=== PATIENT | female | born 1960 | race Caucasian/White ===

== ENCOUNTER 2017-11-01 14:29 | Inpatient (IN) | payer MEDICARE, MEDICAID ==
[~2017-11-01] VITALS: Ht 157.5 cm; Wt 105.0 kg
[2017-11-01 15:30] LABS: BASO # 0.1 x10^3/uL (0.0-0.2); BASO % 1 % (0-3); EOS # 0.2 x10^3/uL (0.0-0.7); EOS % 2 % (0-3); HEMATOCRIT 38.8 % (36.0-47.0); HEMOGLOBIN 13.4 g/dL (12.0-15.5); LYMPH # 3.8 x10^3/uL (1.0-4.8); LYMPH % 46 % (24-48); MEAN CORPUSCULAR HEMOGLOBIN 32 pg (25-35); MEAN CORPUSCULAR HGB CONC 34 g/dL (31-37); MEAN CORPUSCULAR VOLUME 92 fL (79-100); MONO # 0.5 x10^3/uL (0.0-1.1); MONO % 6 % (0-9); NEUT # 3.8 x10^3uL (1.8-7.7); NEUT % 46 % (31-73); PLATELET COUNT 298 x10^3/uL (140-400); RED BLOOD COUNT 4.21 x10^6/uL (3.50-5.40); RED CELL DISTRIBUTION WIDTH 16.1 % (11.5-14.5); WHITE BLOOD COUNT 8.4 x10^3/uL (4.0-11.0)
[2017-11-01] MEDS ORDERED: IV DEXTROSE 5% - 0.9 % NACL 1,000 ML IV ONE (15:30)
[2017-11-01] MEDS ORDERED: ONDANSETRON PF 4 MG/2 ML VIAL. IV PRN (15:30)
[2017-11-01 15:44] LABS: ALBUMIN 3.2 g/dL (3.4-5.0); ALBUMIN/GLOBULIN RATIO 0.7 (1.0-1.7); CALCIUM 9.2 mg/dL (8.5-10.1); CREATININE 1.1 mg/dL (0.6-1.0); GFR 50.8; MAGNESIUM 1.6 mg/dL (1.8-2.4); POTASSIUM 4.8 mmol/L (3.5-5.1); TOTAL BILIRUBIN 0.4 mg/dL (0.2-1.0)
[2017-11-01 15:45] LABS: TOTAL PROTEIN 7.5 g/dL (6.4-8.2)
[2017-11-01] MEDS ORDERED: IV NORMAL SALINE 1,000ML 1,000 ML IV ONE (16:30)
--- NOTE | 2017-11-01 16:30 | ED.ADGEN ---
Past History Past Medical History: Anxiety, CVA, Diabetes Past Surgical History: No Surgical History Alcohol Use: None Drug Use: None Adult General Chief Complaint Chief Complaint Medical screening exam. [facility] Patient is a 57-year-old female history of diabetes, CVA and Parkinson's home [facility] presents for clearance for psychiatric . Patient currently denies any medical complaints. Has history of depression. Patient alert oriented person place on ED arrival. Additional history obtained from medical record.[] Review of Systems Review of Systems ROS as per [facility]. All other systems were reviewed and found to be within normal limits, except as documented in this note. Current Medications Current Medications Current Medications Medications (Trade) Dose Ordered Sig/Mohini Start Time Stop Time Status Last Admin Dose Admin Dextrose/Sodium Chloride 1,000 ml @ 75 mls/hr 1X ONCE 11/01/17 15:30 11/01/17 15:42 DC Lactulose (Lactulose) 45 gm QID 11/01/17 17:00 11/01/17 17:00 DC Ondansetron HCl (Zofran) 4 mg PRN Q4HRS PRN 11/01/17 15:30 11/01/17 15:37 DC Sodium Chloride 1,000 ml @ 1,000 mls/hr 1X ONCE 11/01/17 16:30 11/01/17 17:29 DC 11/01/17 17:43 1,000 MLS/HR Allergies Allergies Allergies Coded Allergies Type Severity Reaction Last Updated Verified Penicillins Allergy Unknown 11/01/17 Yes Physical Exam Physical Exam Constitutional: Well developed, well nourished, no acute distress, coarse resting tremors [] HENT: Normocephalic, atraumatic, bilateral external ears normal, oropharynx moist, no oral exudates, nose normal. [] Eyes: PERRLA, EOMI, conjunctiva normal, no discharge. [] Neck: Normal range of motion, no tenderness, supple, no stridor. [] Cardiovascular:Heart rate regular rhythm, no murmur [] Lungs & Thorax: Bilateral breath sounds clear to auscultation [] Abdomen: Bowel sounds normal, soft, no tenderness. [] Skin: Warm, dry, no erythema, no rash. [] Extremities: No tenderness, no cyanosis, no clubbing, pedal edema. [] Neurologic: Alert and oriented X 1, normal motor function, normal sensory function, no focal deficits noted. [] Psychologic: Affect, flat.[] Current Patient Data Vital Signs Vital Signs Date Time Temp Pulse Resp B/P (MAP) Pulse Ox O2 Delivery O2 Flow Rate FiO2 11/01/17 15:03 78 18 92 Room Air Lab Results Laboratory Tests Test 11/01/17 15:13 11/01/17 16:59 11/01/17 17:37 White Blood Count 8.4 x10^3/uL (4.0-11.0) Red Blood Count 4.21 x10^6/uL (3.50-5.40) Hemoglobin 13.4 g/dL (12.0-15.5) Hematocrit 38.8 % (36.0-47.0) Mean Corpuscular Volume 92 fL (79-100) Mean Corpuscular Hemoglobin 32 pg (25-35) Mean Corpuscular Hemoglobin Concent 34 g/dL (31-37) Red Cell Distribution Width 16.1 % (11.5-14.5) H Platelet Count 298 x10^3/uL (140-400) Neutrophils (%) (Auto) 46 % (31-73) Lymphocytes (%) (Auto) 46 % (24-48) Monocytes (%) (Auto) 6 % (0-9) Eosinophils (%) (Auto) 2 % (0-3) Basophils (%) (Auto) 1 % (0-3) Neutrophils # (Auto) 3.8 x10^3uL (1.8-7.7) Lymphocytes # (Auto) 3.8 x10^3/uL (1.0-4.8) Monocytes # (Auto) 0.5 x10^3/uL (0.0-1.1) Eosinophils # (Auto) 0.2 x10^3/uL (0.0-0.7) Basophils # (Auto) 0.1 x10^3/uL (0.0-0.2) Sodium Level 136 mmol/L (136-145) Potassium Level 4.8 mmol/L (3.5-5.1) Chloride Level 96 mmol/L (98-107) L Carbon Dioxide Level 33 mmol/L (21-32) H Anion Gap 7 (6-14) Blood Urea Nitrogen 27 mg/dL (7-20) H Creatinine 1.1 mg/dL (0.6-1.0) H Estimated GFR (Cockcroft-Gault) 50.8 BUN/Creatinine Ratio 25 (6-20) H Glucose Level 363 mg/dL (70-99) H Calcium Level 9.2 mg/dL (8.5-10.1) Magnesium Level 1.6 mg/dL (1.8-2.4) L Total Bilirubin 0.4 mg/dL (0.2-1.0) Aspartate Amino Transferase (AST) 63 U/L (15-37) H Alanine Aminotransferase (ALT) 11 U/L (14-59) L Alkaline Phosphatase 117 U/L (46-116) H Total Protein 7.5 g/dL (6.4-8.2) Albumin 3.2 g/dL (3.4-5.0) L Albumin/Globulin Ratio 0.7 (1.0-1.7) L Ethyl Alcohol Level < 10 mg/dL (0-10) Urine Collection Type Unknown Urine Color Straw Urine Clarity Cloudy Urine pH 7.0 Urine Specific [place] 1.015 Urine Protein Neg (NEG-TRACE) Urine Glucose (UA) 500 mg/dL (NEG) Urine Ketones (Stick) Neg mg/dL (NEG) Urine Blood Mod (NEG) Urine Nitrite Pos (NEG) Urine Bilirubin Neg (NEG) Urine Urobilinogen Dipstick 0.2 mg/dL (0.2 mg/dL) Urine Leukocyte Esterase Mod (NEG) Urine RBC 3-5 /HPF (0-2) Urine WBC 11-20 /HPF (0-4) Urine Squamous Epithelial Cells Occ /LPF Urine Bacteria Many /HPF (0-FEW) Glucose (Fingerstick) 402 mg/dL (70-99) H EKG EKG [EKG: Sinus rhythm, no acute ST-T wave changes on preliminary ED review] Radiology/Procedures Radiology/Procedures [] Course & Med Decision Making Course & Med Decision Making Pertinent Labs and Imaging studies reviewed. (See chart for details) [Clearance for psychiatric admission. Patient noted hyperglycemic and sufficiency. IV fluids given. Will admit to psychiatric unit with anticipated hospital consult for management of diabetes] Final Impression Final Impression [1. Medical evaluation for psychiatric evaluation 2. hyperglycemia] Dragon Disclaimer Dragon Disclaimer This electronic medical record was generated, in whole or in part, using a voice recognition dictation system. HONORIO RUIZ DO November 01, 2017 16:30
[2017-11-01] MEDS ORDERED: LACTULOSE 20 GM/30 ML SOLUTION. PO SCH (17:00)
--- NOTE | 2017-11-01 17:17 | EKG ---
[address] [address] Test Date: 2017-11-01 Test Time: 16:17:54 Pat Name: MARGA WALLS Department: Room: Gender: F Manager Star: TONYA : 1960 Requested By: HONORIO RUIZ Order Number: [id number] Reading MD: Measurements Intervals [place] Rate: 91 P: 29 TX: 138 QRS: 14 QRSD: 74 T: 28 QT: 372 QTc: 459 Interpretive Statements SINUS RHYTHM QRS(T) CONTOUR ABNORMALITY CONSIDER INFERIOR MYOCARDIAL DAMAGE POSSIBLY ABNORMAL ECG RI6.01 No previous ECG available for comparison
[2017-11-01] MEDS ORDERED: HYDR-971 PO ×2 (17:31→23:02)
[2017-11-01] MEDS ORDERED: DIVA250T PO (17:31)
[2017-11-01] MEDS ORDERED: VITS42.55 TP (17:31)
[2017-11-01] MEDS ORDERED: TRAV5DRO OU (17:31)
[2017-11-01] MEDS ORDERED: TROL177. TP (17:31)
[2017-11-01] MEDS ORDERED: MULT-460 PO (17:31)
[2017-11-01] MEDS ORDERED: CARB1TAB2 PO (17:31)
[2017-11-01] MEDS ORDERED: CICL6.6S TP (17:31)
[2017-11-01] MEDS ORDERED: SENN-79 PO (17:31)
[2017-11-01] MEDS ORDERED: POTA20TA4 PO (17:31)
[2017-11-01] MEDS ORDERED: LISI2.5T PO (17:31)
[2017-11-01] MEDS ORDERED: INSU100I30 SQ (17:31)
[2017-11-01] MEDS ORDERED: MELA3TAB2 PO (17:31)
[2017-11-01] MEDS ORDERED: CHOL100013 PO (17:31)
[2017-11-01] MEDS ORDERED: GABA-585 PO (17:31)
[2017-11-01] MEDS ORDERED: INSU100C4 SQ (17:31)
[2017-11-01 17:42] LABS: BILIRUBIN,URINE NEG (NEG); CLARITY,URINE CLOUDY; COLOR,URINE STRAW; GLUCOSE,URINE 500 mg/dL (NEG)
[2017-11-01 17:43] LABS: BACTERIA,URINE MANY /HPF (0-FEW); BARBITURATES NEG (NEG); BENZODIAZEPINES NEG (NEG); CANNABINOIDS NEG (NEG); COCAINE NEG (NEG); METHADONE NEG (NEG); NITRITE,URINE POS (NEG); OPIATES POS (NEG); PHENCYCLIDINE NEG (NEG); SQUAMOUS EPITHELIAL CELL,UR OCC /LPF; UROBILINOGEN,URINE 0.2 mg/dL (0.2 mg/dL)
[2017-11-01 17:55] LABS: AMPHETAMINE/METHAMPHETAMINE NEG (NEG)
[2017-11-01 20:06] VITALS: BP 142/53
--- NOTE | 2017-11-01 20:09 | PDOC ---
Exam Note: Miguel A Note: Please also refer to the separate dictated note~for this date of service dictated separately.~Patient seen individually. Discussed the patient with Nursing staff reviewed the chart.~Reviewed interim history and current functioning. Reviewed vital signs,~Labs/ Radiology~and current medications noted below. Continue current treatment with the changes noted in the dictated addendum note Assessment: Vital Signs: Vital Signs Date Time Temp Pulse Resp B/P (MAP) Pulse Ox O2 Delivery O2 Flow Rate FiO2 11/01/17 20:06 99.2 79 20 142/53 (82) 92 11/01/17 18:02 Room Air Labs: Laboratory Tests Test 11/01/17 15:13 11/01/17 16:59 11/01/17 17:37 11/01/17 18:26 White Blood Count 8.4 x10^3/uL (4.0-11.0) Red Blood Count 4.21 x10^6/uL (3.50-5.40) Hemoglobin 13.4 g/dL (12.0-15.5) Hematocrit 38.8 % (36.0-47.0) Mean Corpuscular Volume 92 fL (79-100) Mean Corpuscular Hemoglobin 32 pg (25-35) Mean Corpuscular Hemoglobin Concent 34 g/dL (31-37) Red Cell Distribution Width 16.1 % (11.5-14.5) H Platelet Count 298 x10^3/uL (140-400) Neutrophils (%) (Auto) 46 % (31-73) Lymphocytes (%) (Auto) 46 % (24-48) Monocytes (%) (Auto) 6 % (0-9) Eosinophils (%) (Auto) 2 % (0-3) Basophils (%) (Auto) 1 % (0-3) Neutrophils # (Auto) 3.8 x10^3uL (1.8-7.7) Lymphocytes # (Auto) 3.8 x10^3/uL (1.0-4.8) Monocytes # (Auto) 0.5 x10^3/uL (0.0-1.1) Eosinophils # (Auto) 0.2 x10^3/uL (0.0-0.7) Basophils # (Auto) 0.1 x10^3/uL (0.0-0.2) Sodium Level 136 mmol/L (136-145) Potassium Level 4.8 mmol/L (3.5-5.1) Chloride Level 96 mmol/L (98-107) L Carbon Dioxide Level 33 mmol/L (21-32) H Anion Gap 7 (6-14) Blood Urea Nitrogen 27 mg/dL (7-20) H Creatinine 1.1 mg/dL (0.6-1.0) H Estimated GFR (Cockcroft-Gault) 50.8 BUN/Creatinine Ratio 25 (6-20) H Glucose Level 363 mg/dL (70-99) H Calcium Level 9.2 mg/dL (8.5-10.1) Magnesium Level 1.6 mg/dL (1.8-2.4) L Total Bilirubin 0.4 mg/dL (0.2-1.0) Aspartate Amino Transferase (AST) 63 U/L (15-37) H Alanine Aminotransferase (ALT) 11 U/L (14-59) L Alkaline Phosphatase 117 U/L (46-116) H Total Protein 7.5 g/dL (6.4-8.2) Albumin 3.2 g/dL (3.4-5.0) L Albumin/Globulin Ratio 0.7 (1.0-1.7) L Ethyl Alcohol Level < 10 mg/dL (0-10) Urine Collection Type Unknown Urine Color Straw Urine Clarity Cloudy Urine pH 7.0 Urine Specific [place] 1.015 Urine Protein Neg (NEG-TRACE) Urine Glucose (UA) 500 mg/dL (NEG) Urine Ketones (Stick) Neg mg/dL (NEG) Urine Blood Mod (NEG) Urine Nitrite Pos (NEG) Urine Bilirubin Neg (NEG) Urine Urobilinogen Dipstick 0.2 mg/dL (0.2 mg/dL) Urine Leukocyte Esterase Mod (NEG) Urine RBC 3-5 /HPF (0-2) Urine WBC 11-20 /HPF (0-4) Urine Squamous Epithelial Cells Occ /LPF Urine Bacteria Many /HPF (0-FEW) Urine Opiates Screen Pos (NEG) Urine Methadone Screen Neg (NEG) Urine Barbiturates Neg (NEG) Urine Phencyclidine Screen Neg (NEG) Urine Amphetamine/Methamphetamine Neg (NEG) Urine Benzodiazepines Screen Neg (NEG) Urine Cocaine Screen Neg (NEG) Urine Cannabinoids Screen Neg (NEG) Urine Ethyl Alcohol Neg (NEG) Glucose (Fingerstick) 402 mg/dL (70-99) H 376 mg/dL (70-99) H Current Medications: Meds: Current Medications Ondansetron HCl (Zofran) 4 mg PRN Q4HRS PRN IV NAUSEA/VOMITING; Start 11/01/17 at 15:30; Stop 11/01/17 at 15:37; Status DC Lactulose (Lactulose) 45 gm QID PO ; Start 11/01/17 at 17:00; Stop 11/01/17 at 17:00; Status DC Dextrose/Sodium Chloride 1,000 ml @ 75 mls/hr 1X ONCE IV ; Start 11/01/17 at 15:30; Stop 11/01/17 at 15:42; Status DC Sodium Chloride 1,000 ml @ 1,000 mls/hr 1X ONCE IV Last administered on at 17:43; Start 11/01/17 at 16:30; Stop 11/01/17 at 17:29; Status DC Active Scripts Active Reported [place] 5-325 Tablet (Hydrocodone Bit/Acetaminophen) 1 Each Tablet 1 Tab PO [id number] PRN Sinemet 25-100 Mg Tablet (Carbidopa/Levodopa) 1 Each Tablet 1 Each PO [id number] Gabapentin 100 Mg Capsule 100 Mg PO TID Depakote Er (Divalproex Sodium) 250 Mg Tab.er.24h 750 Mg PO BID Vitamin D (Cholecalciferol (Vitamin D3)) 1,000 Unit Capsule 5,000 Unit PO DAILY Travatan Z (Travoprost) 5 Ml Drops 1 Drop OU QHS Senna (Sennosides) 8.6 Mg Tablet 2 Tab PO DAILY Klor-Con M20 (Potassium Chloride) 20 Meq Tab.er.prt 20 Meq PO DAILY Multiple Vitamin (Multivitamin With Minerals) 1 Each Tablet 1 Each PO DAILY Melatonin 3 Mg Tablet 6 Mg PO HS Lisinopril 2.5 Mg Tablet 2.5 Mg PO DAILY Novolog (Insulin Aspart) 100 Unit/1 Ml Cartridge 40 Unit SQ TIDAC A and D Ointment (Vits A and D/White Pet/Lanolin) 42.5 Gm Oint...g. 1 Applic TP TID Tresiba Flextouch U-100 (Insulin Degludec) 100 Unit/1 Ml Insuln.pen 65 Unit SQ BID Penlac (Ciclopirox) 6.6 Ml Solution 1 Applic TP WEEKLYHS PRN Aspercreme (Trolamine Salicylate) 177.4 Ml Lotion 1 Renetta TP HS I have reviewed the current psychotropics carefully including drug interactions. Risk benefit ratio favors no change other than as noted in my dictated progress note. Diagnosis: Problems: (1) Anxiety disorder (2) Bipolar affective, mixed, sev w/ psych (3) Impulse control disorder CHINO JOHNS MD November 01, 2017 20:09
[2017-11-01] MEDS ORDERED: MAG HYDROX/AL HYDROX/SIMETH 30 ML ORAL.SUSP PO PRN (20:15)
[2017-11-01] MEDS ORDERED: MAGNESIUM HYDROXIDE 2,400 MG/30 ML ORAL.SUSP. PO PRN (20:15)
[2017-11-01] MEDS ORDERED: ACETAMINOPHEN 325 MG TABLET PO PRN (20:15)
[2017-11-01] MEDS ORDERED: METHYL SALICYLATE/MENTHOL TOPICAL OINTMENT 29GM TUBE. TP PRN (20:15)
--- NOTE | 2017-11-01 20:33 | HP ---
ADMIT DATE: 11/01/2017 PSYCHIATRIC ADMISSION HISTORY/EVALUATION This note covers elements not covered in my initial note 11/01/2017. IDENTIFYING DATA: The patient is a 57-year-old female referred to us from [facility] by Dr. Devin Marrero, her primary care physician and Dr. Laya Rush, her psychiatrist on account of increased aggressive behaviors towards staff. She has been yelling out, making allegations of abuse, hitting herself, repetitive calling out, attempting to physically attack staff and using racial slurs, being manipulative. Symptoms have worsened for about 2 weeks within the context of her bipolar disorder mixed with psychotic features. She has failed outpatient psychiatric interventions resulting in this referral. I met with the patient the evening of 11/01/2017. Discussed with nursing staff, previously had discussed with staff on 2 or 3 occasions to gather background historical information from the halfway. CHIEF COMPLAINT: "I have bipolar disorder. I was diagnosed when I was about 28 years old. I have been in [facility] for about 3 years. Before that I was at the halfway in [place]. I think my bipolar has been getting worse in the last 2-3 weeks and that is why I have been doing what I have been doing." HISTORY OF PRESENT ILLNESS: The patient relates a history of bipolar disorder starting in her 30s with periods of elation, racing thoughts, alternating with being depressed. She admits to getting psychotic, agitated, sleep and appetite changes. All of which have been resurfacing recently over the past 1 or 2 weeks. No active suicidal or homicidal ideation. Cognitively, she is reasonably intact, but does have marked anxiety and some obsessiveness. PAST PSYCHIATRIC HISTORY: As above. MEDICAL HISTORY: Status post CVA, diabetes mellitus, chronic pain, and COPD. She has a Lacey lift, has limited mobility, Parkinson's disease, dysphagia, foot drop, glaucoma. ALLERGIES: PENICILLIN. DIET: Mechanical soft. CURRENT PSYCHOTROPICS: Abilify mg at bedtime, Depakote 750 mg b.i.d., Lexapro 10 mg a day, melatonin 3 mg at bedtime, trazodone 100 mg at bedtime. FAMILY HISTORY: Positive for bipolar disorder. Alcohol abuse in both biological parents according to the patient. The patient states she has 1 daughter and believes this daughter has bipolar disorder as well, though the daughter is not willing to accept it. SOCIAL HISTORY: No history of alcohol, drug abuse, physical, sexual or elder abuse history is noted. Not known to be a perpetrator. As noted, she has 1 daughter who lives in [place], [place], has no contact with the patient. MENTAL STATUS EXAM: The patient was seen individually evening of 11/01/2017. She is big built, transfers with Lacey lift. She has some mouth movements, well oriented. Speech is coherent. Thought processes goal directed. Intellect average. She appears somewhat paranoid, anxious, distractable. No active suicidal or homicidal ideation. Intellect average. Insight age appropriate. Judgment intact to standard questioning. ASSETS: Supportive placement at the halfway. REACTION TO HOSPITALIZATION: The patient accepting of it. MENTAL STATUS EXAM: The patient was seen individually evening of 11/01/2017. She is well oriented, able to give me a coherent history. Speech otherwise coherent, at times somewhat rapid. Abstraction fair, computation somewhat impaired. Attention span short. Language function intact. No suicidal or homicidal ideation. She is paranoid, suspicious, somewhat labile. Mood and affect is mood congruent. IMPRESSION: Bipolar 1 disorder, mixed with psychotic features; anxiety disorder, unspecified; impulse control disorder, unspecified. Rest as above. PLAN: Admit to geropsychiatry unit at [facility]. I will see the patient daily individually from a psychiatric standpoint, medical followup per Dr. Marcus/Dr Bob. Continue the patient on her current psychotropics. Check a valproic acid level. Adjust further as clinically indicated, post baseline assessment. MAN Richard JOHNS MD DR: GLENN/cory JOB#: [id number] / [id number]
[2017-11-01] MEDS ORDERED: ENOXAPARIN 40 MG/0.4 ML SYRINGE. SQ SCH (21:00)
[2017-11-01] MEDS ORDERED: ATORVASTATIN CA80 MG PO (23:02)
[2017-11-01] MEDS ORDERED: OMEG-33 PO (23:02)
[2017-11-01] MEDS ORDERED: GLUC1KIT IJ (23:02)
[2017-11-01] MEDS ORDERED: CYCL-331 PO (23:02)
[2017-11-01] MEDS ORDERED: LOPE2CAP88 PO (23:02)
[2017-11-01] MEDS ORDERED: TRAZ-90 PO (23:02)
[2017-11-01] MEDS ORDERED: IBUP100O25 PO (23:02)
[2017-11-01] MEDS ORDERED: ARIP15TA36 PO (23:02)
[2017-11-01] MEDS ORDERED: TROL85CR14 TP (23:02)
[2017-11-01] MEDS ORDERED: LEXAPRO10 MG PO (23:02)
[2017-11-01] MEDS ORDERED: LEVO300T4 PO (23:02)
[2017-11-01] MEDS ORDERED: LEVO200T5 PO (23:02)
[2017-11-01] MEDS ORDERED: FENO200C PO (23:02)
[2017-11-01] MEDS ORDERED: FURO-69 PO (23:02)
[2017-11-01] MEDS ORDERED: TROLAMINE SALICYLATE 10% TOPICAL CREAM 85GM JAR. TP PRN (23:15)
[2017-11-01] MEDS ORDERED: LOPERAMIDE HCL 2 MG PO PRN (23:15)
[2017-11-01] MEDS ORDERED: IBUPROFEN 200 MG PO PRN (23:15)
[2017-11-01] MEDS ORDERED: HYDROCODONE BIT PO PRN ×2 (23:15)
[2017-11-01] MEDS ORDERED: CYCLOBENZAPRINE 10MG 4TABLET STARTPACK PO PRN (23:15)
[2017-11-01] MEDS ORDERED: NON FORMULARY ITEM (Glucagon,Human Recombinant (Glucagon Emergency Kit) 1 MG) IJ PRN (23:15)
[2017-11-01] MEDS ORDERED: ACETAMINOPHEN PO PRN ×2 (23:15)
[2017-11-01] MEDS ORDERED: CICLOPIROX TP PRN (23:15)
[2017-11-01] MEDS ORDERED: TRAZODONE HCL 100 MG PO PRN (23:15)
[2017-11-02] MEDS ORDERED: MELA3TAB2 PO (00:37)
[2017-11-02] MEDS ORDERED: traZODone 100 MG TABLET. PO PRN (01:00)
[2017-11-02] MEDS ORDERED: TROLAMINE SALICYLATE 10% TOPICAL CREAM 85GM JAR. TP PRN (01:15)
[2017-11-02] MEDS ORDERED: LOPERAMIDE 2 MG CAPSULE PO PRN (01:15)
[2017-11-02] MEDS ORDERED: CYCLOBENZAPRINE 10 MG TABLET. PO PRN (01:15)
[2017-11-02] MEDS ORDERED: IBUPROFEN 200 MG TABLET PO PRN (01:15)
[2017-11-02] MEDS ORDERED: GLUCAGON,HUMAN RECOMBINANT 1 MG KIT. IM PRN (01:15)
[2017-11-02] MEDS: HYDROcodone/APAP 5/325MG 1 TAB TABLET PO PRN (02:45)
[2017-11-02] MEDS: LEVOTHYROXINE 100 MCG TABLET PO SCH ×2 (06:00→07:59)
[2017-11-02] MEDS ORDERED: CARBIDOPA/LEVODOPA 25/100MG TABLET PO SCH (07:00)
[2017-11-02] MEDS ORDERED: NON FORMULARY ITEM (Levothyroxine Sodium 200 MCG) PO SCH (07:30)
[2017-11-02] MEDS ORDERED: INSULIN ASPART 40 UNIT SQ SCH (07:30)
[2017-11-02 07:46] LABS: BASO # 0.1 x10^3/uL (0.0-0.2); BASO % 1 % (0-3); EOS # 0.1 x10^3/uL (0.0-0.7); EOS % 1 % (0-3); HEMATOCRIT 35.5 % (36.0-47.0); LYMPH # 3.6 x10^3/uL (1.0-4.8); LYMPH % 44 % (24-48); MEAN CORPUSCULAR HEMOGLOBIN 32 pg (25-35); MEAN CORPUSCULAR HGB CONC 34 g/dL (31-37); MEAN CORPUSCULAR VOLUME 94 fL (79-100); MONO # 0.6 x10^3/uL (0.0-1.1); MONO % 8 % (0-9); NEUT # 3.7 x10^3uL (1.8-7.7); NEUT % 46 % (31-73); PLATELET COUNT 274 x10^3/uL (140-400); RED CELL DISTRIBUTION WIDTH 16.3 % (11.5-14.5); WHITE BLOOD COUNT 8.1 x10^3/uL (4.0-11.0)
[2017-11-02] MEDS: OMEGA-3 FATTY ACIDS/FISH OIL 1,000 MG CAPSULE. PO SCH ×2 (07:56→11:24)
[2017-11-02] MEDS: ENOXAPARIN 40 MG/0.4 ML SYRINGE. SQ SCH ×2 (07:56→11:23)
[2017-11-02] MEDS: POTASSIUM CHLORIDE 20 MEQ TABLET.ER. PO SCH ×2 (07:57→11:26)
[2017-11-02] MEDS: LISINOPRIL 2.5 MG TABLET PO SCH ×2 (07:57→11:25)
[2017-11-02] MEDS: ARIPiprazole 15 MG TABLET PO SCH ×2 (07:57→11:24)
[2017-11-02] MEDS: FUROSEMIDE 20 MG TABLET PO SCH ×2 (07:58→11:23)
[2017-11-02] MEDS: SENNOSIDES/DOCUSATE 8.6/50MG TABLET. PO SCH ×2 (07:58→11:24)
[2017-11-02] MEDS: GABAPENTIN 100 MG CAPSULE. PO SCH ×3 (07:58→20:43)
[2017-11-02] MEDS: MULTIVITAMIN with MINERAL TABLET. PO SCH ×2 (07:58→11:25)
[2017-11-02] MEDS: CITALOPRAM 20 MG TABLET. PO SCH ×2 (07:59→11:25)
[2017-11-02] MEDS: CARBIDOPA/LEVODOPA 25/100MG TABLET PO SCH ×4 (08:00→20:43)
[2017-11-02] MEDS: CHOLECALCIFEROL (VITAMIN D3) 1,000 UNIT TABLET PO SCH ×2 (08:00→11:26)
[2017-11-02] MEDS: DIVALPROEX SODIUM 250 MG TABLET.DR. PO SCH ×3 (08:00→20:44)
[2017-11-02 08:57] LABS: ALBUMIN/GLOBULIN RATIO 0.8 (1.0-1.7); CALCIUM 9.6 mg/dL (8.5-10.1); CREATININE 1.2 mg/dL (0.6-1.0); POTASSIUM 4.6 mmol/L (3.5-5.1); TOTAL BILIRUBIN 0.3 mg/dL (0.2-1.0); TOTAL PROTEIN 6.9 g/dL (6.4-8.2)
[2017-11-02 08:58] LABS: MAGNESIUM 1.9 mg/dL (1.8-2.4); VAL ACID 17 mcg/mL (50-100)
[2017-11-02] MEDS ORDERED: VITS A & D/LANOLIN TOPICAL OINTMENT 56GM TUBE. TP SCH (09:00)
[2017-11-02] MEDS ORDERED: OMEGA PO SCH (09:00)
[2017-11-02] MEDS ORDERED: GABAPENTIN 100 MG CAPSULE. PO SCH (09:00)
[2017-11-02] MEDS ORDERED: POTASSIUM CHLORIDE 20 MEQ TABLET.ER. PO SCH (09:00)
[2017-11-02] MEDS ORDERED: FUROSEMIDE 20 MG TABLET PO SCH (09:00)
[2017-11-02] MEDS ORDERED: INSULIN DEGLUDEC 65 UNIT SQ SCH (09:00)
[2017-11-02] MEDS ORDERED: FATTY ACIDS PO SCH (09:00)
[2017-11-02] MEDS ORDERED: FISH OIL PO SCH (09:00)
[2017-11-02] MEDS ORDERED: NON FORMULARY ITEM (Lisinopril 2.5 MG) PO SCH (09:00)
[2017-11-02] MEDS ORDERED: NON FORMULARY ITEM (Multivitamin With Minerals (Multiple Vitamin) 1 EACH) PO SCH (09:00)
[2017-11-02] MEDS ORDERED: LEVOTHYROXINE 100 MCG TABLET PO SCH ×2 (09:00)
[2017-11-02] MEDS ORDERED: FENOFIBRATE MICRONIZED 200 MG PO SCH (09:00)
[2017-11-02] MEDS ORDERED: NICOTINE 7MG PATCH. TD SCH (09:00)
[2017-11-02] MEDS ORDERED: ESCITALOPRAM OXALATE 10 MG PO SCH (09:00)
[2017-11-02] MEDS ORDERED: CHOLECALCIFEROL 5000 UNIT PO SCH (09:00)
[2017-11-02] MEDS ORDERED: DIVALPROEX SODIUM 750 MG PO SCH (09:00)
[2017-11-02] MEDS ORDERED: SENNOSIDES PO SCH (09:00)
[2017-11-02] MEDS: INSULIN LISPRO 300 UNITS/3 ML INSULN.PEN. SQ SCH ×3 (09:50→16:30)
[2017-11-02] MEDS: INSULIN GLARGINE 300 UNITS/3 ML INSULN.PEN. SQ SCH ×2 (09:51→20:48)
[2017-11-02] MEDS: HYDROcodone/APAP 5/325MG 1 TAB TABLET PO SCH ×4 (11:28→20:53)
[2017-11-02 11:48] LABS: TRIGLYCERIDES 1066 mg/dL (0-150); VLDLC 213 mg/dL (0-40)
[2017-11-02 11:49] LABS: THYROID STIM HORMONE (TSH) 4.656 uIU/mL (0.358-3.740)
[2017-11-02 13:09] LABS: T3 TOTAL 68 ng/dL (71-180); THYROXINE 7.9 ug/dL (4.5-12.0)
[2017-11-02 16:07] LABS: HEMOGLOBIN A1C 8.7 % (4.8-5.6)
[2017-11-02 16:33] VITALS: BP 136/52
[2017-11-02] MEDS ORDERED: ARIPIPRAZOLE 15 MG PO SCH (18:00)
[2017-11-02] MEDS: LATANOPROST 0.005% OPHTH SOLUTION 2.5ML BOTTLE. OU SCH (20:43)
[2017-11-02] MEDS: MELATONIN 3 MG TABLET PO SCH (20:52)
[2017-11-02] MEDS: TROLAMINE SALICYLATE 10% TOPICAL CREAM 85GM JAR. TP SCH (20:53)
[2017-11-02] MEDS: ATORVASTATIN CALCIUM 20 MG TABLET PO SCH (20:53)
[2017-11-02] MEDS: CICLOPIROX 0.77% TOPICAL CREAM 15GM TUBE. TP SCH (20:53)
[2017-11-02] MEDS ORDERED: NON FORMULARY ITEM (Atorvastatin Calcium 80 MG) PO SCH (21:00)
[2017-11-02] MEDS ORDERED: TRAVOPROST OU SCH (21:00)
[2017-11-02] MEDS ORDERED: TROLAMINE SALICYLATE TP SCH (21:00)
[2017-11-02] MEDS ORDERED: NON FORMULARY ITEM (Melatonin 6 MG) PO SCH (21:00)
--- NOTE | 2017-11-02 22:41 | PDOC ---
Exam Note: Miguel A Note: Late entry for date of service November 01, 2017. Please also refer to the separate dictated note~for this date of service dictated separately.~Patient seen individually. Discussed the patient with Nursing staff reviewed the chart.~ Reviewed interim history and current functioning. Reviewed vital signs,~Labs/ Radiology~and current medications noted below. Continue current treatment with the changes noted in the dictated addendum note Assessment: Vital Signs: VS - Last 72 Hours, by Label Date Time Temp Pulse Resp B/P (MAP) Pulse Ox O2 Delivery O2 Flow Rate FiO2 11/02/17 16:33 97.6 87 16 136/52 (80) 92 11/02/17 11:25 79 142/53 11/02/17 07:57 79 142/53 11/02/17 04:10 20 11/02/17 02:45 18 11/01/17 20:06 99.2 79 20 142/53 (82) 92 11/01/17 18:02 81 18 110/57 (74) 97 Room Air 11/01/17 15:03 78 18 92 Room Air Vital Signs Date Time Temp Pulse Resp B/P (MAP) Pulse Ox O2 Delivery O2 Flow Rate FiO2 11/02/17 16:33 97.6 87 16 136/52 (80) 92 11/01/17 18:02 Room Air I&O Intake and Output 11/02/17 07:00 Intake Total 1240 ml Balance 1240 ml Intake Oral 240 ml IV Total 1000 ml # Voids 2 Labs: Laboratory Tests Test 11/02/17 06:38 11/02/17 08:00 11/02/17 12:26 11/02/17 16:49 White Blood Count 8.1 x10^3/uL (4.0-11.0) Red Blood Count 3.80 x10^6/uL (3.50-5.40) Hemoglobin 12.0 g/dL (12.0-15.5) Hematocrit 35.5 % (36.0-47.0) L Mean Corpuscular Volume 94 fL (79-100) Mean Corpuscular Hemoglobin 32 pg (25-35) Mean Corpuscular Hemoglobin Concent 34 g/dL (31-37) Red Cell Distribution Width 16.3 % (11.5-14.5) H Platelet Count 274 x10^3/uL (140-400) Neutrophils (%) (Auto) 46 % (31-73) Lymphocytes (%) (Auto) 44 % (24-48) Monocytes (%) (Auto) 8 % (0-9) Eosinophils (%) (Auto) 1 % (0-3) Basophils (%) (Auto) 1 % (0-3) Neutrophils # (Auto) 3.7 x10^3uL (1.8-7.7) Lymphocytes # (Auto) 3.6 x10^3/uL (1.0-4.8) Monocytes # (Auto) 0.6 x10^3/uL (0.0-1.1) Eosinophils # (Auto) 0.1 x10^3/uL (0.0-0.7) Basophils # (Auto) 0.1 x10^3/uL (0.0-0.2) Sodium Level 137 mmol/L (136-145) Potassium Level 4.6 mmol/L (3.5-5.1) Chloride Level 98 mmol/L (98-107) Carbon Dioxide Level 32 mmol/L (21-32) Anion Gap 7 (6-14) Blood Urea Nitrogen 29 mg/dL (7-20) H Creatinine 1.2 mg/dL (0.6-1.0) H Estimated GFR (Cockcroft-Gault) 46.0 BUN/Creatinine Ratio 24 (6-20) H Glucose Level 413 mg/dL (70-99) H Hemoglobin A1c 8.7 % (4.8-5.6) H Calcium Level 9.6 mg/dL (8.5-10.1) Magnesium Level 1.9 mg/dL (1.8-2.4) Iron Level 69 ug/dL (50-170) Total Iron Binding Capacity 404 ug/dL (250-450) Iron Saturation 17 % (15-34) Total Bilirubin 0.3 mg/dL (0.2-1.0) Aspartate Amino Transferase (AST) 38 U/L (15-37) H Alanine Aminotransferase (ALT) 31 U/L (14-59) Alkaline Phosphatase 127 U/L (46-116) H Total Protein 6.9 g/dL (6.4-8.2) Albumin 3.0 g/dL (3.4-5.0) L Albumin/Globulin Ratio 0.8 (1.0-1.7) L Triglycerides Level 1066 mg/dL (0-150) H Cholesterol Level 187 mg/dL (0-200) LDL Cholesterol, Calculated mg/dL (0-100) VLDL Cholesterol, Calculated 213 mg/dL (0-40) H Non-HDL Cholesterol Calculated mg/dL (0-129) HDL Cholesterol mg/dL (40-60) Cholesterol/HDL Ratio Thyroid Stimulating Hormone (TSH) 4.656 uIU/mL (0.358-3.740) Thyroxine (T4) 7.9 ug/dL (4.5-12.0) Total Triiodothyronine (TT3) 68 ng/dL (71-180) L Valproic Acid Level 17 mcg/mL (50-100) L Valproic Acid Last Dose Date 11/01/17 Valproic Acid Last Dose Time 2100 Rapid Plasma Reagin Pending Glucose (Fingerstick) 402 mg/dL (70-99) H 222 mg/dL (70-99) H 136 mg/dL (70-99) H Test 11/02/17 19:46 Glucose (Fingerstick) 90 mg/dL (70-99) Current Medications: Meds: Current Medications Ondansetron HCl (Zofran) 4 mg PRN Q4HRS PRN IV NAUSEA/VOMITING; Start 11/01/17 at 15:30; Stop 11/01/17 at 15:37; Status DC Lactulose (Lactulose) 45 gm QID PO ; Start 11/01/17 at 17:00; Stop 11/01/17 at 17:00; Status DC Dextrose/Sodium Chloride 1,000 ml @ 75 mls/hr 1X ONCE IV ; Start 11/01/17 at 15:30; Stop 11/01/17 at 15:42; Status DC Sodium Chloride 1,000 ml @ 1,000 mls/hr 1X ONCE IV Last administered on at 17:43; Start 11/01/17 at 16:30; Stop 11/01/17 at 17:29; Status DC Acetaminophen (Tylenol) 650 mg PRN Q6HRS PRN PO PAIN / TEMP; Start 11/01/17 at 20:15 Multi-Ingredient Ointment (Analgesic Abiquiu) 1 renetta PRN QID PRN TP MUSCLE PAIN; Start 11/01/17 at 20:15 Al Hydroxide/Mg Hydroxide (Mylanta Plus Xs) 15 ml PRN AFTMEALHC PRN PO DYSPEPSIA; Start 11/01/17 at 20:15 Magnesium Hydroxide (Milk Of Magnesia) 2,400 mg PRN QHS PRN PO CONSTIPATION; Start 11/01/17 at 20:15 Nicotine (Nicoderm Cq 7mg) 1 patch DAILY TD ; Start 11/02/17 at 09:00; Stop at 09:00; Status DC Enoxaparin Sodium (Lovenox 40mg Syringe) 40 mg Q24H SQ ; Start 11/01/17 at 21:00 ; Stop 11/02/17 at 00:43; Status DC Non-Formulary Medication (Aripiprazole (Abilify)) 15 mg DAILY@1800 PO ; Start at 18:00; Stop 11/02/17 at 18:00; Status DC Non-Formulary Medication (Divalproex Sodium (Depakote Er)) 750 mg BID PO ; Start 11/02/17 at 09:00; Stop 11/02/17 at 09:00; Status DC Non-Formulary Medication (Escitalopram Oxalate (Lexapro)) 10 mg DAILY PO ; Start 11/02/17 at 09:00; Stop 11/02/17 at 09:00; Status DC Non-Formulary Medication (Melatonin ) 6 mg HS PO ; Start 11/02/17 at 21:00; Stop 11/02/17 at 21:00; Status DC Non-Formulary Medication (Trazodone Hcl ) 100 mg PRN QHS PRN PO INSOMNIA; Start 11/01/17 at 23:15; Stop 11/02/17 at 00:43; Status DC Carbidopa/Levodopa (Sinemet 25/100) 1 tab [id number] PO ; Start 11/02/17 at 07:00; Stop 11/02/17 at 07:00; Status DC Cyclobenzaprine HCl (Starter Pack - Flexeril 10mg) 10 startpack PRN Q8HRS PRN PO PAIN; Start 11/01/17 at 23:15; Stop 11/02/17 at 00:43; Status DC Furosemide (Lasix) 20 mg DAILY PO ; Start 11/02/17 at 09:00; Stop 11/02/17 at 09 :00; Status DC Gabapentin (Neurontin) 100 mg TID PO ; Start 11/02/17 at 09:00; Stop 11/02/17 at 09:00; Status DC Potassium Chloride (Klor-Con) 20 meq DAILY PO ; Start 11/02/17 at 09:00; Stop at 09:00; Status DC Trolamine Salicylate (Myoplex) 85 renetta PRN Q4HRS PRN TP PAIN; Start 11/01/17 at 23:15; Stop 11/02/17 at 00:43; Status DC Vitamin A/Vitamin D (Vitamin A & D Ointment) 1 renetta TID TP ; Start 11/02/17 at 09 :00; Stop 11/02/17 at 09:00; Status DC Non-Formulary Medication (Atorvastatin Calcium ) 80 mg QHS PO ; Start 11/02/17 at 21:00; Stop 11/02/17 at 21:00; Status DC Non-Formulary Medication (Cholecalciferol (Vitamin D3) (Vitamin D)) 5,000 unit DAILY PO ; Start 11/02/17 at 09:00; Stop 11/02/17 at 09:00; Status DC Non-Formulary Medication (Ciclopirox (Penlac)) 1 applic WEEKLYHS PRN TP nail fungus; Start 11/01/17 at 23:15; Stop 11/02/17 at 00:44; Status DC Non-Formulary Medication (Fenofibrate,Micronized (Fenofibrate)) 200 mg DAILY PO ; Start 11/02/17 at 09:00; Stop 11/02/17 at 09:00; Status DC Non-Formulary Medication (Glucagon,Human Recombinant (Glucagon Emergency Kit)) 1 mg q15 minutes PRN IJ low blood sugar; Start 11/01/17 at 23:15; Stop 11/02/17 at 00:44; Status DC Non-Formulary Medication (Hydrocodone Bit/ Acetaminophen ([place] 5-325 Tablet)) 1 tab PRN DAILY PRN PO PAIN; Start 11/01/17 at 23:15; Stop 11/02/17 at 00:44; Status DC Non-Formulary Medication (Hydrocodone Bit/ Acetaminophen ([place] 5-325 Tablet)) 1 tab [id number] PRN PO PAIN; Start 11/01/17 at 23:15; Stop 11/02/17 at 00:44; Status DC Non-Formulary Medication (Ibuprofen ) 200 mg PRN Q8HRS PRN PO PAIN; Start 11/01 at 23:15; Stop 11/02/17 at 00:44; Status DC Non-Formulary Medication (Insulin Aspart (Novolog)) 40 unit TIDAC SQ ; Start at 07:30; Stop 11/02/17 at 07:30; Status DC Non-Formulary Medication (Insulin Degludec (Tresiba Flextouch U-100)) 65 unit BID SQ ; Start 11/02/17 at 09:00; Stop 11/02/17 at 09:00; Status DC Non-Formulary Medication (Levothyroxine Sodium ) 200 mcg DAILYAC PO ; Start at 07:30; Stop 11/02/17 at 07:30; Status DC Non-Formulary Medication (Levothyroxine Sodium ) 300 mcg WEEKLY PO ; Start 11/08 at 09:00; Stop 11/08/17 at 09:00; Status DC Non-Formulary Medication (Lisinopril ) 2.5 mg DAILY PO ; Start 11/02/17 at 09:00 ; Stop 11/02/17 at 09:00; Status DC Non-Formulary Medication (Loperamide HCl (Imodium A-D)) 2 mg PRN DAILY PRN PO DIARRHEA; Start 11/01/17 at 23:15; Stop 11/02/17 at 00:43; Status DC Non-Formulary Medication (Multivitamin With Minerals (Multiple Vitamin)) 1 each DAILY PO ; Start 11/02/17 at 09:00; Stop 11/02/17 at 09:00; Status DC Non-Formulary Medication (Gautier-3 Fatty Acids/Fish Oil (Gautier 3 1,000 Mg Softgel )) 2 each DAILY PO ; Start 11/02/17 at 09:00; Stop 11/02/17 at 09:00; Status DC Non-Formulary Medication (Sennosides (Senna)) 2 tab DAILY PO ; Start 11/02/17 at 09:00; Stop 11/02/17 at 09:00; Status DC Non-Formulary Medication (Travoprost (Travatan Z)) 1 drop QHS OU ; Start at 21:00; Stop 11/02/17 at 21:00; Status DC Non-Formulary Medication (Trolamine Salicylate (Aspercreme)) 1 renetta HS TP ; Start 11/02/17 at 21:00; Stop 11/02/17 at 21:00; Status DC Melatonin 6 mg HS PO Last administered on 11/02/17at 20:52; Start 11/02/17 at 21 :00 Aripiprazole (Abilify) 15 mg DAILY PO Last administered on 11/02/17at 11:24; Start 11/02/17 at 09:00 Citalopram Hydrobromide (CeleXA) 20 mg DAILY PO Last administered on 11/02/17at 11:25; Start 11/02/17 at 09:00 Divalproex Sodium (Depakote) 750 mg BID PO Last administered on 11/02/17at 20:44 ; Start 11/02/17 at 09:00 Trazodone HCl (Desyrel) 100 mg PRN QHS PRN PO INSOMNIA, MAY REPEAT X1 Last administered on 11/02/17at 02:45; Start 11/02/17 at 01:00 Trolamine Salicylate (Myoplex) 1 renetta HS TP ; Start 11/02/17 at 21:00 Trolamine Salicylate (Myoplex) 1 renetta PRN Q4HRS PRN TP PAIN; Start 11/02/17 at 01:15 Ciclopirox Olamine (Loprox) 1 renetta HS TP ; Start 11/02/17 at 21:00 Insulin Human Lispro (HumaLOG) 40 units TIDAC SQ Last administered on at 16:30; Start 11/02/17 at 07:30 Cyclobenzaprine HCl (Flexeril) 10 mg PRN Q8HRS PRN PO MUSCLE SPASMS; Start at 01:15 Glucagon (Glucagen Kit) 1 mg PRN Q15MIN PRN IM HYPOGLYCEMIA; Start 11/02/17 at 01:15 Ibuprofen (Motrin) 200 mg PRN Q8HRS PRN PO INFLAMMATION; Start 11/02/17 at 01: 15 Loperamide HCl (Imodium) 2 mg PRN DAILY PRN PO DIARRHEA; Start 11/02/17 at 01: 15 Acetaminophen/ Hydrocodone Bitart (Lortab 5/325) 1 tab PRN DAILY PRN PO PAIN Last administered on 11/02/17 02:45; Start 11/02/17 at 01:15 Atorvastatin Calcium (Lipitor) 80 mg QHS PO Last administered on 11/02/17 20: 53; Start 11/02/17 at 21:00 Fish Oil (Fish Oil) 2,000 mg DAILY PO Last administered on 11/02/17 11:24; Start 11/02/17 at 09:00 Furosemide (Lasix) 20 mg DAILY PO Last administered on 11/02/17 11:23; Start 11/02/17 at 09:00 Levothyroxine Sodium (Synthroid) 200 mcg DAILY06 PO ; Start 11/02/17 at 06:00; Stop 11/02/17 at 08:05; Status DC Levothyroxine Sodium (Synthroid) 300 mcg WEEKLY PO Last administered on 08:01; Start 11/02/17 at 09:00; Stop 11/02/17 at 09:00; Status DC Lisinopril (Prinivil) 2.5 mg DAILY PO Last administered on 11/02/17 11:25; Start 11/02/17 at 09:00 Multivitamins/ Calcium (Thera-M Plus) 1 tab DAILY PO Last administered on 11:25; Start 11/02/17 at 09:00 Potassium Chloride (Klor-Con) 20 meq DAILY PO Last administered on 11/02/17 11 :26; Start 11/02/17 at 09:00 Senna/Docusate Sodium (Senna Plus) 2 tab DAILY PO Last administered on 11:24; Start 11/02/17 at 09:00 Vitamin D (Vitamin D3) 5,000 unit DAILY PO Last administered on 11/02/17 11:26 ; Start 11/02/17 at 09:00 Gabapentin (Neurontin) 100 mg TID PO Last administered on 11/02/17 20:43; Start 11/02/17 at 09:00 Carbidopa/Levodopa (Sinemet 25/100) 1 tab QID PO Last administered on 20:43; Start 11/02/17 at 09:00 Acetaminophen/ Hydrocodone Bitart (Lortab 5/325) 1 tab QID PO Last administered on 11/02/17 20:53; Start 11/02/17 at 09:00 Latanoprost (Xalatan) 1 drop QHS OU Last administered on 11/02/17at 20:43; Start 11/02/17 at 21:00 Insulin Glargine (Lantus) 65 units BID SQ Last administered on 11/02/17at 20:48 ; Start 11/02/17 at 09:00 Enoxaparin Sodium (Lovenox 40mg Syringe) 40 mg Q12H SQ Last administered on at 11:23; Start 11/02/17 at 07:00 Levothyroxine Sodium (Synthroid) 200 mcg QM-F@0900 PO ; Start 11/04/17 at 09:00 Levothyroxine Sodium (Synthroid) 200 mcg QSU@0900 PO ; Start 11/03/17 at 09:00 Levothyroxine Sodium (Synthroid) 300 mcg QSA@0900 PO Last administered on at 11:24; Start 11/02/17 at 09:00 Active Scripts Active Reported Melatonin 3 Mg Tablet 6 Mg PO HS Trazodone Hcl 100 Mg Tablet 100 Mg PO PRN QHS PRN [place] 5-325 Tablet (Hydrocodone Bit/Acetaminophen) 1 Each Tablet 1 Tab PO PRN DAILY PRN Imodium A-D (Loperamide HCl) 2 Mg Capsule 2 Mg PO PRN DAILY PRN Ibuprofen 100 Mg/5 Ml Oral.susp 200 Mg PO PRN Q8HRS PRN Glucagon Emergency Kit (Glucagon,Human Recombinant) 1 Mg Kit 1 Mg IJ Q15 MINUTES PRN Cyclobenzaprine Hcl 10 Mg Tablet 10 Mg PO PRN Q8HRS PRN Trolamine Salicylate 85 Gm Cream..g. 85 Gm TP PRN Q4HRS PRN Lexapro (Escitalopram Oxalate) 10 Mg Tablet 10 Mg PO DAILY Levothyroxine Sodium 300 Mcg Tablet 300 Mcg PO WEEKLY Levothyroxine Sodium 200 Mcg Tablet 200 Mcg PO DAILYAC Lasix (Furosemide) 20 Mg Tablet 20 Mg PO DAILY Gautier 3 1,000 Mg Softgel (Gautier-3 Fatty Acids/Fish Oil) 1 Each Capsule 2 Each PO DAILY Fenofibrate (Fenofibrate,Micronized) 200 Mg Capsule 200 Mg PO DAILY Atorvastatin Calcium 80 Mg Tablet 80 Mg PO QHS Abilify (Aripiprazole) 15 Mg Tablet 15 Mg PO DAILY@1800 [place] 5-325 Tablet (Hydrocodone Bit/Acetaminophen) 1 Each Tablet 1 Tab PO [id number] PRN Sinemet 25-100 Mg Tablet (Carbidopa/Levodopa) 1 Each Tablet 1 Each PO [id number] Gabapentin 100 Mg Capsule 100 Mg PO TID Depakote Er (Divalproex Sodium) 250 Mg Tab.er.24h 750 Mg PO BID Vitamin D (Cholecalciferol (Vitamin D3)) 1,000 Unit Capsule 5,000 Unit PO DAILY Travatan Z (Travoprost) 5 Ml Drops 1 Drop OU QHS Senna (Sennosides) 8.6 Mg Tablet 2 Tab PO DAILY Klor-Con M20 (Potassium Chloride) 20 Meq Tab.er.prt 20 Meq PO DAILY Multiple Vitamin (Multivitamin With Minerals) 1 Each Tablet 1 Each PO DAILY Lisinopril 2.5 Mg Tablet 2.5 Mg PO DAILY Novolog (Insulin Aspart) 100 Unit/1 Ml Cartridge 40 Unit SQ TIDAC A and D Ointment (Vits A and D/White Pet/Lanolin) 42.5 Gm Oint...g. 1 Applic TP TID Tresiba Flextouch U-100 (Insulin Degludec) 100 Unit/1 Ml Insuln.pen 65 Unit SQ BID Penlac (Ciclopirox) 6.6 Ml Solution 1 Applic TP WEEKLYHS PRN Aspercreme (Trolamine Salicylate) 177.4 Ml Lotion 1 Renetta TP HS I have reviewed the current psychotropics carefully including drug interactions. Risk benefit ratio favors no change other than as noted in my dictated progress note. Diagnosis: Problems: (1) Psychiatric diagnosis (2) Anxiety disorder (3) Impulse control disorder (4) Bipolar affective, mixed, sev w/ psych CHINO JOHNS MD November 02, 2017 22:41
--- NOTE | 2017-11-02 23:12 | PDOC ---
Exam Note: Miguel A Note: Please also refer to the separate dictated note~for this date of service dictated separately.~Patient seen individually. Discussed the patient with Nursing staff reviewed the chart.~Reviewed interim history and current functioning. Reviewed vital signs,~Labs/ Radiology~and current medications noted below. Continue current treatment with the changes noted in the dictated addendum note Assessment: Vital Signs: Vital Signs Date Time Temp Pulse Resp B/P (MAP) Pulse Ox O2 Delivery O2 Flow Rate FiO2 11/02/17 16:33 97.6 87 16 136/52 (80) 92 11/01/17 18:02 Room Air I&O Intake and Output 11/02/17 07:00 Intake Total 1240 ml Balance 1240 ml Intake Oral 240 ml IV Total 1000 ml # Voids 2 Labs: Laboratory Tests Test 11/02/17 06:38 11/02/17 08:00 11/02/17 12:26 11/02/17 16:49 White Blood Count 8.1 x10^3/uL (4.0-11.0) Red Blood Count 3.80 x10^6/uL (3.50-5.40) Hemoglobin 12.0 g/dL (12.0-15.5) Hematocrit 35.5 % (36.0-47.0) L Mean Corpuscular Volume 94 fL (79-100) Mean Corpuscular Hemoglobin 32 pg (25-35) Mean Corpuscular Hemoglobin Concent 34 g/dL (31-37) Red Cell Distribution Width 16.3 % (11.5-14.5) H Platelet Count 274 x10^3/uL (140-400) Neutrophils (%) (Auto) 46 % (31-73) Lymphocytes (%) (Auto) 44 % (24-48) Monocytes (%) (Auto) 8 % (0-9) Eosinophils (%) (Auto) 1 % (0-3) Basophils (%) (Auto) 1 % (0-3) Neutrophils # (Auto) 3.7 x10^3uL (1.8-7.7) Lymphocytes # (Auto) 3.6 x10^3/uL (1.0-4.8) Monocytes # (Auto) 0.6 x10^3/uL (0.0-1.1) Eosinophils # (Auto) 0.1 x10^3/uL (0.0-0.7) Basophils # (Auto) 0.1 x10^3/uL (0.0-0.2) Sodium Level 137 mmol/L (136-145) Potassium Level 4.6 mmol/L (3.5-5.1) Chloride Level 98 mmol/L (98-107) Carbon Dioxide Level 32 mmol/L (21-32) Anion Gap 7 (6-14) Blood Urea Nitrogen 29 mg/dL (7-20) H Creatinine 1.2 mg/dL (0.6-1.0) H Estimated GFR (Cockcroft-Gault) 46.0 BUN/Creatinine Ratio 24 (6-20) H Glucose Level 413 mg/dL (70-99) H Hemoglobin A1c 8.7 % (4.8-5.6) H Calcium Level 9.6 mg/dL (8.5-10.1) Magnesium Level 1.9 mg/dL (1.8-2.4) Iron Level 69 ug/dL (50-170) Total Iron Binding Capacity 404 ug/dL (250-450) Iron Saturation 17 % (15-34) Total Bilirubin 0.3 mg/dL (0.2-1.0) Aspartate Amino Transferase (AST) 38 U/L (15-37) H Alanine Aminotransferase (ALT) 31 U/L (14-59) Alkaline Phosphatase 127 U/L (46-116) H Total Protein 6.9 g/dL (6.4-8.2) Albumin 3.0 g/dL (3.4-5.0) L Albumin/Globulin Ratio 0.8 (1.0-1.7) L Triglycerides Level 1066 mg/dL (0-150) H Cholesterol Level 187 mg/dL (0-200) LDL Cholesterol, Calculated mg/dL (0-100) VLDL Cholesterol, Calculated 213 mg/dL (0-40) H Non-HDL Cholesterol Calculated mg/dL (0-129) HDL Cholesterol mg/dL (40-60) Cholesterol/HDL Ratio Thyroid Stimulating Hormone (TSH) 4.656 uIU/mL (0.358-3.740) Thyroxine (T4) 7.9 ug/dL (4.5-12.0) Total Triiodothyronine (TT3) 68 ng/dL (71-180) L Valproic Acid Level 17 mcg/mL (50-100) L Valproic Acid Last Dose Date 11/01/17 Valproic Acid Last Dose Time 2100 Rapid Plasma Reagin Pending Glucose (Fingerstick) 402 mg/dL (70-99) H 222 mg/dL (70-99) H 136 mg/dL (70-99) H Test 11/02/17 19:46 Glucose (Fingerstick) 90 mg/dL (70-99) Current Medications: Meds: Current Medications Ondansetron HCl (Zofran) 4 mg PRN Q4HRS PRN IV NAUSEA/VOMITING; Start 11/01/17 at 15:30; Stop 11/01/17 at 15:37; Status DC Lactulose (Lactulose) 45 gm QID PO ; Start 11/01/17 at 17:00; Stop 11/01/17 at 17:00; Status DC Dextrose/Sodium Chloride 1,000 ml @ 75 mls/hr 1X ONCE IV ; Start 11/01/17 at 15:30; Stop 11/01/17 at 15:42; Status DC Sodium Chloride 1,000 ml @ 1,000 mls/hr 1X ONCE IV Last administered on at 17:43; Start 11/01/17 at 16:30; Stop 11/01/17 at 17:29; Status DC Acetaminophen (Tylenol) 650 mg PRN Q6HRS PRN PO PAIN / TEMP; Start 11/01/17 at 20:15 Multi-Ingredient Ointment (Analgesic [place]) 1 renetta PRN QID PRN TP MUSCLE PAIN; Start 11/01/17 at 20:15 Al Hydroxide/Mg Hydroxide (Mylanta Plus Xs) 15 ml PRN AFTMEALHC PRN PO DYSPEPSIA; Start 11/01/17 at 20:15 Magnesium Hydroxide (Milk Of Magnesia) 2,400 mg PRN QHS PRN PO CONSTIPATION; Start 11/01/17 at 20:15 Nicotine (Nicoderm Cq 7mg) 1 patch DAILY TD ; Start 11/02/17 at 09:00; Stop at 09:00; Status DC Enoxaparin Sodium (Lovenox 40mg Syringe) 40 mg Q24H SQ ; Start 11/01/17 at 21:00 ; Stop 11/02/17 at 00:43; Status DC Non-Formulary Medication (Aripiprazole (Abilify)) 15 mg DAILY@1800 PO ; Start at 18:00; Stop 11/02/17 at 18:00; Status DC Non-Formulary Medication (Divalproex Sodium (Depakote Er)) 750 mg BID PO ; Start 11/02/17 at 09:00; Stop 11/02/17 at 09:00; Status DC Non-Formulary Medication (Escitalopram Oxalate (Lexapro)) 10 mg DAILY PO ; Start 11/02/17 at 09:00; Stop 11/02/17 at 09:00; Status DC Non-Formulary Medication (Melatonin ) 6 mg HS PO ; Start 11/02/17 at 21:00; Stop 11/02/17 at 21:00; Status DC Non-Formulary Medication (Trazodone Hcl ) 100 mg PRN QHS PRN PO INSOMNIA; Start 11/01/17 at 23:15; Stop 11/02/17 at 00:43; Status DC Carbidopa/Levodopa (Sinemet 25/100) 1 tab [id number] PO ; Start 11/02/17 at 07:00; Stop 11/02/17 at 07:00; Status DC Cyclobenzaprine HCl (Starter Pack - Flexeril 10mg) 10 startpack PRN Q8HRS PRN PO PAIN; Start 11/01/17 at 23:15; Stop 11/02/17 at 00:43; Status DC Furosemide (Lasix) 20 mg DAILY PO ; Start 11/02/17 at 09:00; Stop 11/02/17 at 09 :00; Status DC Gabapentin (Neurontin) 100 mg TID PO ; Start 11/02/17 at 09:00; Stop 11/02/17 at 09:00; Status DC Potassium Chloride (Klor-Con) 20 meq DAILY PO ; Start 11/02/17 at 09:00; Stop at 09:00; Status DC Trolamine Salicylate (Myoplex) 85 renetta PRN Q4HRS PRN TP PAIN; Start 11/01/17 at 23:15; Stop 11/02/17 at 00:43; Status DC Vitamin A/Vitamin D (Vitamin A & D Ointment) 1 renetta TID TP ; Start 11/02/17 at 09 :00; Stop 11/02/17 at 09:00; Status DC Non-Formulary Medication (Atorvastatin Calcium ) 80 mg QHS PO ; Start 11/02/17 at 21:00; Stop 11/02/17 at 21:00; Status DC Non-Formulary Medication (Cholecalciferol (Vitamin D3) (Vitamin D)) 5,000 unit DAILY PO ; Start 11/02/17 at 09:00; Stop 11/02/17 at 09:00; Status DC Non-Formulary Medication (Ciclopirox (Penlac)) 1 applic WEEKLYHS PRN TP nail fungus; Start 11/01/17 at 23:15; Stop 11/02/17 at 00:44; Status DC Non-Formulary Medication (Fenofibrate,Micronized (Fenofibrate)) 200 mg DAILY PO ; Start 11/02/17 at 09:00; Stop 11/02/17 at 09:00; Status DC Non-Formulary Medication (Glucagon,Human Recombinant (Glucagon Emergency Kit)) 1 mg q15 minutes PRN IJ low blood sugar; Start 11/01/17 at 23:15; Stop 11/02/17 at 00:44; Status DC Non-Formulary Medication (Hydrocodone Bit/ Acetaminophen ([place] 5-325 Tablet)) 1 tab PRN DAILY PRN PO PAIN; Start 11/01/17 at 23:15; Stop 11/02/17 at 00:44; Status DC Non-Formulary Medication (Hydrocodone Bit/ Acetaminophen ([place] 5-325 Tablet)) 1 tab [id number] PRN PO PAIN; Start 11/01/17 at 23:15; Stop 11/02/17 at 00:44; Status DC Non-Formulary Medication (Ibuprofen ) 200 mg PRN Q8HRS PRN PO PAIN; Start 11/01 at 23:15; Stop 11/02/17 at 00:44; Status DC Non-Formulary Medication (Insulin Aspart (Novolog)) 40 unit TIDAC SQ ; Start at 07:30; Stop 11/02/17 at 07:30; Status DC Non-Formulary Medication (Insulin Degludec (Tresiba Flextouch U-100)) 65 unit BID SQ ; Start 11/02/17 at 09:00; Stop 11/02/17 at 09:00; Status DC Non-Formulary Medication (Levothyroxine Sodium ) 200 mcg DAILYAC PO ; Start at 07:30; Stop 11/02/17 at 07:30; Status DC Non-Formulary Medication (Levothyroxine Sodium ) 300 mcg WEEKLY PO ; Start 11/08 at 09:00; Stop 11/08/17 at 09:00; Status DC Non-Formulary Medication (Lisinopril ) 2.5 mg DAILY PO ; Start 11/02/17 at 09:00 ; Stop 11/02/17 at 09:00; Status DC Non-Formulary Medication (Loperamide HCl (Imodium A-D)) 2 mg PRN DAILY PRN PO DIARRHEA; Start 11/01/17 at 23:15; Stop 11/02/17 at 00:43; Status DC Non-Formulary Medication (Multivitamin With Minerals (Multiple Vitamin)) 1 each DAILY PO ; Start 11/02/17 at 09:00; Stop 11/02/17 at 09:00; Status DC Non-Formulary Medication ([place]-3 Fatty Acids/Fish Oil ([place] 3 1,000 Mg Softgel )) 2 each DAILY PO ; Start 11/02/17 at 09:00; Stop 11/02/17 at 09:00; Status DC Non-Formulary Medication (Sennosides (Senna)) 2 tab DAILY PO ; Start 11/02/17 at 09:00; Stop 11/02/17 at 09:00; Status DC Non-Formulary Medication (Travoprost (Travatan Z)) 1 drop QHS OU ; Start at 21:00; Stop 11/02/17 at 21:00; Status DC Non-Formulary Medication (Trolamine Salicylate (Aspercreme)) 1 renetta HS TP ; Start 11/02/17 at 21:00; Stop 11/02/17 at 21:00; Status DC Melatonin 6 mg HS PO Last administered on 11/02/17at 20:52; Start 11/02/17 at 21 :00 Aripiprazole (Abilify) 15 mg DAILY PO Last administered on 11/02/17at 11:24; Start 11/02/17 at 09:00 Citalopram Hydrobromide (CeleXA) 20 mg DAILY PO Last administered on 11/02/17at 11:25; Start 11/02/17 at 09:00 Divalproex Sodium (Depakote) 750 mg BID PO Last administered on 11/02/17at 20:44 ; Start 11/02/17 at 09:00 Trazodone HCl (Desyrel) 100 mg PRN QHS PRN PO INSOMNIA, MAY REPEAT X1 Last administered on 11/02/17at 02:45; Start 11/02/17 at 01:00 Trolamine Salicylate (Myoplex) 1 renetta HS TP ; Start 11/02/17 at 21:00 Trolamine Salicylate (Myoplex) 1 renetta PRN Q4HRS PRN TP PAIN; Start 11/02/17 at 01:15 Ciclopirox Olamine (Loprox) 1 renetta HS TP ; Start 11/02/17 at 21:00 Insulin Human Lispro (HumaLOG) 40 units TIDAC SQ Last administered on at 16:30; Start 11/02/17 at 07:30 Cyclobenzaprine HCl (Flexeril) 10 mg PRN Q8HRS PRN PO MUSCLE SPASMS; Start at 01:15 Glucagon (Glucagen Kit) 1 mg PRN Q15MIN PRN IM HYPOGLYCEMIA; Start 11/02/17 at 01:15 Ibuprofen (Motrin) 200 mg PRN Q8HRS PRN PO INFLAMMATION; Start 11/02/17 at 01: 15 Loperamide HCl (Imodium) 2 mg PRN DAILY PRN PO DIARRHEA; Start 11/02/17 at 01: 15 Acetaminophen/ Hydrocodone Bitart (Lortab 5/325) 1 tab PRN DAILY PRN PO PAIN Last administered on 11/02/17at 02:45; Start 11/02/17 at 01:15 Atorvastatin Calcium (Lipitor) 80 mg QHS PO Last administered on 11/02/17at 20: 53; Start 11/02/17 at 21:00 Fish Oil (Fish Oil) 2,000 mg DAILY PO Last administered on 11/02/17at 11:24; Start 11/02/17 at 09:00 Furosemide (Lasix) 20 mg DAILY PO Last administered on 11/02/17at 11:23; Start 11/02/17 at 09:00 Levothyroxine Sodium (Synthroid) 200 mcg DAILY06 PO ; Start 11/02/17 at 06:00; Stop 11/02/17 at 08:05; Status DC Levothyroxine Sodium (Synthroid) 300 mcg WEEKLY PO Last administered on at 08:01; Start 11/02/17 at 09:00; Stop 11/02/17 at 09:00; Status DC Lisinopril (Prinivil) 2.5 mg DAILY PO Last administered on 11/02/17 11:25; Start 11/02/17 at 09:00 Multivitamins/ Calcium (Thera-M Plus) 1 tab DAILY PO Last administered on 11:25; Start 11/02/17 at 09:00 Potassium Chloride (Klor-Con) 20 meq DAILY PO Last administered on 11/02/17 11 :26; Start 11/02/17 at 09:00 Senna/Docusate Sodium (Senna Plus) 2 tab DAILY PO Last administered on 11:24; Start 11/02/17 at 09:00 Vitamin D (Vitamin D3) 5,000 unit DAILY PO Last administered on 11/02/17 11:26 ; Start 11/02/17 at 09:00 Gabapentin (Neurontin) 100 mg TID PO Last administered on 11/02/17 20:43; Start 11/02/17 at 09:00 Carbidopa/Levodopa (Sinemet 25/100) 1 tab QID PO Last administered on 20:43; Start 11/02/17 at 09:00 Acetaminophen/ Hydrocodone Bitart (Lortab 5/325) 1 tab QID PO Last administered on 11/02/17 20:53; Start 11/02/17 at 09:00 Latanoprost (Xalatan) 1 drop QHS OU Last administered on 11/02/17 20:43; Start 11/02/17 at 21:00 Insulin Glargine (Lantus) 65 units BID SQ Last administered on 11/02/17 20:48 ; Start 11/02/17 at 09:00 Enoxaparin Sodium (Lovenox 40mg Syringe) 40 mg Q12H SQ Last administered on 11:23; Start 11/02/17 at 07:00 Levothyroxine Sodium (Synthroid) 200 mcg QM-F@0900 PO ; Start 11/04/17 at 09:00 Levothyroxine Sodium (Synthroid) 200 mcg QSU@0900 PO ; Start 11/03/17 at 09:00 Levothyroxine Sodium (Synthroid) 300 mcg QSA@0900 PO Last administered on at 11:24; Start 11/02/17 at 09:00 Active Scripts Active Reported Melatonin 3 Mg Tablet 6 Mg PO HS Trazodone Hcl 100 Mg Tablet 100 Mg PO PRN QHS PRN [place] 5-325 Tablet (Hydrocodone Bit/Acetaminophen) 1 Each Tablet 1 Tab PO PRN DAILY PRN Imodium A-D (Loperamide HCl) 2 Mg Capsule 2 Mg PO PRN DAILY PRN Ibuprofen 100 Mg/5 Ml Oral.susp 200 Mg PO PRN Q8HRS PRN Glucagon Emergency Kit (Glucagon,Human Recombinant) 1 Mg Kit 1 Mg IJ Q15 MINUTES PRN Cyclobenzaprine Hcl 10 Mg Tablet 10 Mg PO PRN Q8HRS PRN Trolamine Salicylate 85 Gm Cream..g. 85 Gm TP PRN Q4HRS PRN Lexapro (Escitalopram Oxalate) 10 Mg Tablet 10 Mg PO DAILY Levothyroxine Sodium 300 Mcg Tablet 300 Mcg PO WEEKLY Levothyroxine Sodium 200 Mcg Tablet 200 Mcg PO DAILYAC Lasix (Furosemide) 20 Mg Tablet 20 Mg PO DAILY [place] 3 1,000 Mg Softgel ([place]-3 Fatty Acids/Fish Oil) 1 Each Capsule 2 Each PO DAILY Fenofibrate (Fenofibrate,Micronized) 200 Mg Capsule 200 Mg PO DAILY Atorvastatin Calcium 80 Mg Tablet 80 Mg PO QHS Abilify (Aripiprazole) 15 Mg Tablet 15 Mg PO DAILY@1800 [place] 5-325 Tablet (Hydrocodone Bit/Acetaminophen) 1 Each Tablet 1 Tab PO [id number] PRN Sinemet 25-100 Mg Tablet (Carbidopa/Levodopa) 1 Each Tablet 1 Each PO [id number] Gabapentin 100 Mg Capsule 100 Mg PO TID Depakote Er (Divalproex Sodium) 250 Mg Tab.er.24h 750 Mg PO BID Vitamin D (Cholecalciferol (Vitamin D3)) 1,000 Unit Capsule 5,000 Unit PO DAILY Travatan Z (Travoprost) 5 Ml Drops 1 Drop OU QHS Senna (Sennosides) 8.6 Mg Tablet 2 Tab PO DAILY Klor-Con M20 (Potassium Chloride) 20 Meq Tab.er.prt 20 Meq PO DAILY Multiple Vitamin (Multivitamin With Minerals) 1 Each Tablet 1 Each PO DAILY Lisinopril 2.5 Mg Tablet 2.5 Mg PO DAILY Novolog (Insulin Aspart) 100 Unit/1 Ml Cartridge 40 Unit SQ TIDAC A and D Ointment (Vits A and D/White Pet/Lanolin) 42.5 Gm Oint...g. 1 Applic TP TID Tresiba Flextouch U-100 (Insulin Degludec) 100 Unit/1 Ml Insuln.pen 65 Unit SQ BID [place]lac (Ciclopirox) 6.6 Ml Solution 1 Applic TP WEEKLYHS PRN Aspercreme (Trolamine Salicylate) 177.4 Ml Lotion 1 [place] TP HS I have reviewed the current psychotropics carefully including drug interactions. Risk benefit ratio favors no change other than as noted in my dictated progress note. Diagnosis: Problems: (1) Psychiatric diagnosis (2) Anxiety disorder (3) Impulse control disorder (4) Bipolar affective, mixed, sev w/ psych CHINO JOHNS MD November 02, 2017 23:12
[2017-11-03] MEDS: ENOXAPARIN 40 MG/0.4 ML SYRINGE. SQ SCH ×2 (06:06→15:44)
[2017-11-03 06:23] VITALS: BP 92/52
[2017-11-03] MEDS: INSULIN LISPRO 300 UNITS/3 ML INSULN.PEN. SQ SCH ×3 (07:30→17:00)
[2017-11-03 08:46] LABS: VAL ACID 47 mcg/mL (50-100)
[2017-11-03] MEDS ORDERED: LEVOTHYROXINE 100 MCG TABLET PO SCH (09:00)
[2017-11-03] MEDS: FUROSEMIDE 20 MG TABLET PO SCH (10:37)
[2017-11-03] MEDS: POTASSIUM CHLORIDE 20 MEQ TABLET.ER. PO SCH (10:37)
[2017-11-03] MEDS: CARBIDOPA/LEVODOPA 25/100MG TABLET PO SCH ×4 (10:37→18:38)
[2017-11-03] MEDS: DIVALPROEX SODIUM 250 MG TABLET.DR. PO SCH ×3 (10:38→21:00)
[2017-11-03] MEDS: MULTIVITAMIN with MINERAL TABLET. PO SCH (10:38)
[2017-11-03] MEDS: CITALOPRAM 20 MG TABLET. PO SCH (10:38)
[2017-11-03] MEDS: OMEGA-3 FATTY ACIDS/FISH OIL 1,000 MG CAPSULE. PO SCH (10:38)
[2017-11-03] MEDS: CHOLECALCIFEROL (VITAMIN D3) 1,000 UNIT TABLET PO SCH (10:39)
[2017-11-03] MEDS: SENNOSIDES/DOCUSATE 8.6/50MG TABLET. PO SCH (10:40)
[2017-11-03] MEDS: ARIPiprazole 15 MG TABLET PO SCH (10:41)
[2017-11-03] MEDS: GABAPENTIN 100 MG CAPSULE. PO SCH ×3 (10:41→18:37)
[2017-11-03] MEDS: LISINOPRIL 2.5 MG TABLET PO SCH (10:42)
[2017-11-03] MEDS: INSULIN GLARGINE 300 UNITS/3 ML INSULN.PEN. SQ SCH ×2 (10:46→19:46)
[2017-11-03] MEDS: HYDROcodone/APAP 5/325MG 1 TAB TABLET PO SCH ×4 (10:47→18:37)
[2017-11-03 15:38] VITALS: BP 122/60
[2017-11-03] MEDS: ATORVASTATIN CALCIUM 20 MG TABLET PO SCH (18:37)
[2017-11-03] MEDS: MELATONIN 3 MG TABLET PO SCH (18:37)
[2017-11-03] MEDS: CICLOPIROX 0.77% TOPICAL CREAM 15GM TUBE. TP SCH (19:40)
[2017-11-03] MEDS: TROLAMINE SALICYLATE 10% TOPICAL CREAM 85GM JAR. TP SCH (19:40)
[2017-11-03] MEDS: LATANOPROST 0.005% OPHTH SOLUTION 2.5ML BOTTLE. OU SCH (19:45)
[2017-11-03] MEDS: LACTOBACILLUS RHAMNOSUS GG 1 CAPSULE. PO SCH (19:54)
[2017-11-03] MEDS: MAGNESIUM OXIDE 400 MG TABLET PO SCH (19:54)
[2017-11-03] MEDS: DOXYCYCLINE HYCLATE 100 MG TABLET PO SCH (19:54)
[2017-11-03] MEDS ORDERED: DIVALPROEX SODIUM 250 MG TABLET.DR. PO ONE (20:30)
--- NOTE | 2017-11-03 20:44 | PDOC ---
Exam Note: Miguel A Note: Please also refer to the separate dictated note~for this date of service dictated separately.~Patient seen individually. Discussed the patient with Nursing staff reviewed the chart.~Reviewed interim history and current functioning. Reviewed vital signs,~Labs/ Radiology~and current medications noted below. Continue current treatment with the changes noted in the dictated addendum note Assessment: Vital Signs: Vital Signs Date Time Temp Pulse Resp B/P (MAP) Pulse Ox O2 Delivery O2 Flow Rate FiO2 11/03/17 19:41 20 11/03/17 15:38 97.5 77 122/60 (80) 92 11/01/17 18:02 Room Air I&O Intake and Output 11/03/17 07:00 Intake Total 480 ml Balance 480 ml Intake Oral 480 ml Labs: Laboratory Tests Test 11/03/17 07:21 11/03/17 07:43 11/03/17 11:24 11/03/17 16:28 Glucose (Fingerstick) 198 mg/dL (70-99) H 449 mg/dL (70-99) H 288 mg/dL (70-99) H Valproic Acid Level 47 mcg/mL (50-100) L Valproic Acid Last Dose Date 11/02/17 Valproic Acid Last Dose Time 2100 Test 11/03/17 19:33 Glucose (Fingerstick) 232 mg/dL (70-99) H Current Medications: Meds: Current Medications Ondansetron HCl (Zofran) 4 mg PRN Q4HRS PRN IV NAUSEA/VOMITING; Start 11/01/17 at 15:30; Stop 11/01/17 at 15:37; Status DC Lactulose (Lactulose) 45 gm QID PO ; Start 11/01/17 at 17:00; Stop 11/01/17 at 17:00; Status DC Dextrose/Sodium Chloride 1,000 ml @ 75 mls/hr 1X ONCE IV ; Start 11/01/17 at 15:30; Stop 11/01/17 at 15:42; Status DC Sodium Chloride 1,000 ml @ 1,000 mls/hr 1X ONCE IV Last administered on at 17:43; Start 11/01/17 at 16:30; Stop 11/01/17 at 17:29; Status DC Acetaminophen (Tylenol) 650 mg PRN Q6HRS PRN PO PAIN / TEMP; Start 11/01/17 at 20:15 Multi-Ingredient Ointment (Analgesic Drewsey) 1 renetta PRN QID PRN TP MUSCLE PAIN; Start 11/01/17 at 20:15 Al Hydroxide/Mg Hydroxide (Mylanta Plus Xs) 15 ml PRN AFTMEALHC PRN PO DYSPEPSIA; Start 11/01/17 at 20:15 Magnesium Hydroxide (Milk Of Magnesia) 2,400 mg PRN QHS PRN PO CONSTIPATION; Start 11/01/17 at 20:15 Nicotine (Nicoderm Cq 7mg) 1 patch DAILY TD ; Start 11/02/17 at 09:00; Stop at 09:00; Status DC Enoxaparin Sodium (Lovenox 40mg Syringe) 40 mg Q24H SQ ; Start 11/01/17 at 21:00 ; Stop 11/02/17 at 00:43; Status DC Non-Formulary Medication (Aripiprazole (Abilify)) 15 mg DAILY@1800 PO ; Start at 18:00; Stop 11/02/17 at 18:00; Status DC Non-Formulary Medication (Divalproex Sodium (Depakote Er)) 750 mg BID PO ; Start 11/02/17 at 09:00; Stop 11/02/17 at 09:00; Status DC Non-Formulary Medication (Escitalopram Oxalate (Lexapro)) 10 mg DAILY PO ; Start 11/02/17 at 09:00; Stop 11/02/17 at 09:00; Status DC Non-Formulary Medication (Melatonin ) 6 mg HS PO ; Start 11/02/17 at 21:00; Stop 11/02/17 at 21:00; Status DC Non-Formulary Medication (Trazodone Hcl ) 100 mg PRN QHS PRN PO INSOMNIA; Start 11/01/17 at 23:15; Stop 11/02/17 at 00:43; Status DC Carbidopa/Levodopa (Sinemet 25/100) 1 tab [id number] PO ; Start 11/02/17 at 07:00; Stop 11/02/17 at 07:00; Status DC Cyclobenzaprine HCl (Starter Pack - Flexeril 10mg) 10 startpack PRN Q8HRS PRN PO PAIN; Start 11/01/17 at 23:15; Stop 11/02/17 at 00:43; Status DC Furosemide (Lasix) 20 mg DAILY PO ; Start 11/02/17 at 09:00; Stop 11/02/17 at 09 :00; Status DC Gabapentin (Neurontin) 100 mg TID PO ; Start 11/02/17 at 09:00; Stop 11/02/17 at 09:00; Status DC Potassium Chloride (Klor-Con) 20 meq DAILY PO ; Start 11/02/17 at 09:00; Stop at 09:00; Status DC Trolamine Salicylate (Myoplex) 85 renetta PRN Q4HRS PRN TP PAIN; Start 11/01/17 at 23:15; Stop 11/02/17 at 00:43; Status DC Vitamin A/Vitamin D (Vitamin A & D Ointment) 1 renetta TID TP ; Start 11/02/17 at 09 :00; Stop 11/02/17 at 09:00; Status DC Non-Formulary Medication (Atorvastatin Calcium ) 80 mg QHS PO ; Start 11/02/17 at 21:00; Stop 11/02/17 at 21:00; Status DC Non-Formulary Medication (Cholecalciferol (Vitamin D3) (Vitamin D)) 5,000 unit DAILY PO ; Start 11/02/17 at 09:00; Stop 11/02/17 at 09:00; Status DC Non-Formulary Medication (Ciclopirox (Penlac)) 1 applic WEEKLYHS PRN TP nail fungus; Start 11/01/17 at 23:15; Stop 11/02/17 at 00:44; Status DC Non-Formulary Medication (Fenofibrate,Micronized (Fenofibrate)) 200 mg DAILY PO ; Start 11/02/17 at 09:00; Stop 11/02/17 at 09:00; Status DC Non-Formulary Medication (Glucagon,Human Recombinant (Glucagon Emergency Kit)) 1 mg q15 minutes PRN IJ low blood sugar; Start 11/01/17 at 23:15; Stop 11/02/17 at 00:44; Status DC Non-Formulary Medication (Hydrocodone Bit/ Acetaminophen ([place] 5-325 Tablet)) 1 tab PRN DAILY PRN PO PAIN; Start 11/01/17 at 23:15; Stop 11/02/17 at 00:44; Status DC Non-Formulary Medication (Hydrocodone Bit/ Acetaminophen ([place] 5-325 Tablet)) 1 tab [id number] PRN PO PAIN; Start 11/01/17 at 23:15; Stop 11/02/17 at 00:44; Status DC Non-Formulary Medication (Ibuprofen ) 200 mg PRN Q8HRS PRN PO PAIN; Start 11/01 at 23:15; Stop 11/02/17 at 00:44; Status DC Non-Formulary Medication (Insulin Aspart (Novolog)) 40 unit TIDAC SQ ; Start at 07:30; Stop 11/02/17 at 07:30; Status DC Non-Formulary Medication (Insulin Degludec (Tresiba Flextouch U-100)) 65 unit BID SQ ; Start 11/02/17 at 09:00; Stop 11/02/17 at 09:00; Status DC Non-Formulary Medication (Levothyroxine Sodium ) 200 mcg DAILYAC PO ; Start at 07:30; Stop 11/02/17 at 07:30; Status DC Non-Formulary Medication (Levothyroxine Sodium ) 300 mcg WEEKLY PO ; Start 11/08 at 09:00; Stop 11/08/17 at 09:00; Status DC Non-Formulary Medication (Lisinopril ) 2.5 mg DAILY PO ; Start 11/02/17 at 09:00 ; Stop 11/02/17 at 09:00; Status DC Non-Formulary Medication (Loperamide HCl (Imodium A-D)) 2 mg PRN DAILY PRN PO DIARRHEA; Start 11/01/17 at 23:15; Stop 11/02/17 at 00:43; Status DC Non-Formulary Medication (Multivitamin With Minerals (Multiple Vitamin)) 1 each DAILY PO ; Start 11/02/17 at 09:00; Stop 11/02/17 at 09:00; Status DC Non-Formulary Medication ([place]-3 Fatty Acids/Fish Oil ([place] 3 1,000 Mg Softgel )) 2 each DAILY PO ; Start 11/02/17 at 09:00; Stop 11/02/17 at 09:00; Status DC Non-Formulary Medication (Sennosides (Senna)) 2 tab DAILY PO ; Start 11/02/17 at 09:00; Stop 11/02/17 at 09:00; Status DC Non-Formulary Medication (Travoprost (Travatan Z)) 1 drop QHS OU ; Start at 21:00; Stop 11/02/17 at 21:00; Status DC Non-Formulary Medication (Trolamine Salicylate (Aspercreme)) 1 renetta HS TP ; Start 11/02/17 at 21:00; Stop 11/02/17 at 21:00; Status DC Melatonin 6 mg HS PO Last administered on 11/03/17at 18:37; Start 11/02/17 at 21 :00 Aripiprazole (Abilify) 15 mg DAILY PO Last administered on 11/03/17at 10:41; Start 11/02/17 at 09:00 Citalopram Hydrobromide (CeleXA) 20 mg DAILY PO Last administered on 11/03/17at 10:38; Start 11/02/17 at 09:00 Divalproex Sodium (Depakote) 750 mg BID PO Last administered on 11/03/17at 18:37 ; Start 11/02/17 at 09:00; Stop 11/03/17 at 20:24; Status DC Trazodone HCl (Desyrel) 100 mg PRN QHS PRN PO INSOMNIA, MAY REPEAT X1 Last administered on 11/02/17at 02:45; Start 11/02/17 at 01:00 Trolamine Salicylate (Myoplex) 1 renetta HS TP ; Start 11/02/17 at 21:00 Trolamine Salicylate (Myoplex) 1 renetta PRN Q4HRS PRN TP PAIN; Start 11/02/17 at 01:15 Ciclopirox Olamine (Loprox) 1 renetta HS TP ; Start 11/02/17 at 21:00 Insulin Human Lispro (HumaLOG) 40 units TIDAC SQ Last administered on at 17:00; Start 11/02/17 at 07:30 Cyclobenzaprine HCl (Flexeril) 10 mg PRN Q8HRS PRN PO MUSCLE SPASMS; Start at 01:15 Glucagon (Glucagen Kit) 1 mg PRN Q15MIN PRN IM HYPOGLYCEMIA; Start 11/02/17 at 01:15 Ibuprofen (Motrin) 200 mg PRN Q8HRS PRN PO INFLAMMATION; Start 11/02/17 at 01: 15 Loperamide HCl (Imodium) 2 mg PRN DAILY PRN PO DIARRHEA; Start 11/02/17 at 01: 15 Acetaminophen/ Hydrocodone Bitart (Lortab 5/325) 1 tab PRN DAILY PRN PO PAIN Last administered on 11/02/17 02:45; Start 11/02/17 at 01:15 Atorvastatin Calcium (Lipitor) 80 mg QHS PO Last administered on 11/03/17at 18: 37; Start 11/02/17 at 21:00 Fish Oil (Fish Oil) 2,000 mg DAILY PO Last administered on 11/03/17 10:38; Start 11/02/17 at 09:00 Furosemide (Lasix) 20 mg DAILY PO Last administered on 11/03/17 10:37; Start 11/02/17 at 09:00 Levothyroxine Sodium (Synthroid) 200 mcg DAILY06 PO ; Start 11/02/17 at 06:00; Stop 11/02/17 at 08:05; Status DC Levothyroxine Sodium (Synthroid) 300 mcg WEEKLY PO Last administered on at 08:01; Start 11/02/17 at 09:00; Stop 11/02/17 at 09:00; Status DC Lisinopril (Prinivil) 2.5 mg DAILY PO Last administered on 11/03/17at 10:42; Start 11/02/17 at 09:00 Multivitamins/ Calcium (Thera-M Plus) 1 tab DAILY PO Last administered on 10:38; Start 11/02/17 at 09:00 Potassium Chloride (Klor-Con) 20 meq DAILY PO Last administered on 11/03/17 10 :37; Start 11/02/17 at 09:00 Senna/Docusate Sodium (Senna Plus) 2 tab DAILY PO Last administered on 10:40; Start 11/02/17 at 09:00 Vitamin D (Vitamin D3) 5,000 unit DAILY PO Last administered on 11/03/17 10:39 ; Start 11/02/17 at 09:00 Gabapentin (Neurontin) 100 mg TID PO Last administered on 11/03/17at 18:37; Start 11/02/17 at 09:00 Carbidopa/Levodopa (Sinemet 25/100) 1 tab QID PO Last administered on at 18:38; Start 11/02/17 at 09:00 Acetaminophen/ Hydrocodone Bitart (Lortab 5/325) 1 tab QID PO Last administered on 11/03/17at 18:37; Start 11/02/17 at 09:00 Latanoprost (Xalatan) 1 drop QHS OU Last administered on 11/03/17at 19:45; Start 11/02/17 at 21:00 Insulin Glargine (Lantus) 65 units BID SQ Last administered on 11/03/17 19:46 ; Start 11/02/17 at 09:00 Enoxaparin Sodium (Lovenox 40mg Syringe) 40 mg Q12H SQ Last administered on at 15:44; Start 11/02/17 at 07:00 Levothyroxine Sodium (Synthroid) 200 mcg QM-F@0900 PO ; Start 11/04/17 at 09:00 Levothyroxine Sodium (Synthroid) 200 mcg QSU@0900 PO Last administered on at 10:41; Start 11/03/17 at 09:00 Levothyroxine Sodium (Synthroid) 300 mcg QSA@0900 PO Last administered on at 11:24; Start 11/02/17 at 09:00 Doxycycline Hyclate (Vibra-Tab) 100 mg BID PO Last administered on 11/03/17at 19 :54; Start 11/03/17 at 21:00 Metformin HCl (Glucophage Xr) 500 mg DAILYWBKFT PO ; Start 11/04/17 at 08:00 Lactobacillus Rhamnosus (Culturelle) 1 cap BID PO Last administered on at 19:54; Start 11/03/17 at 21:00 Magnesium Oxide (Magnesium Oxide) 400 mg BID PO Last administered on 11/03/17at 19:54; Start 11/03/17 at 21:00 Divalproex Sodium (Depakote) 1,000 mg BID PO ; Start 11/03/17 at 21:00 Divalproex Sodium (Depakote) 250 mg 1X ONCE PO ; Start 11/03/17 at 20:30; Stop 11/03/17 at 20:41; Status DC Active Scripts Active Reported Melatonin 3 Mg Tablet 6 Mg PO HS Trazodone Hcl 100 Mg Tablet 100 Mg PO PRN QHS PRN Enola 5-325 Tablet (Hydrocodone Bit/Acetaminophen) 1 Each Tablet 1 Tab PO PRN DAILY PRN Imodium A-D (Loperamide HCl) 2 Mg Capsule 2 Mg PO PRN DAILY PRN Ibuprofen 100 Mg/5 Ml Oral.susp 200 Mg PO PRN Q8HRS PRN Glucagon Emergency Kit (Glucagon,Human Recombinant) 1 Mg Kit 1 Mg IJ Q15 MINUTES PRN Cyclobenzaprine Hcl 10 Mg Tablet 10 Mg PO PRN Q8HRS PRN Trolamine Salicylate 85 Gm Cream..g. 85 Gm TP PRN Q4HRS PRN Lexapro (Escitalopram Oxalate) 10 Mg Tablet 10 Mg PO DAILY Levothyroxine Sodium 300 Mcg Tablet 300 Mcg PO WEEKLY Levothyroxine Sodium 200 Mcg Tablet 200 Mcg PO DAILYAC Lasix (Furosemide) 20 Mg Tablet 20 Mg PO DAILY Aiken 3 1,000 Mg Softgel (Aiken-3 Fatty Acids/Fish Oil) 1 Each Capsule 2 Each PO DAILY Fenofibrate (Fenofibrate,Micronized) 200 Mg Capsule 200 Mg PO DAILY Atorvastatin Calcium 80 Mg Tablet 80 Mg PO QHS Abilify (Aripiprazole) 15 Mg Tablet 15 Mg PO DAILY@1800 Enola 5-325 Tablet (Hydrocodone Bit/Acetaminophen) 1 Each Tablet 1 Tab PO [id number] PRN Sinemet 25-100 Mg Tablet (Carbidopa/Levodopa) 1 Each Tablet 1 Each PO [id number] Gabapentin 100 Mg Capsule 100 Mg PO TID Depakote Er (Divalproex Sodium) 250 Mg Tab.er.24h 750 Mg PO BID Vitamin D (Cholecalciferol (Vitamin D3)) 1,000 Unit Capsule 5,000 Unit PO DAILY Travatan Z (Travoprost) 5 Ml Drops 1 Drop OU QHS Senna (Sennosides) 8.6 Mg Tablet 2 Tab PO DAILY Klor-Con M20 (Potassium Chloride) 20 Meq Tab.er.prt 20 Meq PO DAILY Multiple Vitamin (Multivitamin With Minerals) 1 Each Tablet 1 Each PO DAILY Lisinopril 2.5 Mg Tablet 2.5 Mg PO DAILY Novolog (Insulin Aspart) 100 Unit/1 Ml Cartridge 40 Unit SQ TIDAC A and D Ointment (Vits A and D/White Pet/Lanolin) 42.5 Gm Oint...g. 1 Applic TP TID Tresiba Flextouch U-100 (Insulin Degludec) 100 Unit/1 Ml Insuln.pen 65 Unit SQ BID Penlac (Ciclopirox) 6.6 Ml Solution 1 Applic TP WEEKLYHS PRN Aspercreme (Trolamine Salicylate) 177.4 Ml Lotion 1 Renetta TP HS I have reviewed the current psychotropics carefully including drug interactions. Risk benefit ratio favors no change other than as noted in my dictated progress note. Diagnosis: Problems: (1) Psychiatric diagnosis (2) Anxiety disorder (3) Impulse control disorder (4) Bipolar affective, mixed, sev w/ psych CHINO JOHNS MD November 03, 2017 20:44
[2017-11-04] MEDS: ENOXAPARIN 40 MG/0.4 ML SYRINGE. SQ SCH ×2 (06:20→16:37)
[2017-11-04 06:26] VITALS: BP 90/58
[2017-11-04] MEDS: LEVOTHYROXINE 100 MCG TABLET PO SCH (07:50)
[2017-11-04] MEDS: DOXYCYCLINE HYCLATE 100 MG TABLET PO SCH ×2 (07:51→19:43)
[2017-11-04] MEDS: FUROSEMIDE 20 MG TABLET PO SCH (07:52)
[2017-11-04] MEDS: GABAPENTIN 100 MG CAPSULE. PO SCH ×3 (07:52→19:43)
[2017-11-04] MEDS: CITALOPRAM 20 MG TABLET. PO SCH (07:53)
[2017-11-04] MEDS: MULTIVITAMIN with MINERAL TABLET. PO SCH (07:53)
[2017-11-04] MEDS: LACTOBACILLUS RHAMNOSUS GG 1 CAPSULE. PO SCH ×2 (07:53→19:42)
[2017-11-04] MEDS: SENNOSIDES/DOCUSATE 8.6/50MG TABLET. PO SCH (07:53)
[2017-11-04] MEDS: HYDROcodone/APAP 5/325MG 1 TAB TABLET PO SCH ×4 (07:53→19:44)
[2017-11-04] MEDS: POTASSIUM CHLORIDE 20 MEQ TABLET.ER. PO SCH (07:54)
[2017-11-04] MEDS: CHOLECALCIFEROL (VITAMIN D3) 1,000 UNIT TABLET PO SCH (07:54)
[2017-11-04] MEDS: ARIPiprazole 15 MG TABLET PO SCH (07:54)
[2017-11-04] MEDS: MAGNESIUM OXIDE 400 MG TABLET PO SCH ×2 (07:54→19:43)
[2017-11-04] MEDS: CARBIDOPA/LEVODOPA 25/100MG TABLET PO SCH ×4 (07:54→19:43)
[2017-11-04] MEDS: OMEGA-3 FATTY ACIDS/FISH OIL 1,000 MG CAPSULE. PO SCH (07:54)
[2017-11-04] MEDS: DIVALPROEX SODIUM 250 MG TABLET.DR. PO SCH ×2 (07:55→19:42)
[2017-11-04] MEDS: metFORMIN XR 500 MG TAB.ER.24H PO SCH (07:57)
--- NOTE | 2017-11-04 09:56 | PN ---
DATE: 11/02/2017 This is a late entry for 11/02/2017 and covers elements not covered in my initial note of 11/02/2017. I met with the patient in the evening in her room. She slept 2-1/2 hours, refused breakfast, has been demanding, yelling, loud, disruptive, complaining of the nursing staff to me as I met with her in her room. Valproic acid level is 18. REVIEW OF SYSTEMS: Ambulation impaired. No CV, , pulmonary, eye, ENT system symptoms on review. Reliability poor. MENTAL STATUS EXAM: Oriented to herself and situation. Speech is coherent, abstraction fair, computation impaired, language function intact, attention span short. Mood and affect remain somewhat labile. IMPRESSION: Unchanged from initial note, bipolar 1 disorder, mixed with psychotic features. PLAN: It appears valproic acid level is low consequent probably to noncompliance. We will repeat a valproic acid level. If it is still low, adjust the Depakote. Continue rest of the psychotropics including trazodone. If insomnia persists, we will increase the trazodone. Maintain melatonin and Lexapro and Abilify. MAN Richard JOHNS MD DR: GLENN/cory JOB#: [id number] / [id number]
[2017-11-04] MEDS: INSULIN LISPRO 300 UNITS/3 ML INSULN.PEN. SQ SCH ×3 (10:11→16:44)
[2017-11-04] MEDS: INSULIN GLARGINE 300 UNITS/3 ML INSULN.PEN. SQ SCH ×2 (10:12→19:46)
--- NOTE | 2017-11-04 10:16 | CONS ---
DATE OF CONSULTATION: 11/03/2017 REASON FOR CONSULTATION: Medical management. HISTORY OF PRESENT ILLNESS: The patient is a 57-year-old female patient, who was referred from [facility] by her primary care physician on account of increased aggressive behavior towards staff. She has been yelling out, making allegations of abuse, hitting herself, repetitive calling out, attempting to physically attack staff and using racial slurs, being manipulative. The symptoms have been worsening over the last 2 weeks within the context of her bipolar disorder, mixed with psychotic features. She apparently has failed outpatient psychiatric intervention and was admitted for inpatient psychiatric stabilization. On questioning her, she stated that she was not happy with one of the nursing staff there. She does not like him and has been acting out; however, she denied any other complaint. PAST MEDICAL HISTORY: Significant for right middle cerebral artery territory infarct with left side hemiplegia, type 2 diabetes, chronic obstructive pulmonary disease, Parkinson's disease, dysphagia, foot drop and glaucoma. PAST SURGICAL HISTORY: Significant for tonsillectomy, appendectomy and cholecystectomy. Also, she has thyroidectomy. ALLERGIES: She is allergic to PENICILLIN. MEDICATIONS: She is currently on following medications: She is on Flexeril 10 mg every 8 hours, fenofibrate, 200 mg once a day, atorvastatin calcium 80 mg daily, [place] 3 fatty acid. She takes 2 soft gels daily. She is on lisinopril 2.5 mg once a day, ibuprofen 200 mg every 8 hours, Aspercreme applied topically at bedtime for chronic pain. She is on hydrocodone/APAP 5/325 one tablet 4 times a day, divalproex 750 mg twice a day, gabapentin 100 mg 3 times a day, citalopram oxalate for Lexapro 10 mg daily, trazodone 100 mg at bedtime, Abilify 15 mg daily. She is on carbidopa/levodopa for Sinemet 25/100 one tablet 4 times a day, potassium chloride 20 mEq once a day, furosemide 20 mg once a day, travoprost 1 drop to both eyes at bedtime. She is on loperamide 2 mg every 4 hours as needed for diarrhea, senna 2 tablets daily. She is on NovoLog 40 units before meals and Tarceva 65 units subcutaneously twice a day. She is on glucagon 1 mg intramuscular as needed for hypoglycemia, levothyroxine sodium 200 mcg once a day, ciclopirox applied topically weekly for her nail fungus, vitamin A and D ointment applied topically 3 times a day, cholecalciferol 5000 international unit once a day, multivitamin with mineral one tablet once a day, and melatonin 6 mg at bedtime for insomnia. FAMILY HISTORY: Positive for bipolar disorder and alcohol abuse in both biological parents. She has one daughter that she believes has also bipolar disorder. SOCIAL HISTORY: She continued to smoke cigarette a day, does not drink alcohol or any recreational drugs. She has one daughter, who lives at [place], [place] and has no contact with her. PHYSICAL EXAMINATION: GENERAL: When I examined her, she was resting, slightly propped up in her recliner, no apparent respiratory distress. She was sleepy, but arousable. On questioning her, denied any complaint. When I examined her, she was pale, but no jaundice, cyanosis, or thyromegaly. No jugular venous distension. No lower limb edema. VITAL SIGNS: Her heart rate was 77, blood pressure was 122/60, temperature was 97.5, respiratory rate 20, and oxygen saturation was 92% on room air. HEAD, EYES, EARS, NOSE AND THROAT: Showed normocephalic, atraumatic. NECK: Supple. HEART: Showed normal first and second sounds. No gallop, rub or murmur. CHEST: Clear to auscultation. No crepitation or rhonchi. ABDOMEN: Distended, soft, nontender. NEUROLOGIC: She was sleepy with arousable. All cranial nerves intact. She has left-sided hemiplegia. She has also left-sided foot drop. She is a Lacey lift mostly bedbound, chair bound. LABORATORY DATA: As of yesterday morning showed a serum sodium 137, potassium 4.6, chloride 98, bicarbonate 32, anion gap of 7, BUN 29, creatinine 1.2, estimated GFR was 46 mL per minute. Her glucose was 413. Her calcium was 9.6, magnesium was 1.9. Total bilirubin, AST, ALT, alkaline phosphatase slightly elevated. Her total protein was 6.9, albumin 3. Her hemoglobin A1c was 8.7%. Her serum iron was 69, TIBC was 404 and percent saturation was 17%. Her serum triglycerides were extremely high at 1066. Total cholesterol 187 and HDL cholesterol and the ratio cannot be measured. Her TSH was slightly elevated at 4.656. Her total T4 was 7.9 and total T3 was 68. Her white cell count was 8100, hemoglobin 12, hematocrit 36, MCV 94 and platelet count 274,000 with normal manual differential. Her urinalysis showed the urine was straw colored, cloudy with a pH of 7, specific gravity of 1015. The urine was negative for protein. There was large amount of glucose, negative for ketones, moderate amount of blood, positive for nitrites. There is moderate amount of leukocyte esterase. There were 3-5 rbc's and 11-20 wbc's, too many bacteria. Her toxic screen was positive for opiates, negative for all other medication. Her valproic acid level was only 47. Her RPR is still pending at the time of this dictation. IMPRESSION: In summary, this is a 57-year-old female the patient, who was admitted on account of increased aggressive behavior towards staff. She has been yelling out making allegations of abuse, hitting herself, repetitive calling out, attempting to physically attack staff and using racial slurs, being manipulative all this in a background of bipolar disorder. She has multiple medical problems including type 2 diabetes, chronic pain syndrome, COPD, Parkinson's disease, dysphagia, foot drop and glaucoma. Her vital signs are stable. Her lab work showed that her blood sugar is poorly controlled and hemoglobin A1c was 8.7. Her serum triglycerides were extremely high. She has also slightly impaired kidney function with better blood sugar control her triglycerides will definitely come down. We did add metformin to achieve better control of her blood sugar. Other than that, she seems to be generally stable. Thank you, Dr. Garcia, for allowing me to participate in the care of this patient. MIGEL FLORENTINO MD DR: DELIA/cory JOB#: [id number] / [id number]
--- NOTE | 2017-11-04 14:11 | PN ---
DATE: 11/03/2017 PSYCHIATRIC PROGRESS NOTE This note covers elements not covered in my initial note of 11/03/2017. SUBJECTIVE: Met with the patient in the evening. The patient slept 7 hours previous evening. Less intrusive, does have a UTI and on doxycycline. Blood sugars are elevated, started on metformin, somewhat drowsy, sedated during the day. REVIEW OF SYSTEMS: Ambulation is impaired, in a Broda chair. No CV, , pulmonary, eye, ENT system symptoms on review. Reliability is fair. MENTAL STATUS EXAM: Oriented to herself, situation. Speech has some latency, coherent. Abstraction fair, computation is impaired, language function intact. Mood and affect is somewhat withdrawn. LABORATORY DATA: Reviewed. IMPRESSION: Schizoaffective disorder, bipolar type, mixed with acute exacerbation. PLAN: Valproic acid level today is 47, on Depakote 750 b.i.d. We will increase it to 1000 mg b.i.d. Check CBC, CMP, valproic acid level in 3 days. Continue Abilify 15 mg a day, Lexapro 10 mg a day, melatonin, trazodone, along with Celexa 20 mg a day. In fact, she is not on the Lexapro and this was switched to Celexa by auto substitution. CHINO JOHNS MD DR: GLENN/cory JOB#: [id number] / [id number]
[2017-11-04 16:16] VITALS: BP 114/50
[2017-11-04] MEDS: LATANOPROST 0.005% OPHTH SOLUTION 2.5ML BOTTLE. OU SCH (19:41)
[2017-11-04] MEDS: MELATONIN 3 MG TABLET PO SCH (19:42)
[2017-11-04] MEDS: ATORVASTATIN CALCIUM 20 MG TABLET PO SCH (19:43)
[2017-11-04] MEDS: NYSTATIN 100,000 UNIT/GM TOPICAL CREAM 15GM TUBE. TP SCH (19:48)
[2017-11-04] MEDS: CICLOPIROX 0.77% TOPICAL CREAM 15GM TUBE. TP SCH (19:57)
[2017-11-04] MEDS: TROLAMINE SALICYLATE 10% TOPICAL CREAM 85GM JAR. TP SCH (19:58)
--- NOTE | 2017-11-04 20:42 | PDOC ---
Exam Note: Miguel A Note: Please also refer to the separate dictated note~for this date of service dictated separately.~Patient seen individually. Discussed the patient with Nursing staff reviewed the chart.~Reviewed interim history and current functioning. Reviewed vital signs,~Labs/ Radiology~and current medications noted below. Continue current treatment with the changes noted in the dictated addendum note Assessment: Vital Signs: Vital Signs Date Time Temp Pulse Resp B/P (MAP) Pulse Ox O2 Delivery O2 Flow Rate FiO2 11/04/17 19:44 91 Room Air 11/04/17 16:16 97.8 78 18 114/50 (71) I&O Intake and Output 11/04/17 07:00 Intake Total 1200 ml Balance 1200 ml Intake Oral 1200 ml # Bowel Movements 1 Labs: Laboratory Tests Test 11/04/17 07:19 11/04/17 11:35 11/04/17 16:32 11/04/17 19:08 Glucose (Fingerstick) 295 mg/dL (70-99) H 208 mg/dL (70-99) H 124 mg/dL (70-99) H 156 mg/dL (70-99) H Current Medications: Meds: Current Medications Ondansetron HCl (Zofran) 4 mg PRN Q4HRS PRN IV NAUSEA/VOMITING; Start 11/01/17 at 15:30; Stop 11/01/17 at 15:37; Status DC Lactulose (Lactulose) 45 gm QID PO ; Start 11/01/17 at 17:00; Stop 11/01/17 at 17:00; Status DC Dextrose/Sodium Chloride 1,000 ml @ 75 mls/hr 1X ONCE IV ; Start 11/01/17 at 15:30; Stop 11/01/17 at 15:42; Status DC Sodium Chloride 1,000 ml @ 1,000 mls/hr 1X ONCE IV Last administered on at 17:43; Start 11/01/17 at 16:30; Stop 11/01/17 at 17:29; Status DC Acetaminophen (Tylenol) 650 mg PRN Q6HRS PRN PO PAIN / TEMP; Start 11/01/17 at 20:15 Multi-Ingredient Ointment (Analgesic Frederica) 1 renetta PRN QID PRN TP MUSCLE PAIN; Start 11/01/17 at 20:15 Al Hydroxide/Mg Hydroxide (Mylanta Plus Xs) 15 ml PRN AFTMEALHC PRN PO DYSPEPSIA; Start 11/01/17 at 20:15 Magnesium Hydroxide (Milk Of Magnesia) 2,400 mg PRN QHS PRN PO CONSTIPATION; Start 11/01/17 at 20:15 Nicotine (Nicoderm Cq 7mg) 1 patch DAILY TD ; Start 11/02/17 at 09:00; Stop at 09:00; Status DC Enoxaparin Sodium (Lovenox 40mg Syringe) 40 mg Q24H SQ ; Start 11/01/17 at 21:00 ; Stop 11/02/17 at 00:43; Status DC Non-Formulary Medication (Aripiprazole (Abilify)) 15 mg DAILY@1800 PO ; Start at 18:00; Stop 11/02/17 at 18:00; Status DC Non-Formulary Medication (Divalproex Sodium (Depakote Er)) 750 mg BID PO ; Start 11/02/17 at 09:00; Stop 11/02/17 at 09:00; Status DC Non-Formulary Medication (Escitalopram Oxalate (Lexapro)) 10 mg DAILY PO ; Start 11/02/17 at 09:00; Stop 11/02/17 at 09:00; Status DC Non-Formulary Medication (Melatonin ) 6 mg HS PO ; Start 11/02/17 at 21:00; Stop 11/02/17 at 21:00; Status DC Non-Formulary Medication (Trazodone Hcl ) 100 mg PRN QHS PRN PO INSOMNIA; Start 11/01/17 at 23:15; Stop 11/02/17 at 00:43; Status DC Carbidopa/Levodopa (Sinemet 25/100) 1 tab [id number] PO ; Start 11/02/17 at 07:00; Stop 11/02/17 at 07:00; Status DC Cyclobenzaprine HCl (Starter Pack - Flexeril 10mg) 10 startpack PRN Q8HRS PRN PO PAIN; Start 11/01/17 at 23:15; Stop 11/02/17 at 00:43; Status DC Furosemide (Lasix) 20 mg DAILY PO ; Start 11/02/17 at 09:00; Stop 11/02/17 at 09 :00; Status DC Gabapentin (Neurontin) 100 mg TID PO ; Start 11/02/17 at 09:00; Stop 11/02/17 at 09:00; Status DC Potassium Chloride (Klor-Con) 20 meq DAILY PO ; Start 11/02/17 at 09:00; Stop at 09:00; Status DC Trolamine Salicylate (Myoplex) 85 renetta PRN Q4HRS PRN TP PAIN; Start 11/01/17 at 23:15; Stop 11/02/17 at 00:43; Status DC Vitamin A/Vitamin D (Vitamin A & D Ointment) 1 renetta TID TP ; Start 11/02/17 at 09 :00; Stop 11/02/17 at 09:00; Status DC Non-Formulary Medication (Atorvastatin Calcium ) 80 mg QHS PO ; Start 11/02/17 at 21:00; Stop 11/02/17 at 21:00; Status DC Non-Formulary Medication (Cholecalciferol (Vitamin D3) (Vitamin D)) 5,000 unit DAILY PO ; Start 11/02/17 at 09:00; Stop 11/02/17 at 09:00; Status DC Non-Formulary Medication (Ciclopirox (Penlac)) 1 applic WEEKLYHS PRN TP nail fungus; Start 11/01/17 at 23:15; Stop 11/02/17 at 00:44; Status DC Non-Formulary Medication (Fenofibrate,Micronized (Fenofibrate)) 200 mg DAILY PO ; Start 11/02/17 at 09:00; Stop 11/02/17 at 09:00; Status DC Non-Formulary Medication (Glucagon,Human Recombinant (Glucagon Emergency Kit)) 1 mg q15 minutes PRN IJ low blood sugar; Start 11/01/17 at 23:15; Stop 11/02/17 at 00:44; Status DC Non-Formulary Medication (Hydrocodone Bit/ Acetaminophen ([place] 5-325 Tablet)) 1 tab PRN DAILY PRN PO PAIN; Start 11/01/17 at 23:15; Stop 11/02/17 at 00:44; Status DC Non-Formulary Medication (Hydrocodone Bit/ Acetaminophen ([place] 5-325 Tablet)) 1 tab [id number] PRN PO PAIN; Start 11/01/17 at 23:15; Stop 11/02/17 at 00:44; Status DC Non-Formulary Medication (Ibuprofen ) 200 mg PRN Q8HRS PRN PO PAIN; Start 11/01 at 23:15; Stop 11/02/17 at 00:44; Status DC Non-Formulary Medication (Insulin Aspart (Novolog)) 40 unit TIDAC SQ ; Start at 07:30; Stop 11/02/17 at 07:30; Status DC Non-Formulary Medication (Insulin Degludec (Tresiba Flextouch U-100)) 65 unit BID SQ ; Start 11/02/17 at 09:00; Stop 11/02/17 at 09:00; Status DC Non-Formulary Medication (Levothyroxine Sodium ) 200 mcg DAILYAC PO ; Start at 07:30; Stop 11/02/17 at 07:30; Status DC Non-Formulary Medication (Levothyroxine Sodium ) 300 mcg WEEKLY PO ; Start 11/08 at 09:00; Stop 11/08/17 at 09:00; Status DC Non-Formulary Medication (Lisinopril ) 2.5 mg DAILY PO ; Start 11/02/17 at 09:00 ; Stop 11/02/17 at 09:00; Status DC Non-Formulary Medication (Loperamide HCl (Imodium A-D)) 2 mg PRN DAILY PRN PO DIARRHEA; Start 11/01/17 at 23:15; Stop 11/02/17 at 00:43; Status DC Non-Formulary Medication (Multivitamin With Minerals (Multiple Vitamin)) 1 each DAILY PO ; Start 11/02/17 at 09:00; Stop 11/02/17 at 09:00; Status DC Non-Formulary Medication ([place]-3 Fatty Acids/Fish Oil ([place] 3 1,000 Mg Softgel )) 2 each DAILY PO ; Start 11/02/17 at 09:00; Stop 11/02/17 at 09:00; Status DC Non-Formulary Medication (Sennosides (Senna)) 2 tab DAILY PO ; Start 11/02/17 at 09:00; Stop 11/02/17 at 09:00; Status DC Non-Formulary Medication (Travoprost (Travatan Z)) 1 drop QHS OU ; Start at 21:00; Stop 11/02/17 at 21:00; Status DC Non-Formulary Medication (Trolamine Salicylate (Aspercreme)) 1 renetta HS TP ; Start 11/02/17 at 21:00; Stop 11/02/17 at 21:00; Status DC Melatonin 6 mg HS PO Last administered on 11/04/17at 19:42; Start 11/02/17 at 21 :00 Aripiprazole (Abilify) 15 mg DAILY PO Last administered on 11/04/17at 07:54; Start 11/02/17 at 09:00 Citalopram Hydrobromide (CeleXA) 20 mg DAILY PO Last administered on 11/04/17at 07:53; Start 11/02/17 at 09:00 Divalproex Sodium (Depakote) 750 mg BID PO Last administered on 11/03/17at 18:37 ; Start 11/02/17 at 09:00; Stop 11/03/17 at 20:24; Status DC Trazodone HCl (Desyrel) 100 mg PRN QHS PRN PO INSOMNIA, MAY REPEAT X1 Last administered on 11/02/17at 02:45; Start 11/02/17 at 01:00 Trolamine Salicylate (Myoplex) 1 renetta HS TP ; Start 11/02/17 at 21:00 Trolamine Salicylate (Myoplex) 1 renetta PRN Q4HRS PRN TP PAIN; Start 11/02/17 at 01:15 Ciclopirox Olamine (Loprox) 1 renetta HS TP ; Start 11/02/17 at 21:00 Insulin Human Lispro (HumaLOG) 40 units TIDAC SQ Last administered on at 13:41; Start 11/02/17 at 07:30 Cyclobenzaprine HCl (Flexeril) 10 mg PRN Q8HRS PRN PO MUSCLE SPASMS; Start at 01:15 Glucagon (Glucagen Kit) 1 mg PRN Q15MIN PRN IM HYPOGLYCEMIA; Start 11/02/17 at 01:15 Ibuprofen (Motrin) 200 mg PRN Q8HRS PRN PO INFLAMMATION; Start 11/02/17 at 01: 15 Loperamide HCl (Imodium) 2 mg PRN DAILY PRN PO DIARRHEA; Start 11/02/17 at 01: 15 Acetaminophen/ Hydrocodone Bitart (Lortab 5/325) 1 tab PRN DAILY PRN PO PAIN Last administered on 11/02/17 02:45; Start 11/02/17 at 01:15 Atorvastatin Calcium (Lipitor) 80 mg QHS PO Last administered on 11/04/17 19: 43; Start 11/02/17 at 21:00 Fish Oil (Fish Oil) 2,000 mg DAILY PO Last administered on 11/04/17 07:54; Start 11/02/17 at 09:00 Furosemide (Lasix) 20 mg DAILY PO Last administered on 11/04/17 07:52; Start 11/02/17 at 09:00 Levothyroxine Sodium (Synthroid) 200 mcg DAILY06 PO ; Start 11/02/17 at 06:00; Stop 11/02/17 at 08:05; Status DC Levothyroxine Sodium (Synthroid) 300 mcg WEEKLY PO Last administered on at 08:01; Start 11/02/17 at 09:00; Stop 11/02/17 at 09:00; Status DC Lisinopril (Prinivil) 2.5 mg DAILY PO Last administered on 11/03/17 10:42; Start 11/02/17 at 09:00 Multivitamins/ Calcium (Thera-M Plus) 1 tab DAILY PO Last administered on 07:53; Start 11/02/17 at 09:00 Potassium Chloride (Klor-Con) 20 meq DAILY PO Last administered on 11/04/17 07 :54; Start 11/02/17 at 09:00 Senna/Docusate Sodium (Senna Plus) 2 tab DAILY PO Last administered on 07:53; Start 11/02/17 at 09:00 Vitamin D (Vitamin D3) 5,000 unit DAILY PO Last administered on 11/04/17 07:54 ; Start 11/02/17 at 09:00 Gabapentin (Neurontin) 100 mg TID PO Last administered on 11/04/17 19:43; Start 11/02/17 at 09:00 Carbidopa/Levodopa (Sinemet 25/100) 1 tab QID PO Last administered on 19:43; Start 11/02/17 at 09:00 Acetaminophen/ Hydrocodone Bitart (Lortab 5/325) 1 tab QID PO Last administered on 11/04/17 19:44; Start 11/02/17 at 09:00 Latanoprost (Xalatan) 1 drop QHS OU Last administered on 11/04/17 19:41; Start 11/02/17 at 21:00 Insulin Glargine (Lantus) 65 units BID SQ Last administered on 11/04/17 19:46 ; Start 11/02/17 at 09:00 Enoxaparin Sodium (Lovenox 40mg Syringe) 40 mg Q12H SQ Last administered on 16:37; Start 11/02/17 at 07:00 Levothyroxine Sodium (Synthroid) 200 mcg QM-F@0900 PO Last administered on 11/04 07:50; Start 11/04/17 at 09:00 Levothyroxine Sodium (Synthroid) 200 mcg QSU@0900 PO Last administered on 10:41; Start 11/03/17 at 09:00 Levothyroxine Sodium (Synthroid) 300 mcg QSA@0900 PO Last administered on at 11:24; Start 11/02/17 at 09:00 Doxycycline Hyclate (Vibra-Tab) 100 mg BID PO Last administered on 11/04/17 19 :43; Start 11/03/17 at 21:00 Metformin HCl (Glucophage Xr) 500 mg DAILYWBKFT PO Last administered on at 07:57; Start 11/04/17 at 08:00 Lactobacillus Rhamnosus (Culturelle) 1 cap BID PO Last administered on 19:42; Start 11/03/17 at 21:00 Magnesium Oxide (Magnesium Oxide) 400 mg BID PO Last administered on 11/04/17 19:43; Start 11/03/17 at 21:00 Divalproex Sodium (Depakote) 1,000 mg BID PO Last administered on 11/04/17 19: 42; Start 11/03/17 at 21:00 Divalproex Sodium (Depakote) 250 mg 1X ONCE PO Last administered on 11/03/17 20:30; Start 11/03/17 at 20:30; Stop 11/03/17 at 20:41; Status DC Nystatin (Mycostatin) 1 renetta BID TP Last administered on 11/04/17at 19:48; Start 11/04/17 at 21:00 Active Scripts Active Reported Melatonin 3 Mg Tablet 6 Mg PO HS Trazodone Hcl 100 Mg Tablet 100 Mg PO PRN QHS PRN [place] 5-325 Tablet (Hydrocodone Bit/Acetaminophen) 1 Each Tablet 1 Tab PO PRN DAILY PRN Imodium A-D (Loperamide HCl) 2 Mg Capsule 2 Mg PO PRN DAILY PRN Ibuprofen 100 Mg/5 Ml Oral.susp 200 Mg PO PRN Q8HRS PRN Glucagon Emergency Kit (Glucagon,Human Recombinant) 1 Mg Kit 1 Mg IJ Q15 MINUTES PRN Cyclobenzaprine Hcl 10 Mg Tablet 10 Mg PO PRN Q8HRS PRN Trolamine Salicylate 85 Gm Cream..g. 85 Gm TP PRN Q4HRS PRN Lexapro (Escitalopram Oxalate) 10 Mg Tablet 10 Mg PO DAILY Levothyroxine Sodium 300 Mcg Tablet 300 Mcg PO WEEKLY Levothyroxine Sodium 200 Mcg Tablet 200 Mcg PO DAILYAC Lasix (Furosemide) 20 Mg Tablet 20 Mg PO DAILY [place] 3 1,000 Mg Softgel ([place]-3 Fatty Acids/Fish Oil) 1 Each Capsule 2 Each PO DAILY Fenofibrate (Fenofibrate,Micronized) 200 Mg Capsule 200 Mg PO DAILY Atorvastatin Calcium 80 Mg Tablet 80 Mg PO QHS Abilify (Aripiprazole) 15 Mg Tablet 15 Mg PO DAILY@1800 [place] 5-325 Tablet (Hydrocodone Bit/Acetaminophen) 1 Each Tablet 1 Tab PO [id number] PRN Sinemet 25-100 Mg Tablet (Carbidopa/Levodopa) 1 Each Tablet 1 Each PO [id number] Gabapentin 100 Mg Capsule 100 Mg PO TID Depakote Er (Divalproex Sodium) 250 Mg Tab.er.24h 750 Mg PO BID Vitamin D (Cholecalciferol (Vitamin D3)) 1,000 Unit Capsule 5,000 Unit PO DAILY Travatan Z (Travoprost) 5 Ml Drops 1 Drop OU QHS Senna (Sennosides) 8.6 Mg Tablet 2 Tab PO DAILY Klor-Con M20 (Potassium Chloride) 20 Meq Tab.er.prt 20 Meq PO DAILY Multiple Vitamin (Multivitamin With Minerals) 1 Each Tablet 1 Each PO DAILY Lisinopril 2.5 Mg Tablet 2.5 Mg PO DAILY Novolog (Insulin Aspart) 100 Unit/1 Ml Cartridge 40 Unit SQ TIDAC A and D Ointment (Vits A and D/White Pet/Lanolin) 42.5 Gm Oint...g. 1 Applic TP TID Tresiba Flextouch U-100 (Insulin Degludec) 100 Unit/1 Ml Insuln.pen 65 Unit SQ BID Penlac (Ciclopirox) 6.6 Ml Solution 1 Applic TP WEEKLYHS PRN Aspercreme (Trolamine Salicylate) 177.4 Ml Lotion 1 Renetta TP HS I have reviewed the current psychotropics carefully including drug interactions. Risk benefit ratio favors no change other than as noted in my dictated progress note. Diagnosis: Problems: (1) Psychiatric diagnosis (2) Anxiety disorder (3) Impulse control disorder (4) Bipolar affective, mixed, sev w/ psych CHINO JOHNS MD November 04, 2017 20:42
--- NOTE | 2017-11-05 01:44 | PN ---
DATE: 11/04/2017 SUBJECTIVE: The patient was seen today, met with the staff, chart reviewed and also covering for Dr. Garcia. The patient continues to be irritable, carlton, angry outburst, having significant mood swings, recently hit her head. She has also unsteady gait. The patient denies that she has any major problems. The patient was admitted from [facility] because she got upset, angry and somewhat threatening towards staff and also noncompliant with treatment. OBSERVATION: VITAL SIGNS: Temperature 98.1, blood pressure 90/58, pulse 75, respirations 20, O2 sat 93%. Slept about 8 hours last night. The patient's appetite improved. MEDICATIONS: Reviewed. Currently on Depakote 1000 mg b.i.d., melatonin 6 mg at night, gabapentin 100 mg t.i.d., Celexa 20 mg daily, trazodone 100 mg at night p.r.n. The patient is not having any side effects from these medications. The patient is also on regular medications that includes glucagon, ibuprofen, insulin, Lasix, lisinopril, multivitamins, potassium chloride, carbidopa/levodopa, hydrocodone 4 times daily, Synthroid, Lipitor, metformin. The patient is also on Abilify 15 mg daily. ASSESSMENT: 1. Bipolar disorder mixed with psychotic features. 2. Anxiety disorder, unspecified. 3. Impulse control disorder, unspecified. MARK GIL MD DR: REGINA/cory JOB#: [id number] / [id number]
[2017-11-05] MEDS: HYDROcodone/APAP 5/325MG 1 TAB TABLET PO PRN (03:41)
[2017-11-05] MEDS: ENOXAPARIN 40 MG/0.4 ML SYRINGE. SQ SCH ×2 (05:54→19:28)
[2017-11-05 06:25] VITALS: BP 98/45
[2017-11-05] MEDS: metFORMIN XR 500 MG TAB.ER.24H PO SCH (09:21)
[2017-11-05] MEDS: ARIPiprazole 15 MG TABLET PO SCH (09:21)
[2017-11-05] MEDS: DOXYCYCLINE HYCLATE 100 MG TABLET PO SCH ×2 (09:21→20:09)
[2017-11-05] MEDS: MULTIVITAMIN with MINERAL TABLET. PO SCH (09:22)
[2017-11-05] MEDS: DIVALPROEX SODIUM 250 MG TABLET.DR. PO SCH ×2 (09:22→20:09)
[2017-11-05] MEDS: LACTOBACILLUS RHAMNOSUS GG 1 CAPSULE. PO SCH ×2 (09:22→20:09)
[2017-11-05] MEDS: LISINOPRIL 2.5 MG TABLET PO SCH (09:24)
[2017-11-05] MEDS: OMEGA-3 FATTY ACIDS/FISH OIL 1,000 MG CAPSULE. PO SCH (09:24)
[2017-11-05] MEDS: FUROSEMIDE 20 MG TABLET PO SCH (09:24)
[2017-11-05] MEDS: MAGNESIUM OXIDE 400 MG TABLET PO SCH ×2 (09:24→20:10)
[2017-11-05] MEDS: CITALOPRAM 20 MG TABLET. PO SCH (09:25)
[2017-11-05] MEDS: SENNOSIDES/DOCUSATE 8.6/50MG TABLET. PO SCH (09:25)
[2017-11-05] MEDS: CHOLECALCIFEROL (VITAMIN D3) 1,000 UNIT TABLET PO SCH (09:25)
[2017-11-05] MEDS: CARBIDOPA/LEVODOPA 25/100MG TABLET PO SCH ×4 (09:26→20:10)
[2017-11-05] MEDS: GABAPENTIN 100 MG CAPSULE. PO SCH ×3 (09:26→20:09)
[2017-11-05] MEDS: LEVOTHYROXINE 100 MCG TABLET PO SCH (09:26)
[2017-11-05] MEDS: POTASSIUM CHLORIDE 20 MEQ TABLET.ER. PO SCH (09:27)
[2017-11-05] MEDS: NYSTATIN 100,000 UNIT/GM TOPICAL CREAM 15GM TUBE. TP SCH ×2 (09:27→20:19)
[2017-11-05] MEDS: INSULIN LISPRO 300 UNITS/3 ML INSULN.PEN. SQ SCH ×3 (09:31→16:30)
[2017-11-05] MEDS: INSULIN GLARGINE 300 UNITS/3 ML INSULN.PEN. SQ SCH ×2 (09:32→20:48)
[2017-11-05] MEDS: HYDROcodone/APAP 5/325MG 1 TAB TABLET PO SCH ×4 (09:35→21:00)
[2017-11-05 16:39] VITALS: BP 98/56
[2017-11-05] MEDS ORDERED: traZODone 50 MG TABLET. PO PRN (19:15)
[2017-11-05] MEDS: ATORVASTATIN CALCIUM 20 MG TABLET PO SCH (20:08)
[2017-11-05] MEDS: MELATONIN 3 MG TABLET PO SCH (20:10)
[2017-11-05] MEDS: traZODone 50 MG TABLET. PO SCH (20:18)
[2017-11-05] MEDS: LATANOPROST 0.005% OPHTH SOLUTION 2.5ML BOTTLE. OU SCH (20:18)
[2017-11-05] MEDS: TROLAMINE SALICYLATE 10% TOPICAL CREAM 85GM JAR. TP SCH (20:19)
[2017-11-05] MEDS: CICLOPIROX 0.77% TOPICAL CREAM 15GM TUBE. TP SCH (20:19)
[2017-11-06 06:17] VITALS: BP 90/50
[2017-11-06 08:07] LABS: BASO # 0.1 x10^3/uL (0.0-0.2); BASO % 1 % (0-3); EOS # 0.2 x10^3/uL (0.0-0.7); EOS % 3 % (0-3); HEMATOCRIT 36.1 % (36.0-47.0); HEMOGLOBIN 12.4 g/dL (12.0-15.5); LYMPH # 4.3 x10^3/uL (1.0-4.8); LYMPH % 52 % (24-48); MEAN CORPUSCULAR HEMOGLOBIN 32 pg (25-35); MEAN CORPUSCULAR HGB CONC 34 g/dL (31-37); MEAN CORPUSCULAR VOLUME 93 fL (79-100); MONO # 0.5 x10^3/uL (0.0-1.1); MONO % 6 % (0-9); NEUT # 3.1 x10^3uL (1.8-7.7); NEUT % 38 % (31-73); PLATELET COUNT 281 x10^3/uL (140-400); RED BLOOD COUNT 3.89 x10^6/uL (3.50-5.40); RED CELL DISTRIBUTION WIDTH 16.5 % (11.5-14.5); WHITE BLOOD COUNT 8.2 x10^3/uL (4.0-11.0)
[2017-11-06 08:26] LABS: ALBUMIN 2.9 g/dL (3.4-5.0); ALBUMIN/GLOBULIN RATIO 0.7 (1.0-1.7); ALK PHOS 66 U/L (46-116); ANION GAP 7 (6-14); BLOOD UREA NITROGEN 39 mg/dL (7-20); BUN/CREATININE RATIO 26 (6-20); CALCIUM 8.8 mg/dL (8.5-10.1); CARBON DIOXIDE 33 mmol/L (21-32); CHLORIDE 96 mmol/L (98-107); CREATININE 1.5 mg/dL (0.6-1.0); GFR 35.5; GLUCOSE 220 mg/dL (70-99); POTASSIUM 4.8 mmol/L (3.5-5.1); SODIUM 136 mmol/L (136-145); TOTAL BILIRUBIN 0.3 mg/dL (0.2-1.0)
[2017-11-06 09:06] LABS: ALT (SGPT) 19 U/L (14-59); VAL ACID 59 mcg/mL (50-100)
[2017-11-06 09:59] LABS: AST (SGOT) 52 U/L (15-37)
[2017-11-06] MEDS: MULTIVITAMIN with MINERAL TABLET. PO SCH (10:25)
[2017-11-06] MEDS: CHOLECALCIFEROL (VITAMIN D3) 1,000 UNIT TABLET PO SCH (10:25)
[2017-11-06] MEDS: MAGNESIUM OXIDE 400 MG TABLET PO SCH ×2 (10:25→20:32)
[2017-11-06] MEDS: CARBIDOPA/LEVODOPA 25/100MG TABLET PO SCH ×4 (10:26→20:32)
[2017-11-06] MEDS: GABAPENTIN 100 MG CAPSULE. PO SCH ×3 (10:26→20:32)
[2017-11-06] MEDS: OMEGA-3 FATTY ACIDS/FISH OIL 1,000 MG CAPSULE. PO SCH (10:26)
[2017-11-06] MEDS: metFORMIN XR 500 MG TAB.ER.24H PO SCH (10:27)
[2017-11-06] MEDS: CITALOPRAM 20 MG TABLET. PO SCH (10:27)
[2017-11-06] MEDS: LACTOBACILLUS RHAMNOSUS GG 1 CAPSULE. PO SCH ×2 (10:27→20:31)
[2017-11-06] MEDS: SENNOSIDES/DOCUSATE 8.6/50MG TABLET. PO SCH (10:27)
[2017-11-06] MEDS: DIVALPROEX SODIUM 250 MG TABLET.DR. PO SCH ×2 (10:27→20:32)
[2017-11-06] MEDS: DOXYCYCLINE HYCLATE 100 MG TABLET PO SCH ×2 (10:27→20:32)
[2017-11-06] MEDS: ARIPiprazole 15 MG TABLET PO SCH (10:28)
[2017-11-06] MEDS: ENOXAPARIN 40 MG/0.4 ML SYRINGE. SQ SCH ×2 (10:28→20:33)
[2017-11-06] MEDS: POTASSIUM CHLORIDE 20 MEQ TABLET.ER. PO SCH (10:28)
[2017-11-06] MEDS: FUROSEMIDE 20 MG TABLET PO SCH (10:28)
[2017-11-06] MEDS: INSULIN LISPRO 300 UNITS/3 ML INSULN.PEN. SQ SCH ×3 (10:29→16:30)
[2017-11-06] MEDS: NYSTATIN 100,000 UNIT/GM TOPICAL CREAM 15GM TUBE. TP SCH ×2 (10:29→22:04)
[2017-11-06] MEDS: INSULIN GLARGINE 300 UNITS/3 ML INSULN.PEN. SQ SCH ×2 (10:30→20:46)
[2017-11-06] MEDS: LISINOPRIL 2.5 MG TABLET PO SCH (10:30)
[2017-11-06] MEDS: HYDROcodone/APAP 5/325MG 1 TAB TABLET PO SCH ×4 (10:32→22:04)
[2017-11-06] MEDS: LEVOTHYROXINE 100 MCG TABLET PO SCH (10:33)
[2017-11-06 16:26] VITALS: BP 124/62
--- NOTE | 2017-11-06 19:51 | PDOC ---
Exam Note: Miguel A Note: Late entry for date of service November 05, 2017. Please also refer to the separate dictated note~for this date of service dictated separately.~Patient seen individually. Discussed the patient with Nursing staff reviewed the chart.~ Reviewed interim history and current functioning. Reviewed vital signs,~Labs/ Radiology~and current medications noted below. Continue current treatment with the changes noted in the dictated addendum note Assessment: Vital Signs: VS - Last 72 Hours, by Label Date Time Temp Pulse Resp B/P (MAP) Pulse Ox O2 Delivery O2 Flow Rate FiO2 11/06/17 17:24 18 94 Room Air 11/06/17 16:26 97.7 82 18 124/62 (82) 94 11/06/17 15:00 18 99 Room Air 11/06/17 13:17 18 99 Room Air 11/06/17 10:32 18 99 Room Air 11/06/17 10:30 72 90/50 11/06/17 06:17 96.0 72 16 90/50 (63) 99 11/05/17 17:30 18 92 Room Air 11/05/17 16:39 97.9 83 24 98/56 (70) 92 Room Air 11/05/17 13:48 18 96 Room Air 11/05/17 09:35 20 96 Room Air 11/05/17 09:24 77 98/45 11/05/17 06:25 97.0 77 18 98/45 (62) 96 11/05/17 04:41 91 Room Air 11/05/17 03:41 91 Room Air 11/04/17 19:44 91 Room Air 11/04/17 16:37 Room Air 11/04/17 16:16 97.8 78 18 114/50 (71) 91 11/04/17 12:20 Room Air 11/04/17 07:53 Room Air 11/04/17 06:26 98.1 75 20 90/58 (69) 93 Vital Signs Date Time Temp Pulse Resp B/P (MAP) Pulse Ox O2 Delivery O2 Flow Rate FiO2 11/06/17 17:24 18 94 Room Air 11/06/17 16:26 97.7 82 124/62 (82) I&O Intake and Output 11/06/17 07:00 Intake Total 720 ml Balance 720 ml Intake Oral 720 ml # Bowel Movements 1 Labs: Laboratory Tests Test 11/06/17 05:47 11/06/17 07:35 11/06/17 07:47 11/06/17 11:30 Glucose (Fingerstick) 167 mg/dL (70-99) H 186 mg/dL (70-99) H 245 mg/dL (70-99) H White Blood Count 8.2 x10^3/uL (4.0-11.0) Red Blood Count 3.89 x10^6/uL (3.50-5.40) Hemoglobin 12.4 g/dL (12.0-15.5) Hematocrit 36.1 % (36.0-47.0) Mean Corpuscular Volume 93 fL (79-100) Mean Corpuscular Hemoglobin 32 pg (25-35) Mean Corpuscular Hemoglobin Concent 34 g/dL (31-37) Red Cell Distribution Width 16.5 % (11.5-14.5) H Platelet Count 281 x10^3/uL (140-400) Neutrophils (%) (Auto) 38 % (31-73) Lymphocytes (%) (Auto) 52 % (24-48) H Monocytes (%) (Auto) 6 % (0-9) Eosinophils (%) (Auto) 3 % (0-3) Basophils (%) (Auto) 1 % (0-3) Neutrophils # (Auto) 3.1 x10^3uL (1.8-7.7) Lymphocytes # (Auto) 4.3 x10^3/uL (1.0-4.8) Monocytes # (Auto) 0.5 x10^3/uL (0.0-1.1) Eosinophils # (Auto) 0.2 x10^3/uL (0.0-0.7) Basophils # (Auto) 0.1 x10^3/uL (0.0-0.2) Sodium Level 136 mmol/L (136-145) Potassium Level 4.8 mmol/L (3.5-5.1) Chloride Level 96 mmol/L (98-107) L Carbon Dioxide Level 33 mmol/L (21-32) H Anion Gap 7 (6-14) Blood Urea Nitrogen 39 mg/dL (7-20) H Creatinine 1.5 mg/dL (0.6-1.0) H Estimated GFR (Cockcroft-Gault) 35.5 BUN/Creatinine Ratio 26 (6-20) H Glucose Level 220 mg/dL (70-99) H Calcium Level 8.8 mg/dL (8.5-10.1) Total Bilirubin 0.3 mg/dL (0.2-1.0) Aspartate Amino Transferase (AST) 52 U/L (15-37) H Alanine Aminotransferase (ALT) 19 U/L (14-59) Alkaline Phosphatase 66 U/L (46-116) Total Protein 7.0 g/dL (6.4-8.2) Albumin 2.9 g/dL (3.4-5.0) L Albumin/Globulin Ratio 0.7 (1.0-1.7) L Valproic Acid Level 59 mcg/mL (50-100) Valproic Acid Last Dose Date 11/05/17 Valproic Acid Last Dose Time 2100 Test 11/06/17 16:26 11/06/17 19:18 Glucose (Fingerstick) 76 mg/dL (70-99) 102 mg/dL (70-99) H Current Medications: Meds: Current Medications Ondansetron HCl (Zofran) 4 mg PRN Q4HRS PRN IV NAUSEA/VOMITING; Start 11/01/17 at 15:30; Stop 11/01/17 at 15:37; Status DC Lactulose (Lactulose) 45 gm QID PO ; Start 11/01/17 at 17:00; Stop 11/01/17 at 17:00; Status DC Dextrose/Sodium Chloride 1,000 ml @ 75 mls/hr 1X ONCE IV ; Start 11/01/17 at 15:30; Stop 11/01/17 at 15:42; Status DC Sodium Chloride 1,000 ml @ 1,000 mls/hr 1X ONCE IV Last administered on at 17:43; Start 11/01/17 at 16:30; Stop 11/01/17 at 17:29; Status DC Acetaminophen (Tylenol) 650 mg PRN Q6HRS PRN PO PAIN / TEMP; Start 11/01/17 at 20:15 Multi-Ingredient Ointment (Analgesic Remlap) 1 renetta PRN QID PRN TP MUSCLE PAIN; Start 11/01/17 at 20:15 Al Hydroxide/Mg Hydroxide (Mylanta Plus Xs) 15 ml PRN AFTMEALHC PRN PO DYSPEPSIA; Start 11/01/17 at 20:15 Magnesium Hydroxide (Milk Of Magnesia) 2,400 mg PRN QHS PRN PO CONSTIPATION; Start 11/01/17 at 20:15 Nicotine (Nicoderm Cq 7mg) 1 patch DAILY TD ; Start 11/02/17 at 09:00; Stop at 09:00; Status DC Enoxaparin Sodium (Lovenox 40mg Syringe) 40 mg Q24H SQ ; Start 11/01/17 at 21:00 ; Stop 11/02/17 at 00:43; Status DC Non-Formulary Medication (Aripiprazole (Abilify)) 15 mg DAILY@1800 PO ; Start at 18:00; Stop 11/02/17 at 18:00; Status DC Non-Formulary Medication (Divalproex Sodium (Depakote Er)) 750 mg BID PO ; Start 11/02/17 at 09:00; Stop 11/02/17 at 09:00; Status DC Non-Formulary Medication (Escitalopram Oxalate (Lexapro)) 10 mg DAILY PO ; Start 11/02/17 at 09:00; Stop 11/02/17 at 09:00; Status DC Non-Formulary Medication (Melatonin ) 6 mg HS PO ; Start 11/02/17 at 21:00; Stop 11/02/17 at 21:00; Status DC Non-Formulary Medication (Trazodone Hcl ) 100 mg PRN QHS PRN PO INSOMNIA; Start 11/01/17 at 23:15; Stop 11/02/17 at 00:43; Status DC Carbidopa/Levodopa (Sinemet 25/100) 1 tab [id number] PO ; Start 11/02/17 at 07:00; Stop 11/02/17 at 07:00; Status DC Cyclobenzaprine HCl (Starter Pack - Flexeril 10mg) 10 startpack PRN Q8HRS PRN PO PAIN; Start 11/01/17 at 23:15; Stop 11/02/17 at 00:43; Status DC Furosemide (Lasix) 20 mg DAILY PO ; Start 11/02/17 at 09:00; Stop 11/02/17 at 09 :00; Status DC Gabapentin (Neurontin) 100 mg TID PO ; Start 11/02/17 at 09:00; Stop 11/02/17 at 09:00; Status DC Potassium Chloride (Klor-Con) 20 meq DAILY PO ; Start 11/02/17 at 09:00; Stop at 09:00; Status DC Trolamine Salicylate (Myoplex) 85 renetta PRN Q4HRS PRN TP PAIN; Start 11/01/17 at 23:15; Stop 11/02/17 at 00:43; Status DC Vitamin A/Vitamin D (Vitamin A & D Ointment) 1 renetta TID TP ; Start 11/02/17 at 09 :00; Stop 11/02/17 at 09:00; Status DC Non-Formulary Medication (Atorvastatin Calcium ) 80 mg QHS PO ; Start 11/02/17 at 21:00; Stop 11/02/17 at 21:00; Status DC Non-Formulary Medication (Cholecalciferol (Vitamin D3) (Vitamin D)) 5,000 unit DAILY PO ; Start 11/02/17 at 09:00; Stop 11/02/17 at 09:00; Status DC Non-Formulary Medication (Ciclopirox (Penlac)) 1 applic WEEKLYHS PRN TP nail fungus; Start 11/01/17 at 23:15; Stop 11/02/17 at 00:44; Status DC Non-Formulary Medication (Fenofibrate,Micronized (Fenofibrate)) 200 mg DAILY PO ; Start 11/02/17 at 09:00; Stop 11/02/17 at 09:00; Status DC Non-Formulary Medication (Glucagon,Human Recombinant (Glucagon Emergency Kit)) 1 mg q15 minutes PRN IJ low blood sugar; Start 11/01/17 at 23:15; Stop 11/02/17 at 00:44; Status DC Non-Formulary Medication (Hydrocodone Bit/ Acetaminophen (Swan 5-325 Tablet)) 1 tab PRN DAILY PRN PO PAIN; Start 11/01/17 at 23:15; Stop 11/02/17 at 00:44; Status DC Non-Formulary Medication (Hydrocodone Bit/ Acetaminophen (Swan 5-325 Tablet)) 1 tab [id number] PRN PO PAIN; Start 11/01/17 at 23:15; Stop 11/02/17 at 00:44; Status DC Non-Formulary Medication (Ibuprofen ) 200 mg PRN Q8HRS PRN PO PAIN; Start 11/01 at 23:15; Stop 11/02/17 at 00:44; Status DC Non-Formulary Medication (Insulin Aspart (Novolog)) 40 unit TIDAC SQ ; Start at 07:30; Stop 11/02/17 at 07:30; Status DC Non-Formulary Medication (Insulin Degludec (Tresiba Flextouch U-100)) 65 unit BID SQ ; Start 11/02/17 at 09:00; Stop 11/02/17 at 09:00; Status DC Non-Formulary Medication (Levothyroxine Sodium ) 200 mcg DAILYAC PO ; Start at 07:30; Stop 11/02/17 at 07:30; Status DC Non-Formulary Medication (Levothyroxine Sodium ) 300 mcg WEEKLY PO ; Start 11/08 at 09:00; Stop 11/08/17 at 09:00; Status DC Non-Formulary Medication (Lisinopril ) 2.5 mg DAILY PO ; Start 11/02/17 at 09:00 ; Stop 11/02/17 at 09:00; Status DC Non-Formulary Medication (Loperamide HCl (Imodium A-D)) 2 mg PRN DAILY PRN PO DIARRHEA; Start 11/01/17 at 23:15; Stop 11/02/17 at 00:43; Status DC Non-Formulary Medication (Multivitamin With Minerals (Multiple Vitamin)) 1 each DAILY PO ; Start 11/02/17 at 09:00; Stop 11/02/17 at 09:00; Status DC Non-Formulary Medication (Mchenry-3 Fatty Acids/Fish Oil (Mchenry 3 1,000 Mg Softgel )) 2 each DAILY PO ; Start 11/02/17 at 09:00; Stop 11/02/17 at 09:00; Status DC Non-Formulary Medication (Sennosides (Senna)) 2 tab DAILY PO ; Start 11/02/17 at 09:00; Stop 11/02/17 at 09:00; Status DC Non-Formulary Medication (Travoprost (Travatan Z)) 1 drop QHS OU ; Start at 21:00; Stop 11/02/17 at 21:00; Status DC Non-Formulary Medication (Trolamine Salicylate (Aspercreme)) 1 renetta HS TP ; Start 11/02/17 at 21:00; Stop 11/02/17 at 21:00; Status DC Melatonin 6 mg HS PO Last administered on 11/05/17at 20:10; Start 11/02/17 at 21 :00 Aripiprazole (Abilify) 15 mg DAILY PO Last administered on 11/06/17at 10:28; Start 11/02/17 at 09:00; Stop 11/06/17 at 18:47; Status DC Citalopram Hydrobromide (CeleXA) 20 mg DAILY PO Last administered on 11/06/17at 10:27; Start 11/02/17 at 09:00 Divalproex Sodium (Depakote) 750 mg BID PO Last administered on 11/03/17at 18:37 ; Start 11/02/17 at 09:00; Stop 11/03/17 at 20:24; Status DC Trazodone HCl (Desyrel) 100 mg PRN QHS PRN PO INSOMNIA, MAY REPEAT X1 Last administered on 11/02/17at 02:45; Start 11/02/17 at 01:00; Stop 11/05/17 at 19:05 ; Status DC Trolamine Salicylate (Myoplex) 1 renetta HS TP Last administered on 11/05/17at 20:19 ; Start 11/02/17 at 21:00 Trolamine Salicylate (Myoplex) 1 renetta PRN Q4HRS PRN TP PAIN; Start 11/02/17 at 01:15 Ciclopirox Olamine (Loprox) 1 renetta HS TP Last administered on 11/05/17at 20:19; Start 11/02/17 at 21:00 Insulin Human Lispro (HumaLOG) 40 units TIDAC SQ Last administered on at 11:52; Start 11/02/17 at 07:30 Cyclobenzaprine HCl (Flexeril) 10 mg PRN Q8HRS PRN PO MUSCLE SPASMS; Start at 01:15 Glucagon (Glucagen Kit) 1 mg PRN Q15MIN PRN IM HYPOGLYCEMIA; Start 11/02/17 at 01:15 Ibuprofen (Motrin) 200 mg PRN Q8HRS PRN PO INFLAMMATION; Start 11/02/17 at 01: 15 Loperamide HCl (Imodium) 2 mg PRN DAILY PRN PO DIARRHEA; Start 11/02/17 at 01: 15 Acetaminophen/ Hydrocodone Bitart (Lortab 5/325) 1 tab PRN DAILY PRN PO PAIN Last administered on 11/05/17 03:41; Start 11/02/17 at 01:15 Atorvastatin Calcium (Lipitor) 80 mg QHS PO Last administered on 11/05/17 20: 08; Start 11/02/17 at 21:00 Fish Oil (Fish Oil) 2,000 mg DAILY PO Last administered on 11/06/17 10:26; Start 11/02/17 at 09:00 Furosemide (Lasix) 20 mg DAILY PO Last administered on 11/06/17 10:28; Start 11/02/17 at 09:00 Levothyroxine Sodium (Synthroid) 200 mcg DAILY06 PO ; Start 11/02/17 at 06:00; Stop 11/02/17 at 08:05; Status DC Levothyroxine Sodium (Synthroid) 300 mcg WEEKLY PO Last administered on 08:01; Start 11/02/17 at 09:00; Stop 11/02/17 at 09:00; Status DC Lisinopril (Prinivil) 2.5 mg DAILY PO Last administered on 11/05/17 09:24; Start 11/02/17 at 09:00 Multivitamins/ Calcium (Thera-M Plus) 1 tab DAILY PO Last administered on 10:25; Start 11/02/17 at 09:00 Potassium Chloride (Klor-Con) 20 meq DAILY PO Last administered on 11/06/17 10 :28; Start 11/02/17 at 09:00 Senna/Docusate Sodium (Senna Plus) 2 tab DAILY PO Last administered on 10:27; Start 11/02/17 at 09:00 Vitamin D (Vitamin D3) 5,000 unit DAILY PO Last administered on 11/06/17 10:25 ; Start 11/02/17 at 09:00; Stop 11/06/17 at 18:32; Status DC Gabapentin (Neurontin) 100 mg TID PO Last administered on 11/06/17 13:17; Start 11/02/17 at 09:00 Carbidopa/Levodopa (Sinemet 25/100) 1 tab QID PO Last administered on 17:23; Start 11/02/17 at 09:00 Acetaminophen/ Hydrocodone Bitart (Lortab 5/325) 1 tab QID PO Last administered on 11/06/17 17:24; Start 11/02/17 at 09:00 Latanoprost (Xalatan) 1 drop QHS OU Last administered on 11/05/17 20:18; Start 11/02/17 at 21:00 Insulin Glargine (Lantus) 65 units BID SQ Last administered on 11/06/17 10:30 ; Start 11/02/17 at 09:00 Enoxaparin Sodium (Lovenox 40mg Syringe) 40 mg Q12H SQ Last administered on 10:28; Start 11/02/17 at 07:00 Levothyroxine Sodium (Synthroid) 200 mcg QM-F@0900 PO Last administered on 11/06 10:33; Start 11/04/17 at 09:00 Levothyroxine Sodium (Synthroid) 200 mcg QSU@0900 PO Last administered on 10:41; Start 11/03/17 at 09:00 Levothyroxine Sodium (Synthroid) 300 mcg QSA@0900 PO Last administered on 11:24; Start 11/02/17 at 09:00 Doxycycline Hyclate (Vibra-Tab) 100 mg BID PO Last administered on 11/06/17 10 :27; Start 11/03/17 at 21:00 Metformin HCl (Glucophage Xr) 500 mg DAILYWBKFT PO Last administered on 10:27; Start 11/04/17 at 08:00 Lactobacillus Rhamnosus (Culturelle) 1 cap BID PO Last administered on 10:27; Start 11/03/17 at 21:00 Magnesium Oxide (Magnesium Oxide) 400 mg BID PO Last administered on 11/06/17 10:25; Start 11/03/17 at 21:00 Divalproex Sodium (Depakote) 1,000 mg BID PO Last administered on 11/06/17 10: 27; Start 11/03/17 at 21:00 Divalproex Sodium (Depakote) 250 mg 1X ONCE PO Last administered on 11/03/17at 20:30; Start 11/03/17 at 20:30; Stop 11/03/17 at 20:41; Status DC Nystatin (Mycostatin) 1 renetta BID TP Last administered on 11/06/17at 10:29; Start 11/04/17 at 21:00 Trazodone HCl (Desyrel) 50 mg HS PO Last administered on 11/05/17at 20:18; Start 11/05/17 at 21:00 Trazodone HCl (Desyrel) 50 mg PRN QHS PRN PO INSOMNIA; Start 11/05/17 at 19:15 Vitamin D (Vitamin D3) 50,000 unit WEEKLY PO ; Start 11/07/17 at 09:00 Aripiprazole (Abilify) 20 mg DAILY PO ; Start 11/07/17 at 09:00 Active Scripts Active Reported Melatonin 3 Mg Tablet 6 Mg PO HS Trazodone Hcl 100 Mg Tablet 100 Mg PO PRN QHS PRN Swan 5-325 Tablet (Hydrocodone Bit/Acetaminophen) 1 Each Tablet 1 Tab PO PRN DAILY PRN Imodium A-D (Loperamide HCl) 2 Mg Capsule 2 Mg PO PRN DAILY PRN Ibuprofen 100 Mg/5 Ml Oral.susp 200 Mg PO PRN Q8HRS PRN Glucagon Emergency Kit (Glucagon,Human Recombinant) 1 Mg Kit 1 Mg IJ Q15 MINUTES PRN Cyclobenzaprine Hcl 10 Mg Tablet 10 Mg PO PRN Q8HRS PRN Trolamine Salicylate 85 Gm Cream..g. 85 Gm TP PRN Q4HRS PRN Lexapro (Escitalopram Oxalate) 10 Mg Tablet 10 Mg PO DAILY Levothyroxine Sodium 300 Mcg Tablet 300 Mcg PO WEEKLY Levothyroxine Sodium 200 Mcg Tablet 200 Mcg PO DAILYAC Lasix (Furosemide) 20 Mg Tablet 20 Mg PO DAILY Mchenry 3 1,000 Mg Softgel (Mchenry-3 Fatty Acids/Fish Oil) 1 Each Capsule 2 Each PO DAILY Fenofibrate (Fenofibrate,Micronized) 200 Mg Capsule 200 Mg PO DAILY Atorvastatin Calcium 80 Mg Tablet 80 Mg PO QHS Abilify (Aripiprazole) 15 Mg Tablet 15 Mg PO DAILY@1800 Swan 5-325 Tablet (Hydrocodone Bit/Acetaminophen) 1 Each Tablet 1 Tab PO [id number] PRN Sinemet 25-100 Mg Tablet (Carbidopa/Levodopa) 1 Each Tablet 1 Each PO [id number] Gabapentin 100 Mg Capsule 100 Mg PO TID Depakote Er (Divalproex Sodium) 250 Mg Tab.er.24h 750 Mg PO BID Vitamin D (Cholecalciferol (Vitamin D3)) 1,000 Unit Capsule 5,000 Unit PO DAILY Travatan Z (Travoprost) 5 Ml Drops 1 Drop OU QHS Senna (Sennosides) 8.6 Mg Tablet 2 Tab PO DAILY Klor-Con M20 (Potassium Chloride) 20 Meq Tab.er.prt 20 Meq PO DAILY Multiple Vitamin (Multivitamin With Minerals) 1 Each Tablet 1 Each PO DAILY Lisinopril 2.5 Mg Tablet 2.5 Mg PO DAILY Novolog (Insulin Aspart) 100 Unit/1 Ml Cartridge 40 Unit SQ TIDAC A and D Ointment (Vits A and D/White Pet/Lanolin) 42.5 Gm Oint...g. 1 Applic TP TID Tresiba Flextouch U-100 (Insulin Degludec) 100 Unit/1 Ml Insuln.pen 65 Unit SQ BID Penlac (Ciclopirox) 6.6 Ml Solution 1 Applic TP WEEKLYHS PRN Aspercreme (Trolamine Salicylate) 177.4 Ml Lotion 1 Renetta TP HS I have reviewed the current psychotropics carefully including drug interactions. Risk benefit ratio favors no change other than as noted in my dictated progress note. Diagnosis: Problems: (1) Psychiatric diagnosis (2) Anxiety disorder (3) Impulse control disorder (4) Bipolar affective, mixed, sev w/ psych CHINO JOHNS MD November 06, 2017 19:51
--- NOTE | 2017-11-06 20:28 | PDOC ---
Exam Note: Miguel A Note: Please also refer to the separate dictated note~for this date of service dictated separately.~Patient seen individually. Discussed the patient with Nursing staff reviewed the chart.~Reviewed interim history and current functioning. Reviewed vital signs,~Labs/ Radiology~and current medications noted below. Continue current treatment with the changes noted in the dictated addendum note Assessment: Vital Signs: Vital Signs Date Time Temp Pulse Resp B/P (MAP) Pulse Ox O2 Delivery O2 Flow Rate FiO2 11/06/17 17:24 18 94 Room Air 11/06/17 16:26 97.7 82 124/62 (82) I&O Intake and Output 11/06/17 07:00 Intake Total 720 ml Balance 720 ml Intake Oral 720 ml # Bowel Movements 1 Labs: Laboratory Tests Test 11/06/17 05:47 11/06/17 07:35 11/06/17 07:47 11/06/17 11:30 Glucose (Fingerstick) 167 mg/dL (70-99) H 186 mg/dL (70-99) H 245 mg/dL (70-99) H White Blood Count 8.2 x10^3/uL (4.0-11.0) Red Blood Count 3.89 x10^6/uL (3.50-5.40) Hemoglobin 12.4 g/dL (12.0-15.5) Hematocrit 36.1 % (36.0-47.0) Mean Corpuscular Volume 93 fL (79-100) Mean Corpuscular Hemoglobin 32 pg (25-35) Mean Corpuscular Hemoglobin Concent 34 g/dL (31-37) Red Cell Distribution Width 16.5 % (11.5-14.5) H Platelet Count 281 x10^3/uL (140-400) Neutrophils (%) (Auto) 38 % (31-73) Lymphocytes (%) (Auto) 52 % (24-48) H Monocytes (%) (Auto) 6 % (0-9) Eosinophils (%) (Auto) 3 % (0-3) Basophils (%) (Auto) 1 % (0-3) Neutrophils # (Auto) 3.1 x10^3uL (1.8-7.7) Lymphocytes # (Auto) 4.3 x10^3/uL (1.0-4.8) Monocytes # (Auto) 0.5 x10^3/uL (0.0-1.1) Eosinophils # (Auto) 0.2 x10^3/uL (0.0-0.7) Basophils # (Auto) 0.1 x10^3/uL (0.0-0.2) Sodium Level 136 mmol/L (136-145) Potassium Level 4.8 mmol/L (3.5-5.1) Chloride Level 96 mmol/L (98-107) L Carbon Dioxide Level 33 mmol/L (21-32) H Anion Gap 7 (6-14) Blood Urea Nitrogen 39 mg/dL (7-20) H Creatinine 1.5 mg/dL (0.6-1.0) H Estimated GFR (Cockcroft-Gault) 35.5 BUN/Creatinine Ratio 26 (6-20) H Glucose Level 220 mg/dL (70-99) H Calcium Level 8.8 mg/dL (8.5-10.1) Total Bilirubin 0.3 mg/dL (0.2-1.0) Aspartate Amino Transferase (AST) 52 U/L (15-37) H Alanine Aminotransferase (ALT) 19 U/L (14-59) Alkaline Phosphatase 66 U/L (46-116) Total Protein 7.0 g/dL (6.4-8.2) Albumin 2.9 g/dL (3.4-5.0) L Albumin/Globulin Ratio 0.7 (1.0-1.7) L Valproic Acid Level 59 mcg/mL (50-100) Valproic Acid Last Dose Date 11/05/17 Valproic Acid Last Dose Time 2100 Test 11/06/17 16:26 11/06/17 19:18 Glucose (Fingerstick) 76 mg/dL (70-99) 102 mg/dL (70-99) H Current Medications: Meds: Current Medications Ondansetron HCl (Zofran) 4 mg PRN Q4HRS PRN IV NAUSEA/VOMITING; Start 11/01/17 at 15:30; Stop 11/01/17 at 15:37; Status DC Lactulose (Lactulose) 45 gm QID PO ; Start 11/01/17 at 17:00; Stop 11/01/17 at 17:00; Status DC Dextrose/Sodium Chloride 1,000 ml @ 75 mls/hr 1X ONCE IV ; Start 11/01/17 at 15:30; Stop 11/01/17 at 15:42; Status DC Sodium Chloride 1,000 ml @ 1,000 mls/hr 1X ONCE IV Last administered on at 17:43; Start 11/01/17 at 16:30; Stop 11/01/17 at 17:29; Status DC Acetaminophen (Tylenol) 650 mg PRN Q6HRS PRN PO PAIN / TEMP; Start 11/01/17 at 20:15 Multi-Ingredient Ointment (Analgesic [place]) 1 renetta PRN QID PRN TP MUSCLE PAIN; Start 11/01/17 at 20:15 Al Hydroxide/Mg Hydroxide (Mylanta Plus Xs) 15 ml PRN AFTMEALHC PRN PO DYSPEPSIA; Start 11/01/17 at 20:15 Magnesium Hydroxide (Milk Of Magnesia) 2,400 mg PRN QHS PRN PO CONSTIPATION; Start 11/01/17 at 20:15 Nicotine (Nicoderm Cq 7mg) 1 patch DAILY TD ; Start 11/02/17 at 09:00; Stop at 09:00; Status DC Enoxaparin Sodium (Lovenox 40mg Syringe) 40 mg Q24H SQ ; Start 11/01/17 at 21:00 ; Stop 11/02/17 at 00:43; Status DC Non-Formulary Medication (Aripiprazole (Abilify)) 15 mg DAILY@1800 PO ; Start at 18:00; Stop 11/02/17 at 18:00; Status DC Non-Formulary Medication (Divalproex Sodium (Depakote Er)) 750 mg BID PO ; Start 11/02/17 at 09:00; Stop 11/02/17 at 09:00; Status DC Non-Formulary Medication (Escitalopram Oxalate (Lexapro)) 10 mg DAILY PO ; Start 11/02/17 at 09:00; Stop 11/02/17 at 09:00; Status DC Non-Formulary Medication (Melatonin ) 6 mg HS PO ; Start 11/02/17 at 21:00; Stop 11/02/17 at 21:00; Status DC Non-Formulary Medication (Trazodone Hcl ) 100 mg PRN QHS PRN PO INSOMNIA; Start 11/01/17 at 23:15; Stop 11/02/17 at 00:43; Status DC Carbidopa/Levodopa (Sinemet 25/100) 1 tab [id number] PO ; Start 11/02/17 at 07:00; Stop 11/02/17 at 07:00; Status DC Cyclobenzaprine HCl (Starter Pack - Flexeril 10mg) 10 startpack PRN Q8HRS PRN PO PAIN; Start 11/01/17 at 23:15; Stop 11/02/17 at 00:43; Status DC Furosemide (Lasix) 20 mg DAILY PO ; Start 11/02/17 at 09:00; Stop 11/02/17 at 09 :00; Status DC Gabapentin (Neurontin) 100 mg TID PO ; Start 11/02/17 at 09:00; Stop 11/02/17 at 09:00; Status DC Potassium Chloride (Klor-Con) 20 meq DAILY PO ; Start 11/02/17 at 09:00; Stop at 09:00; Status DC Trolamine Salicylate (Myoplex) 85 renetta PRN Q4HRS PRN TP PAIN; Start 11/01/17 at 23:15; Stop 11/02/17 at 00:43; Status DC Vitamin A/Vitamin D (Vitamin A & D Ointment) 1 renetta TID TP ; Start 11/02/17 at 09 :00; Stop 11/02/17 at 09:00; Status DC Non-Formulary Medication (Atorvastatin Calcium ) 80 mg QHS PO ; Start 11/02/17 at 21:00; Stop 11/02/17 at 21:00; Status DC Non-Formulary Medication (Cholecalciferol (Vitamin D3) (Vitamin D)) 5,000 unit DAILY PO ; Start 11/02/17 at 09:00; Stop 11/02/17 at 09:00; Status DC Non-Formulary Medication (Ciclopirox (Penlac)) 1 applic WEEKLYHS PRN TP nail fungus; Start 11/01/17 at 23:15; Stop 11/02/17 at 00:44; Status DC Non-Formulary Medication (Fenofibrate,Micronized (Fenofibrate)) 200 mg DAILY PO ; Start 11/02/17 at 09:00; Stop 11/02/17 at 09:00; Status DC Non-Formulary Medication (Glucagon,Human Recombinant (Glucagon Emergency Kit)) 1 mg q15 minutes PRN IJ low blood sugar; Start 11/01/17 at 23:15; Stop 11/02/17 at 00:44; Status DC Non-Formulary Medication (Hydrocodone Bit/ Acetaminophen ([place] 5-325 Tablet)) 1 tab PRN DAILY PRN PO PAIN; Start 11/01/17 at 23:15; Stop 11/02/17 at 00:44; Status DC Non-Formulary Medication (Hydrocodone Bit/ Acetaminophen ([place] 5-325 Tablet)) 1 tab [id number] PRN PO PAIN; Start 11/01/17 at 23:15; Stop 11/02/17 at 00:44; Status DC Non-Formulary Medication (Ibuprofen ) 200 mg PRN Q8HRS PRN PO PAIN; Start 11/01 at 23:15; Stop 11/02/17 at 00:44; Status DC Non-Formulary Medication (Insulin Aspart (Novolog)) 40 unit TIDAC SQ ; Start at 07:30; Stop 11/02/17 at 07:30; Status DC Non-Formulary Medication (Insulin Degludec (Tresiba Flextouch U-100)) 65 unit BID SQ ; Start 11/02/17 at 09:00; Stop 11/02/17 at 09:00; Status DC Non-Formulary Medication (Levothyroxine Sodium ) 200 mcg DAILYAC PO ; Start at 07:30; Stop 11/02/17 at 07:30; Status DC Non-Formulary Medication (Levothyroxine Sodium ) 300 mcg WEEKLY PO ; Start 11/08 at 09:00; Stop 11/08/17 at 09:00; Status DC Non-Formulary Medication (Lisinopril ) 2.5 mg DAILY PO ; Start 11/02/17 at 09:00 ; Stop 11/02/17 at 09:00; Status DC Non-Formulary Medication (Loperamide HCl (Imodium A-D)) 2 mg PRN DAILY PRN PO DIARRHEA; Start 11/01/17 at 23:15; Stop 11/02/17 at 00:43; Status DC Non-Formulary Medication (Multivitamin With Minerals (Multiple Vitamin)) 1 each DAILY PO ; Start 11/02/17 at 09:00; Stop 11/02/17 at 09:00; Status DC Non-Formulary Medication ([place]-3 Fatty Acids/Fish Oil ([place] 3 1,000 Mg Softgel )) 2 each DAILY PO ; Start 11/02/17 at 09:00; Stop 11/02/17 at 09:00; Status DC Non-Formulary Medication (Sennosides (Senna)) 2 tab DAILY PO ; Start 11/02/17 at 09:00; Stop 11/02/17 at 09:00; Status DC Non-Formulary Medication (Travoprost (Travatan Z)) 1 drop QHS OU ; Start at 21:00; Stop 11/02/17 at 21:00; Status DC Non-Formulary Medication (Trolamine Salicylate (Aspercreme)) 1 renetta HS TP ; Start 11/02/17 at 21:00; Stop 11/02/17 at 21:00; Status DC Melatonin 6 mg HS PO Last administered on 11/05/17at 20:10; Start 11/02/17 at 21 :00 Aripiprazole (Abilify) 15 mg DAILY PO Last administered on 11/06/17at 10:28; Start 11/02/17 at 09:00; Stop 11/06/17 at 18:47; Status DC Citalopram Hydrobromide (CeleXA) 20 mg DAILY PO Last administered on 11/06/17at 10:27; Start 11/02/17 at 09:00 Divalproex Sodium (Depakote) 750 mg BID PO Last administered on 11/03/17at 18:37 ; Start 11/02/17 at 09:00; Stop 11/03/17 at 20:24; Status DC Trazodone HCl (Desyrel) 100 mg PRN QHS PRN PO INSOMNIA, MAY REPEAT X1 Last administered on 11/02/17at 02:45; Start 11/02/17 at 01:00; Stop 11/05/17 at 19:05 ; Status DC Trolamine Salicylate (Myoplex) 1 renetta HS TP Last administered on 11/05/17at 20:19 ; Start 11/02/17 at 21:00 Trolamine Salicylate (Myoplex) 1 renetta PRN Q4HRS PRN TP PAIN; Start 11/02/17 at 01:15 Ciclopirox Olamine (Loprox) 1 renetta HS TP Last administered on 11/05/17 20:19; Start 11/02/17 at 21:00 Insulin Human Lispro (HumaLOG) 40 units TIDAC SQ Last administered on at 11:52; Start 11/02/17 at 07:30 Cyclobenzaprine HCl (Flexeril) 10 mg PRN Q8HRS PRN PO MUSCLE SPASMS; Start at 01:15 Glucagon (Glucagen Kit) 1 mg PRN Q15MIN PRN IM HYPOGLYCEMIA; Start 11/02/17 at 01:15 Ibuprofen (Motrin) 200 mg PRN Q8HRS PRN PO INFLAMMATION; Start 11/02/17 at 01: 15 Loperamide HCl (Imodium) 2 mg PRN DAILY PRN PO DIARRHEA; Start 11/02/17 at 01: 15 Acetaminophen/ Hydrocodone Bitart (Lortab 5/325) 1 tab PRN DAILY PRN PO PAIN Last administered on 11/05/17at 03:41; Start 11/02/17 at 01:15 Atorvastatin Calcium (Lipitor) 80 mg QHS PO Last administered on 11/05/17at 20: 08; Start 11/02/17 at 21:00 Fish Oil (Fish Oil) 2,000 mg DAILY PO Last administered on 11/06/17 10:26; Start 11/02/17 at 09:00 Furosemide (Lasix) 20 mg DAILY PO Last administered on 11/06/17at 10:28; Start 11/02/17 at 09:00 Levothyroxine Sodium (Synthroid) 200 mcg DAILY06 PO ; Start 11/02/17 at 06:00; Stop 11/02/17 at 08:05; Status DC Levothyroxine Sodium (Synthroid) 300 mcg WEEKLY PO Last administered on at 08:01; Start 11/02/17 at 09:00; Stop 11/02/17 at 09:00; Status DC Lisinopril (Prinivil) 2.5 mg DAILY PO Last administered on 11/05/17at 09:24; Start 11/02/17 at 09:00 Multivitamins/ Calcium (Thera-M Plus) 1 tab DAILY PO Last administered on at 10:25; Start 11/02/17 at 09:00 Potassium Chloride (Klor-Con) 20 meq DAILY PO Last administered on 11/06/17 10 :28; Start 11/02/17 at 09:00 Senna/Docusate Sodium (Senna Plus) 2 tab DAILY PO Last administered on 10:27; Start 11/02/17 at 09:00 Vitamin D (Vitamin D3) 5,000 unit DAILY PO Last administered on 11/06/17 10:25 ; Start 11/02/17 at 09:00; Stop 11/06/17 at 18:32; Status DC Gabapentin (Neurontin) 100 mg TID PO Last administered on 11/06/17 13:17; Start 11/02/17 at 09:00 Carbidopa/Levodopa (Sinemet 25/100) 1 tab QID PO Last administered on 17:23; Start 11/02/17 at 09:00 Acetaminophen/ Hydrocodone Bitart (Lortab 5/325) 1 tab QID PO Last administered on 11/06/17 17:24; Start 11/02/17 at 09:00 Latanoprost (Xalatan) 1 drop QHS OU Last administered on 11/05/17 20:18; Start 11/02/17 at 21:00 Insulin Glargine (Lantus) 65 units BID SQ Last administered on 11/06/17 10:30 ; Start 11/02/17 at 09:00 Enoxaparin Sodium (Lovenox 40mg Syringe) 40 mg Q12H SQ Last administered on 10:28; Start 11/02/17 at 07:00 Levothyroxine Sodium (Synthroid) 200 mcg QM-F@0900 PO Last administered on 11/06 10:33; Start 11/04/17 at 09:00 Levothyroxine Sodium (Synthroid) 200 mcg QSU@0900 PO Last administered on 10:41; Start 11/03/17 at 09:00 Levothyroxine Sodium (Synthroid) 300 mcg QSA@0900 PO Last administered on 11:24; Start 11/02/17 at 09:00 Doxycycline Hyclate (Vibra-Tab) 100 mg BID PO Last administered on 11/06/17 10 :27; Start 11/03/17 at 21:00 Metformin HCl (Glucophage Xr) 500 mg DAILYWBKFT PO Last administered on 10:27; Start 11/04/17 at 08:00 Lactobacillus Rhamnosus (Culturelle) 1 cap BID PO Last administered on 10:27; Start 11/03/17 at 21:00 Magnesium Oxide (Magnesium Oxide) 400 mg BID PO Last administered on 11/06/17at 10:25; Start 11/03/17 at 21:00 Divalproex Sodium (Depakote) 1,000 mg BID PO Last administered on 11/06/17 10: 27; Start 11/03/17 at 21:00 Divalproex Sodium (Depakote) 250 mg 1X ONCE PO Last administered on 11/03/17at 20:30; Start 11/03/17 at 20:30; Stop 11/03/17 at 20:41; Status DC Nystatin (Mycostatin) 1 renetta BID TP Last administered on 11/06/17at 10:29; Start 11/04/17 at 21:00 Trazodone HCl (Desyrel) 50 mg HS PO Last administered on 11/05/17at 20:18; Start 11/05/17 at 21:00 Trazodone HCl (Desyrel) 50 mg PRN QHS PRN PO INSOMNIA; Start 11/05/17 at 19:15 Vitamin D (Vitamin D3) 50,000 unit WEEKLY PO ; Start 11/07/17 at 09:00 Aripiprazole (Abilify) 20 mg DAILY PO ; Start 11/07/17 at 09:00 Active Scripts Active Reported Melatonin 3 Mg Tablet 6 Mg PO HS Trazodone Hcl 100 Mg Tablet 100 Mg PO PRN QHS PRN [place] 5-325 Tablet (Hydrocodone Bit/Acetaminophen) 1 Each Tablet 1 Tab PO PRN DAILY PRN Imodium A-D (Loperamide HCl) 2 Mg Capsule 2 Mg PO PRN DAILY PRN Ibuprofen 100 Mg/5 Ml Oral.susp 200 Mg PO PRN Q8HRS PRN Glucagon Emergency Kit (Glucagon,Human Recombinant) 1 Mg Kit 1 Mg IJ Q15 MINUTES PRN Cyclobenzaprine Hcl 10 Mg Tablet 10 Mg PO PRN Q8HRS PRN Trolamine Salicylate 85 Gm Cream..g. 85 Gm TP PRN Q4HRS PRN Lexapro (Escitalopram Oxalate) 10 Mg Tablet 10 Mg PO DAILY Levothyroxine Sodium 300 Mcg Tablet 300 Mcg PO WEEKLY Levothyroxine Sodium 200 Mcg Tablet 200 Mcg PO DAILYAC Lasix (Furosemide) 20 Mg Tablet 20 Mg PO DAILY [place] 3 1,000 Mg Softgel ([place]-3 Fatty Acids/Fish Oil) 1 Each Capsule 2 Each PO DAILY Fenofibrate (Fenofibrate,Micronized) 200 Mg Capsule 200 Mg PO DAILY Atorvastatin Calcium 80 Mg Tablet 80 Mg PO QHS Abilify (Aripiprazole) 15 Mg Tablet 15 Mg PO DAILY@1800 [place] 5-325 Tablet (Hydrocodone Bit/Acetaminophen) 1 Each Tablet 1 Tab PO [id number] PRN Sinemet 25-100 Mg Tablet (Carbidopa/Levodopa) 1 Each Tablet 1 Each PO [id number] Gabapentin 100 Mg Capsule 100 Mg PO TID Depakote Er (Divalproex Sodium) 250 Mg Tab.er.24h 750 Mg PO BID Vitamin D (Cholecalciferol (Vitamin D3)) 1,000 Unit Capsule 5,000 Unit PO DAILY Travatan Z (Travoprost) 5 Ml Drops 1 Drop OU QHS Senna (Sennosides) 8.6 Mg Tablet 2 Tab PO DAILY Klor-Con M20 (Potassium Chloride) 20 Meq Tab.er.prt 20 Meq PO DAILY Multiple Vitamin (Multivitamin With Minerals) 1 Each Tablet 1 Each PO DAILY Lisinopril 2.5 Mg Tablet 2.5 Mg PO DAILY Novolog (Insulin Aspart) 100 Unit/1 Ml Cartridge 40 Unit SQ TIDAC A and D Ointment (Vits A and D/White Pet/Lanolin) 42.5 Gm Oint...g. 1 Applic TP TID Tresiba Flextouch U-100 (Insulin Degludec) 100 Unit/1 Ml Insuln.pen 65 Unit SQ BID [place] (Ciclopirox) 6.6 Ml Solution 1 Applic TP WEEKLYHS PRN Aspercreme (Trolamine Salicylate) 177.4 Ml Lotion 1 Renetta TP HS I have reviewed the current psychotropics carefully including drug interactions. Risk benefit ratio favors no change other than as noted in my dictated progress note. Diagnosis: Problems: (1) Psychiatric diagnosis (2) Anxiety disorder (3) Impulse control disorder (4) Bipolar affective, mixed, sev w/ psych CHINO JOHNS MD November 06, 2017 20:28
[2017-11-06] MEDS: MELATONIN 3 MG TABLET PO SCH (20:31)
[2017-11-06] MEDS: traZODone 50 MG TABLET. PO SCH (20:32)
[2017-11-06] MEDS: ATORVASTATIN CALCIUM 20 MG TABLET PO SCH (20:32)
[2017-11-06] MEDS: LATANOPROST 0.005% OPHTH SOLUTION 2.5ML BOTTLE. OU SCH (21:44)
[2017-11-06] MEDS: TROLAMINE SALICYLATE 10% TOPICAL CREAM 85GM JAR. TP SCH (21:45)
[2017-11-06] MEDS: CICLOPIROX 0.77% TOPICAL CREAM 15GM TUBE. TP SCH (22:04)
--- NOTE | 2017-11-06 23:19 | PN ---
DATE: 11/05/2017 This is a late entry, 11/05/2017, covers the elements not covered in my initial note, 11/05/2017. SUBJECTIVE: I met with the patient in the evening. The patient slept 2 hours the previous evening. Per nursing report, she has been quite demanding, appears helpless, sarcastic, irritable, has some tremors consequent to Parkinson's disease, and some left-sided weakness. REVIEW OF SYSTEMS: Ambulation impaired, in Broda chair. She complains of some discomfort in the back, possible pressure sores. I have discussed with the nursing staff and they are monitoring this and changing the positions frequently to compensate. No CV, , pulmonary, eyes, ENT systems symptoms on review. MENTAL STATUS EXAM: Reasonably oriented. Speech is coherent, less pressured. Abstraction fair, computation impaired, language function intact, attention span short. Mood and affect remained somewhat labile. No suicidal or homicidal ideation. LABORATORY DATA: Reviewed. IMPRESSION: Schizoaffective disorder, bipolar type, mixed with psychotic features. PLAN: Depakote was increased to 1000 mg two times a day. We will check CBC, CMP, valproic acid level in 3 days. She slept just 2 hours previous evening and it is currently on trazodone 100 mg at bedtime. We will add as needed in addition to this at 100 mg. Maintain Celexa, melatonin, and Abilify. Valproic acid level on 11/03/2017, is 47, subtherapeutic. Depakote has since been increased. Repeat labs and a valproic acid level on 11/06/2017, and then adjust further. MAN Richard JOHNS MD DR: GLENN/cory JOB#: [id number] / [id number]
[2017-11-07 05:49] VITALS: BP 92/62
[2017-11-07] MEDS: LISINOPRIL 2.5 MG TABLET PO SCH (09:00)
[2017-11-07] MEDS: OMEGA-3 FATTY ACIDS/FISH OIL 1,000 MG CAPSULE. PO SCH (09:15)
[2017-11-07] MEDS: CARBIDOPA/LEVODOPA 25/100MG TABLET PO SCH ×4 (09:15→20:49)
[2017-11-07] MEDS: POTASSIUM CHLORIDE 20 MEQ TABLET.ER. PO SCH (09:15)
[2017-11-07] MEDS: SENNOSIDES/DOCUSATE 8.6/50MG TABLET. PO SCH (09:15)
[2017-11-07] MEDS: CITALOPRAM 20 MG TABLET. PO SCH (09:16)
[2017-11-07] MEDS: FUROSEMIDE 20 MG TABLET PO SCH (09:16)
[2017-11-07] MEDS: GABAPENTIN 100 MG CAPSULE. PO SCH ×3 (09:16→20:49)
[2017-11-07] MEDS: metFORMIN XR 500 MG TAB.ER.24H PO SCH (09:16)
[2017-11-07] MEDS: MULTIVITAMIN with MINERAL TABLET. PO SCH (09:16)
[2017-11-07] MEDS: DOXYCYCLINE HYCLATE 100 MG TABLET PO SCH ×2 (09:16→20:48)
[2017-11-07] MEDS: MAGNESIUM OXIDE 400 MG TABLET PO SCH ×2 (09:16→20:49)
[2017-11-07] MEDS: LACTOBACILLUS RHAMNOSUS GG 1 CAPSULE. PO SCH ×2 (09:16→20:48)
[2017-11-07] MEDS: DIVALPROEX SODIUM 250 MG TABLET.DR. PO SCH ×2 (09:17→20:49)
[2017-11-07] MEDS: CHOLECALCIFEROL (VITAMIN D3) 50,000 UNIT CAPSULE PO SCH (09:21)
[2017-11-07] MEDS: LEVOTHYROXINE 100 MCG TABLET PO SCH (09:21)
[2017-11-07] MEDS: ARIPiprazole 10 MG TABLET PO SCH (09:21)
[2017-11-07] MEDS: HYDROcodone/APAP 5/325MG 1 TAB TABLET PO SCH ×4 (09:22→20:53)
[2017-11-07] MEDS: ENOXAPARIN 40 MG/0.4 ML SYRINGE. SQ SCH ×2 (09:23→20:48)
[2017-11-07] MEDS: INSULIN LISPRO 300 UNITS/3 ML INSULN.PEN. SQ SCH ×3 (09:26→17:23)
[2017-11-07] MEDS: INSULIN GLARGINE 300 UNITS/3 ML INSULN.PEN. SQ SCH ×2 (09:29→20:55)
[2017-11-07] MEDS: NYSTATIN 100,000 UNIT/GM TOPICAL CREAM 15GM TUBE. TP SCH ×2 (09:30→20:47)
[2017-11-07 16:03] VITALS: BP 92/56
--- NOTE | 2017-11-07 20:45 | PDOC ---
Exam Note: Miguel A Note: Please also refer to the separate dictated note~for this date of service dictated separately.~Patient seen individually. Discussed the patient with Nursing staff reviewed the chart.~Reviewed interim history and current functioning. Reviewed vital signs,~Labs/ Radiology~and current medications noted below. Continue current treatment with the changes noted in the dictated addendum note Assessment: Vital Signs: Vital Signs Date Time Temp Pulse Resp B/P (MAP) Pulse Ox O2 Delivery O2 Flow Rate FiO2 11/07/17 17:22 18 92 Room Air 11/07/17 16:03 97.3 89 92/56 (68) I&O Intake and Output 11/07/17 07:00 Intake Total 1080 ml Balance 1080 ml Intake Oral 1080 ml # Bowel Movements 2 Labs: Laboratory Tests Test 11/07/17 07:22 11/07/17 11:56 11/07/17 17:02 11/07/17 19:10 Glucose (Fingerstick) 153 mg/dL (70-99) H 158 mg/dL (70-99) H 102 mg/dL (70-99) H 115 mg/dL (70-99) H Current Medications: Meds: Current Medications Ondansetron HCl (Zofran) 4 mg PRN Q4HRS PRN IV NAUSEA/VOMITING; Start 11/01/17 at 15:30; Stop 11/01/17 at 15:37; Status DC Lactulose (Lactulose) 45 gm QID PO ; Start 11/01/17 at 17:00; Stop 11/01/17 at 17:00; Status DC Dextrose/Sodium Chloride 1,000 ml @ 75 mls/hr 1X ONCE IV ; Start 11/01/17 at 15:30; Stop 11/01/17 at 15:42; Status DC Sodium Chloride 1,000 ml @ 1,000 mls/hr 1X ONCE IV Last administered on at 17:43; Start 11/01/17 at 16:30; Stop 11/01/17 at 17:29; Status DC Acetaminophen (Tylenol) 650 mg PRN Q6HRS PRN PO PAIN / TEMP; Start 11/01/17 at 20:15 Multi-Ingredient Ointment (Analgesic Darden) 1 renetta PRN QID PRN TP MUSCLE PAIN; Start 11/01/17 at 20:15 Al Hydroxide/Mg Hydroxide (Mylanta Plus Xs) 15 ml PRN AFTMEALHC PRN PO DYSPEPSIA; Start 11/01/17 at 20:15 Magnesium Hydroxide (Milk Of Magnesia) 2,400 mg PRN QHS PRN PO CONSTIPATION; Start 11/01/17 at 20:15 Nicotine (Nicoderm Cq 7mg) 1 patch DAILY TD ; Start 11/02/17 at 09:00; Stop at 09:00; Status DC Enoxaparin Sodium (Lovenox 40mg Syringe) 40 mg Q24H SQ ; Start 11/01/17 at 21:00 ; Stop 11/02/17 at 00:43; Status DC Non-Formulary Medication (Aripiprazole (Abilify)) 15 mg DAILY@1800 PO ; Start at 18:00; Stop 11/02/17 at 18:00; Status DC Non-Formulary Medication (Divalproex Sodium (Depakote Er)) 750 mg BID PO ; Start 11/02/17 at 09:00; Stop 11/02/17 at 09:00; Status DC Non-Formulary Medication (Escitalopram Oxalate (Lexapro)) 10 mg DAILY PO ; Start 11/02/17 at 09:00; Stop 11/02/17 at 09:00; Status DC Non-Formulary Medication (Melatonin ) 6 mg HS PO ; Start 11/02/17 at 21:00; Stop 11/02/17 at 21:00; Status DC Non-Formulary Medication (Trazodone Hcl ) 100 mg PRN QHS PRN PO INSOMNIA; Start 11/01/17 at 23:15; Stop 11/02/17 at 00:43; Status DC Carbidopa/Levodopa (Sinemet 25/100) 1 tab [id number] PO ; Start 11/02/17 at 07:00; Stop 11/02/17 at 07:00; Status DC Cyclobenzaprine HCl (Starter Pack - Flexeril 10mg) 10 startpack PRN Q8HRS PRN PO PAIN; Start 11/01/17 at 23:15; Stop 11/02/17 at 00:43; Status DC Furosemide (Lasix) 20 mg DAILY PO ; Start 11/02/17 at 09:00; Stop 11/02/17 at 09 :00; Status DC Gabapentin (Neurontin) 100 mg TID PO ; Start 11/02/17 at 09:00; Stop 11/02/17 at 09:00; Status DC Potassium Chloride (Klor-Con) 20 meq DAILY PO ; Start 11/02/17 at 09:00; Stop at 09:00; Status DC Trolamine Salicylate (Myoplex) 85 renetta PRN Q4HRS PRN TP PAIN; Start 11/01/17 at 23:15; Stop 11/02/17 at 00:43; Status DC Vitamin A/Vitamin D (Vitamin A & D Ointment) 1 renetta TID TP ; Start 11/02/17 at 09 :00; Stop 11/02/17 at 09:00; Status DC Non-Formulary Medication (Atorvastatin Calcium ) 80 mg QHS PO ; Start 11/02/17 at 21:00; Stop 11/02/17 at 21:00; Status DC Non-Formulary Medication (Cholecalciferol (Vitamin D3) (Vitamin D)) 5,000 unit DAILY PO ; Start 11/02/17 at 09:00; Stop 11/02/17 at 09:00; Status DC Non-Formulary Medication (Ciclopirox (Penlac)) 1 applic WEEKLYHS PRN TP nail fungus; Start 11/01/17 at 23:15; Stop 11/02/17 at 00:44; Status DC Non-Formulary Medication (Fenofibrate,Micronized (Fenofibrate)) 200 mg DAILY PO ; Start 11/02/17 at 09:00; Stop 11/02/17 at 09:00; Status DC Non-Formulary Medication (Glucagon,Human Recombinant (Glucagon Emergency Kit)) 1 mg q15 minutes PRN IJ low blood sugar; Start 11/01/17 at 23:15; Stop 11/02/17 at 00:44; Status DC Non-Formulary Medication (Hydrocodone Bit/ Acetaminophen ([place] 5-325 Tablet)) 1 tab PRN DAILY PRN PO PAIN; Start 11/01/17 at 23:15; Stop 11/02/17 at 00:44; Status DC Non-Formulary Medication (Hydrocodone Bit/ Acetaminophen ([place] 5-325 Tablet)) 1 tab [id number] PRN PO PAIN; Start 11/01/17 at 23:15; Stop 11/02/17 at 00:44; Status DC Non-Formulary Medication (Ibuprofen ) 200 mg PRN Q8HRS PRN PO PAIN; Start 11/01 at 23:15; Stop 11/02/17 at 00:44; Status DC Non-Formulary Medication (Insulin Aspart (Novolog)) 40 unit TIDAC SQ ; Start at 07:30; Stop 11/02/17 at 07:30; Status DC Non-Formulary Medication (Insulin Degludec (Tresiba Flextouch U-100)) 65 unit BID SQ ; Start 11/02/17 at 09:00; Stop 11/02/17 at 09:00; Status DC Non-Formulary Medication (Levothyroxine Sodium ) 200 mcg DAILYAC PO ; Start at 07:30; Stop 11/02/17 at 07:30; Status DC Non-Formulary Medication (Levothyroxine Sodium ) 300 mcg WEEKLY PO ; Start 11/08 at 09:00; Stop 11/08/17 at 09:00; Status DC Non-Formulary Medication (Lisinopril ) 2.5 mg DAILY PO ; Start 11/02/17 at 09:00 ; Stop 11/02/17 at 09:00; Status DC Non-Formulary Medication (Loperamide HCl (Imodium A-D)) 2 mg PRN DAILY PRN PO DIARRHEA; Start 11/01/17 at 23:15; Stop 11/02/17 at 00:43; Status DC Non-Formulary Medication (Multivitamin With Minerals (Multiple Vitamin)) 1 each DAILY PO ; Start 11/02/17 at 09:00; Stop 11/02/17 at 09:00; Status DC Non-Formulary Medication (Ponce-3 Fatty Acids/Fish Oil (Ponce 3 1,000 Mg Softgel )) 2 each DAILY PO ; Start 11/02/17 at 09:00; Stop 11/02/17 at 09:00; Status DC Non-Formulary Medication (Sennosides (Senna)) 2 tab DAILY PO ; Start 11/02/17 at 09:00; Stop 11/02/17 at 09:00; Status DC Non-Formulary Medication (Travoprost (Travatan Z)) 1 drop QHS OU ; Start at 21:00; Stop 11/02/17 at 21:00; Status DC Non-Formulary Medication (Trolamine Salicylate (Aspercreme)) 1 renetta HS TP ; Start 11/02/17 at 21:00; Stop 11/02/17 at 21:00; Status DC Melatonin 6 mg HS PO Last administered on 11/06/17at 20:31; Start 11/02/17 at 21 :00 Aripiprazole (Abilify) 15 mg DAILY PO Last administered on 11/06/17at 10:28; Start 11/02/17 at 09:00; Stop 11/06/17 at 18:47; Status DC Citalopram Hydrobromide (CeleXA) 20 mg DAILY PO Last administered on 11/07/17at 09:16; Start 11/02/17 at 09:00 Divalproex Sodium (Depakote) 750 mg BID PO Last administered on 11/03/17at 18:37 ; Start 11/02/17 at 09:00; Stop 11/03/17 at 20:24; Status DC Trazodone HCl (Desyrel) 100 mg PRN QHS PRN PO INSOMNIA, MAY REPEAT X1 Last administered on 11/02/17at 02:45; Start 11/02/17 at 01:00; Stop 11/05/17 at 19:05 ; Status DC Trolamine Salicylate (Myoplex) 1 renetta HS TP Last administered on 11/06/17at 21:45 ; Start 11/02/17 at 21:00 Trolamine Salicylate (Myoplex) 1 renetta PRN Q4HRS PRN TP PAIN; Start 11/02/17 at 01:15 Ciclopirox Olamine (Loprox) 1 renetta HS TP Last administered on 11/06/17at 22:04; Start 11/02/17 at 21:00 Insulin Human Lispro (HumaLOG) 40 units TIDAC SQ Last administered on at 12:11; Start 11/02/17 at 07:30; Stop 11/07/17 at 15:55; Status DC Cyclobenzaprine HCl (Flexeril) 10 mg PRN Q8HRS PRN PO MUSCLE SPASMS; Start at 01:15 Glucagon (Glucagen Kit) 1 mg PRN Q15MIN PRN IM HYPOGLYCEMIA; Start 11/02/17 at 01:15 Ibuprofen (Motrin) 200 mg PRN Q8HRS PRN PO INFLAMMATION; Start 11/02/17 at 01: 15 Loperamide HCl (Imodium) 2 mg PRN DAILY PRN PO DIARRHEA; Start 11/02/17 at 01: 15 Acetaminophen/ Hydrocodone Bitart (Lortab 5/325) 1 tab PRN DAILY PRN PO PAIN Last administered on 11/05/17 03:41; Start 11/02/17 at 01:15 Atorvastatin Calcium (Lipitor) 80 mg QHS PO Last administered on 11/06/17 20: 32; Start 11/02/17 at 21:00 Fish Oil (Fish Oil) 2,000 mg DAILY PO Last administered on 11/07/17 09:15; Start 11/02/17 at 09:00 Furosemide (Lasix) 20 mg DAILY PO Last administered on 11/07/17 09:16; Start 11/02/17 at 09:00 Levothyroxine Sodium (Synthroid) 200 mcg DAILY06 PO ; Start 11/02/17 at 06:00; Stop 11/02/17 at 08:05; Status DC Levothyroxine Sodium (Synthroid) 300 mcg WEEKLY PO Last administered on at 08:01; Start 11/02/17 at 09:00; Stop 11/02/17 at 09:00; Status DC Lisinopril (Prinivil) 2.5 mg DAILY PO Last administered on 11/05/17at 09:24; Start 11/02/17 at 09:00 Multivitamins/ Calcium (Thera-M Plus) 1 tab DAILY PO Last administered on 09:16; Start 11/02/17 at 09:00 Potassium Chloride (Klor-Con) 20 meq DAILY PO Last administered on 11/07/17 09 :15; Start 11/02/17 at 09:00 Senna/Docusate Sodium (Senna Plus) 2 tab DAILY PO Last administered on at 09:15; Start 11/02/17 at 09:00 Vitamin D (Vitamin D3) 5,000 unit DAILY PO Last administered on 11/06/17at 10:25 ; Start 11/02/17 at 09:00; Stop 11/06/17 at 18:32; Status DC Gabapentin (Neurontin) 100 mg TID PO Last administered on 11/07/17 13:45; Start 11/02/17 at 09:00 Carbidopa/Levodopa (Sinemet 25/100) 1 tab QID PO Last administered on 17:22; Start 11/02/17 at 09:00 Acetaminophen/ Hydrocodone Bitart (Lortab 5/325) 1 tab QID PO Last administered on 11/07/17 17:22; Start 11/02/17 at 09:00 Latanoprost (Xalatan) 1 drop QHS OU Last administered on 11/06/17 21:44; Start 11/02/17 at 21:00 Insulin Glargine (Lantus) 65 units BID SQ Last administered on 11/07/17 09:29 ; Start 11/02/17 at 09:00 Enoxaparin Sodium (Lovenox 40mg Syringe) 40 mg Q12H SQ Last administered on 09:23; Start 11/02/17 at 07:00 Levothyroxine Sodium (Synthroid) 200 mcg QM-F@0900 PO Last administered on 11/07 09:21; Start 11/04/17 at 09:00 Levothyroxine Sodium (Synthroid) 200 mcg QSU@0900 PO Last administered on 10:41; Start 11/03/17 at 09:00 Levothyroxine Sodium (Synthroid) 300 mcg QSA@0900 PO Last administered on 11:24; Start 11/02/17 at 09:00 Doxycycline Hyclate (Vibra-Tab) 100 mg BID PO Last administered on 11/07/17 09 :16; Start 11/03/17 at 21:00 Metformin HCl (Glucophage Xr) 500 mg DAILYWBKFT PO Last administered on 09:16; Start 11/04/17 at 08:00 Lactobacillus Rhamnosus (Culturelle) 1 cap BID PO Last administered on 09:16; Start 11/03/17 at 21:00 Magnesium Oxide (Magnesium Oxide) 400 mg BID PO Last administered on 11/07/17 09:16; Start 11/03/17 at 21:00 Divalproex Sodium (Depakote) 1,000 mg BID PO Last administered on 11/07/17 09: 17; Start 11/03/17 at 21:00 Divalproex Sodium (Depakote) 250 mg 1X ONCE PO Last administered on 11/03/17at 20:30; Start 11/03/17 at 20:30; Stop 11/03/17 at 20:41; Status DC Nystatin (Mycostatin) 1 renetta BID TP Last administered on 11/07/17at 09:30; Start 11/04/17 at 21:00 Trazodone HCl (Desyrel) 50 mg HS PO Last administered on 11/06/17at 20:32; Start 11/05/17 at 21:00 Trazodone HCl (Desyrel) 50 mg PRN QHS PRN PO INSOMNIA; Start 11/05/17 at 19:15 Vitamin D (Vitamin D3) 50,000 unit WEEKLY PO Last administered on 11/07/17at 09: 21; Start 11/07/17 at 09:00 Aripiprazole (Abilify) 20 mg DAILY PO Last administered on 11/07/17at 09:21; Start 11/07/17 at 09:00 Insulin Human Lispro (HumaLOG) 35 units TIDAC SQ Last administered on at 17:23; Start 11/07/17 at 16:30 Active Scripts Active Reported Melatonin 3 Mg Tablet 6 Mg PO HS Trazodone Hcl 100 Mg Tablet 100 Mg PO PRN QHS PRN [place] 5-325 Tablet (Hydrocodone Bit/Acetaminophen) 1 Each Tablet 1 Tab PO PRN DAILY PRN Imodium A-D (Loperamide HCl) 2 Mg Capsule 2 Mg PO PRN DAILY PRN Ibuprofen 100 Mg/5 Ml Oral.susp 200 Mg PO PRN Q8HRS PRN Glucagon Emergency Kit (Glucagon,Human Recombinant) 1 Mg Kit 1 Mg IJ Q15 MINUTES PRN Cyclobenzaprine Hcl 10 Mg Tablet 10 Mg PO PRN Q8HRS PRN Trolamine Salicylate 85 Gm Cream..g. 85 Gm TP PRN Q4HRS PRN Lexapro (Escitalopram Oxalate) 10 Mg Tablet 10 Mg PO DAILY Levothyroxine Sodium 300 Mcg Tablet 300 Mcg PO WEEKLY Levothyroxine Sodium 200 Mcg Tablet 200 Mcg PO DAILYAC Lasix (Furosemide) 20 Mg Tablet 20 Mg PO DAILY Ponce 3 1,000 Mg Softgel (Ponce-3 Fatty Acids/Fish Oil) 1 Each Capsule 2 Each PO DAILY Fenofibrate (Fenofibrate,Micronized) 200 Mg Capsule 200 Mg PO DAILY Atorvastatin Calcium 80 Mg Tablet 80 Mg PO QHS Abilify (Aripiprazole) 15 Mg Tablet 15 Mg PO DAILY@1800 [place] 5-325 Tablet (Hydrocodone Bit/Acetaminophen) 1 Each Tablet 1 Tab PO [id number] PRN Sinemet 25-100 Mg Tablet (Carbidopa/Levodopa) 1 Each Tablet 1 Each PO [id number] Gabapentin 100 Mg Capsule 100 Mg PO TID Depakote Er (Divalproex Sodium) 250 Mg Tab.er.24h 750 Mg PO BID Vitamin D (Cholecalciferol (Vitamin D3)) 1,000 Unit Capsule 5,000 Unit PO DAILY Travatan Z (Travoprost) 5 Ml Drops 1 Drop OU QHS Senna (Sennosides) 8.6 Mg Tablet 2 Tab PO DAILY Klor-Con M20 (Potassium Chloride) 20 Meq Tab.er.prt 20 Meq PO DAILY Multiple Vitamin (Multivitamin With Minerals) 1 Each Tablet 1 Each PO DAILY Lisinopril 2.5 Mg Tablet 2.5 Mg PO DAILY Novolog (Insulin Aspart) 100 Unit/1 Ml Cartridge 40 Unit SQ TIDAC A and D Ointment (Vits A and D/White Pet/Lanolin) 42.5 Gm Oint...g. 1 Applic TP TID Tresiba Flextouch U-100 (Insulin Degludec) 100 Unit/1 Ml Insuln.pen 65 Unit SQ BID Penlac (Ciclopirox) 6.6 Ml Solution 1 Applic TP WEEKLYHS PRN Aspercreme (Trolamine Salicylate) 177.4 Ml Lotion 1 Renetta TP HS I have reviewed the current psychotropics carefully including drug interactions. Risk benefit ratio favors no change other than as noted in my dictated progress note. Diagnosis: Problems: (1) Psychiatric diagnosis (2) Anxiety disorder (3) Impulse control disorder (4) Bipolar affective, mixed, sev w/ psych CHINO JOHNS MD November 07, 2017 20:45
[2017-11-07] MEDS: CICLOPIROX 0.77% TOPICAL CREAM 15GM TUBE. TP SCH (20:47)
[2017-11-07] MEDS: ATORVASTATIN CALCIUM 20 MG TABLET PO SCH (20:48)
[2017-11-07] MEDS: traZODone 50 MG TABLET. PO SCH (20:49)
[2017-11-07] MEDS: MELATONIN 3 MG TABLET PO SCH (20:49)
[2017-11-07] MEDS: LATANOPROST 0.005% OPHTH SOLUTION 2.5ML BOTTLE. OU SCH (20:53)
[2017-11-07] MEDS: TROLAMINE SALICYLATE 10% TOPICAL CREAM 85GM JAR. TP SCH (20:58)
[2017-11-08 06:06] VITALS: BP 112/72
[2017-11-08] MEDS: INSULIN LISPRO 300 UNITS/3 ML INSULN.PEN. SQ SCH ×3 (07:30→17:28)
[2017-11-08] MEDS: SENNOSIDES/DOCUSATE 8.6/50MG TABLET. PO SCH (08:22)
[2017-11-08] MEDS: LISINOPRIL 2.5 MG TABLET PO SCH (08:22)
[2017-11-08] MEDS: LEVOTHYROXINE 100 MCG TABLET PO SCH (08:22)
[2017-11-08] MEDS: MAGNESIUM OXIDE 400 MG TABLET PO SCH ×2 (08:22→20:30)
[2017-11-08] MEDS: ARIPiprazole 10 MG TABLET PO SCH (08:22)
[2017-11-08] MEDS: MULTIVITAMIN with MINERAL TABLET. PO SCH (08:23)
[2017-11-08] MEDS: CITALOPRAM 20 MG TABLET. PO SCH (08:23)
[2017-11-08] MEDS: FUROSEMIDE 20 MG TABLET PO SCH (08:23)
[2017-11-08] MEDS: OMEGA-3 FATTY ACIDS/FISH OIL 1,000 MG CAPSULE. PO SCH (08:23)
[2017-11-08] MEDS: DOXYCYCLINE HYCLATE 100 MG TABLET PO SCH ×2 (08:23→20:30)
[2017-11-08] MEDS: metFORMIN XR 500 MG TAB.ER.24H PO SCH (08:23)
[2017-11-08] MEDS: GABAPENTIN 100 MG CAPSULE. PO SCH ×4 (08:23→20:30)
[2017-11-08] MEDS: DIVALPROEX SODIUM 250 MG TABLET.DR. PO SCH ×2 (08:23→20:30)
[2017-11-08] MEDS: LACTOBACILLUS RHAMNOSUS GG 1 CAPSULE. PO SCH ×2 (08:23→20:29)
[2017-11-08] MEDS: POTASSIUM CHLORIDE 20 MEQ TABLET.ER. PO SCH (08:23)
[2017-11-08] MEDS: CARBIDOPA/LEVODOPA 25/100MG TABLET PO SCH ×4 (08:23→20:30)
[2017-11-08] MEDS: ENOXAPARIN 40 MG/0.4 ML SYRINGE. SQ SCH ×2 (08:24→20:28)
[2017-11-08] MEDS: HYDROcodone/APAP 5/325MG 1 TAB TABLET PO SCH ×4 (08:25→20:29)
[2017-11-08] MEDS ORDERED: LEVOTHYROXINE SODIUM 300 MCG PO SCH (09:00)
[2017-11-08] MEDS: NYSTATIN 100,000 UNIT/GM TOPICAL CREAM 15GM TUBE. TP SCH ×2 (09:15→20:33)
[2017-11-08] MEDS: INSULIN GLARGINE 300 UNITS/3 ML INSULN.PEN. SQ SCH ×2 (09:15→20:32)
[2017-11-08 16:16] VITALS: BP 96/51
--- NOTE | 2017-11-08 19:50 | PDOC ---
Exam Note: Miguel A Note: Please also refer to the separate dictated note~for this date of service dictated separately.~Patient seen individually. Discussed the patient with Nursing staff reviewed the chart.~Reviewed interim history and current functioning. Reviewed vital signs,~Labs/ Radiology~and current medications noted below. Continue current treatment with the changes noted in the dictated addendum note Assessment: Vital Signs: Vital Signs Date Time Temp Pulse Resp B/P (MAP) Pulse Ox O2 Delivery O2 Flow Rate FiO2 11/08/17 18:38 95 11/08/17 16:16 98.5 79 20 96/51 (66) Room Air I&O Intake and Output 11/08/17 07:00 Intake Total 1080 ml Balance 1080 ml Intake Oral 1080 ml # Bowel Movements 1 Labs: Laboratory Tests Test 11/08/17 07:18 11/08/17 11:28 11/08/17 16:56 11/08/17 19:25 Glucose (Fingerstick) 198 mg/dL (70-99) H 217 mg/dL (70-99) H 141 mg/dL (70-99) H 167 mg/dL (70-99) H Current Medications: Meds: Current Medications Ondansetron HCl (Zofran) 4 mg PRN Q4HRS PRN IV NAUSEA/VOMITING; Start 11/01/17 at 15:30; Stop 11/01/17 at 15:37; Status DC Lactulose (Lactulose) 45 gm QID PO ; Start 11/01/17 at 17:00; Stop 11/01/17 at 17:00; Status DC Dextrose/Sodium Chloride 1,000 ml @ 75 mls/hr 1X ONCE IV ; Start 11/01/17 at 15:30; Stop 11/01/17 at 15:42; Status DC Sodium Chloride 1,000 ml @ 1,000 mls/hr 1X ONCE IV Last administered on at 17:43; Start 11/01/17 at 16:30; Stop 11/01/17 at 17:29; Status DC Acetaminophen (Tylenol) 650 mg PRN Q6HRS PRN PO PAIN / TEMP; Start 11/01/17 at 20:15 Multi-Ingredient Ointment (Analgesic [place]) 1 renetta PRN QID PRN TP MUSCLE PAIN; Start 11/01/17 at 20:15 Al Hydroxide/Mg Hydroxide (Mylanta Plus Xs) 15 ml PRN AFTMEALHC PRN PO DYSPEPSIA; Start 11/01/17 at 20:15 Magnesium Hydroxide (Milk Of Magnesia) 2,400 mg PRN QHS PRN PO CONSTIPATION; Start 11/01/17 at 20:15 Nicotine (Nicoderm Cq 7mg) 1 patch DAILY TD ; Start 11/02/17 at 09:00; Stop at 09:00; Status DC Enoxaparin Sodium (Lovenox 40mg Syringe) 40 mg Q24H SQ ; Start 11/01/17 at 21:00 ; Stop 11/02/17 at 00:43; Status DC Non-Formulary Medication (Aripiprazole (Abilify)) 15 mg DAILY@1800 PO ; Start at 18:00; Stop 11/02/17 at 18:00; Status DC Non-Formulary Medication (Divalproex Sodium (Depakote Er)) 750 mg BID PO ; Start 11/02/17 at 09:00; Stop 11/02/17 at 09:00; Status DC Non-Formulary Medication (Escitalopram Oxalate (Lexapro)) 10 mg DAILY PO ; Start 11/02/17 at 09:00; Stop 11/02/17 at 09:00; Status DC Non-Formulary Medication (Melatonin ) 6 mg HS PO ; Start 11/02/17 at 21:00; Stop 11/02/17 at 21:00; Status DC Non-Formulary Medication (Trazodone Hcl ) 100 mg PRN QHS PRN PO INSOMNIA; Start 11/01/17 at 23:15; Stop 11/02/17 at 00:43; Status DC Carbidopa/Levodopa (Sinemet 25/100) 1 tab [id number] PO ; Start 11/02/17 at 07:00; Stop 11/02/17 at 07:00; Status DC Cyclobenzaprine HCl (Starter Pack - Flexeril 10mg) 10 startpack PRN Q8HRS PRN PO PAIN; Start 11/01/17 at 23:15; Stop 11/02/17 at 00:43; Status DC Furosemide (Lasix) 20 mg DAILY PO ; Start 11/02/17 at 09:00; Stop 11/02/17 at 09 :00; Status DC Gabapentin (Neurontin) 100 mg TID PO ; Start 11/02/17 at 09:00; Stop 11/02/17 at 09:00; Status DC Potassium Chloride (Klor-Con) 20 meq DAILY PO ; Start 11/02/17 at 09:00; Stop at 09:00; Status DC Trolamine Salicylate (Myoplex) 85 renetta PRN Q4HRS PRN TP PAIN; Start 11/01/17 at 23:15; Stop 11/02/17 at 00:43; Status DC Vitamin A/Vitamin D (Vitamin A & D Ointment) 1 renetta TID TP ; Start 11/02/17 at 09 :00; Stop 11/02/17 at 09:00; Status DC Non-Formulary Medication (Atorvastatin Calcium ) 80 mg QHS PO ; Start 11/02/17 at 21:00; Stop 11/02/17 at 21:00; Status DC Non-Formulary Medication (Cholecalciferol (Vitamin D3) (Vitamin D)) 5,000 unit DAILY PO ; Start 11/02/17 at 09:00; Stop 11/02/17 at 09:00; Status DC Non-Formulary Medication (Ciclopirox (Penlac)) 1 applic WEEKLYHS PRN TP nail fungus; Start 11/01/17 at 23:15; Stop 11/02/17 at 00:44; Status DC Non-Formulary Medication (Fenofibrate,Micronized (Fenofibrate)) 200 mg DAILY PO ; Start 11/02/17 at 09:00; Stop 11/02/17 at 09:00; Status DC Non-Formulary Medication (Glucagon,Human Recombinant (Glucagon Emergency Kit)) 1 mg q15 minutes PRN IJ low blood sugar; Start 11/01/17 at 23:15; Stop 11/02/17 at 00:44; Status DC Non-Formulary Medication (Hydrocodone Bit/ Acetaminophen ([place] 5-325 Tablet)) 1 tab PRN DAILY PRN PO PAIN; Start 11/01/17 at 23:15; Stop 11/02/17 at 00:44; Status DC Non-Formulary Medication (Hydrocodone Bit/ Acetaminophen ([place] 5-325 Tablet)) 1 tab [id number] PRN PO PAIN; Start 11/01/17 at 23:15; Stop 11/02/17 at 00:44; Status DC Non-Formulary Medication (Ibuprofen ) 200 mg PRN Q8HRS PRN PO PAIN; Start 11/01 at 23:15; Stop 11/02/17 at 00:44; Status DC Non-Formulary Medication (Insulin Aspart (Novolog)) 40 unit TIDAC SQ ; Start at 07:30; Stop 11/02/17 at 07:30; Status DC Non-Formulary Medication (Insulin Degludec (Tresiba Flextouch U-100)) 65 unit BID SQ ; Start 11/02/17 at 09:00; Stop 11/02/17 at 09:00; Status DC Non-Formulary Medication (Levothyroxine Sodium ) 200 mcg DAILYAC PO ; Start at 07:30; Stop 11/02/17 at 07:30; Status DC Non-Formulary Medication (Levothyroxine Sodium ) 300 mcg WEEKLY PO ; Start 11/08 at 09:00; Stop 11/08/17 at 09:00; Status DC Non-Formulary Medication (Lisinopril ) 2.5 mg DAILY PO ; Start 11/02/17 at 09:00 ; Stop 11/02/17 at 09:00; Status DC Non-Formulary Medication (Loperamide HCl (Imodium A-D)) 2 mg PRN DAILY PRN PO DIARRHEA; Start 11/01/17 at 23:15; Stop 11/02/17 at 00:43; Status DC Non-Formulary Medication (Multivitamin With Minerals (Multiple Vitamin)) 1 each DAILY PO ; Start 11/02/17 at 09:00; Stop 11/02/17 at 09:00; Status DC Non-Formulary Medication ([place]-3 Fatty Acids/Fish Oil ([place] 3 1,000 Mg Softgel )) 2 each DAILY PO ; Start 11/02/17 at 09:00; Stop 11/02/17 at 09:00; Status DC Non-Formulary Medication (Sennosides (Senna)) 2 tab DAILY PO ; Start 11/02/17 at 09:00; Stop 11/02/17 at 09:00; Status DC Non-Formulary Medication (Travoprost (Travatan Z)) 1 drop QHS OU ; Start at 21:00; Stop 11/02/17 at 21:00; Status DC Non-Formulary Medication (Trolamine Salicylate (Aspercreme)) 1 renetta HS TP ; Start 11/02/17 at 21:00; Stop 11/02/17 at 21:00; Status DC Melatonin 6 mg HS PO Last administered on 11/07/17at 20:49; Start 11/02/17 at 21 :00 Aripiprazole (Abilify) 15 mg DAILY PO Last administered on 11/06/17at 10:28; Start 11/02/17 at 09:00; Stop 11/06/17 at 18:47; Status DC Citalopram Hydrobromide (CeleXA) 20 mg DAILY PO Last administered on 11/08/17at 08:23; Start 11/02/17 at 09:00 Divalproex Sodium (Depakote) 750 mg BID PO Last administered on 11/03/17at 18:37 ; Start 11/02/17 at 09:00; Stop 11/03/17 at 20:24; Status DC Trazodone HCl (Desyrel) 100 mg PRN QHS PRN PO INSOMNIA, MAY REPEAT X1 Last administered on 11/02/17at 02:45; Start 11/02/17 at 01:00; Stop 11/05/17 at 19:05 ; Status DC Trolamine Salicylate (Myoplex) 1 renetta HS TP Last administered on 11/07/17at 20:58 ; Start 11/02/17 at 21:00 Trolamine Salicylate (Myoplex) 1 renetta PRN Q4HRS PRN TP PAIN; Start 11/02/17 at 01:15 Ciclopirox Olamine (Loprox) 1 renetta HS TP Last administered on 11/07/17at 20:47; Start 11/02/17 at 21:00 Insulin Human Lispro (HumaLOG) 40 units TIDAC SQ Last administered on at 12:11; Start 11/02/17 at 07:30; Stop 11/07/17 at 15:55; Status DC Cyclobenzaprine HCl (Flexeril) 10 mg PRN Q8HRS PRN PO MUSCLE SPASMS; Start at 01:15 Glucagon (Glucagen Kit) 1 mg PRN Q15MIN PRN IM HYPOGLYCEMIA; Start 11/02/17 at 01:15 Ibuprofen (Motrin) 200 mg PRN Q8HRS PRN PO INFLAMMATION; Start 11/02/17 at 01: 15 Loperamide HCl (Imodium) 2 mg PRN DAILY PRN PO DIARRHEA; Start 11/02/17 at 01: 15 Acetaminophen/ Hydrocodone Bitart (Lortab 5/325) 1 tab PRN DAILY PRN PO PAIN Last administered on 11/05/17 03:41; Start 11/02/17 at 01:15 Atorvastatin Calcium (Lipitor) 80 mg QHS PO Last administered on 11/07/17 20: 48; Start 11/02/17 at 21:00 Fish Oil (Fish Oil) 2,000 mg DAILY PO Last administered on 11/08/17 08:23; Start 11/02/17 at 09:00 Furosemide (Lasix) 20 mg DAILY PO Last administered on 11/08/17 08:23; Start 11/02/17 at 09:00 Levothyroxine Sodium (Synthroid) 200 mcg DAILY06 PO ; Start 11/02/17 at 06:00; Stop 11/02/17 at 08:05; Status DC Levothyroxine Sodium (Synthroid) 300 mcg WEEKLY PO Last administered on 08:01; Start 11/02/17 at 09:00; Stop 11/02/17 at 09:00; Status DC Lisinopril (Prinivil) 2.5 mg DAILY PO Last administered on 11/08/17 08:22; Start 11/02/17 at 09:00 Multivitamins/ Calcium (Thera-M Plus) 1 tab DAILY PO Last administered on 08:23; Start 11/02/17 at 09:00 Potassium Chloride (Klor-Con) 20 meq DAILY PO Last administered on 11/08/17 08 :23; Start 11/02/17 at 09:00 Senna/Docusate Sodium (Senna Plus) 2 tab DAILY PO Last administered on 08:22; Start 11/02/17 at 09:00 Vitamin D (Vitamin D3) 5,000 unit DAILY PO Last administered on 11/06/17at 10:25 ; Start 11/02/17 at 09:00; Stop 11/06/17 at 18:32; Status DC Gabapentin (Neurontin) 100 mg TID PO Last administered on 11/08/17 08:23; Start 11/02/17 at 09:00 Carbidopa/Levodopa (Sinemet ) 1 tab QID PO Last administered on 17:26; Start 11/02/17 at 09:00 Acetaminophen/ Hydrocodone Bitart (Lortab /325) 1 tab QID PO Last administered on 11/08/17 17:26; Start 11/02/17 at 09:00 Latanoprost (Xalatan) 1 drop QHS OU Last administered on 11/07/17 20:53; Start 11/02/17 at 21:00 Insulin Glargine (Lantus) 65 units BID SQ Last administered on 11/08/17 09:15 ; Start 11/02/17 at 09:00 Enoxaparin Sodium (Lovenox 40mg Syringe) 40 mg Q12H SQ Last administered on 08:24; Start 11/02/17 at 07:00 Levothyroxine Sodium (Synthroid) 200 mcg QM-F@0900 PO Last administered on 11/08 08:22; Start 11/04/17 at 09:00 Levothyroxine Sodium (Synthroid) 200 mcg QSU@0900 PO Last administered on 10:41; Start 11/03/17 at 09:00 Levothyroxine Sodium (Synthroid) 300 mcg QSA@0900 PO Last administered on 11:24; Start 11/02/17 at 09:00 Doxycycline Hyclate (Vibra-Tab) 100 mg BID PO Last administered on 11/08/17 08 :23; Start 11/03/17 at 21:00 Metformin HCl (Glucophage Xr) 500 mg DAILYWBKFT PO Last administered on 08:23; Start 11/04/17 at 08:00 Lactobacillus Rhamnosus (Culturelle) 1 cap BID PO Last administered on 08:23; Start 11/03/17 at 21:00 Magnesium Oxide (Magnesium Oxide) 400 mg BID PO Last administered on 11/08/17 08:22; Start 11/03/17 at 21:00 Divalproex Sodium (Depakote) 1,000 mg BID PO Last administered on 11/08/17 08: 23; Start 11/03/17 at 21:00 Divalproex Sodium (Depakote) 250 mg 1X ONCE PO Last administered on 11/03/17at 20:30; Start 11/03/17 at 20:30; Stop 11/03/17 at 20:41; Status DC Nystatin (Mycostatin) 1 renetta BID TP Last administered on 11/08/17at 09:15; Start 11/04/17 at 21:00 Trazodone HCl (Desyrel) 50 mg HS PO Last administered on 11/07/17at 20:49; Start 11/05/17 at 21:00 Trazodone HCl (Desyrel) 50 mg PRN QHS PRN PO INSOMNIA; Start 11/05/17 at 19:15 Vitamin D (Vitamin D3) 50,000 unit WEEKLY PO Last administered on 11/07/17at 09: 21; Start 11/07/17 at 09:00 Aripiprazole (Abilify) 20 mg DAILY PO Last administered on 11/08/17at 08:22; Start 11/07/17 at 09:00 Insulin Human Lispro (HumaLOG) 35 units TIDAC SQ Last administered on at 17:28; Start 11/07/17 at 16:30 Active Scripts Active Reported Melatonin 3 Mg Tablet 6 Mg PO HS Trazodone Hcl 100 Mg Tablet 100 Mg PO PRN QHS PRN [place] 5-325 Tablet (Hydrocodone Bit/Acetaminophen) 1 Each Tablet 1 Tab PO PRN DAILY PRN Imodium A-D (Loperamide HCl) 2 Mg Capsule 2 Mg PO PRN DAILY PRN Ibuprofen 100 Mg/5 Ml Oral.susp 200 Mg PO PRN Q8HRS PRN Glucagon Emergency Kit (Glucagon,Human Recombinant) 1 Mg Kit 1 Mg IJ Q15 MINUTES PRN Cyclobenzaprine Hcl 10 Mg Tablet 10 Mg PO PRN Q8HRS PRN Trolamine Salicylate 85 Gm Cream..g. 85 Gm TP PRN Q4HRS PRN Lexapro (Escitalopram Oxalate) 10 Mg Tablet 10 Mg PO DAILY Levothyroxine Sodium 300 Mcg Tablet 300 Mcg PO WEEKLY Levothyroxine Sodium 200 Mcg Tablet 200 Mcg PO DAILYAC Lasix (Furosemide) 20 Mg Tablet 20 Mg PO DAILY [place] 3 1,000 Mg Softgel ([place]-3 Fatty Acids/Fish Oil) 1 Each Capsule 2 Each PO DAILY Fenofibrate (Fenofibrate,Micronized) 200 Mg Capsule 200 Mg PO DAILY Atorvastatin Calcium 80 Mg Tablet 80 Mg PO QHS Abilify (Aripiprazole) 15 Mg Tablet 15 Mg PO DAILY@1800 [place] 5-325 Tablet (Hydrocodone Bit/Acetaminophen) 1 Each Tablet 1 Tab PO [id number] PRN Sinemet 25-100 Mg Tablet (Carbidopa/Levodopa) 1 Each Tablet 1 Each PO [id number] Gabapentin 100 Mg Capsule 100 Mg PO TID Depakote Er (Divalproex Sodium) 250 Mg Tab.er.24h 750 Mg PO BID Vitamin D (Cholecalciferol (Vitamin D3)) 1,000 Unit Capsule 5,000 Unit PO DAILY Travatan Z (Travoprost) 5 Ml Drops 1 Drop OU QHS Senna (Sennosides) 8.6 Mg Tablet 2 Tab PO DAILY Klor-Con M20 (Potassium Chloride) 20 Meq Tab.er.prt 20 Meq PO DAILY Multiple Vitamin (Multivitamin With Minerals) 1 Each Tablet 1 Each PO DAILY Lisinopril 2.5 Mg Tablet 2.5 Mg PO DAILY Novolog (Insulin Aspart) 100 Unit/1 Ml Cartridge 40 Unit SQ TIDAC A and D Ointment (Vits A and D/White Pet/Lanolin) 42.5 Gm Oint...g. 1 Applic TP TID Tresiba Flextouch U-100 (Insulin Degludec) 100 Unit/1 Ml Insuln.pen 65 Unit SQ BID Penlac (Ciclopirox) 6.6 Ml Solution 1 Applic TP WEEKLYHS PRN Aspercreme (Trolamine Salicylate) 177.4 Ml Lotion 1 Renetta TP HS I have reviewed the current psychotropics carefully including drug interactions. Risk benefit ratio favors no change other than as noted in my dictated progress note. Diagnosis: Problems: (1) Psychiatric diagnosis (2) Anxiety disorder (3) Impulse control disorder (4) Bipolar affective, mixed, sev w/ psych CHINO JOHNS MD November 08, 2017 19:49
[2017-11-08] MEDS: LATANOPROST 0.005% OPHTH SOLUTION 2.5ML BOTTLE. OU SCH (20:28)
[2017-11-08] MEDS: ATORVASTATIN CALCIUM 20 MG TABLET PO SCH (20:29)
[2017-11-08] MEDS: MELATONIN 3 MG TABLET PO SCH (20:29)
[2017-11-08] MEDS: traZODone 50 MG TABLET. PO SCH (20:30)
[2017-11-08] MEDS: CICLOPIROX 0.77% TOPICAL CREAM 15GM TUBE. TP SCH (20:33)
[2017-11-08] MEDS: TROLAMINE SALICYLATE 10% TOPICAL CREAM 85GM JAR. TP SCH (20:34)
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
[2017-11-08] MEDS ORDERED: NYSTATIN TOPICAL POWDER 15GM BOTTLE. TP ONE (22:15)
[2017-11-09] MEDS: LEVOTHYROXINE 100 MCG TABLET PO SCH ×2 (05:56→16:58)
[2017-11-09 06:23] VITALS: BP 119/70
[2017-11-09] MEDS ORDERED: LEVOTHYROXINE 100 MCG TABLET PO SCH ×2 (07:00)
[2017-11-09] MEDS: ENOXAPARIN 40 MG/0.4 ML SYRINGE. SQ SCH ×2 (08:55→21:52)
[2017-11-09] MEDS: NYSTATIN 100,000 UNIT/GM TOPICAL CREAM 15GM TUBE. TP SCH ×2 (09:00→21:53)
[2017-11-09] MEDS: INSULIN GLARGINE 300 UNITS/3 ML INSULN.PEN. SQ SCH ×2 (09:00→21:00)
[2017-11-09] MEDS: INSULIN LISPRO 300 UNITS/3 ML INSULN.PEN. SQ SCH ×3 (09:01→16:57)
[2017-11-09] MEDS: MAGNESIUM OXIDE 400 MG TABLET PO SCH ×2 (09:02→21:49)
[2017-11-09] MEDS: metFORMIN XR 500 MG TAB.ER.24H PO SCH (09:02)
[2017-11-09] MEDS: GABAPENTIN 100 MG CAPSULE. PO SCH ×3 (09:02→21:50)
[2017-11-09] MEDS: CITALOPRAM 20 MG TABLET. PO SCH (09:02)
[2017-11-09] MEDS: CARBIDOPA/LEVODOPA 25/100MG TABLET PO SCH ×4 (09:02→21:49)
[2017-11-09] MEDS: LISINOPRIL 2.5 MG TABLET PO SCH (09:03)
[2017-11-09] MEDS: POTASSIUM CHLORIDE 20 MEQ TABLET.ER. PO SCH (09:03)
[2017-11-09] MEDS: DOXYCYCLINE HYCLATE 100 MG TABLET PO SCH ×2 (09:04→21:50)
[2017-11-09] MEDS: MULTIVITAMIN with MINERAL TABLET. PO SCH (09:04)
[2017-11-09] MEDS: HYDROcodone/APAP 5/325MG 1 TAB TABLET PO SCH ×4 (09:04→21:51)
[2017-11-09] MEDS: OMEGA-3 FATTY ACIDS/FISH OIL 1,000 MG CAPSULE. PO SCH (09:04)
[2017-11-09] MEDS: FUROSEMIDE 20 MG TABLET PO SCH (09:04)
[2017-11-09] MEDS: ARIPiprazole 10 MG TABLET PO SCH (09:05)
[2017-11-09] MEDS: SENNOSIDES/DOCUSATE 8.6/50MG TABLET. PO SCH (09:05)
[2017-11-09] MEDS: LACTOBACILLUS RHAMNOSUS GG 1 CAPSULE. PO SCH ×2 (09:05→21:51)
[2017-11-09] MEDS: DIVALPROEX SODIUM 250 MG TABLET.DR. PO SCH ×2 (09:05→21:50)
[2017-11-09 16:20] VITALS: BP 118/65
[2017-11-09] MEDS ORDERED: INSULIN GLARGINE 300 UNITS/3 ML INSULN.PEN. SQ ONE (20:00)
[2017-11-09] MEDS: ATORVASTATIN CALCIUM 20 MG TABLET PO SCH (21:50)
[2017-11-09] MEDS: traZODone 50 MG TABLET. PO SCH (21:51)
[2017-11-09] MEDS: MELATONIN 3 MG TABLET PO SCH (21:52)
[2017-11-09] MEDS: CICLOPIROX 0.77% TOPICAL CREAM 15GM TUBE. TP SCH (21:52)
[2017-11-09] MEDS: TROLAMINE SALICYLATE 10% TOPICAL CREAM 85GM JAR. TP SCH (21:53)
[2017-11-09] MEDS: LATANOPROST 0.005% OPHTH SOLUTION 2.5ML BOTTLE. OU SCH (22:02)
--- NOTE | 2017-11-09 23:21 | PDOC ---
Exam Note: Miguel A Note: Please also refer to the separate dictated note~for this date of service dictated separately.~Patient seen individually. Discussed the patient with Nursing staff reviewed the chart.~Reviewed interim history and current functioning. Reviewed vital signs,~Labs/ Radiology~and current medications noted below. Continue current treatment with the changes noted in the dictated addendum note Assessment: Vital Signs: Vital Signs Date Time Temp Pulse Resp B/P (MAP) Pulse Ox O2 Delivery O2 Flow Rate FiO2 11/09/17 22:51 18 95 Room Air 11/09/17 16:20 98.7 102 118/65 (82) I&O Intake and Output 11/09/17 07:00 Intake Total 1320 ml Balance 1320 ml Intake Oral 1320 ml Labs: Laboratory Tests Test 11/09/17 07:40 11/09/17 11:32 11/09/17 16:58 11/09/17 19:13 Glucose (Fingerstick) 173 mg/dL (70-99) H 256 mg/dL (70-99) H 92 mg/dL (70-99) 90 mg/dL (70-99) Current Medications: Meds: Current Medications Ondansetron HCl (Zofran) 4 mg PRN Q4HRS PRN IV NAUSEA/VOMITING; Start 11/01/17 at 15:30; Stop 11/01/17 at 15:37; Status DC Lactulose (Lactulose) 45 gm QID PO ; Start 11/01/17 at 17:00; Stop 11/01/17 at 17:00; Status DC Dextrose/Sodium Chloride 1,000 ml @ 75 mls/hr 1X ONCE IV ; Start 11/01/17 at 15:30; Stop 11/01/17 at 15:42; Status DC Sodium Chloride 1,000 ml @ 1,000 mls/hr 1X ONCE IV Last administered on at 17:43; Start 11/01/17 at 16:30; Stop 11/01/17 at 17:29; Status DC Acetaminophen (Tylenol) 650 mg PRN Q6HRS PRN PO PAIN / TEMP; Start 11/01/17 at 20:15 Multi-Ingredient Ointment (Analgesic Butler) 1 renetta PRN QID PRN TP MUSCLE PAIN; Start 11/01/17 at 20:15 Al Hydroxide/Mg Hydroxide (Mylanta Plus Xs) 15 ml PRN AFTMEALHC PRN PO DYSPEPSIA; Start 11/01/17 at 20:15 Magnesium Hydroxide (Milk Of Magnesia) 2,400 mg PRN QHS PRN PO CONSTIPATION; Start 11/01/17 at 20:15 Nicotine (Nicoderm Cq 7mg) 1 patch DAILY TD ; Start 11/02/17 at 09:00; Stop at 09:00; Status DC Enoxaparin Sodium (Lovenox 40mg Syringe) 40 mg Q24H SQ ; Start 11/01/17 at 21:00 ; Stop 11/02/17 at 00:43; Status DC Non-Formulary Medication (Aripiprazole (Abilify)) 15 mg DAILY@1800 PO ; Start at 18:00; Stop 11/02/17 at 18:00; Status DC Non-Formulary Medication (Divalproex Sodium (Depakote Er)) 750 mg BID PO ; Start 11/02/17 at 09:00; Stop 11/02/17 at 09:00; Status DC Non-Formulary Medication (Escitalopram Oxalate (Lexapro)) 10 mg DAILY PO ; Start 11/02/17 at 09:00; Stop 11/02/17 at 09:00; Status DC Non-Formulary Medication (Melatonin ) 6 mg HS PO ; Start 11/02/17 at 21:00; Stop 11/02/17 at 21:00; Status DC Non-Formulary Medication (Trazodone Hcl ) 100 mg PRN QHS PRN PO INSOMNIA; Start 11/01/17 at 23:15; Stop 11/02/17 at 00:43; Status DC Carbidopa/Levodopa (Sinemet 25/100) 1 tab [id number] PO ; Start 11/02/17 at 07:00; Stop 11/02/17 at 07:00; Status DC Cyclobenzaprine HCl (Starter Pack - Flexeril 10mg) 10 startpack PRN Q8HRS PRN PO PAIN; Start 11/01/17 at 23:15; Stop 11/02/17 at 00:43; Status DC Furosemide (Lasix) 20 mg DAILY PO ; Start 11/02/17 at 09:00; Stop 11/02/17 at 09 :00; Status DC Gabapentin (Neurontin) 100 mg TID PO ; Start 11/02/17 at 09:00; Stop 11/02/17 at 09:00; Status DC Potassium Chloride (Klor-Con) 20 meq DAILY PO ; Start 11/02/17 at 09:00; Stop at 09:00; Status DC Trolamine Salicylate (Myoplex) 85 renetta PRN Q4HRS PRN TP PAIN; Start 11/01/17 at 23:15; Stop 11/02/17 at 00:43; Status DC Vitamin A/Vitamin D (Vitamin A & D Ointment) 1 renetta TID TP ; Start 11/02/17 at 09 :00; Stop 11/02/17 at 09:00; Status DC Non-Formulary Medication (Atorvastatin Calcium ) 80 mg QHS PO ; Start 11/02/17 at 21:00; Stop 11/02/17 at 21:00; Status DC Non-Formulary Medication (Cholecalciferol (Vitamin D3) (Vitamin D)) 5,000 unit DAILY PO ; Start 11/02/17 at 09:00; Stop 11/02/17 at 09:00; Status DC Non-Formulary Medication (Ciclopirox (Penlac)) 1 applic WEEKLYHS PRN TP nail fungus; Start 11/01/17 at 23:15; Stop 11/02/17 at 00:44; Status DC Non-Formulary Medication (Fenofibrate,Micronized (Fenofibrate)) 200 mg DAILY PO ; Start 11/02/17 at 09:00; Stop 11/02/17 at 09:00; Status DC Non-Formulary Medication (Glucagon,Human Recombinant (Glucagon Emergency Kit)) 1 mg q15 minutes PRN IJ low blood sugar; Start 11/01/17 at 23:15; Stop 11/02/17 at 00:44; Status DC Non-Formulary Medication (Hydrocodone Bit/ Acetaminophen ([place] 5-325 Tablet)) 1 tab PRN DAILY PRN PO PAIN; Start 11/01/17 at 23:15; Stop 11/02/17 at 00:44; Status DC Non-Formulary Medication (Hydrocodone Bit/ Acetaminophen ([place] 5-325 Tablet)) 1 tab [id number] PRN PO PAIN; Start 11/01/17 at 23:15; Stop 11/02/17 at 00:44; Status DC Non-Formulary Medication (Ibuprofen ) 200 mg PRN Q8HRS PRN PO PAIN; Start 11/01 at 23:15; Stop 11/02/17 at 00:44; Status DC Non-Formulary Medication (Insulin Aspart (Novolog)) 40 unit TIDAC SQ ; Start at 07:30; Stop 11/02/17 at 07:30; Status DC Non-Formulary Medication (Insulin Degludec (Tresiba Flextouch U-100)) 65 unit BID SQ ; Start 11/02/17 at 09:00; Stop 11/02/17 at 09:00; Status DC Non-Formulary Medication (Levothyroxine Sodium ) 200 mcg DAILYAC PO ; Start at 07:30; Stop 11/02/17 at 07:30; Status DC Non-Formulary Medication (Levothyroxine Sodium ) 300 mcg WEEKLY PO ; Start 11/08 at 09:00; Stop 11/08/17 at 09:00; Status DC Non-Formulary Medication (Lisinopril ) 2.5 mg DAILY PO ; Start 11/02/17 at 09:00 ; Stop 11/02/17 at 09:00; Status DC Non-Formulary Medication (Loperamide HCl (Imodium A-D)) 2 mg PRN DAILY PRN PO DIARRHEA; Start 11/01/17 at 23:15; Stop 11/02/17 at 00:43; Status DC Non-Formulary Medication (Multivitamin With Minerals (Multiple Vitamin)) 1 each DAILY PO ; Start 11/02/17 at 09:00; Stop 11/02/17 at 09:00; Status DC Non-Formulary Medication ([place]-3 Fatty Acids/Fish Oil ([place] 3 1,000 Mg Softgel )) 2 each DAILY PO ; Start 11/02/17 at 09:00; Stop 11/02/17 at 09:00; Status DC Non-Formulary Medication (Sennosides (Senna)) 2 tab DAILY PO ; Start 11/02/17 at 09:00; Stop 11/02/17 at 09:00; Status DC Non-Formulary Medication (Travoprost (Travatan Z)) 1 drop QHS OU ; Start at 21:00; Stop 11/02/17 at 21:00; Status DC Non-Formulary Medication (Trolamine Salicylate (Aspercreme)) 1 renetta HS TP ; Start 11/02/17 at 21:00; Stop 11/02/17 at 21:00; Status DC Melatonin 6 mg HS PO Last administered on 11/09/17at 21:52; Start 11/02/17 at 21 :00 Aripiprazole (Abilify) 15 mg DAILY PO Last administered on 11/06/17at 10:28; Start 11/02/17 at 09:00; Stop 11/06/17 at 18:47; Status DC Citalopram Hydrobromide (CeleXA) 20 mg DAILY PO Last administered on 11/09/17at 09:02; Start 11/02/17 at 09:00 Divalproex Sodium (Depakote) 750 mg BID PO Last administered on 11/03/17at 18:37 ; Start 11/02/17 at 09:00; Stop 11/03/17 at 20:24; Status DC Trazodone HCl (Desyrel) 100 mg PRN QHS PRN PO INSOMNIA, MAY REPEAT X1 Last administered on 11/02/17at 02:45; Start 11/02/17 at 01:00; Stop 11/05/17 at 19:05 ; Status DC Trolamine Salicylate (Myoplex) 1 renetta HS TP Last administered on 11/09/17at 21:53 ; Start 11/02/17 at 21:00 Trolamine Salicylate (Myoplex) 1 renetta PRN Q4HRS PRN TP PAIN; Start 11/02/17 at 01:15 Ciclopirox Olamine (Loprox) 1 renetta HS TP Last administered on 11/09/17at 21:52; Start 11/02/17 at 21:00 Insulin Human Lispro (HumaLOG) 40 units TIDAC SQ Last administered on at 12:11; Start 11/02/17 at 07:30; Stop 11/07/17 at 15:55; Status DC Cyclobenzaprine HCl (Flexeril) 10 mg PRN Q8HRS PRN PO MUSCLE SPASMS; Start at 01:15 Glucagon (Glucagen Kit) 1 mg PRN Q15MIN PRN IM HYPOGLYCEMIA; Start 11/02/17 at 01:15 Ibuprofen (Motrin) 200 mg PRN Q8HRS PRN PO INFLAMMATION; Start 11/02/17 at 01: 15 Loperamide HCl (Imodium) 2 mg PRN DAILY PRN PO DIARRHEA; Start 11/02/17 at 01: 15 Acetaminophen/ Hydrocodone Bitart (Lortab 5/325) 1 tab PRN DAILY PRN PO PAIN Last administered on 11/05/17 03:41; Start 11/02/17 at 01:15 Atorvastatin Calcium (Lipitor) 80 mg QHS PO Last administered on 11/09/17at 21: 50; Start 11/02/17 at 21:00 Fish Oil (Fish Oil) 2,000 mg DAILY PO Last administered on 11/09/17 09:04; Start 11/02/17 at 09:00 Furosemide (Lasix) 20 mg DAILY PO Last administered on 11/09/17 09:04; Start 11/02/17 at 09:00 Levothyroxine Sodium (Synthroid) 200 mcg DAILY06 PO ; Start 11/02/17 at 06:00; Stop 11/02/17 at 08:05; Status DC Levothyroxine Sodium (Synthroid) 300 mcg WEEKLY PO Last administered on at 08:01; Start 11/02/17 at 09:00; Stop 11/02/17 at 09:00; Status DC Lisinopril (Prinivil) 2.5 mg DAILY PO Last administered on 11/09/17 09:03; Start 11/02/17 at 09:00 Multivitamins/ Calcium (Thera-M Plus) 1 tab DAILY PO Last administered on at 09:04; Start 11/02/17 at 09:00 Potassium Chloride (Klor-Con) 20 meq DAILY PO Last administered on 11/09/17 09 :03; Start 11/02/17 at 09:00 Senna/Docusate Sodium (Senna Plus) 2 tab DAILY PO Last administered on at 09:05; Start 11/02/17 at 09:00 Vitamin D (Vitamin D3) 5,000 unit DAILY PO Last administered on 11/06/17at 10:25 ; Start 11/02/17 at 09:00; Stop 11/06/17 at 18:32; Status DC Gabapentin (Neurontin) 100 mg TID PO Last administered on 11/09/17 21:50; Start 11/02/17 at 09:00 Carbidopa/Levodopa (Sinemet 25/) 1 tab QID PO Last administered on 21:49; Start 11/02/17 at 09:00 Acetaminophen/ Hydrocodone Bitart (Lortab 5/325) 1 tab QID PO Last administered on 11/09/17 21:51; Start 11/02/17 at 09:00 Latanoprost (Xalatan) 1 drop QHS OU Last administered on 11/09/17 22:02; Start 11/02/17 at 21:00 Insulin Glargine (Lantus) 65 units BID SQ Last administered on 11/09/17 09:00 ; Start 11/02/17 at 09:00 Enoxaparin Sodium (Lovenox 40mg Syringe) 40 mg Q12H SQ Last administered on 21:52; Start 11/02/17 at 07:00 Levothyroxine Sodium (Synthroid) 200 mcg QM-F@0900 PO Last administered on 11/08 08:22; Start 11/04/17 at 09:00; Stop 11/09/17 at 00:18; Status DC Levothyroxine Sodium (Synthroid) 200 mcg QSU@0900 PO Last administered on at 10:41; Start 11/03/17 at 09:00; Stop 11/09/17 at 00:18; Status DC Levothyroxine Sodium (Synthroid) 300 mcg QSA@0900 PO Last administered on at 11:24; Start 11/02/17 at 09:00; Stop 11/09/17 at 00:18; Status DC Doxycycline Hyclate (Vibra-Tab) 100 mg BID PO Last administered on 11/09/17 21 :50; Start 11/03/17 at 21:00 Metformin HCl (Glucophage Xr) 500 mg DAILYWBKFT PO Last administered on 09:02; Start 11/04/17 at 08:00 Lactobacillus Rhamnosus (Culturelle) 1 cap BID PO Last administered on 21:51; Start 11/03/17 at 21:00 Magnesium Oxide (Magnesium Oxide) 400 mg BID PO Last administered on 11/09/17 21:49; Start 11/03/17 at 21:00 Divalproex Sodium (Depakote) 1,000 mg BID PO Last administered on 11/09/17 21: 50; Start 11/03/17 at 21:00 Divalproex Sodium (Depakote) 250 mg 1X ONCE PO Last administered on 11/03/17 20:30; Start 11/03/17 at 20:30; Stop 11/03/17 at 20:41; Status DC Nystatin (Mycostatin) 1 renetta BID TP Last administered on 11/09/17 21:53; Start 11/04/17 at 21:00 Trazodone HCl (Desyrel) 50 mg HS PO Last administered on 11/09/17 21:51; Start 11/05/17 at 21:00 Trazodone HCl (Desyrel) 50 mg PRN QHS PRN PO INSOMNIA; Start 11/05/17 at 19:15 Vitamin D (Vitamin D3) 50,000 unit WEEKLY PO Last administered on 11/07/17at 09: 21; Start 11/07/17 at 09:00 Aripiprazole (Abilify) 20 mg DAILY PO Last administered on 11/09/17at 09:05; Start 11/07/17 at 09:00 Insulin Human Lispro (HumaLOG) 35 units TIDAC SQ Last administered on 16:57; Start 11/07/17 at 16:30 Nystatin (Nystop) 15 renetta STK-MED ONCE TP Last administered on 11/08/17at 22:15; Start 11/08/17 at 22:15; Stop 11/08/17 at 22:16; Status DC Levothyroxine Sodium (Synthroid) 300 mcg QSA PO Last administered on 11/09/17 16:58; Start 11/09/17 at 07:00 Levothyroxine Sodium (Synthroid) 200 mcg QSU PO Last administered on 11/09/17at 07:00; Start 11/09/17 at 07:00 Levothyroxine Sodium (Synthroid) 200 mcg QM-F PO Last administered on at 07:00; Start 11/09/17 at 07:00 Insulin Glargine (Lantus) 30 units 1X ONCE SQ Last administered on 11/09/17at 22:01; Start 11/09/17 at 20:00; Stop 11/09/17 at 20:01; Status DC Active Scripts Active Reported Melatonin 3 Mg Tablet 6 Mg PO HS Trazodone Hcl 100 Mg Tablet 100 Mg PO PRN QHS PRN [place] 5-325 Tablet (Hydrocodone Bit/Acetaminophen) 1 Each Tablet 1 Tab PO PRN DAILY PRN Imodium A-D (Loperamide HCl) 2 Mg Capsule 2 Mg PO PRN DAILY PRN Ibuprofen 100 Mg/5 Ml Oral.susp 200 Mg PO PRN Q8HRS PRN Glucagon Emergency Kit (Glucagon,Human Recombinant) 1 Mg Kit 1 Mg IJ Q15 MINUTES PRN Cyclobenzaprine Hcl 10 Mg Tablet 10 Mg PO PRN Q8HRS PRN Trolamine Salicylate 85 Gm Cream..g. 85 Gm TP PRN Q4HRS PRN Lexapro (Escitalopram Oxalate) 10 Mg Tablet 10 Mg PO DAILY Levothyroxine Sodium 300 Mcg Tablet 300 Mcg PO WEEKLY Levothyroxine Sodium 200 Mcg Tablet 200 Mcg PO DAILYAC Lasix (Furosemide) 20 Mg Tablet 20 Mg PO DAILY [place] 3 1,000 Mg Softgel ([place]-3 Fatty Acids/Fish Oil) 1 Each Capsule 2 Each PO DAILY Fenofibrate (Fenofibrate,Micronized) 200 Mg Capsule 200 Mg PO DAILY Atorvastatin Calcium 80 Mg Tablet 80 Mg PO QHS Abilify (Aripiprazole) 15 Mg Tablet 15 Mg PO DAILY@1800 [place] 5-325 Tablet (Hydrocodone Bit/Acetaminophen) 1 Each Tablet 1 Tab PO [id number] PRN Sinemet 25-100 Mg Tablet (Carbidopa/Levodopa) 1 Each Tablet 1 Each PO [id number] Gabapentin 100 Mg Capsule 100 Mg PO TID Depakote Er (Divalproex Sodium) 250 Mg Tab.er.24h 750 Mg PO BID Vitamin D (Cholecalciferol (Vitamin D3)) 1,000 Unit Capsule 5,000 Unit PO DAILY Travatan Z (Travoprost) 5 Ml Drops 1 Drop OU QHS Senna (Sennosides) 8.6 Mg Tablet 2 Tab PO DAILY Klor-Con M20 (Potassium Chloride) 20 Meq Tab.er.prt 20 Meq PO DAILY Multiple Vitamin (Multivitamin With Minerals) 1 Each Tablet 1 Each PO DAILY Lisinopril 2.5 Mg Tablet 2.5 Mg PO DAILY Novolog (Insulin Aspart) 100 Unit/1 Ml Cartridge 40 Unit SQ TIDAC A and D Ointment (Vits A and D/White Pet/Lanolin) 42.5 Gm Oint...g. 1 Applic TP TID Tresiba Flextouch U-100 (Insulin Degludec) 100 Unit/1 Ml Insuln.pen 65 Unit SQ BID Penlac (Ciclopirox) 6.6 Ml Solution 1 Applic TP WEEKLYHS PRN Aspercreme (Trolamine Salicylate) 177.4 Ml Lotion 1 Renetta TP HS I have reviewed the current psychotropics carefully including drug interactions. Risk benefit ratio favors no change other than as noted in my dictated progress note. Diagnosis: Problems: (1) Psychiatric diagnosis (2) Anxiety disorder (3) Impulse control disorder (4) Bipolar affective, mixed, sev w/ psych CHINO JOHNS MD November 09, 2017 23:21
[2017-11-10] MEDS: LEVOTHYROXINE 100 MCG TABLET PO SCH ×2 (05:59→07:30)
[2017-11-10 06:18] VITALS: BP 100/60
[2017-11-10] MEDS: INSULIN LISPRO 300 UNITS/3 ML INSULN.PEN. SQ SCH ×3 (07:43→16:47)
[2017-11-10] MEDS: ENOXAPARIN 40 MG/0.4 ML SYRINGE. SQ SCH ×2 (07:45→19:53)
[2017-11-10] MEDS: MAGNESIUM OXIDE 400 MG TABLET PO SCH ×2 (07:46→19:51)
[2017-11-10] MEDS: OMEGA-3 FATTY ACIDS/FISH OIL 1,000 MG CAPSULE. PO SCH (07:46)
[2017-11-10] MEDS: LACTOBACILLUS RHAMNOSUS GG 1 CAPSULE. PO SCH ×2 (07:46→19:51)
[2017-11-10] MEDS: LISINOPRIL 2.5 MG TABLET PO SCH (07:46)
[2017-11-10] MEDS: DOXYCYCLINE HYCLATE 100 MG TABLET PO SCH ×2 (07:47→19:52)
[2017-11-10] MEDS: MULTIVITAMIN with MINERAL TABLET. PO SCH ×2 (07:47→19:50)
[2017-11-10] MEDS: DIVALPROEX SODIUM 250 MG TABLET.DR. PO SCH ×2 (07:47→19:51)
[2017-11-10] MEDS: metFORMIN XR 500 MG TAB.ER.24H PO SCH (07:47)
[2017-11-10] MEDS: GABAPENTIN 100 MG CAPSULE. PO SCH ×3 (07:48→19:50)
[2017-11-10] MEDS: ARIPiprazole 10 MG TABLET PO SCH (07:48)
[2017-11-10] MEDS: SENNOSIDES/DOCUSATE 8.6/50MG TABLET. PO SCH (07:48)
[2017-11-10] MEDS: FUROSEMIDE 20 MG TABLET PO SCH (07:48)
[2017-11-10] MEDS: POTASSIUM CHLORIDE 20 MEQ TABLET.ER. PO SCH (07:49)
[2017-11-10] MEDS: CARBIDOPA/LEVODOPA 25/100MG TABLET PO SCH ×4 (07:49→19:50)
[2017-11-10] MEDS: CITALOPRAM 20 MG TABLET. PO SCH (07:49)
[2017-11-10] MEDS: NYSTATIN 100,000 UNIT/GM TOPICAL CREAM 15GM TUBE. TP SCH ×2 (07:55→19:54)
[2017-11-10] MEDS: HYDROcodone/APAP 5/325MG 1 TAB TABLET PO SCH ×4 (07:56→19:53)
[2017-11-10] MEDS: INSULIN GLARGINE 300 UNITS/3 ML INSULN.PEN. SQ SCH ×2 (07:59→21:03)
[2017-11-10 16:45] VITALS: BP 96/62
[2017-11-10] MEDS: ATORVASTATIN CALCIUM 20 MG TABLET PO SCH (19:50)
[2017-11-10] MEDS: traZODone 50 MG TABLET. PO SCH (19:51)
[2017-11-10] MEDS: MELATONIN 3 MG TABLET PO SCH (19:53)
[2017-11-10] MEDS: CICLOPIROX 0.77% TOPICAL CREAM 15GM TUBE. TP SCH (19:54)
[2017-11-10] MEDS: TROLAMINE SALICYLATE 10% TOPICAL CREAM 85GM JAR. TP SCH (19:54)
[2017-11-10] MEDS: LATANOPROST 0.005% OPHTH SOLUTION 2.5ML BOTTLE. OU SCH (19:56)
--- NOTE | 2017-11-10 20:54 | PDOC ---
Exam Note: Miguel A Note: Please also refer to the separate dictated note~for this date of service dictated separately.~Patient seen individually. Discussed the patient with Nursing staff reviewed the chart.~Reviewed interim history and current functioning. Reviewed vital signs,~Labs/ Radiology~and current medications noted below. Continue current treatment with the changes noted in the dictated addendum note Assessment: Vital Signs: Vital Signs Date Time Temp Pulse Resp B/P (MAP) Pulse Ox O2 Delivery O2 Flow Rate FiO2 11/10/17 19:53 18 97 Room Air 11/10/17 16:45 96.4 72 96/62 (73) I&O Intake and Output 11/10/17 07:00 Intake Total 720 ml Balance 720 ml Intake Oral 720 ml Labs: Laboratory Tests Test 11/10/17 06:05 11/10/17 07:18 11/10/17 11:19 11/10/17 16:14 Glucose (Fingerstick) 154 mg/dL (70-99) H 158 mg/dL (70-99) H 124 mg/dL (70-99) H 86 mg/dL (70-99) Test 11/10/17 19:39 Glucose (Fingerstick) 115 mg/dL (70-99) H Current Medications: Meds: Current Medications Ondansetron HCl (Zofran) 4 mg PRN Q4HRS PRN IV NAUSEA/VOMITING; Start 11/01/17 at 15:30; Stop 11/01/17 at 15:37; Status DC Lactulose (Lactulose) 45 gm QID PO ; Start 11/01/17 at 17:00; Stop 11/01/17 at 17:00; Status DC Dextrose/Sodium Chloride 1,000 ml @ 75 mls/hr 1X ONCE IV ; Start 11/01/17 at 15:30; Stop 11/01/17 at 15:42; Status DC Sodium Chloride 1,000 ml @ 1,000 mls/hr 1X ONCE IV Last administered on at 17:43; Start 11/01/17 at 16:30; Stop 11/01/17 at 17:29; Status DC Acetaminophen (Tylenol) 650 mg PRN Q6HRS PRN PO PAIN / TEMP; Start 11/01/17 at 20:15 Multi-Ingredient Ointment (Analgesic [place]) 1 renetta PRN QID PRN TP MUSCLE PAIN; Start 11/01/17 at 20:15 Al Hydroxide/Mg Hydroxide (Mylanta Plus Xs) 15 ml PRN AFTMEALHC PRN PO DYSPEPSIA; Start 11/01/17 at 20:15 Magnesium Hydroxide (Milk Of Magnesia) 2,400 mg PRN QHS PRN PO CONSTIPATION; Start 11/01/17 at 20:15 Nicotine (Nicoderm Cq 7mg) 1 patch DAILY TD ; Start 11/02/17 at 09:00; Stop at 09:00; Status DC Enoxaparin Sodium (Lovenox 40mg Syringe) 40 mg Q24H SQ ; Start 11/01/17 at 21:00 ; Stop 11/02/17 at 00:43; Status DC Non-Formulary Medication (Aripiprazole (Abilify)) 15 mg DAILY@1800 PO ; Start at 18:00; Stop 11/02/17 at 18:00; Status DC Non-Formulary Medication (Divalproex Sodium (Depakote Er)) 750 mg BID PO ; Start 11/02/17 at 09:00; Stop 11/02/17 at 09:00; Status DC Non-Formulary Medication (Escitalopram Oxalate (Lexapro)) 10 mg DAILY PO ; Start 11/02/17 at 09:00; Stop 11/02/17 at 09:00; Status DC Non-Formulary Medication (Melatonin ) 6 mg HS PO ; Start 11/02/17 at 21:00; Stop 11/02/17 at 21:00; Status DC Non-Formulary Medication (Trazodone Hcl ) 100 mg PRN QHS PRN PO INSOMNIA; Start 11/01/17 at 23:15; Stop 11/02/17 at 00:43; Status DC Carbidopa/Levodopa (Sinemet 25/100) 1 tab [id number] PO ; Start 11/02/17 at 07:00; Stop 11/02/17 at 07:00; Status DC Cyclobenzaprine HCl (Starter Pack - Flexeril 10mg) 10 startpack PRN Q8HRS PRN PO PAIN; Start 11/01/17 at 23:15; Stop 11/02/17 at 00:43; Status DC Furosemide (Lasix) 20 mg DAILY PO ; Start 11/02/17 at 09:00; Stop 11/02/17 at 09 :00; Status DC Gabapentin (Neurontin) 100 mg TID PO ; Start 11/02/17 at 09:00; Stop 11/02/17 at 09:00; Status DC Potassium Chloride (Klor-Con) 20 meq DAILY PO ; Start 11/02/17 at 09:00; Stop at 09:00; Status DC Trolamine Salicylate (Myoplex) 85 renetta PRN Q4HRS PRN TP PAIN; Start 11/01/17 at 23:15; Stop 11/02/17 at 00:43; Status DC Vitamin A/Vitamin D (Vitamin A & D Ointment) 1 renetta TID TP ; Start 11/02/17 at 09 :00; Stop 11/02/17 at 09:00; Status DC Non-Formulary Medication (Atorvastatin Calcium ) 80 mg QHS PO ; Start 11/02/17 at 21:00; Stop 11/02/17 at 21:00; Status DC Non-Formulary Medication (Cholecalciferol (Vitamin D3) (Vitamin D)) 5,000 unit DAILY PO ; Start 11/02/17 at 09:00; Stop 11/02/17 at 09:00; Status DC Non-Formulary Medication (Ciclopirox (Penlac)) 1 applic WEEKLYHS PRN TP nail fungus; Start 11/01/17 at 23:15; Stop 11/02/17 at 00:44; Status DC Non-Formulary Medication (Fenofibrate,Micronized (Fenofibrate)) 200 mg DAILY PO ; Start 11/02/17 at 09:00; Stop 11/02/17 at 09:00; Status DC Non-Formulary Medication (Glucagon,Human Recombinant (Glucagon Emergency Kit)) 1 mg q15 minutes PRN IJ low blood sugar; Start 11/01/17 at 23:15; Stop 11/02/17 at 00:44; Status DC Non-Formulary Medication (Hydrocodone Bit/ Acetaminophen ([place] 5-325 Tablet)) 1 tab PRN DAILY PRN PO PAIN; Start 11/01/17 at 23:15; Stop 11/02/17 at 00:44; Status DC Non-Formulary Medication (Hydrocodone Bit/ Acetaminophen ([place] 5-325 Tablet)) 1 tab [id number] PRN PO PAIN; Start 11/01/17 at 23:15; Stop 11/02/17 at 00:44; Status DC Non-Formulary Medication (Ibuprofen ) 200 mg PRN Q8HRS PRN PO PAIN; Start 11/01 at 23:15; Stop 11/02/17 at 00:44; Status DC Non-Formulary Medication (Insulin Aspart (Novolog)) 40 unit TIDAC SQ ; Start at 07:30; Stop 11/02/17 at 07:30; Status DC Non-Formulary Medication (Insulin Degludec (Tresiba Flextouch U-100)) 65 unit BID SQ ; Start 11/02/17 at 09:00; Stop 11/02/17 at 09:00; Status DC Non-Formulary Medication (Levothyroxine Sodium ) 200 mcg DAILYAC PO ; Start at 07:30; Stop 11/02/17 at 07:30; Status DC Non-Formulary Medication (Levothyroxine Sodium ) 300 mcg WEEKLY PO ; Start 11/08 at 09:00; Stop 11/08/17 at 09:00; Status DC Non-Formulary Medication (Lisinopril ) 2.5 mg DAILY PO ; Start 11/02/17 at 09:00 ; Stop 11/02/17 at 09:00; Status DC Non-Formulary Medication (Loperamide HCl (Imodium A-D)) 2 mg PRN DAILY PRN PO DIARRHEA; Start 11/01/17 at 23:15; Stop 11/02/17 at 00:43; Status DC Non-Formulary Medication (Multivitamin With Minerals (Multiple Vitamin)) 1 each DAILY PO ; Start 11/02/17 at 09:00; Stop 11/02/17 at 09:00; Status DC Non-Formulary Medication ([place]-3 Fatty Acids/Fish Oil ([place] 3 1,000 Mg Softgel )) 2 each DAILY PO ; Start 11/02/17 at 09:00; Stop 11/02/17 at 09:00; Status DC Non-Formulary Medication (Sennosides (Senna)) 2 tab DAILY PO ; Start 11/02/17 at 09:00; Stop 11/02/17 at 09:00; Status DC Non-Formulary Medication (Travoprost (Travatan Z)) 1 drop QHS OU ; Start at 21:00; Stop 11/02/17 at 21:00; Status DC Non-Formulary Medication (Trolamine Salicylate (Aspercreme)) 1 renetta HS TP ; Start 11/02/17 at 21:00; Stop 11/02/17 at 21:00; Status DC Melatonin 6 mg HS PO Last administered on 11/10/17at 19:53; Start 11/02/17 at 21 :00 Aripiprazole (Abilify) 15 mg DAILY PO Last administered on 11/06/17at 10:28; Start 11/02/17 at 09:00; Stop 11/06/17 at 18:47; Status DC Citalopram Hydrobromide (CeleXA) 20 mg DAILY PO Last administered on 11/10/17at 07:49; Start 11/02/17 at 09:00 Divalproex Sodium (Depakote) 750 mg BID PO Last administered on 11/03/17at 18:37 ; Start 11/02/17 at 09:00; Stop 11/03/17 at 20:24; Status DC Trazodone HCl (Desyrel) 100 mg PRN QHS PRN PO INSOMNIA, MAY REPEAT X1 Last administered on 11/02/17at 02:45; Start 11/02/17 at 01:00; Stop 11/05/17 at 19:05 ; Status DC Trolamine Salicylate (Myoplex) 1 renetta HS TP Last administered on 11/10/17at 19:54 ; Start 11/02/17 at 21:00 Trolamine Salicylate (Myoplex) 1 renetta PRN Q4HRS PRN TP PAIN; Start 11/02/17 at 01:15 Ciclopirox Olamine (Loprox) 1 renetta HS TP Last administered on 11/10/17at 19:54; Start 11/02/17 at 21:00 Insulin Human Lispro (HumaLOG) 40 units TIDAC SQ Last administered on at 12:11; Start 11/02/17 at 07:30; Stop 11/07/17 at 15:55; Status DC Cyclobenzaprine HCl (Flexeril) 10 mg PRN Q8HRS PRN PO MUSCLE SPASMS; Start at 01:15 Glucagon (Glucagen Kit) 1 mg PRN Q15MIN PRN IM HYPOGLYCEMIA; Start 11/02/17 at 01:15 Ibuprofen (Motrin) 200 mg PRN Q8HRS PRN PO INFLAMMATION; Start 11/02/17 at 01: 15 Loperamide HCl (Imodium) 2 mg PRN DAILY PRN PO DIARRHEA; Start 11/02/17 at 01: 15 Acetaminophen/ Hydrocodone Bitart (Lortab 5/325) 1 tab PRN DAILY PRN PO PAIN Last administered on 11/05/17 03:41; Start 11/02/17 at 01:15 Atorvastatin Calcium (Lipitor) 80 mg QHS PO Last administered on 11/10/17 19: 50; Start 11/02/17 at 21:00 Fish Oil (Fish Oil) 2,000 mg DAILY PO Last administered on 11/10/17 07:46; Start 11/02/17 at 09:00 Furosemide (Lasix) 20 mg DAILY PO Last administered on 11/10/17 07:48; Start 11/02/17 at 09:00 Levothyroxine Sodium (Synthroid) 200 mcg DAILY06 PO ; Start 11/02/17 at 06:00; Stop 11/02/17 at 08:05; Status DC Levothyroxine Sodium (Synthroid) 300 mcg WEEKLY PO Last administered on at 08:01; Start 11/02/17 at 09:00; Stop 11/02/17 at 09:00; Status DC Lisinopril (Prinivil) 2.5 mg DAILY PO Last administered on 11/10/17 07:46; Start 11/02/17 at 09:00 Multivitamins/ Calcium (Thera-M Plus) 1 tab DAILY PO Last administered on 19:50; Start 11/02/17 at 09:00 Potassium Chloride (Klor-Con) 20 meq DAILY PO Last administered on 11/10/17 07 :49; Start 11/02/17 at 09:00 Senna/Docusate Sodium (Senna Plus) 2 tab DAILY PO Last administered on 07:48; Start 11/02/17 at 09:00 Vitamin D (Vitamin D3) 5,000 unit DAILY PO Last administered on 11/06/17at 10:25 ; Start 11/02/17 at 09:00; Stop 11/06/17 at 18:32; Status DC Gabapentin (Neurontin) 100 mg TID PO Last administered on 11/10/17 19:50; Start 11/02/17 at 09:00 Carbidopa/Levodopa (Sinemet 25/100) 1 tab QID PO Last administered on 19:50; Start 11/02/17 at 09:00 Acetaminophen/ Hydrocodone Bitart (Lortab 5/325) 1 tab QID PO Last administered on 11/10/17 19:53; Start 11/02/17 at 09:00 Latanoprost (Xalatan) 1 drop QHS OU Last administered on 11/10/17 19:56; Start 11/02/17 at 21:00 Insulin Glargine (Lantus) 65 units BID SQ Last administered on 11/10/17 07:59 ; Start 11/02/17 at 09:00 Enoxaparin Sodium (Lovenox 40mg Syringe) 40 mg Q12H SQ Last administered on 19:53; Start 11/02/17 at 07:00 Levothyroxine Sodium (Synthroid) 200 mcg QM-F@0900 PO Last administered on 11/08at 08:22; Start 11/04/17 at 09:00; Stop 11/09/17 at 00:18; Status DC Levothyroxine Sodium (Synthroid) 200 mcg QSU@0900 PO Last administered on at 10:41; Start 11/03/17 at 09:00; Stop 11/09/17 at 00:18; Status DC Levothyroxine Sodium (Synthroid) 300 mcg QSA@0900 PO Last administered on at 11:24; Start 11/02/17 at 09:00; Stop 11/09/17 at 00:18; Status DC Doxycycline Hyclate (Vibra-Tab) 100 mg BID PO Last administered on 11/10/17at 19 :52; Start 11/03/17 at 21:00 Metformin HCl (Glucophage Xr) 500 mg DAILYWBKFT PO Last administered on at 07:47; Start 11/04/17 at 08:00 Lactobacillus Rhamnosus (Culturelle) 1 cap BID PO Last administered on 19:51; Start 11/03/17 at 21:00 Magnesium Oxide (Magnesium Oxide) 400 mg BID PO Last administered on 11/10/17 19:51; Start 11/03/17 at 21:00 Divalproex Sodium (Depakote) 1,000 mg BID PO Last administered on 11/10/17 19: 51; Start 11/03/17 at 21:00 Divalproex Sodium (Depakote) 250 mg 1X ONCE PO Last administered on 11/03/17 20:30; Start 11/03/17 at 20:30; Stop 11/03/17 at 20:41; Status DC Nystatin (Mycostatin) 1 renetta BID TP Last administered on 11/10/17 19:54; Start 11/04/17 at 21:00 Trazodone HCl (Desyrel) 50 mg HS PO Last administered on 11/10/17 19:51; Start 11/05/17 at 21:00 Trazodone HCl (Desyrel) 50 mg PRN QHS PRN PO INSOMNIA; Start 11/05/17 at 19:15 Vitamin D (Vitamin D3) 50,000 unit WEEKLY PO Last administered on 11/07/17 09: 21; Start 11/07/17 at 09:00 Aripiprazole (Abilify) 20 mg DAILY PO Last administered on 11/10/17at 07:48; Start 11/07/17 at 09:00 Insulin Human Lispro (HumaLOG) 35 units TIDAC SQ Last administered on at 16:47; Start 11/07/17 at 16:30 Nystatin (Nystop) 15 renetta STK-MED ONCE TP Last administered on 11/08/17 22:15; Start 11/08/17 at 22:15; Stop 11/08/17 at 22:16; Status DC Levothyroxine Sodium (Synthroid) 300 mcg QSA PO Last administered on 11/09/17at 16:58; Start 11/09/17 at 07:00 Levothyroxine Sodium (Synthroid) 200 mcg QSU PO Last administered on 11/09/17at 07:00; Start 11/09/17 at 07:00; Stop 11/10/17 at 05:41; Status DC Levothyroxine Sodium (Synthroid) 200 mcg QM-F PO Last administered on at 07:00; Start 11/09/17 at 07:00; Stop 11/10/17 at 05:41; Status DC Insulin Glargine (Lantus) 30 units 1X ONCE SQ Last administered on 11/09/17at 22:01; Start 11/09/17 at 20:00; Stop 11/09/17 at 20:01; Status DC Levothyroxine Sodium (Synthroid) 200 mcg DAILYAC PO Last administered on at 05:59; Start 11/10/17 at 07:00 Active Scripts Active Reported Melatonin 3 Mg Tablet 6 Mg PO HS Trazodone Hcl 100 Mg Tablet 100 Mg PO PRN QHS PRN [place] 5-325 Tablet (Hydrocodone Bit/Acetaminophen) 1 Each Tablet 1 Tab PO PRN DAILY PRN Imodium A-D (Loperamide HCl) 2 Mg Capsule 2 Mg PO PRN DAILY PRN Ibuprofen 100 Mg/5 Ml Oral.susp 200 Mg PO PRN Q8HRS PRN Glucagon Emergency Kit (Glucagon,Human Recombinant) 1 Mg Kit 1 Mg IJ Q15 MINUTES PRN Cyclobenzaprine Hcl 10 Mg Tablet 10 Mg PO PRN Q8HRS PRN Trolamine Salicylate 85 Gm Cream..g. 85 Gm TP PRN Q4HRS PRN Lexapro (Escitalopram Oxalate) 10 Mg Tablet 10 Mg PO DAILY Levothyroxine Sodium 300 Mcg Tablet 300 Mcg PO WEEKLY Levothyroxine Sodium 200 Mcg Tablet 200 Mcg PO DAILYAC Lasix (Furosemide) 20 Mg Tablet 20 Mg PO DAILY [place] 3 1,000 Mg Softgel ([place]-3 Fatty Acids/Fish Oil) 1 Each Capsule 2 Each PO DAILY Fenofibrate (Fenofibrate,Micronized) 200 Mg Capsule 200 Mg PO DAILY Atorvastatin Calcium 80 Mg Tablet 80 Mg PO QHS Abilify (Aripiprazole) 15 Mg Tablet 15 Mg PO DAILY@1800 [place] 5-325 Tablet (Hydrocodone Bit/Acetaminophen) 1 Each Tablet 1 Tab PO [id number] PRN Sinemet 25-100 Mg Tablet (Carbidopa/Levodopa) 1 Each Tablet 1 Each PO [id number] Gabapentin 100 Mg Capsule 100 Mg PO TID Depakote Er (Divalproex Sodium) 250 Mg Tab.er.24h 750 Mg PO BID Vitamin D (Cholecalciferol (Vitamin D3)) 1,000 Unit Capsule 5,000 Unit PO DAILY Travatan Z (Travoprost) 5 Ml Drops 1 Drop OU QHS Senna (Sennosides) 8.6 Mg Tablet 2 Tab PO DAILY Klor-Con M20 (Potassium Chloride) 20 Meq Tab.er.prt 20 Meq PO DAILY Multiple Vitamin (Multivitamin With Minerals) 1 Each Tablet 1 Each PO DAILY Lisinopril 2.5 Mg Tablet 2.5 Mg PO DAILY Novolog (Insulin Aspart) 100 Unit/1 Ml Cartridge 40 Unit SQ TIDAC A and D Ointment (Vits A and D/White Pet/Lanolin) 42.5 Gm Oint...g. 1 Applic TP TID Tresiba Flextouch U-100 (Insulin Degludec) 100 Unit/1 Ml Insuln.pen 65 Unit SQ BID [place] (Ciclopirox) 6.6 Ml Solution 1 Applic TP WEEKLYHS PRN Aspercreme (Trolamine Salicylate) 177.4 Ml Lotion 1 [place] TP HS I have reviewed the current psychotropics carefully including drug interactions. Risk benefit ratio favors no change other than as noted in my dictated progress note. Diagnosis: Problems: (1) Psychiatric diagnosis (2) Anxiety disorder (3) Impulse control disorder (4) Bipolar affective, mixed, sev w/ psych CHINO JOHNS MD November 10, 2017 20:54
[2017-11-11 06:29] VITALS: BP 96/63
[2017-11-11] MEDS: LISINOPRIL 2.5 MG TABLET PO SCH (09:00)
[2017-11-11] MEDS: CARBIDOPA/LEVODOPA 25/100MG TABLET PO SCH ×4 (10:03→20:25)
[2017-11-11] MEDS: LEVOTHYROXINE 100 MCG TABLET PO SCH (10:03)
[2017-11-11] MEDS: SENNOSIDES/DOCUSATE 8.6/50MG TABLET. PO SCH (10:04)
[2017-11-11] MEDS: POTASSIUM CHLORIDE 20 MEQ TABLET.ER. PO SCH (10:04)
[2017-11-11] MEDS: GABAPENTIN 100 MG CAPSULE. PO SCH ×3 (10:04→20:24)
[2017-11-11] MEDS: ARIPiprazole 10 MG TABLET PO SCH (10:05)
[2017-11-11] MEDS: metFORMIN XR 500 MG TAB.ER.24H PO SCH (10:05)
[2017-11-11] MEDS: DOXYCYCLINE HYCLATE 100 MG TABLET PO SCH (10:05)
[2017-11-11] MEDS: MAGNESIUM OXIDE 400 MG TABLET PO SCH ×2 (10:05→20:24)
[2017-11-11] MEDS: MULTIVITAMIN with MINERAL TABLET. PO SCH (10:05)
[2017-11-11] MEDS: CITALOPRAM 20 MG TABLET. PO SCH (10:05)
[2017-11-11] MEDS: FUROSEMIDE 20 MG TABLET PO SCH (10:05)
[2017-11-11] MEDS: LACTOBACILLUS RHAMNOSUS GG 1 CAPSULE. PO SCH ×2 (10:05→20:25)
[2017-11-11] MEDS: DIVALPROEX SODIUM 250 MG TABLET.DR. PO SCH ×2 (10:06→20:24)
[2017-11-11] MEDS: OMEGA-3 FATTY ACIDS/FISH OIL 1,000 MG CAPSULE. PO SCH (10:06)
[2017-11-11] MEDS: ENOXAPARIN 40 MG/0.4 ML SYRINGE. SQ SCH ×2 (10:06→20:23)
[2017-11-11] MEDS: INSULIN LISPRO 300 UNITS/3 ML INSULN.PEN. SQ SCH ×3 (10:09→16:30)
[2017-11-11] MEDS: INSULIN GLARGINE 300 UNITS/3 ML INSULN.PEN. SQ SCH ×2 (10:11→21:17)
[2017-11-11] MEDS: HYDROcodone/APAP 5/325MG 1 TAB TABLET PO SCH ×5 (10:13→22:20)
[2017-11-11] MEDS: NYSTATIN TOPICAL POWDER 15GM BOTTLE. TP SCH ×2 (10:57→20:22)
[2017-11-11 15:41] VITALS: BP 113/64
[2017-11-11] MEDS: CICLOPIROX 0.77% TOPICAL CREAM 15GM TUBE. TP SCH (20:22)
[2017-11-11] MEDS: LATANOPROST 0.005% OPHTH SOLUTION 2.5ML BOTTLE. OU SCH (20:22)
[2017-11-11] MEDS: TROLAMINE SALICYLATE 10% TOPICAL CREAM 85GM JAR. TP SCH (20:22)
--- NOTE | 2017-11-11 20:22 | PN ---
DATE: 11/09/2017 PSYCHIATRIC PROGRESS NOTE This is a late entry for 11/09/2017, covers the elements not covered in my initial note of 11/09/2017. SUBJECTIVE: I met with the patient in the evening. The patient slept 6-1/2 hours. Per nursing report, she has been "needy." She does have somatic complaints and back discomfort and nursing staff are changing her ____ and turning her every 2 hours. Blood sugars in the 200s and 300s. She is on doxycycline for UTI. REVIEW OF SYSTEMS: Ambulation impaired, in Broda chair. No CV, , pulmonary, eye system symptoms on review. MENTAL STATUS EXAM: Oriented reasonably. Speech coherent, less pressured. Abstraction fair, computation impaired, language function intact. Mood and affect despite the above is improved. IMPRESSION: Unchanged from initial note, schizoaffective disorder, bipolar type, mixed with psychotic features, in partial remission. Rest unchanged. PLAN: Continue psychotropics mentioned in my initial note. MAN Richard JOHNS MD DR: GLENN/cory JOB#: [id number] / [id number]
[2017-11-11] MEDS: traZODone 50 MG TABLET. PO SCH (20:23)
[2017-11-11] MEDS: ATORVASTATIN CALCIUM 20 MG TABLET PO SCH (20:24)
[2017-11-11] MEDS: MELATONIN 3 MG TABLET PO SCH (20:24)
--- NOTE | 2017-11-11 20:30 | PN ---
DATE: 11/08/2017 PSYCHIATRIC PROGRESS NOTE This is a late entry for 11/08/2017, covers the elements not covered in my initial note of 11/08/2017. SUBJECTIVE: I met with the patient evening of 11/08/2017. The patient remains somewhat anxious, labile at times, complains of discomfort in the back area and nursing staff turning her every 2 hours. REVIEW OF SYSTEMS: Ambulation impaired, in Broda chair, discomfort noted above. No CV, , pulmonary, eye system symptoms on review. MENTAL STATUS EXAM: The patient is reasonably oriented. Speech is coherent, less pressured. Abstraction fair, computation impaired, language function intact, attention span short. Mood and affect still somewhat anxious, labile, but improved. LABORATORY DATA: Reviewed. IMPRESSION: Schizoaffective disorder, bipolar type, mixed with psychotic features, in partial remission. Rest unchanged. PLAN: Valproic acid level therapeutic at 59. Continue Depakote. Abilify was increased and maintain trazodone, melatonin, Celexa. MAN Richard JOHNS MD DR: GLENN/cory JOB#: [id number] / [id number]
--- NOTE | 2017-11-11 20:34 | PDOC ---
Exam Note: Miguel A Note: Please also refer to the separate dictated note~for this date of service dictated separately.~Patient seen individually. Discussed the patient with Nursing staff reviewed the chart.~Reviewed interim history and current functioning. Reviewed vital signs,~Labs/ Radiology~and current medications noted below. Continue current treatment with the changes noted in the dictated addendum note Assessment: Vital Signs: Vital Signs Date Time Temp Pulse Resp B/P (MAP) Pulse Ox O2 Delivery O2 Flow Rate FiO2 11/11/17 20:21 Room Air 11/11/17 17:56 93 11/11/17 15:41 97.3 98 20 113/64 (80) I&O Intake and Output 11/11/17 07:00 Intake Total 1320 ml Balance 1320 ml Intake Oral 1320 ml # Voids 1 # Bowel Movements 1 Labs: Laboratory Tests Test 11/11/17 07:17 11/11/17 11:37 11/11/17 17:05 11/11/17 20:21 Glucose (Fingerstick) 236 mg/dL (70-99) H 227 mg/dL (70-99) H 88 mg/dL (70-99) 171 mg/dL (70-99) H Current Medications: Meds: Current Medications Ondansetron HCl (Zofran) 4 mg PRN Q4HRS PRN IV NAUSEA/VOMITING; Start 11/01/17 at 15:30; Stop 11/01/17 at 15:37; Status DC Lactulose (Lactulose) 45 gm QID PO ; Start 11/01/17 at 17:00; Stop 11/01/17 at 17:00; Status DC Dextrose/Sodium Chloride 1,000 ml @ 75 mls/hr 1X ONCE IV ; Start 11/01/17 at 15:30; Stop 11/01/17 at 15:42; Status DC Sodium Chloride 1,000 ml @ 1,000 mls/hr 1X ONCE IV Last administered on at 17:43; Start 11/01/17 at 16:30; Stop 11/01/17 at 17:29; Status DC Acetaminophen (Tylenol) 650 mg PRN Q6HRS PRN PO PAIN / TEMP; Start 11/01/17 at 20:15 Multi-Ingredient Ointment (Analgesic [place]) 1 renetta PRN QID PRN TP MUSCLE PAIN; Start 11/01/17 at 20:15 Al Hydroxide/Mg Hydroxide (Mylanta Plus Xs) 15 ml PRN AFTMEALHC PRN PO DYSPEPSIA; Start 11/01/17 at 20:15 Magnesium Hydroxide (Milk Of Magnesia) 2,400 mg PRN QHS PRN PO CONSTIPATION; Start 11/01/17 at 20:15 Nicotine (Nicoderm Cq 7mg) 1 patch DAILY TD ; Start 11/02/17 at 09:00; Stop at 09:00; Status DC Enoxaparin Sodium (Lovenox 40mg Syringe) 40 mg Q24H SQ ; Start 11/01/17 at 21:00 ; Stop 11/02/17 at 00:43; Status DC Non-Formulary Medication (Aripiprazole (Abilify)) 15 mg DAILY@1800 PO ; Start at 18:00; Stop 11/02/17 at 18:00; Status DC Non-Formulary Medication (Divalproex Sodium (Depakote Er)) 750 mg BID PO ; Start 11/02/17 at 09:00; Stop 11/02/17 at 09:00; Status DC Non-Formulary Medication (Escitalopram Oxalate (Lexapro)) 10 mg DAILY PO ; Start 11/02/17 at 09:00; Stop 11/02/17 at 09:00; Status DC Non-Formulary Medication (Melatonin ) 6 mg HS PO ; Start 11/02/17 at 21:00; Stop 11/02/17 at 21:00; Status DC Non-Formulary Medication (Trazodone Hcl ) 100 mg PRN QHS PRN PO INSOMNIA; Start 11/01/17 at 23:15; Stop 11/02/17 at 00:43; Status DC Carbidopa/Levodopa (Sinemet 25/100) 1 tab [id number] PO ; Start 11/02/17 at 07:00; Stop 11/02/17 at 07:00; Status DC Cyclobenzaprine HCl (Starter Pack - Flexeril 10mg) 10 startpack PRN Q8HRS PRN PO PAIN; Start 11/01/17 at 23:15; Stop 11/02/17 at 00:43; Status DC Furosemide (Lasix) 20 mg DAILY PO ; Start 11/02/17 at 09:00; Stop 11/02/17 at 09 :00; Status DC Gabapentin (Neurontin) 100 mg TID PO ; Start 11/02/17 at 09:00; Stop 11/02/17 at 09:00; Status DC Potassium Chloride (Klor-Con) 20 meq DAILY PO ; Start 11/02/17 at 09:00; Stop at 09:00; Status DC Trolamine Salicylate (Myoplex) 85 renetta PRN Q4HRS PRN TP PAIN; Start 11/01/17 at 23:15; Stop 11/02/17 at 00:43; Status DC Vitamin A/Vitamin D (Vitamin A & D Ointment) 1 renetta TID TP ; Start 11/02/17 at 09 :00; Stop 11/02/17 at 09:00; Status DC Non-Formulary Medication (Atorvastatin Calcium ) 80 mg QHS PO ; Start 11/02/17 at 21:00; Stop 11/02/17 at 21:00; Status DC Non-Formulary Medication (Cholecalciferol (Vitamin D3) (Vitamin D)) 5,000 unit DAILY PO ; Start 11/02/17 at 09:00; Stop 11/02/17 at 09:00; Status DC Non-Formulary Medication (Ciclopirox (Penlac)) 1 applic WEEKLYHS PRN TP nail fungus; Start 11/01/17 at 23:15; Stop 11/02/17 at 00:44; Status DC Non-Formulary Medication (Fenofibrate,Micronized (Fenofibrate)) 200 mg DAILY PO ; Start 11/02/17 at 09:00; Stop 11/02/17 at 09:00; Status DC Non-Formulary Medication (Glucagon,Human Recombinant (Glucagon Emergency Kit)) 1 mg q15 minutes PRN IJ low blood sugar; Start 11/01/17 at 23:15; Stop 11/02/17 at 00:44; Status DC Non-Formulary Medication (Hydrocodone Bit/ Acetaminophen ([place] 5-325 Tablet)) 1 tab PRN DAILY PRN PO PAIN; Start 11/01/17 at 23:15; Stop 11/02/17 at 00:44; Status DC Non-Formulary Medication (Hydrocodone Bit/ Acetaminophen ([place] 5-325 Tablet)) 1 tab [id number] PRN PO PAIN; Start 11/01/17 at 23:15; Stop 11/02/17 at 00:44; Status DC Non-Formulary Medication (Ibuprofen ) 200 mg PRN Q8HRS PRN PO PAIN; Start 11/01 at 23:15; Stop 11/02/17 at 00:44; Status DC Non-Formulary Medication (Insulin Aspart (Novolog)) 40 unit TIDAC SQ ; Start at 07:30; Stop 11/02/17 at 07:30; Status DC Non-Formulary Medication (Insulin Degludec (Tresiba Flextouch U-100)) 65 unit BID SQ ; Start 11/02/17 at 09:00; Stop 11/02/17 at 09:00; Status DC Non-Formulary Medication (Levothyroxine Sodium ) 200 mcg DAILYAC PO ; Start at 07:30; Stop 11/02/17 at 07:30; Status DC Non-Formulary Medication (Levothyroxine Sodium ) 300 mcg WEEKLY PO ; Start 11/08 at 09:00; Stop 11/08/17 at 09:00; Status DC Non-Formulary Medication (Lisinopril ) 2.5 mg DAILY PO ; Start 11/02/17 at 09:00 ; Stop 11/02/17 at 09:00; Status DC Non-Formulary Medication (Loperamide HCl (Imodium A-D)) 2 mg PRN DAILY PRN PO DIARRHEA; Start 11/01/17 at 23:15; Stop 11/02/17 at 00:43; Status DC Non-Formulary Medication (Multivitamin With Minerals (Multiple Vitamin)) 1 each DAILY PO ; Start 11/02/17 at 09:00; Stop 11/02/17 at 09:00; Status DC Non-Formulary Medication ([place]-3 Fatty Acids/Fish Oil ([place] 3 1,000 Mg Softgel )) 2 each DAILY PO ; Start 11/02/17 at 09:00; Stop 11/02/17 at 09:00; Status DC Non-Formulary Medication (Sennosides (Senna)) 2 tab DAILY PO ; Start 11/02/17 at 09:00; Stop 11/02/17 at 09:00; Status DC Non-Formulary Medication (Travoprost (Travatan Z)) 1 drop QHS OU ; Start at 21:00; Stop 11/02/17 at 21:00; Status DC Non-Formulary Medication (Trolamine Salicylate (Aspercreme)) 1 renetta HS TP ; Start 11/02/17 at 21:00; Stop 11/02/17 at 21:00; Status DC Melatonin 6 mg HS PO Last administered on 11/11/17at 20:24; Start 11/02/17 at 21 :00 Aripiprazole (Abilify) 15 mg DAILY PO Last administered on 11/06/17at 10:28; Start 11/02/17 at 09:00; Stop 11/06/17 at 18:47; Status DC Citalopram Hydrobromide (CeleXA) 20 mg DAILY PO Last administered on 11/11/17at 10:05; Start 11/02/17 at 09:00 Divalproex Sodium (Depakote) 750 mg BID PO Last administered on 11/03/17at 18:37 ; Start 11/02/17 at 09:00; Stop 11/03/17 at 20:24; Status DC Trazodone HCl (Desyrel) 100 mg PRN QHS PRN PO INSOMNIA, MAY REPEAT X1 Last administered on 11/02/17at 02:45; Start 11/02/17 at 01:00; Stop 11/05/17 at 19:05 ; Status DC Trolamine Salicylate (Myoplex) 1 renetta HS TP Last administered on 11/11/17at 20:22 ; Start 11/02/17 at 21:00 Trolamine Salicylate (Myoplex) 1 renetta PRN Q4HRS PRN TP PAIN; Start 11/02/17 at 01:15 Ciclopirox Olamine (Loprox) 1 renetta HS TP Last administered on 11/11/17at 20:22; Start 11/02/17 at 21:00 Insulin Human Lispro (HumaLOG) 40 units TIDAC SQ Last administered on at 12:11; Start 11/02/17 at 07:30; Stop 11/07/17 at 15:55; Status DC Cyclobenzaprine HCl (Flexeril) 10 mg PRN Q8HRS PRN PO MUSCLE SPASMS; Start at 01:15 Glucagon (Glucagen Kit) 1 mg PRN Q15MIN PRN IM HYPOGLYCEMIA; Start 11/02/17 at 01:15 Ibuprofen (Motrin) 200 mg PRN Q8HRS PRN PO INFLAMMATION; Start 11/02/17 at 01: 15 Loperamide HCl (Imodium) 2 mg PRN DAILY PRN PO DIARRHEA; Start 11/02/17 at 01: 15 Acetaminophen/ Hydrocodone Bitart (Lortab 5/325) 1 tab PRN DAILY PRN PO PAIN Last administered on 11/05/17at 03:41; Start 11/02/17 at 01:15 Atorvastatin Calcium (Lipitor) 80 mg QHS PO Last administered on 11/11/17at 20: 24; Start 11/02/17 at 21:00 Fish Oil (Fish Oil) 2,000 mg DAILY PO Last administered on 11/11/17 10:06; Start 11/02/17 at 09:00 Furosemide (Lasix) 20 mg DAILY PO Last administered on 11/11/17at 10:05; Start 11/02/17 at 09:00; Stop 11/11/17 at 15:21; Status DC Levothyroxine Sodium (Synthroid) 200 mcg DAILY06 PO ; Start 11/02/17 at 06:00; Stop 11/02/17 at 08:05; Status DC Levothyroxine Sodium (Synthroid) 300 mcg WEEKLY PO Last administered on at 08:01; Start 11/02/17 at 09:00; Stop 11/02/17 at 09:00; Status DC Lisinopril (Prinivil) 2.5 mg DAILY PO Last administered on 11/10/17at 07:46; Start 11/02/17 at 09:00; Stop 11/11/17 at 15:21; Status DC Multivitamins/ Calcium (Thera-M Plus) 1 tab DAILY PO Last administered on at 10:05; Start 11/02/17 at 09:00 Potassium Chloride (Klor-Con) 20 meq DAILY PO Last administered on 11/11/17at 10 :04; Start 11/02/17 at 09:00 Senna/Docusate Sodium (Senna Plus) 2 tab DAILY PO Last administered on at 10:04; Start 11/02/17 at 09:00 Vitamin D (Vitamin D3) 5,000 unit DAILY PO Last administered on 11/06/17 10:25 ; Start 11/02/17 at 09:00; Stop 11/06/17 at 18:32; Status DC Gabapentin (Neurontin) 100 mg TID PO Last administered on 11/11/17at 20:24; Start 11/02/17 at 09:00 Carbidopa/Levodopa (Sinemet 25/100) 1 tab QID PO Last administered on at 20:25; Start 11/02/17 at 09:00 Acetaminophen/ Hydrocodone Bitart (Lortab 5/325) 1 tab QID PO Last administered on 11/11/17at 17:56; Start 11/02/17 at 09:00 Latanoprost (Xalatan) 1 drop QHS OU Last administered on 11/11/17at 20:22; Start 11/02/17 at 21:00 Insulin Glargine (Lantus) 65 units BID SQ Last administered on 11/11/17at 10:11 ; Start 11/02/17 at 09:00 Enoxaparin Sodium (Lovenox 40mg Syringe) 40 mg Q12H SQ Last administered on at 20:23; Start 11/02/17 at 07:00 Levothyroxine Sodium (Synthroid) 200 mcg QM-F@0900 PO Last administered on 11/08at 08:22; Start 11/04/17 at 09:00; Stop 11/09/17 at 00:18; Status DC Levothyroxine Sodium (Synthroid) 200 mcg QSU@0900 PO Last administered on at 10:41; Start 11/03/17 at 09:00; Stop 11/09/17 at 00:18; Status DC Levothyroxine Sodium (Synthroid) 300 mcg QSA@0900 PO Last administered on at 11:24; Start 11/02/17 at 09:00; Stop 11/09/17 at 00:18; Status DC Doxycycline Hyclate (Vibra-Tab) 100 mg BID PO Last administered on 11/11/17at 10 :05; Start 11/03/17 at 21:00; Stop 11/11/17 at 16:50; Status DC Metformin HCl (Glucophage Xr) 500 mg DAILYWBKFT PO Last administered on 10:05; Start 11/04/17 at 08:00; Stop 11/11/17 at 16:50; Status DC Lactobacillus Rhamnosus (Culturelle) 1 cap BID PO Last administered on at 20:25; Start 11/03/17 at 21:00 Magnesium Oxide (Magnesium Oxide) 400 mg BID PO Last administered on 11/11/17at 20:24; Start 11/03/17 at 21:00 Divalproex Sodium (Depakote) 1,000 mg BID PO Last administered on 11/11/17at 20: 24; Start 11/03/17 at 21:00 Divalproex Sodium (Depakote) 250 mg 1X ONCE PO Last administered on 11/03/17at 20:30; Start 11/03/17 at 20:30; Stop 11/03/17 at 20:41; Status DC Nystatin (Mycostatin) 1 renetta BID TP Last administered on 11/10/17at 19:54; Start 11/04/17 at 21:00; Stop 11/11/17 at 10:32; Status DC Trazodone HCl (Desyrel) 50 mg HS PO Last administered on 11/11/17at 20:23; Start 11/05/17 at 21:00 Trazodone HCl (Desyrel) 50 mg PRN QHS PRN PO INSOMNIA; Start 11/05/17 at 19:15 Vitamin D (Vitamin D3) 50,000 unit WEEKLY PO Last administered on 11/07/17at 09: 21; Start 11/07/17 at 09:00 Aripiprazole (Abilify) 20 mg DAILY PO Last administered on 11/11/17at 10:05; Start 11/07/17 at 09:00 Insulin Human Lispro (HumaLOG) 35 units TIDAC SQ Last administered on at 12:36; Start 11/07/17 at 16:30 Nystatin (Nystop) 15 renetta STK-MED ONCE TP Last administered on 11/08/17at 22:15; Start 11/08/17 at 22:15; Stop 11/08/17 at 22:16; Status DC Levothyroxine Sodium (Synthroid) 300 mcg QSA PO Last administered on 11/09/17at 16:58; Start 11/09/17 at 07:00 Levothyroxine Sodium (Synthroid) 200 mcg QSU PO Last administered on 11/09/17at 07:00; Start 11/09/17 at 07:00; Stop 11/10/17 at 05:41; Status DC Levothyroxine Sodium (Synthroid) 200 mcg QM-F PO Last administered on at 07:00; Start 11/09/17 at 07:00; Stop 11/10/17 at 05:41; Status DC Insulin Glargine (Lantus) 30 units 1X ONCE SQ Last administered on 11/09/17at 22:01; Start 11/09/17 at 20:00; Stop 11/09/17 at 20:01; Status DC Levothyroxine Sodium (Synthroid) 200 mcg DAILYAC PO Last administered on at 10:03; Start 11/10/17 at 07:00 Nystatin (Nystop) 1 renetta BID TP Last administered on 11/11/17at 20:22; Start at 11:00 Active Scripts Active Reported Melatonin 3 Mg Tablet 6 Mg PO HS Trazodone Hcl 100 Mg Tablet 100 Mg PO PRN QHS PRN [place] 5-325 Tablet (Hydrocodone Bit/Acetaminophen) 1 Each Tablet 1 Tab PO PRN DAILY PRN Imodium A-D (Loperamide HCl) 2 Mg Capsule 2 Mg PO PRN DAILY PRN Ibuprofen 100 Mg/5 Ml Oral.susp 200 Mg PO PRN Q8HRS PRN Glucagon Emergency Kit (Glucagon,Human Recombinant) 1 Mg Kit 1 Mg IJ Q15 MINUTES PRN Cyclobenzaprine Hcl 10 Mg Tablet 10 Mg PO PRN Q8HRS PRN Trolamine Salicylate 85 Gm Cream..g. 85 Gm TP PRN Q4HRS PRN Lexapro (Escitalopram Oxalate) 10 Mg Tablet 10 Mg PO DAILY Levothyroxine Sodium 300 Mcg Tablet 300 Mcg PO WEEKLY Levothyroxine Sodium 200 Mcg Tablet 200 Mcg PO DAILYAC Lasix (Furosemide) 20 Mg Tablet 20 Mg PO DAILY [place] 3 1,000 Mg Softgel ([place]-3 Fatty Acids/Fish Oil) 1 Each Capsule 2 Each PO DAILY Fenofibrate (Fenofibrate,Micronized) 200 Mg Capsule 200 Mg PO DAILY Atorvastatin Calcium 80 Mg Tablet 80 Mg PO QHS Abilify (Aripiprazole) 15 Mg Tablet 15 Mg PO DAILY@1800 [place] 5-325 Tablet (Hydrocodone Bit/Acetaminophen) 1 Each Tablet 1 Tab PO [id number] PRN Sinemet 25-100 Mg Tablet (Carbidopa/Levodopa) 1 Each Tablet 1 Each PO [id number] Gabapentin 100 Mg Capsule 100 Mg PO TID Depakote Er (Divalproex Sodium) 250 Mg Tab.er.24h 750 Mg PO BID Vitamin D (Cholecalciferol (Vitamin D3)) 1,000 Unit Capsule 5,000 Unit PO DAILY Travatan Z (Travoprost) 5 Ml Drops 1 Drop OU QHS Senna (Sennosides) 8.6 Mg Tablet 2 Tab PO DAILY Klor-Con M20 (Potassium Chloride) 20 Meq Tab.er.prt 20 Meq PO DAILY Multiple Vitamin (Multivitamin With Minerals) 1 Each Tablet 1 Each PO DAILY Lisinopril 2.5 Mg Tablet 2.5 Mg PO DAILY Novolog (Insulin Aspart) 100 Unit/1 Ml Cartridge 40 Unit SQ TIDAC A and D Ointment (Vits A and D/White Pet/Lanolin) 42.5 Gm Oint...g. 1 Applic TP TID Tresiba Flextouch U-100 (Insulin Degludec) 100 Unit/1 Ml Insuln.pen 65 Unit SQ BID [place] (Ciclopirox) 6.6 Ml Solution 1 Applic TP WEEKLYHS PRN Aspercreme (Trolamine Salicylate) 177.4 Ml Lotion 1 Renetta TP HS I have reviewed the current psychotropics carefully including drug interactions. Risk benefit ratio favors no change other than as noted in my dictated progress note. Diagnosis: Problems: (1) Psychiatric diagnosis (2) Anxiety disorder (3) Impulse control disorder (4) Bipolar affective, mixed, sev w/ psych CHINO JOHNS MD November 11, 2017 20:34
[2017-11-12 06:11] VITALS: BP 132/78
[2017-11-12 07:40] LABS: BASO # 0.1 x10^3/uL (0.0-0.2); BASO % 1 % (0-3); EOS # 0.3 x10^3/uL (0.0-0.7); EOS % 3 % (0-3); HEMATOCRIT 35.7 % (36.0-47.0); HEMOGLOBIN 12.3 g/dL (12.0-15.5); LYMPH # 4.6 x10^3/uL (1.0-4.8); LYMPH % 50 % (24-48); MEAN CORPUSCULAR HEMOGLOBIN 32 pg (25-35); MEAN CORPUSCULAR HGB CONC 35 g/dL (31-37); MEAN CORPUSCULAR VOLUME 93 fL (79-100); MONO # 0.5 x10^3/uL (0.0-1.1); MONO % 6 % (0-9); NEUT # 3.6 x10^3uL (1.8-7.7); NEUT % 40 % (31-73); PLATELET COUNT 231 x10^3/uL (140-400); RED BLOOD COUNT 3.82 x10^6/uL (3.50-5.40); RED CELL DISTRIBUTION WIDTH 16.4 % (11.5-14.5); WHITE BLOOD COUNT 9.2 x10^3/uL (4.0-11.0)
[2017-11-12 07:59] LABS: ALBUMIN 2.9 g/dL (3.4-5.0); ALBUMIN/GLOBULIN RATIO 0.8 (1.0-1.7); CALCIUM 8.8 mg/dL (8.5-10.1); GFR 56.7; TOTAL BILIRUBIN 0.4 mg/dL (0.2-1.0); TOTAL PROTEIN 6.7 g/dL (6.4-8.2)
[2017-11-12] MEDS: LEVOTHYROXINE 100 MCG TABLET PO SCH (08:24)
[2017-11-12] MEDS: CARBIDOPA/LEVODOPA 25/100MG TABLET PO SCH ×4 (08:24→19:57)
[2017-11-12] MEDS: OMEGA-3 FATTY ACIDS/FISH OIL 1,000 MG CAPSULE. PO SCH (08:24)
[2017-11-12] MEDS: MULTIVITAMIN with MINERAL TABLET. PO SCH (08:25)
[2017-11-12] MEDS: POTASSIUM CHLORIDE 20 MEQ TABLET.ER. PO SCH (08:25)
[2017-11-12] MEDS: GABAPENTIN 100 MG CAPSULE. PO SCH ×3 (08:25→19:58)
[2017-11-12] MEDS: MAGNESIUM OXIDE 400 MG TABLET PO SCH ×2 (08:25→19:57)
[2017-11-12] MEDS: DIVALPROEX SODIUM 250 MG TABLET.DR. PO SCH ×2 (08:25→19:57)
[2017-11-12] MEDS: CITALOPRAM 20 MG TABLET. PO SCH (08:25)
[2017-11-12] MEDS: LACTOBACILLUS RHAMNOSUS GG 1 CAPSULE. PO SCH ×2 (08:25→19:58)
[2017-11-12] MEDS: ENOXAPARIN 40 MG/0.4 ML SYRINGE. SQ SCH ×2 (08:26→20:00)
[2017-11-12] MEDS: ARIPiprazole 10 MG TABLET PO SCH (08:26)
[2017-11-12] MEDS: NYSTATIN TOPICAL POWDER 15GM BOTTLE. TP SCH ×2 (08:27→19:58)
[2017-11-12] MEDS: INSULIN GLARGINE 300 UNITS/3 ML INSULN.PEN. SQ SCH ×2 (08:28→20:44)
[2017-11-12] MEDS: INSULIN LISPRO 300 UNITS/3 ML INSULN.PEN. SQ SCH ×3 (08:29→17:24)
[2017-11-12] MEDS: HYDROcodone/APAP 5/325MG 1 TAB TABLET PO SCH ×4 (08:32→20:00)
[2017-11-12] MEDS: SENNOSIDES/DOCUSATE 8.6/50MG TABLET. PO SCH (08:32)
[2017-11-12 16:10] VITALS: BP 115/53
[2017-11-12] MEDS: ATORVASTATIN CALCIUM 20 MG TABLET PO SCH (19:57)
[2017-11-12] MEDS: MELATONIN 3 MG TABLET PO SCH (19:58)
[2017-11-12] MEDS: traZODone 50 MG TABLET. PO SCH (19:58)
[2017-11-12] MEDS: LATANOPROST 0.005% OPHTH SOLUTION 2.5ML BOTTLE. OU SCH (20:01)
[2017-11-12] MEDS: CICLOPIROX 0.77% TOPICAL CREAM 15GM TUBE. TP SCH (20:01)
--- NOTE | 2017-11-12 20:39 | PDOC ---
Exam Note: Miguel A Note: Please also refer to the separate dictated note~for this date of service dictated separately.~Patient seen individually. Discussed the patient with Nursing staff reviewed the chart.~Reviewed interim history and current functioning. Reviewed vital signs,~Labs/ Radiology~and current medications noted below. Continue current treatment with the changes noted in the dictated addendum note Assessment: Vital Signs: Vital Signs Date Time Temp Pulse Resp B/P (MAP) Pulse Ox O2 Delivery O2 Flow Rate FiO2 11/12/17 20:00 18 92 Room Air 11/12/17 16:10 98.1 93 115/53 (73) I&O Intake and Output 11/12/17 07:00 Intake Total 1200 ml Balance 1200 ml Intake Oral 1200 ml # Bowel Movements 3 Labs: Laboratory Tests Test 11/12/17 07:08 11/12/17 07:15 11/12/17 11:24 11/12/17 16:24 White Blood Count 9.2 x10^3/uL (4.0-11.0) Red Blood Count 3.82 x10^6/uL (3.50-5.40) Hemoglobin 12.3 g/dL (12.0-15.5) Hematocrit 35.7 % (36.0-47.0) L Mean Corpuscular Volume 93 fL (79-100) Mean Corpuscular Hemoglobin 32 pg (25-35) Mean Corpuscular Hemoglobin Concent 35 g/dL (31-37) Red Cell Distribution Width 16.4 % (11.5-14.5) H Platelet Count 231 x10^3/uL (140-400) Neutrophils (%) (Auto) 40 % (31-73) Lymphocytes (%) (Auto) 50 % (24-48) H Monocytes (%) (Auto) 6 % (0-9) Eosinophils (%) (Auto) 3 % (0-3) Basophils (%) (Auto) 1 % (0-3) Neutrophils # (Auto) 3.6 x10^3uL (1.8-7.7) Lymphocytes # (Auto) 4.6 x10^3/uL (1.0-4.8) Monocytes # (Auto) 0.5 x10^3/uL (0.0-1.1) Eosinophils # (Auto) 0.3 x10^3/uL (0.0-0.7) Basophils # (Auto) 0.1 x10^3/uL (0.0-0.2) Sodium Level 140 mmol/L (136-145) Potassium Level 5.0 mmol/L (3.5-5.1) Chloride Level 99 mmol/L (98-107) Carbon Dioxide Level 34 mmol/L (21-32) H Anion Gap 7 (6-14) Blood Urea Nitrogen 28 mg/dL (7-20) H Creatinine 1.0 mg/dL (0.6-1.0) Estimated GFR (Cockcroft-Gault) 56.7 BUN/Creatinine Ratio 28 (6-20) H Glucose Level 165 mg/dL (70-99) H Calcium Level 8.8 mg/dL (8.5-10.1) Magnesium Level 2.0 mg/dL (1.8-2.4) Total Bilirubin 0.4 mg/dL (0.2-1.0) Aspartate Amino Transferase (AST) 80 U/L (15-37) H Alanine Aminotransferase (ALT) 34 U/L (14-59) Alkaline Phosphatase 74 U/L (46-116) Total Protein 6.7 g/dL (6.4-8.2) Albumin 2.9 g/dL (3.4-5.0) L Albumin/Globulin Ratio 0.8 (1.0-1.7) L Glucose (Fingerstick) 155 mg/dL (70-99) H 223 mg/dL (70-99) H 181 mg/dL (70-99) H Test 11/12/17 19:37 Glucose (Fingerstick) 138 mg/dL (70-99) H Current Medications: Meds: Current Medications Ondansetron HCl (Zofran) 4 mg PRN Q4HRS PRN IV NAUSEA/VOMITING; Start 11/01/17 at 15:30; Stop 11/01/17 at 15:37; Status DC Lactulose (Lactulose) 45 gm QID PO ; Start 11/01/17 at 17:00; Stop 11/01/17 at 17:00; Status DC Dextrose/Sodium Chloride 1,000 ml @ 75 mls/hr 1X ONCE IV ; Start 11/01/17 at 15:30; Stop 11/01/17 at 15:42; Status DC Sodium Chloride 1,000 ml @ 1,000 mls/hr 1X ONCE IV Last administered on at 17:43; Start 11/01/17 at 16:30; Stop 11/01/17 at 17:29; Status DC Acetaminophen (Tylenol) 650 mg PRN Q6HRS PRN PO PAIN / TEMP; Start 11/01/17 at 20:15 Multi-Ingredient Ointment (Analgesic [place]) 1 renetta PRN QID PRN TP MUSCLE PAIN; Start 11/01/17 at 20:15 Al Hydroxide/Mg Hydroxide (Mylanta Plus Xs) 15 ml PRN AFTMEALHC PRN PO DYSPEPSIA; Start 11/01/17 at 20:15 Magnesium Hydroxide (Milk Of Magnesia) 2,400 mg PRN QHS PRN PO CONSTIPATION; Start 11/01/17 at 20:15 Nicotine (Nicoderm Cq 7mg) 1 patch DAILY TD ; Start 11/02/17 at 09:00; Stop at 09:00; Status DC Enoxaparin Sodium (Lovenox 40mg Syringe) 40 mg Q24H SQ ; Start 11/01/17 at 21:00 ; Stop 11/02/17 at 00:43; Status DC Non-Formulary Medication (Aripiprazole (Abilify)) 15 mg DAILY@1800 PO ; Start at 18:00; Stop 11/02/17 at 18:00; Status DC Non-Formulary Medication (Divalproex Sodium (Depakote Er)) 750 mg BID PO ; Start 11/02/17 at 09:00; Stop 11/02/17 at 09:00; Status DC Non-Formulary Medication (Escitalopram Oxalate (Lexapro)) 10 mg DAILY PO ; Start 11/02/17 at 09:00; Stop 11/02/17 at 09:00; Status DC Non-Formulary Medication (Melatonin ) 6 mg HS PO ; Start 11/02/17 at 21:00; Stop 11/02/17 at 21:00; Status DC Non-Formulary Medication (Trazodone Hcl ) 100 mg PRN QHS PRN PO INSOMNIA; Start 11/01/17 at 23:15; Stop 11/02/17 at 00:43; Status DC Carbidopa/Levodopa (Sinemet 25/100) 1 tab [id number] PO ; Start 11/02/17 at 07:00; Stop 11/02/17 at 07:00; Status DC Cyclobenzaprine HCl (Starter Pack - Flexeril 10mg) 10 startpack PRN Q8HRS PRN PO PAIN; Start 11/01/17 at 23:15; Stop 11/02/17 at 00:43; Status DC Furosemide (Lasix) 20 mg DAILY PO ; Start 11/02/17 at 09:00; Stop 11/02/17 at 09 :00; Status DC Gabapentin (Neurontin) 100 mg TID PO ; Start 11/02/17 at 09:00; Stop 11/02/17 at 09:00; Status DC Potassium Chloride (Klor-Con) 20 meq DAILY PO ; Start 11/02/17 at 09:00; Stop at 09:00; Status DC Trolamine Salicylate (Myoplex) 85 renetta PRN Q4HRS PRN TP PAIN; Start 11/01/17 at 23:15; Stop 11/02/17 at 00:43; Status DC Vitamin A/Vitamin D (Vitamin A & D Ointment) 1 renetta TID TP ; Start 11/02/17 at 09 :00; Stop 11/02/17 at 09:00; Status DC Non-Formulary Medication (Atorvastatin Calcium ) 80 mg QHS PO ; Start 11/02/17 at 21:00; Stop 11/02/17 at 21:00; Status DC Non-Formulary Medication (Cholecalciferol (Vitamin D3) (Vitamin D)) 5,000 unit DAILY PO ; Start 11/02/17 at 09:00; Stop 11/02/17 at 09:00; Status DC Non-Formulary Medication (Ciclopirox (Penlac)) 1 applic WEEKLYHS PRN TP nail fungus; Start 11/01/17 at 23:15; Stop 11/02/17 at 00:44; Status DC Non-Formulary Medication (Fenofibrate,Micronized (Fenofibrate)) 200 mg DAILY PO ; Start 11/02/17 at 09:00; Stop 11/02/17 at 09:00; Status DC Non-Formulary Medication (Glucagon,Human Recombinant (Glucagon Emergency Kit)) 1 mg q15 minutes PRN IJ low blood sugar; Start 11/01/17 at 23:15; Stop 11/02/17 at 00:44; Status DC Non-Formulary Medication (Hydrocodone Bit/ Acetaminophen ([place] 5-325 Tablet)) 1 tab PRN DAILY PRN PO PAIN; Start 11/01/17 at 23:15; Stop 11/02/17 at 00:44; Status DC Non-Formulary Medication (Hydrocodone Bit/ Acetaminophen ([place] 5-325 Tablet)) 1 tab [id number] PRN PO PAIN; Start 11/01/17 at 23:15; Stop 11/02/17 at 00:44; Status DC Non-Formulary Medication (Ibuprofen ) 200 mg PRN Q8HRS PRN PO PAIN; Start 11/01 at 23:15; Stop 11/02/17 at 00:44; Status DC Non-Formulary Medication (Insulin Aspart (Novolog)) 40 unit TIDAC SQ ; Start at 07:30; Stop 11/02/17 at 07:30; Status DC Non-Formulary Medication (Insulin Degludec (Tresiba Flextouch U-100)) 65 unit BID SQ ; Start 11/02/17 at 09:00; Stop 11/02/17 at 09:00; Status DC Non-Formulary Medication (Levothyroxine Sodium ) 200 mcg DAILYAC PO ; Start at 07:30; Stop 11/02/17 at 07:30; Status DC Non-Formulary Medication (Levothyroxine Sodium ) 300 mcg WEEKLY PO ; Start 11/08 at 09:00; Stop 11/08/17 at 09:00; Status DC Non-Formulary Medication (Lisinopril ) 2.5 mg DAILY PO ; Start 11/02/17 at 09:00 ; Stop 11/02/17 at 09:00; Status DC Non-Formulary Medication (Loperamide HCl (Imodium A-D)) 2 mg PRN DAILY PRN PO DIARRHEA; Start 11/01/17 at 23:15; Stop 11/02/17 at 00:43; Status DC Non-Formulary Medication (Multivitamin With Minerals (Multiple Vitamin)) 1 each DAILY PO ; Start 11/02/17 at 09:00; Stop 11/02/17 at 09:00; Status DC Non-Formulary Medication ([place]-3 Fatty Acids/Fish Oil ([place] 3 1,000 Mg Softgel )) 2 each DAILY PO ; Start 11/02/17 at 09:00; Stop 11/02/17 at 09:00; Status DC Non-Formulary Medication (Sennosides (Senna)) 2 tab DAILY PO ; Start 11/02/17 at 09:00; Stop 11/02/17 at 09:00; Status DC Non-Formulary Medication (Travoprost (Travatan Z)) 1 drop QHS OU ; Start at 21:00; Stop 11/02/17 at 21:00; Status DC Non-Formulary Medication (Trolamine Salicylate (Aspercreme)) 1 renetta HS TP ; Start 11/02/17 at 21:00; Stop 11/02/17 at 21:00; Status DC Melatonin 6 mg HS PO Last administered on 11/12/17at 19:58; Start 11/02/17 at 21 :00 Aripiprazole (Abilify) 15 mg DAILY PO Last administered on 11/06/17at 10:28; Start 11/02/17 at 09:00; Stop 11/06/17 at 18:47; Status DC Citalopram Hydrobromide (CeleXA) 20 mg DAILY PO Last administered on 11/12/17at 08:25; Start 11/02/17 at 09:00 Divalproex Sodium (Depakote) 750 mg BID PO Last administered on 11/03/17at 18:37 ; Start 11/02/17 at 09:00; Stop 11/03/17 at 20:24; Status DC Trazodone HCl (Desyrel) 100 mg PRN QHS PRN PO INSOMNIA, MAY REPEAT X1 Last administered on 11/02/17at 02:45; Start 11/02/17 at 01:00; Stop 11/05/17 at 19:05 ; Status DC Trolamine Salicylate (Myoplex) 1 renetta HS TP Last administered on 11/11/17at 20:22 ; Start 11/02/17 at 21:00 Trolamine Salicylate (Myoplex) 1 renetta PRN Q4HRS PRN TP PAIN; Start 11/02/17 at 01:15 Ciclopirox Olamine (Loprox) 1 renetta HS TP Last administered on 11/12/17at 20:01; Start 11/02/17 at 21:00 Insulin Human Lispro (HumaLOG) 40 units TIDAC SQ Last administered on at 12:11; Start 11/02/17 at 07:30; Stop 11/07/17 at 15:55; Status DC Cyclobenzaprine HCl (Flexeril) 10 mg PRN Q8HRS PRN PO MUSCLE SPASMS; Start at 01:15 Glucagon (Glucagen Kit) 1 mg PRN Q15MIN PRN IM HYPOGLYCEMIA; Start 11/02/17 at 01:15 Ibuprofen (Motrin) 200 mg PRN Q8HRS PRN PO INFLAMMATION; Start 11/02/17 at 01: 15 Loperamide HCl (Imodium) 2 mg PRN DAILY PRN PO DIARRHEA; Start 11/02/17 at 01: 15 Acetaminophen/ Hydrocodone Bitart (Lortab 5/325) 1 tab PRN DAILY PRN PO PAIN Last administered on 11/05/17at 03:41; Start 11/02/17 at 01:15 Atorvastatin Calcium (Lipitor) 80 mg QHS PO Last administered on 11/12/17at 19: 57; Start 11/02/17 at 21:00 Fish Oil (Fish Oil) 2,000 mg DAILY PO Last administered on 11/12/17at 08:24; Start 11/02/17 at 09:00 Furosemide (Lasix) 20 mg DAILY PO Last administered on 11/11/17at 10:05; Start 11/02/17 at 09:00; Stop 11/11/17 at 15:21; Status DC Levothyroxine Sodium (Synthroid) 200 mcg DAILY06 PO ; Start 11/02/17 at 06:00; Stop 11/02/17 at 08:05; Status DC Levothyroxine Sodium (Synthroid) 300 mcg WEEKLY PO Last administered on at 08:01; Start 11/02/17 at 09:00; Stop 11/02/17 at 09:00; Status DC Lisinopril (Prinivil) 2.5 mg DAILY PO Last administered on 11/10/17at 07:46; Start 11/02/17 at 09:00; Stop 11/11/17 at 15:21; Status DC Multivitamins/ Calcium (Thera-M Plus) 1 tab DAILY PO Last administered on 08:25; Start 11/02/17 at 09:00 Potassium Chloride (Klor-Con) 20 meq DAILY PO Last administered on 11/12/17 08 :25; Start 11/02/17 at 09:00 Senna/Docusate Sodium (Senna Plus) 2 tab DAILY PO Last administered on 08:32; Start 11/02/17 at 09:00 Vitamin D (Vitamin D3) 5,000 unit DAILY PO Last administered on 11/06/17 10:25 ; Start 11/02/17 at 09:00; Stop 11/06/17 at 18:32; Status DC Gabapentin (Neurontin) 100 mg TID PO Last administered on 11/12/17 19:58; Start 11/02/17 at 09:00 Carbidopa/Levodopa (Sinemet 25/100) 1 tab QID PO Last administered on 19:57; Start 11/02/17 at 09:00 Acetaminophen/ Hydrocodone Bitart (Lortab 5/325) 1 tab QID PO Last administered on 11/12/17 20:00; Start 11/02/17 at 09:00 Latanoprost (Xalatan) 1 drop QHS OU Last administered on 11/12/17 20:01; Start 11/02/17 at 21:00 Insulin Glargine (Lantus) 65 units BID SQ Last administered on 11/12/17 08:28 ; Start 11/02/17 at 09:00 Enoxaparin Sodium (Lovenox 40mg Syringe) 40 mg Q12H SQ Last administered on 20:00; Start 11/02/17 at 07:00 Levothyroxine Sodium (Synthroid) 200 mcg QM-F@0900 PO Last administered on 11/08 08:22; Start 11/04/17 at 09:00; Stop 11/09/17 at 00:18; Status DC Levothyroxine Sodium (Synthroid) 200 mcg QSU@0900 PO Last administered on 10:41; Start 11/03/17 at 09:00; Stop 11/09/17 at 00:18; Status DC Levothyroxine Sodium (Synthroid) 300 mcg QSA@0900 PO Last administered on at 11:24; Start 11/02/17 at 09:00; Stop 11/09/17 at 00:18; Status DC Doxycycline Hyclate (Vibra-Tab) 100 mg BID PO Last administered on 11/11/17at 10 :05; Start 11/03/17 at 21:00; Stop 11/11/17 at 16:50; Status DC Metformin HCl (Glucophage Xr) 500 mg DAILYWBKFT PO Last administered on at 10:05; Start 11/04/17 at 08:00; Stop 11/11/17 at 16:50; Status DC Lactobacillus Rhamnosus (Culturelle) 1 cap BID PO Last administered on 19:58; Start 11/03/17 at 21:00 Magnesium Oxide (Magnesium Oxide) 400 mg BID PO Last administered on 11/12/17 19:57; Start 11/03/17 at 21:00 Divalproex Sodium (Depakote) 1,000 mg BID PO Last administered on 11/12/17 19: 57; Start 11/03/17 at 21:00 Divalproex Sodium (Depakote) 250 mg 1X ONCE PO Last administered on 11/03/17at 20:30; Start 11/03/17 at 20:30; Stop 11/03/17 at 20:41; Status DC Nystatin (Mycostatin) 1 renetta BID TP Last administered on 11/10/17at 19:54; Start 11/04/17 at 21:00; Stop 11/11/17 at 10:32; Status DC Trazodone HCl (Desyrel) 50 mg HS PO Last administered on 11/12/17at 19:58; Start 11/05/17 at 21:00 Trazodone HCl (Desyrel) 50 mg PRN QHS PRN PO INSOMNIA; Start 11/05/17 at 19:15 Vitamin D (Vitamin D3) 50,000 unit WEEKLY PO Last administered on 11/07/17at 09: 21; Start 11/07/17 at 09:00 Aripiprazole (Abilify) 20 mg DAILY PO Last administered on 11/12/17at 08:26; Start 11/07/17 at 09:00 Insulin Human Lispro (HumaLOG) 35 units TIDAC SQ Last administered on 17:24; Start 11/07/17 at 16:30 Nystatin (Nystop) 15 renetta STK-MED ONCE TP Last administered on 11/08/17 22:15; Start 11/08/17 at 22:15; Stop 11/08/17 at 22:16; Status DC Levothyroxine Sodium (Synthroid) 300 mcg QSA PO Last administered on 11/09/17at 16:58; Start 11/09/17 at 07:00 Levothyroxine Sodium (Synthroid) 200 mcg QSU PO Last administered on 11/09/17at 07:00; Start 11/09/17 at 07:00; Stop 11/10/17 at 05:41; Status DC Levothyroxine Sodium (Synthroid) 200 mcg QM-F PO Last administered on at 07:00; Start 11/09/17 at 07:00; Stop 11/10/17 at 05:41; Status DC Insulin Glargine (Lantus) 30 units 1X ONCE SQ Last administered on 11/09/17at 22:01; Start 11/09/17 at 20:00; Stop 11/09/17 at 20:01; Status DC Levothyroxine Sodium (Synthroid) 200 mcg DAILYAC PO Last administered on at 08:24; Start 11/10/17 at 07:00 Nystatin (Nystop) 1 renetta BID TP Last administered on 11/12/17at 19:58; Start at 11:00 Active Scripts Active Reported Melatonin 3 Mg Tablet 6 Mg PO HS Trazodone Hcl 100 Mg Tablet 100 Mg PO PRN QHS PRN [place] 5-325 Tablet (Hydrocodone Bit/Acetaminophen) 1 Each Tablet 1 Tab PO PRN DAILY PRN Imodium A-D (Loperamide HCl) 2 Mg Capsule 2 Mg PO PRN DAILY PRN Ibuprofen 100 Mg/5 Ml Oral.susp 200 Mg PO PRN Q8HRS PRN Glucagon Emergency Kit (Glucagon,Human Recombinant) 1 Mg Kit 1 Mg IJ Q15 MINUTES PRN Cyclobenzaprine Hcl 10 Mg Tablet 10 Mg PO PRN Q8HRS PRN Trolamine Salicylate 85 Gm Cream..g. 85 Gm TP PRN Q4HRS PRN Lexapro (Escitalopram Oxalate) 10 Mg Tablet 10 Mg PO DAILY Levothyroxine Sodium 300 Mcg Tablet 300 Mcg PO WEEKLY Levothyroxine Sodium 200 Mcg Tablet 200 Mcg PO DAILYAC Lasix (Furosemide) 20 Mg Tablet 20 Mg PO DAILY [place] 3 1,000 Mg Softgel ([place]-3 Fatty Acids/Fish Oil) 1 Each Capsule 2 Each PO DAILY Fenofibrate (Fenofibrate,Micronized) 200 Mg Capsule 200 Mg PO DAILY Atorvastatin Calcium 80 Mg Tablet 80 Mg PO QHS Abilify (Aripiprazole) 15 Mg Tablet 15 Mg PO DAILY@1800 [place] 5-325 Tablet (Hydrocodone Bit/Acetaminophen) 1 Each Tablet 1 Tab PO [id number] PRN Sinemet 25-100 Mg Tablet (Carbidopa/Levodopa) 1 Each Tablet 1 Each PO [id number] Gabapentin 100 Mg Capsule 100 Mg PO TID Depakote Er (Divalproex Sodium) 250 Mg Tab.er.24h 750 Mg PO BID Vitamin D (Cholecalciferol (Vitamin D3)) 1,000 Unit Capsule 5,000 Unit PO DAILY Travatan Z (Travoprost) 5 Ml Drops 1 Drop OU QHS Senna (Sennosides) 8.6 Mg Tablet 2 Tab PO DAILY Klor-Con M20 (Potassium Chloride) 20 Meq Tab.er.prt 20 Meq PO DAILY Multiple Vitamin (Multivitamin With Minerals) 1 Each Tablet 1 Each PO DAILY Lisinopril 2.5 Mg Tablet 2.5 Mg PO DAILY Novolog (Insulin Aspart) 100 Unit/1 Ml Cartridge 40 Unit SQ TIDAC A and D Ointment (Vits A and D/White Pet/Lanolin) 42.5 Gm Oint...g. 1 Applic TP TID Tresiba Flextouch U-100 (Insulin Degludec) 100 Unit/1 Ml Insuln.pen 65 Unit SQ BID [place] (Ciclopirox) 6.6 Ml Solution 1 Applic TP WEEKLYHS PRN Aspercreme (Trolamine Salicylate) 177.4 Ml Lotion 1 Renetta TP HS I have reviewed the current psychotropics carefully including drug interactions. Risk benefit ratio favors no change other than as noted in my dictated progress note. Diagnosis: Problems: (1) Psychiatric diagnosis (2) Anxiety disorder (3) Impulse control disorder (4) Bipolar affective, mixed, sev w/ psych CHINO JOHNS MD November 12, 2017 20:38
[2017-11-12] MEDS: TROLAMINE SALICYLATE 10% TOPICAL CREAM 85GM JAR. TP SCH (20:42)
[2017-11-13 05:56] VITALS: BP 92/77
[2017-11-13] MEDS: DIVALPROEX SODIUM 250 MG TABLET.DR. PO SCH ×2 (08:36→20:10)
[2017-11-13] MEDS: ARIPiprazole 10 MG TABLET PO SCH (08:36)
[2017-11-13] MEDS: LACTOBACILLUS RHAMNOSUS GG 1 CAPSULE. PO SCH ×2 (08:36→20:11)
[2017-11-13] MEDS: CARBIDOPA/LEVODOPA 25/100MG TABLET PO SCH ×4 (08:36→20:10)
[2017-11-13] MEDS: MAGNESIUM OXIDE 400 MG TABLET PO SCH ×2 (08:36→20:11)
[2017-11-13] MEDS: GABAPENTIN 100 MG CAPSULE. PO SCH ×3 (08:36→20:10)
[2017-11-13] MEDS: POTASSIUM CHLORIDE 20 MEQ TABLET.ER. PO SCH (08:37)
[2017-11-13] MEDS: OMEGA-3 FATTY ACIDS/FISH OIL 1,000 MG CAPSULE. PO SCH (08:37)
[2017-11-13] MEDS: CITALOPRAM 20 MG TABLET. PO SCH (08:37)
[2017-11-13] MEDS: MULTIVITAMIN with MINERAL TABLET. PO SCH (08:37)
[2017-11-13] MEDS: LEVOTHYROXINE 100 MCG TABLET PO SCH (08:37)
[2017-11-13] MEDS: SENNOSIDES/DOCUSATE 8.6/50MG TABLET. PO SCH (08:37)
[2017-11-13] MEDS: NYSTATIN TOPICAL POWDER 15GM BOTTLE. TP SCH ×2 (08:38→20:12)
[2017-11-13] MEDS: ENOXAPARIN 40 MG/0.4 ML SYRINGE. SQ SCH ×2 (08:38→20:12)
[2017-11-13] MEDS: HYDROcodone/APAP 5/325MG 1 TAB TABLET PO SCH ×4 (08:41→20:15)
[2017-11-13] MEDS: INSULIN GLARGINE 300 UNITS/3 ML INSULN.PEN. SQ SCH ×2 (08:43→20:17)
[2017-11-13] MEDS: INSULIN LISPRO 300 UNITS/3 ML INSULN.PEN. SQ SCH ×3 (08:45→17:17)
[2017-11-13] MEDS ORDERED: POLYVINYL ALCOHOL 1.4% OPHTH SOLUTION 15ML BOTTLE. OU PRN (10:15)
--- NOTE | 2017-11-13 10:49 | PN ---
DATE: 11/10/2017 PSYCHIATRIC PROGRESS NOTE This is a late entry 11/10/2017 covers elements not covered in my initial note 11/10/2017. SUBJECTIVE: I met with the patient in the evening. Overall, the patient remains somewhat anxious. Has complained of discomfort in her back area due to pressure and nursing staff turning her every 2 hours. REVIEW OF SYSTEMS: No CV, , pulmonary, eye system symptoms on review. MENTAL STATUS EXAM: Reasonably oriented. Speech coherent, abstraction fair, computation impaired, language function intact, less labile and aggressive, less psychotic. LABORATORY DATA: Reviewed. IMPRESSION: Unchanged from initial note including bipolar 1 disorder, mixed with psychotic features, posttraumatic stress disorder, anxiety disorder, unspecified. PLAN: Continue current psychotropics, Abilify, Depakote, melatonin, trazodone, Celexa. Adjust further as clinically indicated. Valproic acid level therapeutic at 59. MAN Richard JOHNS MD DR: GLENN/cory JOB#: [id number] / [id number]
--- NOTE | 2017-11-13 10:56 | PN ---
DATE: 11/11/2017 PSYCHIATRIC PROGRESS NOTE This is a late entry 11/11/2017, covers elements not covered in my initial note 11/11/2017. SUBJECTIVE: I met with the patient in the evening. The patient is compliant with her medications, impaired ambulation in Broda chair. Complains of some discomfort on her bottom area. Nursing staff turning her every 2 hours. REVIEW OF SYSTEMS: No CV, , pulmonary, eye system symptoms on review. MENTAL STATUS EXAM: Reasonably oriented. Speech is coherent, less pressured. Abstraction fair, computation impaired, language function intact, attention span fair. Mood and affect somewhat anxious, labile, but improved. LABORATORY DATA: Reviewed. IMPRESSION: Schizoaffective disorder, bipolar type, mixed with psychotic features, in partial remission. Rest unchanged. PLAN: Continue current psychotropics mentioned in my initial note. Adjust further as clinically indicated. Abilify was increased. MAN Richard JOHNS MD DR: GLENN/cory JOB#: [id number] / [id number]
[2017-11-13 16:08] VITALS: BP 109/71
[2017-11-13] MEDS: ATORVASTATIN CALCIUM 20 MG TABLET PO SCH (20:10)
[2017-11-13] MEDS: MELATONIN 3 MG TABLET PO SCH (20:11)
[2017-11-13] MEDS: CICLOPIROX 0.77% TOPICAL CREAM 15GM TUBE. TP SCH (20:12)
[2017-11-13] MEDS: TROLAMINE SALICYLATE 10% TOPICAL CREAM 85GM JAR. TP SCH (20:12)
[2017-11-13] MEDS: LATANOPROST 0.005% OPHTH SOLUTION 2.5ML BOTTLE. OU SCH (20:12)
[2017-11-13] MEDS: traZODone 50 MG TABLET. PO SCH (20:13)
--- NOTE | 2017-11-13 20:54 | PDOC ---
Exam Note: Miguel A Note: Please also refer to the separate dictated note~for this date of service dictated separately.~Patient seen individually. Discussed the patient with Nursing staff reviewed the chart.~Reviewed interim history and current functioning. Reviewed vital signs,~Labs/ Radiology~and current medications noted below. Continue current treatment with the changes noted in the dictated addendum note Assessment: Vital Signs: Vital Signs Date Time Temp Pulse Resp B/P (MAP) Pulse Ox O2 Delivery O2 Flow Rate FiO2 11/13/17 20:15 18 95 Room Air 11/13/17 16:08 97.6 85 109/71 (84) I&O Intake and Output 11/13/17 07:00 Intake Total 960 ml Balance 960 ml Intake Oral 960 ml # Bowel Movements 1 Labs: Laboratory Tests Test 11/13/17 07:16 11/13/17 11:21 11/13/17 16:22 11/13/17 19:07 Glucose (Fingerstick) 170 mg/dL (70-99) H 160 mg/dL (70-99) H 107 mg/dL (70-99) H 145 mg/dL (70-99) H Current Medications: Meds: Current Medications Ondansetron HCl (Zofran) 4 mg PRN Q4HRS PRN IV NAUSEA/VOMITING; Start 11/01/17 at 15:30; Stop 11/01/17 at 15:37; Status DC Lactulose (Lactulose) 45 gm QID PO ; Start 11/01/17 at 17:00; Stop 11/01/17 at 17:00; Status DC Dextrose/Sodium Chloride 1,000 ml @ 75 mls/hr 1X ONCE IV ; Start 11/01/17 at 15:30; Stop 11/01/17 at 15:42; Status DC Sodium Chloride 1,000 ml @ 1,000 mls/hr 1X ONCE IV Last administered on at 17:43; Start 11/01/17 at 16:30; Stop 11/01/17 at 17:29; Status DC Acetaminophen (Tylenol) 650 mg PRN Q6HRS PRN PO PAIN / TEMP; Start 11/01/17 at 20:15 Multi-Ingredient Ointment (Analgesic [place]) 1 renetta PRN QID PRN TP MUSCLE PAIN; Start 11/01/17 at 20:15 Al Hydroxide/Mg Hydroxide (Mylanta Plus Xs) 15 ml PRN AFTMEALHC PRN PO DYSPEPSIA; Start 11/01/17 at 20:15 Magnesium Hydroxide (Milk Of Magnesia) 2,400 mg PRN QHS PRN PO CONSTIPATION; Start 11/01/17 at 20:15 Nicotine (Nicoderm Cq 7mg) 1 patch DAILY TD ; Start 11/02/17 at 09:00; Stop at 09:00; Status DC Enoxaparin Sodium (Lovenox 40mg Syringe) 40 mg Q24H SQ ; Start 11/01/17 at 21:00 ; Stop 11/02/17 at 00:43; Status DC Non-Formulary Medication (Aripiprazole (Abilify)) 15 mg DAILY@1800 PO ; Start at 18:00; Stop 11/02/17 at 18:00; Status DC Non-Formulary Medication (Divalproex Sodium (Depakote Er)) 750 mg BID PO ; Start 11/02/17 at 09:00; Stop 11/02/17 at 09:00; Status DC Non-Formulary Medication (Escitalopram Oxalate (Lexapro)) 10 mg DAILY PO ; Start 11/02/17 at 09:00; Stop 11/02/17 at 09:00; Status DC Non-Formulary Medication (Melatonin ) 6 mg HS PO ; Start 11/02/17 at 21:00; Stop 11/02/17 at 21:00; Status DC Non-Formulary Medication (Trazodone Hcl ) 100 mg PRN QHS PRN PO INSOMNIA; Start 11/01/17 at 23:15; Stop 11/02/17 at 00:43; Status DC Carbidopa/Levodopa (Sinemet 25/100) 1 tab [id number] PO ; Start 11/02/17 at 07:00; Stop 11/02/17 at 07:00; Status DC Cyclobenzaprine HCl (Starter Pack - Flexeril 10mg) 10 startpack PRN Q8HRS PRN PO PAIN; Start 11/01/17 at 23:15; Stop 11/02/17 at 00:43; Status DC Furosemide (Lasix) 20 mg DAILY PO ; Start 11/02/17 at 09:00; Stop 11/02/17 at 09 :00; Status DC Gabapentin (Neurontin) 100 mg TID PO ; Start 11/02/17 at 09:00; Stop 11/02/17 at 09:00; Status DC Potassium Chloride (Klor-Con) 20 meq DAILY PO ; Start 11/02/17 at 09:00; Stop at 09:00; Status DC Trolamine Salicylate (Myoplex) 85 renetta PRN Q4HRS PRN TP PAIN; Start 11/01/17 at 23:15; Stop 11/02/17 at 00:43; Status DC Vitamin A/Vitamin D (Vitamin A & D Ointment) 1 renetta TID TP ; Start 11/02/17 at 09 :00; Stop 11/02/17 at 09:00; Status DC Non-Formulary Medication (Atorvastatin Calcium ) 80 mg QHS PO ; Start 11/02/17 at 21:00; Stop 11/02/17 at 21:00; Status DC Non-Formulary Medication (Cholecalciferol (Vitamin D3) (Vitamin D)) 5,000 unit DAILY PO ; Start 11/02/17 at 09:00; Stop 11/02/17 at 09:00; Status DC Non-Formulary Medication (Ciclopirox (Penlac)) 1 applic WEEKLYHS PRN TP nail fungus; Start 11/01/17 at 23:15; Stop 11/02/17 at 00:44; Status DC Non-Formulary Medication (Fenofibrate,Micronized (Fenofibrate)) 200 mg DAILY PO ; Start 11/02/17 at 09:00; Stop 11/02/17 at 09:00; Status DC Non-Formulary Medication (Glucagon,Human Recombinant (Glucagon Emergency Kit)) 1 mg q15 minutes PRN IJ low blood sugar; Start 11/01/17 at 23:15; Stop 11/02/17 at 00:44; Status DC Non-Formulary Medication (Hydrocodone Bit/ Acetaminophen ([place] 5-325 Tablet)) 1 tab PRN DAILY PRN PO PAIN; Start 11/01/17 at 23:15; Stop 11/02/17 at 00:44; Status DC Non-Formulary Medication (Hydrocodone Bit/ Acetaminophen ([place] 5-325 Tablet)) 1 tab [id number] PRN PO PAIN; Start 11/01/17 at 23:15; Stop 11/02/17 at 00:44; Status DC Non-Formulary Medication (Ibuprofen ) 200 mg PRN Q8HRS PRN PO PAIN; Start 11/01 at 23:15; Stop 11/02/17 at 00:44; Status DC Non-Formulary Medication (Insulin Aspart (Novolog)) 40 unit TIDAC SQ ; Start at 07:30; Stop 11/02/17 at 07:30; Status DC Non-Formulary Medication (Insulin Degludec (Tresiba Flextouch U-100)) 65 unit BID SQ ; Start 11/02/17 at 09:00; Stop 11/02/17 at 09:00; Status DC Non-Formulary Medication (Levothyroxine Sodium ) 200 mcg DAILYAC PO ; Start at 07:30; Stop 11/02/17 at 07:30; Status DC Non-Formulary Medication (Levothyroxine Sodium ) 300 mcg WEEKLY PO ; Start 11/08 at 09:00; Stop 11/08/17 at 09:00; Status DC Non-Formulary Medication (Lisinopril ) 2.5 mg DAILY PO ; Start 11/02/17 at 09:00 ; Stop 11/02/17 at 09:00; Status DC Non-Formulary Medication (Loperamide HCl (Imodium A-D)) 2 mg PRN DAILY PRN PO DIARRHEA; Start 11/01/17 at 23:15; Stop 11/02/17 at 00:43; Status DC Non-Formulary Medication (Multivitamin With Minerals (Multiple Vitamin)) 1 each DAILY PO ; Start 11/02/17 at 09:00; Stop 11/02/17 at 09:00; Status DC Non-Formulary Medication ([place]-3 Fatty Acids/Fish Oil ([place] 3 1,000 Mg Softgel )) 2 each DAILY PO ; Start 11/02/17 at 09:00; Stop 11/02/17 at 09:00; Status DC Non-Formulary Medication (Sennosides (Senna)) 2 tab DAILY PO ; Start 11/02/17 at 09:00; Stop 11/02/17 at 09:00; Status DC Non-Formulary Medication (Travoprost (Travatan Z)) 1 drop QHS OU ; Start at 21:00; Stop 11/02/17 at 21:00; Status DC Non-Formulary Medication (Trolamine Salicylate (Aspercreme)) 1 renetta HS TP ; Start 11/02/17 at 21:00; Stop 11/02/17 at 21:00; Status DC Melatonin 6 mg HS PO Last administered on 11/13/17at 20:11; Start 11/02/17 at 21 :00 Aripiprazole (Abilify) 15 mg DAILY PO Last administered on 11/06/17at 10:28; Start 11/02/17 at 09:00; Stop 11/06/17 at 18:47; Status DC Citalopram Hydrobromide (CeleXA) 20 mg DAILY PO Last administered on 11/13/17at 08:37; Start 11/02/17 at 09:00 Divalproex Sodium (Depakote) 750 mg BID PO Last administered on 11/03/17at 18:37 ; Start 11/02/17 at 09:00; Stop 11/03/17 at 20:24; Status DC Trazodone HCl (Desyrel) 100 mg PRN QHS PRN PO INSOMNIA, MAY REPEAT X1 Last administered on 11/02/17at 02:45; Start 11/02/17 at 01:00; Stop 11/05/17 at 19:05 ; Status DC Trolamine Salicylate (Myoplex) 1 renetta HS TP Last administered on 11/13/17at 20:12 ; Start 11/02/17 at 21:00 Trolamine Salicylate (Myoplex) 1 renetta PRN Q4HRS PRN TP PAIN; Start 11/02/17 at 01:15 Ciclopirox Olamine (Loprox) 1 renetta HS TP Last administered on 11/13/17at 20:12; Start 11/02/17 at 21:00 Insulin Human Lispro (HumaLOG) 40 units TIDAC SQ Last administered on at 12:11; Start 11/02/17 at 07:30; Stop 11/07/17 at 15:55; Status DC Cyclobenzaprine HCl (Flexeril) 10 mg PRN Q8HRS PRN PO MUSCLE SPASMS; Start at 01:15 Glucagon (Glucagen Kit) 1 mg PRN Q15MIN PRN IM HYPOGLYCEMIA; Start 11/02/17 at 01:15 Ibuprofen (Motrin) 200 mg PRN Q8HRS PRN PO INFLAMMATION; Start 11/02/17 at 01: 15 Loperamide HCl (Imodium) 2 mg PRN DAILY PRN PO DIARRHEA; Start 11/02/17 at 01: 15 Acetaminophen/ Hydrocodone Bitart (Lortab 5/325) 1 tab PRN DAILY PRN PO PAIN Last administered on 11/05/17 03:41; Start 11/02/17 at 01:15 Atorvastatin Calcium (Lipitor) 80 mg QHS PO Last administered on 11/13/17 20: 10; Start 11/02/17 at 21:00 Fish Oil (Fish Oil) 2,000 mg DAILY PO Last administered on 11/13/17 08:37; Start 11/02/17 at 09:00 Furosemide (Lasix) 20 mg DAILY PO Last administered on 11/11/17 10:05; Start 11/02/17 at 09:00; Stop 11/11/17 at 15:21; Status DC Levothyroxine Sodium (Synthroid) 200 mcg DAILY06 PO ; Start 11/02/17 at 06:00; Stop 11/02/17 at 08:05; Status DC Levothyroxine Sodium (Synthroid) 300 mcg WEEKLY PO Last administered on 08:01; Start 11/02/17 at 09:00; Stop 11/02/17 at 09:00; Status DC Lisinopril (Prinivil) 2.5 mg DAILY PO Last administered on 11/10/17 07:46; Start 11/02/17 at 09:00; Stop 11/11/17 at 15:21; Status DC Multivitamins/ Calcium (Thera-M Plus) 1 tab DAILY PO Last administered on 08:37; Start 11/02/17 at 09:00 Potassium Chloride (Klor-Con) 20 meq DAILY PO Last administered on 11/13/17 08 :37; Start 11/02/17 at 09:00 Senna/Docusate Sodium (Senna Plus) 2 tab DAILY PO Last administered on 08:37; Start 11/02/17 at 09:00 Vitamin D (Vitamin D3) 5,000 unit DAILY PO Last administered on 11/06/17 10:25 ; Start 11/02/17 at 09:00; Stop 11/06/17 at 18:32; Status DC Gabapentin (Neurontin) 100 mg TID PO Last administered on 11/13/17 20:10; Start 11/02/17 at 09:00 Carbidopa/Levodopa (Sinemet 25/100) 1 tab QID PO Last administered on 20:10; Start 11/02/17 at 09:00 Acetaminophen/ Hydrocodone Bitart (Lortab 5/325) 1 tab QID PO Last administered on 11/13/17 20:15; Start 11/02/17 at 09:00 Latanoprost (Xalatan) 1 drop QHS OU Last administered on 11/13/17 20:12; Start 11/02/17 at 21:00 Insulin Glargine (Lantus) 65 units BID SQ Last administered on 11/13/17 20:17 ; Start 11/02/17 at 09:00 Enoxaparin Sodium (Lovenox 40mg Syringe) 40 mg Q12H SQ Last administered on 20:12; Start 11/02/17 at 07:00 Levothyroxine Sodium (Synthroid) 200 mcg QM-F@0900 PO Last administered on 11/08 08:22; Start 11/04/17 at 09:00; Stop 11/09/17 at 00:18; Status DC Levothyroxine Sodium (Synthroid) 200 mcg QSU@0900 PO Last administered on 10:41; Start 11/03/17 at 09:00; Stop 11/09/17 at 00:18; Status DC Levothyroxine Sodium (Synthroid) 300 mcg QSA@0900 PO Last administered on at 11:24; Start 11/02/17 at 09:00; Stop 11/09/17 at 00:18; Status DC Doxycycline Hyclate (Vibra-Tab) 100 mg BID PO Last administered on 11/11/17 10 :05; Start 11/03/17 at 21:00; Stop 11/11/17 at 16:50; Status DC Metformin HCl (Glucophage Xr) 500 mg DAILYWBKFT PO Last administered on 5/28/ 18at 10:05; Start 11/04/17 at 08:00; Stop 11/11/17 at 16:50; Status DC Lactobacillus Rhamnosus (Culturelle) 1 cap BID PO Last administered on 20:11; Start 11/03/17 at 21:00 Magnesium Oxide (Magnesium Oxide) 400 mg BID PO Last administered on 11/13/17 20:11; Start 11/03/17 at 21:00 Divalproex Sodium (Depakote) 1,000 mg BID PO Last administered on 11/13/17 20: 10; Start 11/03/17 at 21:00 Divalproex Sodium (Depakote) 250 mg 1X ONCE PO Last administered on 11/03/17 20:30; Start 11/03/17 at 20:30; Stop 11/03/17 at 20:41; Status DC Nystatin (Mycostatin) 1 renetta BID TP Last administered on 11/10/17 19:54; Start 11/04/17 at 21:00; Stop 11/11/17 at 10:32; Status DC Trazodone HCl (Desyrel) 50 mg HS PO Last administered on 11/13/17 20:13; Start 11/05/17 at 21:00 Trazodone HCl (Desyrel) 50 mg PRN QHS PRN PO INSOMNIA; Start 11/05/17 at 19:15 Vitamin D (Vitamin D3) 50,000 unit WEEKLY PO Last administered on 11/07/17at 09: 21; Start 11/07/17 at 09:00 Aripiprazole (Abilify) 20 mg DAILY PO Last administered on 11/13/17at 08:36; Start 11/07/17 at 09:00 Insulin Human Lispro (HumaLOG) 35 units TIDAC SQ Last administered on 17:17; Start 11/07/17 at 16:30 Nystatin (Nystop) 15 renetta STK-MED ONCE TP Last administered on 11/08/17 22:15; Start 11/08/17 at 22:15; Stop 11/08/17 at 22:16; Status DC Levothyroxine Sodium (Synthroid) 300 mcg QSA PO Last administered on 11/09/17at 16:58; Start 11/09/17 at 07:00 Levothyroxine Sodium (Synthroid) 200 mcg QSU PO Last administered on 11/09/17at 07:00; Start 11/09/17 at 07:00; Stop 11/10/17 at 05:41; Status DC Levothyroxine Sodium (Synthroid) 200 mcg QM-F PO Last administered on at 07:00; Start 11/09/17 at 07:00; Stop 11/10/17 at 05:41; Status DC Insulin Glargine (Lantus) 30 units 1X ONCE SQ Last administered on 11/09/17at 22:01; Start 11/09/17 at 20:00; Stop 11/09/17 at 20:01; Status DC Levothyroxine Sodium (Synthroid) 200 mcg DAILYAC PO Last administered on at 08:37; Start 11/10/17 at 07:00 Nystatin (Nystop) 1 renetta BID TP Last administered on 11/13/17at 20:12; Start at 11:00 Artificial Tears (Artificial Tears) 1 drop PRN Q1HR PRN OU DRY EYE; Start 11/13 at 10:15 Active Scripts Active Reported Melatonin 3 Mg Tablet 6 Mg PO HS Trazodone Hcl 100 Mg Tablet 100 Mg PO PRN QHS PRN [place] 5-325 Tablet (Hydrocodone Bit/Acetaminophen) 1 Each Tablet 1 Tab PO PRN DAILY PRN Imodium A-D (Loperamide HCl) 2 Mg Capsule 2 Mg PO PRN DAILY PRN Ibuprofen 100 Mg/5 Ml Oral.susp 200 Mg PO PRN Q8HRS PRN Glucagon Emergency Kit (Glucagon,Human Recombinant) 1 Mg Kit 1 Mg IJ Q15 MINUTES PRN Cyclobenzaprine Hcl 10 Mg Tablet 10 Mg PO PRN Q8HRS PRN Trolamine Salicylate 85 Gm Cream..g. 85 Gm TP PRN Q4HRS PRN Lexapro (Escitalopram Oxalate) 10 Mg Tablet 10 Mg PO DAILY Levothyroxine Sodium 300 Mcg Tablet 300 Mcg PO WEEKLY Levothyroxine Sodium 200 Mcg Tablet 200 Mcg PO DAILYAC Lasix (Furosemide) 20 Mg Tablet 20 Mg PO DAILY [place] 3 1,000 Mg Softgel ([place]-3 Fatty Acids/Fish Oil) 1 Each Capsule 2 Each PO DAILY Fenofibrate (Fenofibrate,Micronized) 200 Mg Capsule 200 Mg PO DAILY Atorvastatin Calcium 80 Mg Tablet 80 Mg PO QHS Abilify (Aripiprazole) 15 Mg Tablet 15 Mg PO DAILY@1800 [place] 5-325 Tablet (Hydrocodone Bit/Acetaminophen) 1 Each Tablet 1 Tab PO [id number] PRN Sinemet 25-100 Mg Tablet (Carbidopa/Levodopa) 1 Each Tablet 1 Each PO [id number] Gabapentin 100 Mg Capsule 100 Mg PO TID Depakote Er (Divalproex Sodium) 250 Mg Tab.er.24h 750 Mg PO BID Vitamin D (Cholecalciferol (Vitamin D3)) 1,000 Unit Capsule 5,000 Unit PO DAILY Travatan Z (Travoprost) 5 Ml Drops 1 Drop OU QHS Senna (Sennosides) 8.6 Mg Tablet 2 Tab PO DAILY Klor-Con M20 (Potassium Chloride) 20 Meq Tab.er.prt 20 Meq PO DAILY Multiple Vitamin (Multivitamin With Minerals) 1 Each Tablet 1 Each PO DAILY Lisinopril 2.5 Mg Tablet 2.5 Mg PO DAILY Novolog (Insulin Aspart) 100 Unit/1 Ml Cartridge 40 Unit SQ TIDAC A and D Ointment (Vits A and D/White Pet/Lanolin) 42.5 Gm Oint...g. 1 Applic TP TID Tresiba Flextouch U-100 (Insulin Degludec) 100 Unit/1 Ml Insuln.pen 65 Unit SQ BID Penlac (Ciclopirox) 6.6 Ml Solution 1 Applic TP WEEKLYHS PRN Aspercreme (Trolamine Salicylate) 177.4 Ml Lotion 1 [place] TP HS I have reviewed the current psychotropics carefully including drug interactions. Risk benefit ratio favors no change other than as noted in my dictated progress note. Diagnosis: Problems: (1) Psychiatric diagnosis (2) Anxiety disorder (3) Impulse control disorder (4) Bipolar affective, mixed, sev w/ psych CHINO JOHNS MD November 13, 2017 20:54
--- NOTE | 2017-11-14 03:07 | PN ---
DATE: 11/12/2017 PSYCHIATRIC PROGRESS NOTE This is a late entry of 11/12/2017 covers elements not covered in my initial note of 11/12/2017. I met with the patient in the evening of 11/12/2017. Overall, the patient has been doing a little better, less demanding, less sarcastic, still complains of pain in her bottom area. REVIEW OF SYSTEMS: Ambulation impaired, in Broda chair. No CV, , pulmonary, eye system symptoms on review. MENTAL STATUS EXAM: Oriented reasonably. Speech is coherent, has some latency. Abstraction fair, computation impaired, language function intact, attention span short. Mood and affect showing improved lability. LABORATORY DATA: Reviewed. IMPRESSION: Unchanged from initial note. PLAN: Continue psychotropics from my initial note. MAN Richard JOHNS MD DR: GLENN/cory JOB#: [id number] / [id number]
[2017-11-14 06:06] VITALS: BP_SYST 111; BP_SYST 131; BP_DIAS 40; BP_DIAS 68
[2017-11-14] MEDS: INSULIN LISPRO 300 UNITS/3 ML INSULN.PEN. SQ SCH ×3 (09:20→17:17)
[2017-11-14] MEDS: INSULIN GLARGINE 300 UNITS/3 ML INSULN.PEN. SQ SCH ×2 (09:21→20:44)
[2017-11-14] MEDS: CITALOPRAM 20 MG TABLET. PO SCH ×2 (09:23→10:10)
[2017-11-14] MEDS: ENOXAPARIN 40 MG/0.4 ML SYRINGE. SQ SCH ×2 (09:23→20:44)
[2017-11-14] MEDS: LACTOBACILLUS RHAMNOSUS GG 1 CAPSULE. PO SCH ×2 (09:23→20:46)
[2017-11-14] MEDS: MULTIVITAMIN with MINERAL TABLET. PO SCH ×2 (09:23→10:10)
[2017-11-14] MEDS: CHOLECALCIFEROL (VITAMIN D3) 50,000 UNIT CAPSULE PO SCH (09:23)
[2017-11-14] MEDS: GABAPENTIN 100 MG CAPSULE. PO SCH ×4 (09:23→20:46)
[2017-11-14] MEDS: OMEGA-3 FATTY ACIDS/FISH OIL 1,000 MG CAPSULE. PO SCH (09:24)
[2017-11-14] MEDS: MAGNESIUM OXIDE 400 MG TABLET PO SCH ×3 (09:24→20:48)
[2017-11-14] MEDS: DIVALPROEX SODIUM 250 MG TABLET.DR. PO SCH ×2 (09:24→20:46)
[2017-11-14] MEDS: CARBIDOPA/LEVODOPA 25/100MG TABLET PO SCH ×4 (09:24→20:45)
[2017-11-14] MEDS: ARIPiprazole 10 MG TABLET PO SCH ×2 (09:24→10:10)
[2017-11-14] MEDS: POTASSIUM CHLORIDE 20 MEQ TABLET.ER. PO SCH ×2 (09:24→10:10)
[2017-11-14] MEDS: NYSTATIN TOPICAL POWDER 15GM BOTTLE. TP SCH ×2 (09:25→20:48)
[2017-11-14] MEDS: LEVOTHYROXINE 100 MCG TABLET PO SCH ×2 (09:25→10:10)
[2017-11-14] MEDS: SENNOSIDES/DOCUSATE 8.6/50MG TABLET. PO SCH (09:25)
[2017-11-14] MEDS: HYDROcodone/APAP 5/325MG 1 TAB TABLET PO SCH ×4 (09:27→20:46)
[2017-11-14] MEDS: HYDROcodone/APAP 5/325MG 1 TAB TABLET PO PRN (15:46)
[2017-11-14 16:04] VITALS: BP 105/68
--- NOTE | 2017-11-14 20:35 | PDOC ---
Exam Note: Miguel A Note: Please also refer to the separate dictated note~for this date of service dictated separately.~Patient seen individually. Discussed the patient with Nursing staff reviewed the chart.~Reviewed interim history and current functioning. Reviewed vital signs,~Labs/ Radiology~and current medications noted below. Continue current treatment with the changes noted in the dictated addendum note Assessment: Vital Signs: Vital Signs Date Time Temp Pulse Resp B/P (MAP) Pulse Ox O2 Delivery O2 Flow Rate FiO2 11/14/17 17:04 20 96 Room Air 11/14/17 16:04 97.7 89 105/68 (80) I&O Intake and Output 11/14/17 07:00 Intake Total 840 ml Balance 840 ml Intake Oral 840 ml Labs: Laboratory Tests Test 11/14/17 07:22 11/14/17 11:39 11/14/17 16:22 11/14/17 19:07 Glucose (Fingerstick) 214 mg/dL (70-99) H 265 mg/dL (70-99) H 124 mg/dL (70-99) H 164 mg/dL (70-99) H Current Medications: Meds: Current Medications Ondansetron HCl (Zofran) 4 mg PRN Q4HRS PRN IV NAUSEA/VOMITING; Start 11/01/17 at 15:30; Stop 11/01/17 at 15:37; Status DC Lactulose (Lactulose) 45 gm QID PO ; Start 11/01/17 at 17:00; Stop 11/01/17 at 17:00; Status DC Dextrose/Sodium Chloride 1,000 ml @ 75 mls/hr 1X ONCE IV ; Start 11/01/17 at 15:30; Stop 11/01/17 at 15:42; Status DC Sodium Chloride 1,000 ml @ 1,000 mls/hr 1X ONCE IV Last administered on at 17:43; Start 11/01/17 at 16:30; Stop 11/01/17 at 17:29; Status DC Acetaminophen (Tylenol) 650 mg PRN Q6HRS PRN PO PAIN / TEMP; Start 11/01/17 at 20:15 Multi-Ingredient Ointment (Analgesic [place]) 1 renetta PRN QID PRN TP MUSCLE PAIN; Start 11/01/17 at 20:15 Al Hydroxide/Mg Hydroxide (Mylanta Plus Xs) 15 ml PRN AFTMEALHC PRN PO DYSPEPSIA; Start 11/01/17 at 20:15 Magnesium Hydroxide (Milk Of Magnesia) 2,400 mg PRN QHS PRN PO CONSTIPATION; Start 11/01/17 at 20:15 Nicotine (Nicoderm Cq 7mg) 1 patch DAILY TD ; Start 11/02/17 at 09:00; Stop at 09:00; Status DC Enoxaparin Sodium (Lovenox 40mg Syringe) 40 mg Q24H SQ ; Start 11/01/17 at 21:00 ; Stop 11/02/17 at 00:43; Status DC Non-Formulary Medication (Aripiprazole (Abilify)) 15 mg DAILY@1800 PO ; Start at 18:00; Stop 11/02/17 at 18:00; Status DC Non-Formulary Medication (Divalproex Sodium (Depakote Er)) 750 mg BID PO ; Start 11/02/17 at 09:00; Stop 11/02/17 at 09:00; Status DC Non-Formulary Medication (Escitalopram Oxalate (Lexapro)) 10 mg DAILY PO ; Start 11/02/17 at 09:00; Stop 11/02/17 at 09:00; Status DC Non-Formulary Medication (Melatonin ) 6 mg HS PO ; Start 11/02/17 at 21:00; Stop 11/02/17 at 21:00; Status DC Non-Formulary Medication (Trazodone Hcl ) 100 mg PRN QHS PRN PO INSOMNIA; Start 11/01/17 at 23:15; Stop 11/02/17 at 00:43; Status DC Carbidopa/Levodopa (Sinemet 25/100) 1 tab [id number] PO ; Start 11/02/17 at 07:00; Stop 11/02/17 at 07:00; Status DC Cyclobenzaprine HCl (Starter Pack - Flexeril 10mg) 10 startpack PRN Q8HRS PRN PO PAIN; Start 11/01/17 at 23:15; Stop 11/02/17 at 00:43; Status DC Furosemide (Lasix) 20 mg DAILY PO ; Start 11/02/17 at 09:00; Stop 11/02/17 at 09 :00; Status DC Gabapentin (Neurontin) 100 mg TID PO ; Start 11/02/17 at 09:00; Stop 11/02/17 at 09:00; Status DC Potassium Chloride (Klor-Con) 20 meq DAILY PO ; Start 11/02/17 at 09:00; Stop at 09:00; Status DC Trolamine Salicylate (Myoplex) 85 renetta PRN Q4HRS PRN TP PAIN; Start 11/01/17 at 23:15; Stop 11/02/17 at 00:43; Status DC Vitamin A/Vitamin D (Vitamin A & D Ointment) 1 renetta TID TP ; Start 11/02/17 at 09 :00; Stop 11/02/17 at 09:00; Status DC Non-Formulary Medication (Atorvastatin Calcium ) 80 mg QHS PO ; Start 11/02/17 at 21:00; Stop 11/02/17 at 21:00; Status DC Non-Formulary Medication (Cholecalciferol (Vitamin D3) (Vitamin D)) 5,000 unit DAILY PO ; Start 11/02/17 at 09:00; Stop 11/02/17 at 09:00; Status DC Non-Formulary Medication (Ciclopirox (Penlac)) 1 applic WEEKLYHS PRN TP nail fungus; Start 11/01/17 at 23:15; Stop 11/02/17 at 00:44; Status DC Non-Formulary Medication (Fenofibrate,Micronized (Fenofibrate)) 200 mg DAILY PO ; Start 11/02/17 at 09:00; Stop 11/02/17 at 09:00; Status DC Non-Formulary Medication (Glucagon,Human Recombinant (Glucagon Emergency Kit)) 1 mg q15 minutes PRN IJ low blood sugar; Start 11/01/17 at 23:15; Stop 11/02/17 at 00:44; Status DC Non-Formulary Medication (Hydrocodone Bit/ Acetaminophen ([place] 5-325 Tablet)) 1 tab PRN DAILY PRN PO PAIN; Start 11/01/17 at 23:15; Stop 11/02/17 at 00:44; Status DC Non-Formulary Medication (Hydrocodone Bit/ Acetaminophen ([place] 5-325 Tablet)) 1 tab [id number] PRN PO PAIN; Start 11/01/17 at 23:15; Stop 11/02/17 at 00:44; Status DC Non-Formulary Medication (Ibuprofen ) 200 mg PRN Q8HRS PRN PO PAIN; Start 11/01 at 23:15; Stop 11/02/17 at 00:44; Status DC Non-Formulary Medication (Insulin Aspart (Novolog)) 40 unit TIDAC SQ ; Start at 07:30; Stop 11/02/17 at 07:30; Status DC Non-Formulary Medication (Insulin Degludec (Tresiba Flextouch U-100)) 65 unit BID SQ ; Start 11/02/17 at 09:00; Stop 11/02/17 at 09:00; Status DC Non-Formulary Medication (Levothyroxine Sodium ) 200 mcg DAILYAC PO ; Start at 07:30; Stop 11/02/17 at 07:30; Status DC Non-Formulary Medication (Levothyroxine Sodium ) 300 mcg WEEKLY PO ; Start 11/08 at 09:00; Stop 11/08/17 at 09:00; Status DC Non-Formulary Medication (Lisinopril ) 2.5 mg DAILY PO ; Start 11/02/17 at 09:00 ; Stop 11/02/17 at 09:00; Status DC Non-Formulary Medication (Loperamide HCl (Imodium A-D)) 2 mg PRN DAILY PRN PO DIARRHEA; Start 11/01/17 at 23:15; Stop 11/02/17 at 00:43; Status DC Non-Formulary Medication (Multivitamin With Minerals (Multiple Vitamin)) 1 each DAILY PO ; Start 11/02/17 at 09:00; Stop 11/02/17 at 09:00; Status DC Non-Formulary Medication ([place]-3 Fatty Acids/Fish Oil ([place] 3 1,000 Mg Softgel )) 2 each DAILY PO ; Start 11/02/17 at 09:00; Stop 11/02/17 at 09:00; Status DC Non-Formulary Medication (Sennosides (Senna)) 2 tab DAILY PO ; Start 11/02/17 at 09:00; Stop 11/02/17 at 09:00; Status DC Non-Formulary Medication (Travoprost (Travatan Z)) 1 drop QHS OU ; Start at 21:00; Stop 11/02/17 at 21:00; Status DC Non-Formulary Medication (Trolamine Salicylate (Aspercreme)) 1 renetta HS TP ; Start 11/02/17 at 21:00; Stop 11/02/17 at 21:00; Status DC Melatonin 6 mg HS PO Last administered on 11/13/17at 20:11; Start 11/02/17 at 21 :00 Aripiprazole (Abilify) 15 mg DAILY PO Last administered on 11/06/17at 10:28; Start 11/02/17 at 09:00; Stop 11/06/17 at 18:47; Status DC Citalopram Hydrobromide (CeleXA) 20 mg DAILY PO Last administered on 11/13/17at 08:37; Start 11/02/17 at 09:00 Divalproex Sodium (Depakote) 750 mg BID PO Last administered on 11/03/17at 18:37 ; Start 11/02/17 at 09:00; Stop 11/03/17 at 20:24; Status DC Trazodone HCl (Desyrel) 100 mg PRN QHS PRN PO INSOMNIA, MAY REPEAT X1 Last administered on 11/02/17at 02:45; Start 11/02/17 at 01:00; Stop 11/05/17 at 19:05 ; Status DC Trolamine Salicylate (Myoplex) 1 renetta HS TP Last administered on 11/13/17at 20:12 ; Start 11/02/17 at 21:00 Trolamine Salicylate (Myoplex) 1 renetta PRN Q4HRS PRN TP PAIN; Start 11/02/17 at 01:15 Ciclopirox Olamine (Loprox) 1 renetta HS TP Last administered on 11/13/17at 20:12; Start 11/02/17 at 21:00 Insulin Human Lispro (HumaLOG) 40 units TIDAC SQ Last administered on at 12:11; Start 11/02/17 at 07:30; Stop 11/07/17 at 15:55; Status DC Cyclobenzaprine HCl (Flexeril) 10 mg PRN Q8HRS PRN PO MUSCLE SPASMS Last administered on 11/14/17at 15:46; Start 11/02/17 at 01:15 Glucagon (Glucagen Kit) 1 mg PRN Q15MIN PRN IM HYPOGLYCEMIA; Start 11/02/17 at 01:15 Ibuprofen (Motrin) 200 mg PRN Q8HRS PRN PO INFLAMMATION; Start 11/02/17 at 01: 15 Loperamide HCl (Imodium) 2 mg PRN DAILY PRN PO DIARRHEA; Start 11/02/17 at 01: 15 Acetaminophen/ Hydrocodone Bitart (Lortab 5/325) 1 tab PRN DAILY PRN PO PAIN Last administered on 11/14/17 15:46; Start 11/02/17 at 01:15 Atorvastatin Calcium (Lipitor) 80 mg QHS PO Last administered on 11/13/17 20: 10; Start 11/02/17 at 21:00 Fish Oil (Fish Oil) 2,000 mg DAILY PO Last administered on 11/14/17 09:24; Start 11/02/17 at 09:00 Furosemide (Lasix) 20 mg DAILY PO Last administered on 11/11/17at 10:05; Start 11/02/17 at 09:00; Stop 11/11/17 at 15:21; Status DC Levothyroxine Sodium (Synthroid) 200 mcg DAILY06 PO ; Start 11/02/17 at 06:00; Stop 11/02/17 at 08:05; Status DC Levothyroxine Sodium (Synthroid) 300 mcg WEEKLY PO Last administered on at 08:01; Start 11/02/17 at 09:00; Stop 11/02/17 at 09:00; Status DC Lisinopril (Prinivil) 2.5 mg DAILY PO Last administered on 11/10/17at 07:46; Start 11/02/17 at 09:00; Stop 11/11/17 at 15:21; Status DC Multivitamins/ Calcium (Thera-M Plus) 1 tab DAILY PO Last administered on 08:37; Start 11/02/17 at 09:00 Potassium Chloride (Klor-Con) 20 meq DAILY PO Last administered on 11/13/17at 08 :37; Start 11/02/17 at 09:00 Senna/Docusate Sodium (Senna Plus) 2 tab DAILY PO Last administered on at 09:25; Start 11/02/17 at 09:00 Vitamin D (Vitamin D3) 5,000 unit DAILY PO Last administered on 11/06/17 10:25 ; Start 11/02/17 at 09:00; Stop 11/06/17 at 18:32; Status DC Gabapentin (Neurontin) 100 mg TID PO Last administered on 11/14/17at 13:56; Start 11/02/17 at 09:00 Carbidopa/Levodopa (Sinemet 25/100) 1 tab QID PO Last administered on 17:03; Start 11/02/17 at 09:00 Acetaminophen/ Hydrocodone Bitart (Lortab 5/325) 1 tab QID PO Last administered on 11/14/17 17:03; Start 11/02/17 at 09:00 Latanoprost (Xalatan) 1 drop QHS OU Last administered on 11/13/17 20:12; Start 11/02/17 at 21:00 Insulin Glargine (Lantus) 65 units BID SQ Last administered on 11/14/17 09:21 ; Start 11/02/17 at 09:00 Enoxaparin Sodium (Lovenox 40mg Syringe) 40 mg Q12H SQ Last administered on 09:23; Start 11/02/17 at 07:00 Levothyroxine Sodium (Synthroid) 200 mcg QM-F@0900 PO Last administered on 11/08 08:22; Start 11/04/17 at 09:00; Stop 11/09/17 at 00:18; Status DC Levothyroxine Sodium (Synthroid) 200 mcg QSU@0900 PO Last administered on at 10:41; Start 11/03/17 at 09:00; Stop 11/09/17 at 00:18; Status DC Levothyroxine Sodium (Synthroid) 300 mcg QSA@0900 PO Last administered on at 11:24; Start 11/02/17 at 09:00; Stop 11/09/17 at 00:18; Status DC Doxycycline Hyclate (Vibra-Tab) 100 mg BID PO Last administered on 11/11/17at 10 :05; Start 11/03/17 at 21:00; Stop 11/11/17 at 16:50; Status DC Metformin HCl (Glucophage Xr) 500 mg DAILYWBKFT PO Last administered on at 10:05; Start 11/04/17 at 08:00; Stop 11/11/17 at 16:50; Status DC Lactobacillus Rhamnosus (Culturelle) 1 cap BID PO Last administered on 09:23; Start 11/03/17 at 21:00 Magnesium Oxide (Magnesium Oxide) 400 mg BID PO Last administered on 11/13/17 20:11; Start 11/03/17 at 21:00 Divalproex Sodium (Depakote) 1,000 mg BID PO Last administered on 11/14/17 09: 24; Start 11/03/17 at 21:00 Divalproex Sodium (Depakote) 250 mg 1X ONCE PO Last administered on 11/03/17 20:30; Start 11/03/17 at 20:30; Stop 11/03/17 at 20:41; Status DC Nystatin (Mycostatin) 1 renetta BID TP Last administered on 11/10/17 19:54; Start 11/04/17 at 21:00; Stop 11/11/17 at 10:32; Status DC Trazodone HCl (Desyrel) 50 mg HS PO Last administered on 11/13/17 20:13; Start 11/05/17 at 21:00 Trazodone HCl (Desyrel) 50 mg PRN QHS PRN PO INSOMNIA; Start 11/05/17 at 19:15 Vitamin D (Vitamin D3) 50,000 unit WEEKLY PO Last administered on 11/14/17 09: 23; Start 11/07/17 at 09:00 Aripiprazole (Abilify) 20 mg DAILY PO Last administered on 11/13/17at 08:36; Start 11/07/17 at 09:00 Insulin Human Lispro (HumaLOG) 35 units TIDAC SQ Last administered on 17:17; Start 11/07/17 at 16:30 Nystatin (Nystop) 15 renetta STK-MED ONCE TP Last administered on 11/08/17at 22:15; Start 11/08/17 at 22:15; Stop 11/08/17 at 22:16; Status DC Levothyroxine Sodium (Synthroid) 300 mcg QSA PO Last administered on 11/09/17at 16:58; Start 11/09/17 at 07:00 Levothyroxine Sodium (Synthroid) 200 mcg QSU PO Last administered on 11/09/17at 07:00; Start 11/09/17 at 07:00; Stop 11/10/17 at 05:41; Status DC Levothyroxine Sodium (Synthroid) 200 mcg QM-F PO Last administered on at 07:00; Start 11/09/17 at 07:00; Stop 11/10/17 at 05:41; Status DC Insulin Glargine (Lantus) 30 units 1X ONCE SQ Last administered on 11/09/17at 22:01; Start 11/09/17 at 20:00; Stop 11/09/17 at 20:01; Status DC Levothyroxine Sodium (Synthroid) 200 mcg DAILYAC PO Last administered on at 08:37; Start 11/10/17 at 07:00 Nystatin (Nystop) 1 renetta BID TP Last administered on 11/14/17at 09:25; Start at 11:00 Artificial Tears (Artificial Tears) 1 drop PRN Q1HR PRN OU DRY EYE; Start 11/13 at 10:15 Active Scripts Active Reported Melatonin 3 Mg Tablet 6 Mg PO HS Trazodone Hcl 100 Mg Tablet 100 Mg PO PRN QHS PRN [place] 5-325 Tablet (Hydrocodone Bit/Acetaminophen) 1 Each Tablet 1 Tab PO PRN DAILY PRN Imodium A-D (Loperamide HCl) 2 Mg Capsule 2 Mg PO PRN DAILY PRN Ibuprofen 100 Mg/5 Ml Oral.susp 200 Mg PO PRN Q8HRS PRN Glucagon Emergency Kit (Glucagon,Human Recombinant) 1 Mg Kit 1 Mg IJ Q15 MINUTES PRN Cyclobenzaprine Hcl 10 Mg Tablet 10 Mg PO PRN Q8HRS PRN Trolamine Salicylate 85 Gm Cream..g. 85 Gm TP PRN Q4HRS PRN Lexapro (Escitalopram Oxalate) 10 Mg Tablet 10 Mg PO DAILY Levothyroxine Sodium 300 Mcg Tablet 300 Mcg PO WEEKLY Levothyroxine Sodium 200 Mcg Tablet 200 Mcg PO DAILYAC Lasix (Furosemide) 20 Mg Tablet 20 Mg PO DAILY [place] 3 1,000 Mg Softgel ([place]-3 Fatty Acids/Fish Oil) 1 Each Capsule 2 Each PO DAILY Fenofibrate (Fenofibrate,Micronized) 200 Mg Capsule 200 Mg PO DAILY Atorvastatin Calcium 80 Mg Tablet 80 Mg PO QHS Abilify (Aripiprazole) 15 Mg Tablet 15 Mg PO DAILY@1800 [place] 5-325 Tablet (Hydrocodone Bit/Acetaminophen) 1 Each Tablet 1 Tab PO [id number] PRN Sinemet 25-100 Mg Tablet (Carbidopa/Levodopa) 1 Each Tablet 1 Each PO [id number] Gabapentin 100 Mg Capsule 100 Mg PO TID Depakote Er (Divalproex Sodium) 250 Mg Tab.er.24h 750 Mg PO BID Vitamin D (Cholecalciferol (Vitamin D3)) 1,000 Unit Capsule 5,000 Unit PO DAILY Travatan Z (Travoprost) 5 Ml Drops 1 Drop OU QHS Senna (Sennosides) 8.6 Mg Tablet 2 Tab PO DAILY Klor-Con M20 (Potassium Chloride) 20 Meq Tab.er.prt 20 Meq PO DAILY Multiple Vitamin (Multivitamin With Minerals) 1 Each Tablet 1 Each PO DAILY Lisinopril 2.5 Mg Tablet 2.5 Mg PO DAILY Novolog (Insulin Aspart) 100 Unit/1 Ml Cartridge 40 Unit SQ TIDAC A and D Ointment (Vits A and D/White Pet/Lanolin) 42.5 Gm Oint...g. 1 Applic TP TID Tresiba Flextouch U-100 (Insulin Degludec) 100 Unit/1 Ml Insuln.pen 65 Unit SQ BID Penlac (Ciclopirox) 6.6 Ml Solution 1 Applic TP WEEKLYHS PRN Aspercreme (Trolamine Salicylate) 177.4 Ml Lotion 1 Renetta TP HS I have reviewed the current psychotropics carefully including drug interactions. Risk benefit ratio favors no change other than as noted in my dictated progress note. Diagnosis: Problems: (1) Psychiatric diagnosis (2) Anxiety disorder (3) Impulse control disorder (4) Bipolar affective, mixed, sev w/ psych CHINO JOHNS MD November 14, 2017 20:35
[2017-11-14] MEDS: ATORVASTATIN CALCIUM 20 MG TABLET PO SCH (20:45)
[2017-11-14] MEDS: MELATONIN 3 MG TABLET PO SCH (20:46)
[2017-11-14] MEDS: LATANOPROST 0.005% OPHTH SOLUTION 2.5ML BOTTLE. OU SCH (20:46)
[2017-11-14] MEDS: traZODone 50 MG TABLET. PO SCH (20:46)
[2017-11-14] MEDS: TROLAMINE SALICYLATE 10% TOPICAL CREAM 85GM JAR. TP SCH (20:47)
[2017-11-14] MEDS: CICLOPIROX 0.77% TOPICAL CREAM 15GM TUBE. TP SCH (20:47)
--- NOTE | 2017-11-14 21:45 | PN ---
DATE: 11/13/2017 PSYCHIATRIC PROGRESS NOTE This late entry 11/13/2017 covers elements, not covered in my initial note of 11/13/2017. SUBJECTIVE: I met with the patient evening of 11/13/2017. Early in the morning, the patient was sarcastic, resistive to showers, less medication seeking, less anxious, and still complains of pain in the bottom area, but she is being ____ every 2 hours. REVIEW OF SYSTEMS: Ambulation impaired, in a Broda chair. No CV, , pulmonary, eye, ENT system symptoms on review. MENTAL STATUS EXAM: Reasonably oriented. Speech coherent, has some latency. Abstraction fair, computation impaired, language function intact, attention span short. Mood and affect less labile, less irritable. LABORATORY DATA: Reviewed. IMPRESSION: Schizoaffective disorder, bipolar type, mixed with psychotic features, in partial remission. Rest unchanged. PLAN: Continue psychotropics mentioned in my initial note. CHINO JOHNS MD DR: GLENN/cory JOB#: [id number] / [id number]
[2017-11-15] MEDS ORDERED: DIVA500T17 PO (01:38)
[2017-11-15] MEDS ORDERED: ARIP20TA5 PO (01:38)
[2017-11-15] MEDS ORDERED: CHOL500021 PO (01:38)
[2017-11-15] MEDS ORDERED: ACET325T21 PO (01:40)
[2017-11-15] MEDS ORDERED: CITA20TA6 PO (01:40)
[2017-11-15] MEDS ORDERED: ENOX40DI SQ (01:41)
[2017-11-15] MEDS ORDERED: LACT1CAP21 PO (01:43)
[2017-11-15] MEDS ORDERED: MAG355OR17 PO (01:43)
[2017-11-15] MEDS ORDERED: MAGN2400 PO (01:44)
[2017-11-15] MEDS ORDERED: MAGN400T3 PO (01:44)
[2017-11-15] MEDS ORDERED: NYST60PO TP (01:45)
[2017-11-15] MEDS ORDERED: TRAZ50TA15 PO ×2 (01:46→01:47)
[2017-11-15] MEDS ORDERED: POLY15DR27 OU (01:46)
[2017-11-15] MEDS ORDERED: METH29OI TP (01:52)
[2017-11-15 06:00] VITALS: BP 102/34
[2017-11-15 08:06] VITALS: BP 126/66
[2017-11-15] MEDS: MAGNESIUM OXIDE 400 MG TABLET PO SCH (08:10)
[2017-11-15] MEDS: POTASSIUM CHLORIDE 20 MEQ TABLET.ER. PO SCH (08:10)
[2017-11-15] MEDS: LACTOBACILLUS RHAMNOSUS GG 1 CAPSULE. PO SCH (08:11)
[2017-11-15] MEDS: GABAPENTIN 100 MG CAPSULE. PO SCH ×2 (08:11→12:40)
[2017-11-15] MEDS: CITALOPRAM 20 MG TABLET. PO SCH (08:11)
[2017-11-15] MEDS: CARBIDOPA/LEVODOPA 25/100MG TABLET PO SCH ×2 (08:11→12:40)
[2017-11-15] MEDS: LEVOTHYROXINE 100 MCG TABLET PO SCH (08:11)
[2017-11-15] MEDS: OMEGA-3 FATTY ACIDS/FISH OIL 1,000 MG CAPSULE. PO SCH (08:11)
[2017-11-15] MEDS: ARIPiprazole 10 MG TABLET PO SCH (08:11)
[2017-11-15] MEDS: SENNOSIDES/DOCUSATE 8.6/50MG TABLET. PO SCH (08:11)
[2017-11-15] MEDS: MULTIVITAMIN with MINERAL TABLET. PO SCH (08:11)
[2017-11-15] MEDS: ENOXAPARIN 40 MG/0.4 ML SYRINGE. SQ SCH (08:12)
[2017-11-15] MEDS: DIVALPROEX SODIUM 250 MG TABLET.DR. PO SCH (08:12)
[2017-11-15] MEDS: INSULIN LISPRO 300 UNITS/3 ML INSULN.PEN. SQ SCH ×2 (08:13→12:41)
[2017-11-15] MEDS: INSULIN GLARGINE 300 UNITS/3 ML INSULN.PEN. SQ SCH (08:14)
[2017-11-15] MEDS: NYSTATIN TOPICAL POWDER 15GM BOTTLE. TP SCH (08:18)
[2017-11-15] MEDS: HYDROcodone/APAP 5/325MG 1 TAB TABLET PO SCH ×2 (08:18→12:40)
--- NOTE | 2017-11-15 19:04 | PDOC ---
Exam Note: Miguel A Note: Please also refer to the separate dictated note~for this date of service dictated separately.~Patient seen individually. Discussed the patient with Nursing staff reviewed the chart.~Reviewed interim history and current functioning. Reviewed vital signs,~Labs/ Radiology~and current medications noted below. Continue current treatment with the changes noted in the dictated addendum note Assessment: Vital Signs: Vital Signs Date Time Temp Pulse Resp B/P (MAP) Pulse Ox O2 Delivery O2 Flow Rate FiO2 11/15/17 12:40 20 96 Room Air 11/15/17 08:06 96 126/66 (86) 11/15/17 06:00 97.3 I&O Intake and Output 11/15/17 07:00 Intake Total 1080 ml Balance 1080 ml Intake Oral 1080 ml Labs: Laboratory Tests Test 11/14/17 19:07 11/15/17 07:11 11/15/17 11:38 Glucose (Fingerstick) 164 mg/dL (70-99) H 205 mg/dL (70-99) H 165 mg/dL (70-99) H Current Medications: Meds: Current Medications Ondansetron HCl (Zofran) 4 mg PRN Q4HRS PRN IV NAUSEA/VOMITING; Start 11/01/17 at 15:30; Stop 11/01/17 at 15:37; Status DC Lactulose (Lactulose) 45 gm QID PO ; Start 11/01/17 at 17:00; Stop 11/01/17 at 17:00; Status DC Dextrose/Sodium Chloride 1,000 ml @ 75 mls/hr 1X ONCE IV ; Start 11/01/17 at 15:30; Stop 11/01/17 at 15:42; Status DC Sodium Chloride 1,000 ml @ 1,000 mls/hr 1X ONCE IV Last administered on at 17:43; Start 11/01/17 at 16:30; Stop 11/01/17 at 17:29; Status DC Acetaminophen (Tylenol) 650 mg PRN Q6HRS PRN PO PAIN / TEMP; Start 11/01/17 at 20:15; Stop 11/15/17 at 15:45; Status DC Multi-Ingredient Ointment (Analgesic [place]) 1 renetta PRN QID PRN TP MUSCLE PAIN; Start 11/01/17 at 20:15; Stop 11/15/17 at 15:45; Status DC Al Hydroxide/Mg Hydroxide (Mylanta Plus Xs) 15 ml PRN AFTMEALHC PRN PO DYSPEPSIA; Start 11/01/17 at 20:15; Stop 11/15/17 at 15:45; Status DC Magnesium Hydroxide (Milk Of Magnesia) 2,400 mg PRN QHS PRN PO CONSTIPATION; Start 11/01/17 at 20:15; Stop 11/15/17 at 15:45; Status DC Nicotine (Nicoderm Cq 7mg) 1 patch DAILY TD ; Start 11/02/17 at 09:00; Stop at 09:00; Status DC Enoxaparin Sodium (Lovenox 40mg Syringe) 40 mg Q24H SQ ; Start 11/01/17 at 21:00 ; Stop 11/02/17 at 00:43; Status DC Non-Formulary Medication (Aripiprazole (Abilify)) 15 mg DAILY@1800 PO ; Start at 18:00; Stop 11/02/17 at 18:00; Status DC Non-Formulary Medication (Divalproex Sodium (Depakote Er)) 750 mg BID PO ; Start 11/02/17 at 09:00; Stop 11/02/17 at 09:00; Status DC Non-Formulary Medication (Escitalopram Oxalate (Lexapro)) 10 mg DAILY PO ; Start 11/02/17 at 09:00; Stop 11/02/17 at 09:00; Status DC Non-Formulary Medication (Melatonin ) 6 mg HS PO ; Start 11/02/17 at 21:00; Stop 11/02/17 at 21:00; Status DC Non-Formulary Medication (Trazodone Hcl ) 100 mg PRN QHS PRN PO INSOMNIA; Start 11/01/17 at 23:15; Stop 11/02/17 at 00:43; Status DC Carbidopa/Levodopa (Sinemet 25/100) 1 tab [id number] PO ; Start 11/02/17 at 07:00; Stop 11/02/17 at 07:00; Status DC Cyclobenzaprine HCl (Starter Pack - Flexeril 10mg) 10 startpack PRN Q8HRS PRN PO PAIN; Start 11/01/17 at 23:15; Stop 11/02/17 at 00:43; Status DC Furosemide (Lasix) 20 mg DAILY PO ; Start 11/02/17 at 09:00; Stop 11/02/17 at 09 :00; Status DC Gabapentin (Neurontin) 100 mg TID PO ; Start 11/02/17 at 09:00; Stop 11/02/17 at 09:00; Status DC Potassium Chloride (Klor-Con) 20 meq DAILY PO ; Start 11/02/17 at 09:00; Stop at 09:00; Status DC Trolamine Salicylate (Myoplex) 85 renetta PRN Q4HRS PRN TP PAIN; Start 11/01/17 at 23:15; Stop 11/02/17 at 00:43; Status DC Vitamin A/Vitamin D (Vitamin A & D Ointment) 1 renetta TID TP ; Start 11/02/17 at 09 :00; Stop 11/02/17 at 09:00; Status DC Non-Formulary Medication (Atorvastatin Calcium ) 80 mg QHS PO ; Start 11/02/17 at 21:00; Stop 11/02/17 at 21:00; Status DC Non-Formulary Medication (Cholecalciferol (Vitamin D3) (Vitamin D)) 5,000 unit DAILY PO ; Start 11/02/17 at 09:00; Stop 11/02/17 at 09:00; Status DC Non-Formulary Medication (Ciclopirox (Penlac)) 1 applic WEEKLYHS PRN TP nail fungus; Start 11/01/17 at 23:15; Stop 11/02/17 at 00:44; Status DC Non-Formulary Medication (Fenofibrate,Micronized (Fenofibrate)) 200 mg DAILY PO ; Start 11/02/17 at 09:00; Stop 11/02/17 at 09:00; Status DC Non-Formulary Medication (Glucagon,Human Recombinant (Glucagon Emergency Kit)) 1 mg q15 minutes PRN IJ low blood sugar; Start 11/01/17 at 23:15; Stop 11/02/17 at 00:44; Status DC Non-Formulary Medication (Hydrocodone Bit/ Acetaminophen (Antler 5-325 Tablet)) 1 tab PRN DAILY PRN PO PAIN; Start 11/01/17 at 23:15; Stop 11/02/17 at 00:44; Status DC Non-Formulary Medication (Hydrocodone Bit/ Acetaminophen ([place] 5-325 Tablet)) 1 tab [id number] PRN PO PAIN; Start 11/01/17 at 23:15; Stop 11/02/17 at 00:44; Status DC Non-Formulary Medication (Ibuprofen ) 200 mg PRN Q8HRS PRN PO PAIN; Start 11/01 at 23:15; Stop 11/02/17 at 00:44; Status DC Non-Formulary Medication (Insulin Aspart (Novolog)) 40 unit TIDAC SQ ; Start at 07:30; Stop 11/02/17 at 07:30; Status DC Non-Formulary Medication (Insulin Degludec (Tresiba Flextouch U-100)) 65 unit BID SQ ; Start 11/02/17 at 09:00; Stop 11/02/17 at 09:00; Status DC Non-Formulary Medication (Levothyroxine Sodium ) 200 mcg DAILYAC PO ; Start at 07:30; Stop 11/02/17 at 07:30; Status DC Non-Formulary Medication (Levothyroxine Sodium ) 300 mcg WEEKLY PO ; Start 11/08 at 09:00; Stop 11/08/17 at 09:00; Status DC Non-Formulary Medication (Lisinopril ) 2.5 mg DAILY PO ; Start 11/02/17 at 09:00 ; Stop 11/02/17 at 09:00; Status DC Non-Formulary Medication (Loperamide HCl (Imodium A-D)) 2 mg PRN DAILY PRN PO DIARRHEA; Start 11/01/17 at 23:15; Stop 11/02/17 at 00:43; Status DC Non-Formulary Medication (Multivitamin With Minerals (Multiple Vitamin)) 1 each DAILY PO ; Start 11/02/17 at 09:00; Stop 11/02/17 at 09:00; Status DC Non-Formulary Medication ([place]-3 Fatty Acids/Fish Oil ([place] 3 1,000 Mg Softgel )) 2 each DAILY PO ; Start 11/02/17 at 09:00; Stop 11/02/17 at 09:00; Status DC Non-Formulary Medication (Sennosides (Senna)) 2 tab DAILY PO ; Start 11/02/17 at 09:00; Stop 11/02/17 at 09:00; Status DC Non-Formulary Medication (Travoprost (Travatan Z)) 1 drop QHS OU ; Start at 21:00; Stop 11/02/17 at 21:00; Status DC Non-Formulary Medication (Trolamine Salicylate (Aspercreme)) 1 renetta HS TP ; Start 11/02/17 at 21:00; Stop 11/02/17 at 21:00; Status DC Melatonin 6 mg HS PO Last administered on 11/14/17at 20:46; Start 11/02/17 at 21 :00; Stop 11/15/17 at 15:45; Status DC Aripiprazole (Abilify) 15 mg DAILY PO Last administered on 11/06/17at 10:28; Start 11/02/17 at 09:00; Stop 11/06/17 at 18:47; Status DC Citalopram Hydrobromide (CeleXA) 20 mg DAILY PO Last administered on 11/15/17at 08:11; Start 11/02/17 at 09:00; Stop 11/15/17 at 15:45; Status DC Divalproex Sodium (Depakote) 750 mg BID PO Last administered on 11/03/17at 18:37 ; Start 11/02/17 at 09:00; Stop 11/03/17 at 20:24; Status DC Trazodone HCl (Desyrel) 100 mg PRN QHS PRN PO INSOMNIA, MAY REPEAT X1 Last administered on 11/02/17at 02:45; Start 11/02/17 at 01:00; Stop 11/05/17 at 19:05 ; Status DC Trolamine Salicylate (Myoplex) 1 renetta HS TP Last administered on 11/14/17at 20:47 ; Start 11/02/17 at 21:00; Stop 11/15/17 at 15:45; Status DC Trolamine Salicylate (Myoplex) 1 renetta PRN Q4HRS PRN TP PAIN; Start 11/02/17 at 01:15; Stop 11/15/17 at 15:45; Status DC Ciclopirox Olamine (Loprox) 1 renetta HS TP Last administered on 11/14/17at 20:47; Start 11/02/17 at 21:00; Stop 11/15/17 at 15:45; Status DC Insulin Human Lispro (HumaLOG) 40 units TIDAC SQ Last administered on at 12:11; Start 11/02/17 at 07:30; Stop 11/07/17 at 15:55; Status DC Cyclobenzaprine HCl (Flexeril) 10 mg PRN Q8HRS PRN PO MUSCLE SPASMS Last administered on 11/14/17at 15:46; Start 11/02/17 at 01:15; Stop 11/15/17 at 15:45 ; Status DC Glucagon (Glucagen Kit) 1 mg PRN Q15MIN PRN IM HYPOGLYCEMIA; Start 11/02/17 at 01:15; Stop 11/15/17 at 15:45; Status DC Ibuprofen (Motrin) 200 mg PRN Q8HRS PRN PO INFLAMMATION; Start 11/02/17 at 01: 15; Stop 11/15/17 at 15:45; Status DC Loperamide HCl (Imodium) 2 mg PRN DAILY PRN PO DIARRHEA; Start 11/02/17 at 01: 15; Stop 11/15/17 at 15:45; Status DC Acetaminophen/ Hydrocodone Bitart (Lortab 5/325) 1 tab PRN DAILY PRN PO PAIN Last administered on 11/14/17at 15:46; Start 11/02/17 at 01:15; Stop 11/15/17 at 15:45; Status DC Atorvastatin Calcium (Lipitor) 80 mg QHS PO Last administered on 11/14/17at 20: 45; Start 11/02/17 at 21:00; Stop 11/15/17 at 15:45; Status DC Fish Oil (Fish Oil) 2,000 mg DAILY PO Last administered on 11/15/17at 08:11; Start 11/02/17 at 09:00; Stop 11/15/17 at 15:45; Status DC Furosemide (Lasix) 20 mg DAILY PO Last administered on 11/11/17at 10:05; Start 11/02/17 at 09:00; Stop 11/11/17 at 15:21; Status DC Levothyroxine Sodium (Synthroid) 200 mcg DAILY06 PO ; Start 11/02/17 at 06:00; Stop 11/02/17 at 08:05; Status DC Levothyroxine Sodium (Synthroid) 300 mcg WEEKLY PO Last administered on 08:01; Start 11/02/17 at 09:00; Stop 11/02/17 at 09:00; Status DC Lisinopril (Prinivil) 2.5 mg DAILY PO Last administered on 11/10/17at 07:46; Start 11/02/17 at 09:00; Stop 11/11/17 at 15:21; Status DC Multivitamins/ Calcium (Thera-M Plus) 1 tab DAILY PO Last administered on 08:11; Start 11/02/17 at 09:00; Stop 11/15/17 at 15:45; Status DC Potassium Chloride (Klor-Con) 20 meq DAILY PO Last administered on 11/15/17 08: 10; Start 11/02/17 at 09:00; Stop 11/15/17 at 15:45; Status DC Senna/Docusate Sodium (Senna Plus) 2 tab DAILY PO Last administered on 08:11; Start 11/02/17 at 09:00; Stop 11/15/17 at 15:45; Status DC Vitamin D (Vitamin D3) 5,000 unit DAILY PO Last administered on 11/06/17at 10:25 ; Start 11/02/17 at 09:00; Stop 11/06/17 at 18:32; Status DC Gabapentin (Neurontin) 100 mg TID PO Last administered on 11/15/17at 12:40; Start 11/02/17 at 09:00; Stop 11/15/17 at 15:45; Status DC Carbidopa/Levodopa (Sinemet 25/100) 1 tab QID PO Last administered on 11/15/17at 12:40; Start 11/02/17 at 09:00; Stop 11/15/17 at 15:45; Status DC Acetaminophen/ Hydrocodone Bitart (Lortab 5/325) 1 tab QID PO Last administered on 11/15/17at 12:40; Start 11/02/17 at 09:00; Stop 11/15/17 at 15:45; Status DC Latanoprost (Xalatan) 1 drop QHS OU Last administered on 11/14/17at 20:46; Start 11/02/17 at 21:00; Stop 11/15/17 at 15:45; Status DC Insulin Glargine (Lantus) 65 units BID SQ Last administered on 11/15/17at 08:14; Start 11/02/17 at 09:00; Stop 11/15/17 at 15:45; Status DC Enoxaparin Sodium (Lovenox 40mg Syringe) 40 mg Q12H SQ Last administered on 11/15at 08:12; Start 11/02/17 at 07:00; Stop 11/15/17 at 15:45; Status DC Levothyroxine Sodium (Synthroid) 200 mcg QM-F@0900 PO Last administered on 11/08at 08:22; Start 11/04/17 at 09:00; Stop 11/09/17 at 00:18; Status DC Levothyroxine Sodium (Synthroid) 200 mcg QSU@0900 PO Last administered on at 10:41; Start 11/03/17 at 09:00; Stop 11/09/17 at 00:18; Status DC Levothyroxine Sodium (Synthroid) 300 mcg QSA@0900 PO Last administered on at 11:24; Start 11/02/17 at 09:00; Stop 11/09/17 at 00:18; Status DC Doxycycline Hyclate (Vibra-Tab) 100 mg BID PO Last administered on 11/11/17at 10 :05; Start 11/03/17 at 21:00; Stop 11/11/17 at 16:50; Status DC Metformin HCl (Glucophage Xr) 500 mg DAILYWBKFT PO Last administered on at 10:05; Start 11/04/17 at 08:00; Stop 11/11/17 at 16:50; Status DC Lactobacillus Rhamnosus (Culturelle) 1 cap BID PO Last administered on at 08:11; Start 11/03/17 at 21:00; Stop 11/15/17 at 15:45; Status DC Magnesium Oxide (Magnesium Oxide) 400 mg BID PO Last administered on 11/15/17at 08:10; Start 11/03/17 at 21:00; Stop 11/15/17 at 15:45; Status DC Divalproex Sodium (Depakote) 1,000 mg BID PO Last administered on 11/15/17at 08: 12; Start 11/03/17 at 21:00; Stop 11/15/17 at 15:45; Status DC Divalproex Sodium (Depakote) 250 mg 1X ONCE PO Last administered on 11/03/17at 20:30; Start 11/03/17 at 20:30; Stop 11/03/17 at 20:41; Status DC Nystatin (Mycostatin) 1 renetta BID TP Last administered on 11/10/17at 19:54; Start 11/04/17 at 21:00; Stop 11/11/17 at 10:32; Status DC Trazodone HCl (Desyrel) 50 mg HS PO Last administered on 11/14/17at 20:46; Start 11/05/17 at 21:00; Stop 11/15/17 at 15:45; Status DC Trazodone HCl (Desyrel) 50 mg PRN QHS PRN PO INSOMNIA; Start 11/05/17 at 19:15 ; Stop 11/15/17 at 15:45; Status DC Vitamin D (Vitamin D3) 50,000 unit WEEKLY PO Last administered on 11/14/17at 09: 23; Start 11/07/17 at 09:00; Stop 11/15/17 at 15:45; Status DC Aripiprazole (Abilify) 20 mg DAILY PO Last administered on 11/15/17at 08:11; Start 11/07/17 at 09:00; Stop 11/15/17 at 15:45; Status DC Insulin Human Lispro (HumaLOG) 35 units TIDAC SQ Last administered on 11/15/17at 12:41; Start 11/07/17 at 16:30; Stop 11/15/17 at 15:45; Status DC Nystatin (Nystop) 15 renetta STK-MED ONCE TP Last administered on 11/08/17at 22:15; Start 11/08/17 at 22:15; Stop 11/08/17 at 22:16; Status DC Levothyroxine Sodium (Synthroid) 300 mcg QSA PO Last administered on 11/09/17at 16:58; Start 11/09/17 at 07:00; Stop 11/15/17 at 15:45; Status DC Levothyroxine Sodium (Synthroid) 200 mcg QSU PO Last administered on 11/09/17at 07:00; Start 11/09/17 at 07:00; Stop 11/10/17 at 05:41; Status DC Levothyroxine Sodium (Synthroid) 200 mcg QM-F PO Last administered on at 07:00; Start 11/09/17 at 07:00; Stop 11/10/17 at 05:41; Status DC Insulin Glargine (Lantus) 30 units 1X ONCE SQ Last administered on 11/09/17at 22:01; Start 11/09/17 at 20:00; Stop 11/09/17 at 20:01; Status DC Levothyroxine Sodium (Synthroid) 200 mcg DAILYAC PO Last administered on at 08:11; Start 11/10/17 at 07:00; Stop 11/15/17 at 15:45; Status DC Nystatin (Nystop) 1 renetta BID TP Last administered on 11/15/17at 08:18; Start 11/11 at 11:00; Stop 11/15/17 at 15:45; Status DC Artificial Tears (Artificial Tears) 1 drop PRN Q1HR PRN OU DRY EYE; Start 11/13 at 10:15; Stop 11/15/17 at 15:45; Status DC Active Scripts Active Reported Analgesic [place] (Methyl Salicylate/Menthol) 28 Gm Oint...g. 1 Renetta TP PRN QID PRN Trazodone Hcl 50 Mg Tablet 50 Mg PO PRN QHS PRN Trazodone Hcl 50 Mg Tablet 50 Mg PO HS Artificial Tears (Polyvinyl Alcohol) 15 Ml Drops 1 Drop OU PRN Q1HR PRN Nystop (Nystatin) 60 Gm Powder 1 Renetta TP BID Magnesium Oxide 400 Mg Tablet 400 Mg PO BID Milk Of Magnesia (Magnesium Hydroxide) 2,400 Mg/10 Ml Oral.susp 2,400 Mg PO PRN QHS PRN Advanced Antacid Liquid (Mag Hydrox/Al Hydrox/Simeth) 355 Ml Oral.susp 15 Ml PO PRN AFTMEALHC PRN Culturelle (Lactobacillus Rhamnosus Gg) 1 Each Capsule 1 Cap PO BID Lovenox (Enoxaparin Sodium) 40 Mg/0.4 Ml Disp.syrin 40 Mg SQ Q12HR Citalopram Hbr (Citalopram Hydrobromide) 20 Mg Tablet 20 Mg PO DAILY Acetaminophen 325 Mg Tablet 650 Mg PO PRN Q6HRS PRN Abilify (Aripiprazole) 20 Mg Tablet 20 Mg PO DAILY Divalproex Sodium Er (Divalproex Sodium) 500 Mg Tab.er.24h 1,000 Mg PO BID D3-50 (Cholecalciferol (Vitamin D3)) 50,000 Unit Capsule 50,000 Unit PO WEEKLY Melatonin 3 Mg Tablet 6 Mg PO HS Antler 5-325 Tablet (Hydrocodone Bit/Acetaminophen) 1 Each Tablet 1 Tab PO PRN DAILY PRN Imodium A-D (Loperamide HCl) 2 Mg Capsule 2 Mg PO PRN DAILY PRN Ibuprofen 100 Mg/5 Ml Oral.susp 200 Mg PO PRN Q8HRS PRN Glucagon Emergency Kit (Glucagon,Human Recombinant) 1 Mg Kit 1 Mg IJ Q15 MINUTES PRN Cyclobenzaprine Hcl 10 Mg Tablet 10 Mg PO PRN Q8HRS PRN Trolamine Salicylate 85 Gm Cream..g. 85 Gm TP PRN Q4HRS PRN Levothyroxine Sodium 300 Mcg Tablet 300 Mcg PO QSA Levothyroxine Sodium 200 Mcg Tablet 200 Mcg PO DAILYAC [place] 3 1,000 Mg Softgel ([place]-3 Fatty Acids/Fish Oil) 1 Each Capsule 2 Each PO DAILY Atorvastatin Calcium 80 Mg Tablet 80 Mg PO QHS Antler 5-325 Tablet (Hydrocodone Bit/Acetaminophen) 1 Each Tablet 1 Tab PO [id number] PRN Sinemet 25-100 Mg Tablet (Carbidopa/Levodopa) 1 Each Tablet 1 Each PO [id number] Gabapentin 100 Mg Capsule 100 Mg PO TID Travatan Z (Travoprost) 5 Ml Drops 1 Drop OU QHS Senna (Sennosides) 8.6 Mg Tablet 2 Tab PO DAILY Klor-Con M20 (Potassium Chloride) 20 Meq Tab.er.prt 20 Meq PO DAILY Multiple Vitamin (Multivitamin With Minerals) 1 Each Tablet 1 Each PO DAILY Novolog (Insulin Aspart) 100 Unit/1 Ml Cartridge 35 Unit SQ TIDAC Tresiba Flextouch U-100 (Insulin Degludec) 100 Unit/1 Ml Insuln.pen 65 Unit SQ BID Penlac (Ciclopirox) 6.6 Ml Solution 1 Applic TP WEEKLYHS PRN Aspercreme (Trolamine Salicylate) 177.4 Ml Lotion 1 Renetta TP HS I have reviewed the current psychotropics carefully including drug interactions. Risk benefit ratio favors no change other than as noted in my dictated progress note. Diagnosis: Problems: (1) Bipolar affective, mixed, sev w/ psych (2) Impulse control disorder (3) Anxiety disorder CHINO JOHNS MD Nov 15, 2017 19:04
--- NOTE | 2017-11-19 06:19 | PN ---
DATE: 11/14/2017 PSYCHIATRIC PROGRESS NOTE This late entry 11/14/2017 covers elements not covered in my initial note of 11/14/2017. SUBJECTIVE: I met with the patient in the evening and staffed at a treatment team meeting with the entire team in the morning. I dictated this note on the date of service, but is not available in the electronic record, so I am redictating. The patient slept 7 hours previous evening. She has not been aggressive, somewhat demanding in the morning, refused to have her medications, took it later. She needs to be turned every 2 hours and her wound gets wet every 1 hour. Also, nursing staff are addressing this. REVIEW OF SYSTEMS: Ambulation impaired, in Broda chair. No CV, , pulmonary, eye, ENT system symptoms on review. MENTAL STATUS EXAM: Reasonably oriented to herself, situation and place, able to do one step and serial 7's. Speech coherent, abstraction fair, computation impaired, language function intact. Mood is improved. Affect is mood congruent. No clear psychotic symptoms, suicidal, or homicidal ideation. LABORATORY DATA: Reviewed. IMPRESSION: Schizoaffective disorder, bipolar type, mixed, in partial remission. PLAN: Continue psychotropics mentioned in my initial note. CHINO JOHNS MD DR: GLENN/cory JOB#: [id number] / [id number]
== END 2017-11-15 15:44 | disposition home or self-care (01) | DRG 885 ==
LOC: ER 14:29 → GEROPSY 19:14
PROVIDERS: ADMIT Psychiatry & Neurology Psychiatry; ATTEND Psychiatry & Neurology Psychiatry
DX: F25.0 Schizoaffective disorder, bipolar type (principal); G20 Parkinson's disease; E11.65 Type 2 diabetes mellitus with hyperglycemia; I69.354 Hemiplegia and hemiparesis following cerebral infarction affecting left non-dominant side; N39.0 Urinary tract infection, site not specified; E89.0 Postprocedural hypothyroidism; F17.210 Nicotine dependence, cigarettes, uncomplicated; F43.10 Post-traumatic stress disorder, unspecified; F63.9 Impulse disorder, unspecified; G89.4 Chronic pain syndrome; N28.9 Disorder of kidney and ureter, unspecified; M21.379 Foot drop, unspecified foot; J44.9 Chronic obstructive pulmonary disease, unspecified; H40.9 Unspecified glaucoma; R13.10 Dysphagia, unspecified; Z91.19 Patient's noncompliance with other medical treatment and regimen; Z88.0 Allergy status to penicillin
CPT/HCPCS: 36415; 80053; 80061; 80164; 80307; 81001; 82306; 82607; 82947; 83036; 83540; 83550; 83735; 84436; 84443; 84480; 85025; 86593; 87086; 87186; 93005; 96360; 96361; 99407; G0480; J1650; J1815; 99285-25; G0479; J7030